=== PATIENT | female | born 1950 | race Caucasian/White ===

== ENCOUNTER 2025-01-20 20:56 | Emergency (ER) | payer MEDICARE, SELFPAY ==
--- OUTSIDE RECORDS SUMMARY | 2020-12-14 09:01 | XMS_ITS | Continuity of Care Document ---
Author Organization [facility] Address [address] [address] [place] [address] Phone Care Team Providers Care Lace And Textiles Restorer Name Role Phone Franchesca Schaffer CRNA Unavailable Unavailable Allergies, Adverse Reactions, Alerts Substance Reaction Status Criticality Sulfa (Sulfonamide Antibiotics) rash Active No Information Medications Medication Instructions Dosage Effective Dates (start - stop) Status Comments Pepcid AC 10 mg tablet take 1 tablet by oral route every day as needed 10 MG - Active metoprolol succinate ER 50 mg tablet,extended release 24 hr take 1 tablet by oral route every day 50 MG - Active bupropion HCl 75 mg tablet take 1 tablet by oral route every day 75 MG - Active Fish Oil 1,200 mg-144 mg-216 mg Cap Take one tablet by mouth daily - Active Maxzide-25mg 37.5 mg-25 mg tablet take 1 tablet by oral route every day - No Longer Active Procedures Procedure Date Colonoscopy Flex; W/remov Les- Colonoscopy Flex; W/bx 1/mx Level Iv-surg Path Gross/micro 21 Colonoscopy Flex; W/bx 1/mx Level Iv-surg Path Gross/micro 16 Colonoscopy Flex; Dx (sep Pro) 10 Advance Directives Directive Yes / No Effective Date File Name No Information Encounters Encounter Description Practice Location Reason(s) For Visit Diagnoses Date Provider Providers Copied on Encounter [facility], [address] [address], [facility] [place], [id number], [place] tel:[phone] [facility] No Information 1 Sarbjit Sorensen. [address] [facility], [address] [address], [place], [place], [id number], [place]. tel:[phone] Referring Provider: Rishi Arnold, [address] [facility] [address], [place], [address] . tel:[phone] [facility], [address] [address], [facility] [place], [id number], [place] tel:[phone] [facility] Colorectal polypsEncount er for screening for malignant neoplasm of colonPersonal history of colonic polypsBenign neoplasm of descending colonBenign neoplasm of descending colon 1 Michele Blackwell. [address] [facility], [address], [id number], [place]. tel:[phone] Referring Provider: Referral Self, USE FOR SELF REFERRALS. [facility], [address] [address], [facility] [place], [address], [place] tel:[phone] [facility] No Information 1 Cristina Bustos. [address] [facility], [address], [id number], [place]. tel:[phone] [facility], [address] [address], [place], [address], [place] tel:[phone] [facility] Colon polypEncounte r for screening for malignant neoplasm of colonBenign neoplasm of descending colon Apr- 6 Michele Blackwell. [address] [facility], [facility] [address], [place], [id number], [place]. tel:[phone] Referring Provider: Kim Sommer, [address], [place], [address]. tel:[phone] [facility], [address] [address], [place], [id number], [place] tel:[phone] Elana [facility] Diverticulosi s Of ColonColon Cancer ScreeningDive rticulosis Of Colon 0 Michele Blackwell. [address] [facility], [address], [place], [place], [address], [place]. tel:[phone] Referring Provider: Kim Sommer, [address], [place], [address]. tel:[phone] [facility], [address] [address], [place], [id number], [place] tel:[phone] [facility] No Information 0 No Information Referring Provider: Kim Sommer, [address], [place], [address]. tel:[phone] Family History Family Member Type Diagnosis Age At Onset Mother Problem (finding) diverticulitis of colon Son Problem (finding) Alive and well Father Problem (finding) Mother Problem (finding) cancer of colon Sister Problem (finding) Thyroid disorder Brother Problem (finding) Alive and well Mother Problem (finding) Immunizations Vaccine Date Status Comments SARS-COV-2 (COVID-19) vaccin e, vector non-replicating, recombinant spike protein-Ad26, preservative free, 0.5 mL administered Note: [facility] bi- directional interface ; Source: Other Registry Pneumovax administered Note: [facility] bi-d irectional interface ; Source: Other Registry Prevnar administered Note: [facility] bi-d irectional interface ; Source: Other Registry influenza, high dose seasona l, preservative-free administered Note: [facility] bi-direct ional interface ; Source: Other Registry influenza, high dose seasona l, preservative-free administered Note: [facility] bi-direct ional interface ; Source: Other Registry influenza, high dose seasona l, preservative-free administered Note: [facility] bi-direct ional interface ; Source: Other Registry Afluria Qd administered Note: [facility] bi-directional interface ; Source: Other Registry Afluria Qd administered Note: [facility] bi-directional interface ; Source: Other Registry Influenza administered Note: [facility] bi-d irectional interface ; Source: Other Registry zoster vaccine, live administered Note: [facility] bi-directional interface ; Source: Other Registry Influenza, seasonal, injectable administe red Note: [facility] bi- directional interface ; Source: Other Registry tetanus toxoid, reduced diphtheria toxoid, and acellular pertussis vaccine, adsorbed administered Note: [facility] b i-directional interface ; Source: Other Registry tetanus and diphtheria toxoi ds, adsorbed, preservative free, for adult use (2 Lf of tetanus toxoid and 2 Lf of diphtheria toxoid) administered Note: [facility] bi-direct ional interface ; Source: Other Registry tetanus and diphtheria toxoi ds, adsorbed, preservative free, for adult use (2 Lf of tetanus toxoid and 2 Lf of diphtheria toxoid) administered Note: [facility] bi-direct ional interface ; Source: Other Registry Payers Payer name Insurance type Covered alliance party ID Authoriza tiwilver(s) [employer] [id number] Social History Type Description Quantity Date Captured Comments Sex Female Smoking Status No Information Chief Complaint And Reason For Visit No Information Reason For Referral Reason For Referral No Information History Of Present Illness Encounter Date Complaint History Of Prese nt Illness No Information Functional Status Date Functional Assessmen t No Information Instructions Date Instruction Additional Infor leeion Colon Cancer Prevention Related to Colon polyp Colon Polyps Related to Colon polyp Assessments Type Assessment Date No Information Patient Care Teams Name Effective Dates (start - stop) Status Members No Information
--- OUTSIDE RECORDS SUMMARY | 2020-12-14 09:01 | XMS_ITS | Continuity of Care Document ---
Author Organization [facility] Address [address] [address] [place] [address] Phone Care Team Providers Care Sewage Plant Supervisor Name Role Phone Franchesca Schaffer CRNA Unavailable [...] Diagnoses Date Provider Providers Copied on Encounter [facility], [address] [address], [facility] [place], [id number], [place] tel:[phone] [facility] No Information 1 Sarbjit Sorensen. [address] [facility], [address] [address], [place], [place], [id number], [place]. tel:[phone] Referring Provider: Rishi Arnold, [address] [facility] [address], [place], [address] . tel:[phone] [facility], [address] [address], [facility] [place], [address], [place] tel:[phone] [facility] Colorectal polypsEncount er for screening for malignant neoplasm of colonPersonal history of colonic polypsBenign neoplasm of descending colonBenign neoplasm of descending colon 1 Michele Blackwell. [address] [facility], [address], [id number], [place]. tel:[phone] Referring Provider: Referral Self, USE FOR SELF REFERRALS. [facility], [address] [address], [facility] [place], [address], [place] tel:[phone] [facility] No Information 1 Cristina Bustos. [address] [facility], [address], [id number], [place]. tel:[phone] [facility], [address] [address], [place], [id number], [place] tel:[phone] [facility] Colon polypEncounte r for screening for malignant neoplasm of colonBenign neoplasm of descending colon Apr- 6 Michele Blackwell. [address] [facility], [facility] [address], [place], [id number], [place]. tel:[phone] Referring Provider: Kim Sommer, [address], [place], [address]. tel:[phone] [facility], [address] [address], [place], [id number], [place] tel:[phone] Elana [facility] Diverticulosi s Of ColonColon Cancer ScreeningDive rticulosis Of Colon 0 Michele Blackwell. [address] [facility], [address], [place], [place], [id number], [place]. tel:[phone] Referring Provider: Kim Sommer, [address], [place], [address]. tel:[phone] [facility], [address] [address], [place], [id number], [place] tel:[phone] [facility] No Information 0 No Information Referring Provider: Kim Sommer, [address], [place], [address]. tel:[phone] Family History Family Member Type Diagnosis Age [...] type Covered alliance party ID Authoriza tiwilver(s) [employer] [id number] Social History Type Description Quantity Date Captured [...]
--- OUTSIDE RECORDS SUMMARY | 2024-12-06 11:30 | XMS_ITS | Encounter Summary ---
[facility] Address [address], [place] [address] Care Team Providers Care Agricultural Equipment Design Engineer Name Role Phone Jane Monahan MD Primary Care Provider [phone] Reason for Visit * Reason Comments ITCHING, VULVA Encounter Details Date Type Department Care Team (Late st Contact Info) Description 12/06/2024 11:30 AM CDT Office Visit [facility] [address] [place] [address] [place] [address] [place] [address] Vulvar irritation (Primary Dx); Dysuria; Elevated blood pressure reading Social History Tobacco Use Types Packs/Day Years Used Date Smoking Tobacco: Former Cigarettes 0.5 5 0 12/06/1974 - 1979 Passive Smoke Exposure: Never Smokeless Tobacco: Never Comments:quit 1979 Alcohol Use Standard Drinks/Week Comments Not Currently 0 (1 standard drink = 0.6 oz pur e alcohol) PHQ-2 Answer Date Recorded PHQ-2 Score 1 09/30/2024 Comments No Sex and Gender Information Value Date Recorded Sex Assigned at Not on file Legal Sex Female 4:39 AM CDT Gender Identity Not on file Sexual Orientation Not on file documented as of this encounter Last Filed Vital Signs Vital Sign Reading Time Taken Comments Blood Pressure 158/78 12/06/2024 11:23 AM CDT Pulse 61 12/06/2024 11:23 AM CDT Temperature - - Respiratory Rate - - Oxygen Saturation - - Inhaled Oxygen Concentration - - Weight - - Height - - Body Mass Index - - documented in this encounter Progress Notes * Jane Monahan MD - 12/06/2024 11:30 AM CDT Chief Complaint Patient presents with ITCHING, VULVA 74 yo F here for: How long have you had these symptoms? 1 month(s) What symptoms are you experiencing? Itching Are you experiencing any fevers? No Are you experiencing any abdominal pain/bloating? No Are you experiencing any painful/frequent urination? No Are you using any over the counter products to treat your symptoms? YES What products have you tried? Vagasil Did the treatment help your symptoms? Helped - but it comes back after about 2-3 days Have you had similar symptoms? No Are you currently using contraception? YES None Any use of antibiotics in the last month? No Uses a carmen butter topical cleanser at times-rarely,about once a week. . Uses vagisil topically for symptoms of itching-helps for a short time. No vaginal discharge, States that her pelvic pressure/pain resolved since her visit last month. No changes in liners, underwear. Will ventilate overnight without improvement. Denies fevers, chills, tactile fevers, SOB, chest pain/pressure/tightness, wheezing, nausea, vomiting, abdominal pain, lightheadedness/dizziness/passing out. She has R hip pain, unchanged from baseline. No other new sx's. She is scheduled to have hip surgery in about 3 weeks-suspect that hip joint may be infected per patient. Doesn't check her BP's at home-due to upcoming surgeries patient does feel some stress overall. Prior recent BP's elevated at OV's. I have personally reviewed the patient's allergies, medications, and past medical history in detailand updated the patient record as necessary. May have some burning with urination at times. Denies SOB, chest pain/tightness/pressure, lightheadedness, PND, LE edema b/l, fevers, chills, tactile fevers, nausea, vomiting, abdominal/flank pain, hematuria, increased urinary urgency/frequency. Observed: BP (!) 158/78 (BP Location: Left Arm, BP Cuff Size: Large) Pulse 61 LMP 09/11/2004 Physical Exam: General Appearance: alert, well appearing, and in no apparent distress Pelvic: EGBUS showing atrophic changes, + erythema, with scattered excoritations along labia majora, L>R side, no drainage/discharge/skin breakdown/TTP/warmth/edema/fluctuance/induration. Assessment/Plan: 1. Vulvar irritation 2. Dysuria 3. Elevated blood pressure reading Could be irritant component, advised d/c vagisil, can try clobetasol ointment per Epic, SERD. F/u vaginitis panel. F/u UA/UCx. RTC PRN sx's persist/worsen/new sx's develop. Check home BP's 2-3 times a week for 2-3 weeks and send BP's to us. Please see orders and patient instructions Jane Monahan MD documented in this encounter Plan of Treatment Not on file documented as of this encounter Procedures Procedure Name Priority Date/Time Associated Diagnosis Comments VAGINITIS PANEL Routine 12/06/2024 1:21 PM CDT Vulvar irritation documented in this encounter Results * Vaginitis Panel (12/06/2024 1:21 PM CDT) Bacterial Vaginosis Negative Negative 12/07/2024 12:55 AM CDT [facility] Purnima species Negative Negative 12:55 AM CDT [facility] Purnima glabrata Negative Negative 12/07/2024 12:55 AM CDT [facility] Trichomonas vaginalis Negative Negative 12/07/2024 12:55 AM CDT [facility] Swab STD SPECIMEN FROM VAGINA / Unknown Non-blood Collection / Unknown 12/06/2024 1:21 PM CDT 12/06/2024 1:35 PM CDT [facility] - 12/07/2024 12:55 AM CDT Test performed by Building Engineer Mediated Amplification (TMA). us Jane Monahan MD LAB_1 Final Result [facility] CLIA: [id number] [address] [place] [address] * (ABNORMAL) Urine Culture (12/06/2024 12:10 PM CDT) Pathologist [facility] Urine Culture Growth(A) 12/07/2024 1:15 PM CDT [facility] Urine Culture 10,000 - 50,000 CFU/mL Mixed Bacterial Growth 12/07/2024 1:15 PM CDT [facility] Comment:Mixed Bacterial Grow th indicates the specimen is likely contaminated at collection with urogenital and/or fecal stacia. Urine URINE SPECIMEN COLLECTION, CLEAN CATCH / Unknown Non-blood Collection / Unknown 12/06/2024 12:10 PM CDT 12/06/2024 12:10 PM CDT Jane Monahan MD LAB_1 Final Result Performing Organization Address City/[facility] Co de Phone Number [facility] CLIA: [id number] [address] [place] [address] * (ABNORMAL) Urinalysis Routine, Micro/Culture if Pos: Clean Catch (12/06/2024 12:09 PM CDT) [facility] Urine Microscopic Evaluation Reflex Order Comment Urinalysis results meet criteria for reflex, urine microscopic evaluation performed. 12/06/2024 12:21 PM CDT [facility] Color Yellow 12/06/2024 12:21 PM CDT [facility] Clarity Clear Clear 12/06/2024 12:21 PM CDT [facility] Specific Maud 1.025 1.005 - 1.030 12/06/2024 12:21 PM CDT [facility] pH 6.0 5.0 - 8.0 12/06/2024 12:21 PM CDT [facility] Protein Negative Neg/Trace mg/dL 12/06/2024 12:21 PM CDT [facility] Glucose Negative Negative mg/dL 12/06/2024 12:21 PM CDT [facility] Ketones Negative Negative mg/dL 12/06/2024 12:21 PM CDT [facility] Urobilinogen 0.2 <2.0 EU/dL 12/06/2024 12:21 PM CDT [facility] Bilirubin Negative Negative 12/06/2024 12:21 PM CDT [facility] Blood Negative Neg/Trace 12/06/2024 12:21 PM CDT [facility] Nitrite Negative Negative 12/06/2024 12:21 PM CDT [facility] Leukocyte Esterase Small(A) Negative 12/06/2024 12:21 PM CDT [facility] Source Clean Catch 12/06/2024 12:21 PM CDT [facility] Urine URINE SPECIMEN COLLECTION, CLEAN CATCH / Unknown Non-blood Collection / Unknown 12/06/2024 12:09 PM CDT 12/06/2024 12:09 PM CDT us Jane Monahan MD LAB_1 Final Result [facility] CLIA: [id number] [address] [place] [address] documented in this encounter Visit Diagnoses Diagnosis Vulvar irritation- Primary Other specified noninflammatory disorder of vulva and perineum Dysuria Elevated blood pressure reading Elevated blood pressure reading without diagnosis of hypertension documented in this encounter Care Teams Agricultural Equipment Design Engineer Relationship Specialty [place] [address] [place] [address] PCP - General Family Practice 08/19/20 documented as of this encounter
--- OUTSIDE RECORDS SUMMARY | 2024-12-06 12:00 | XMS_ITS | Encounter Summary ---
Author Organization [facility] Address [address] [place] [address] Care Team Providers Care Railway Signal Electrician Name Role Phone Jane Monahan MD Primary Care Provider [phone] Encounter Details Date Type Department Care Team (Late st Contact Info) Description 12/06/2024 12:00 PM CDT Lab Visit Laboratory at [address] [address] Other iron deficiency anemia; Vulvar irritation; Dysuria Social History Tobacco Use Types Packs/Day Years [...] on file documented as of this encounter Plan of Treatment Not on file documented as of this encounter Procedures Procedure Name Priority Date/Time Associated Diagnosis Comments URINE CULTURE Routine 12/06/2024 12:10 PM CDT Vulvar irritation Dysuria URINALYSIS ROUTINE, MICRO/CULTURE IF POS Routine 12/06/2024 12:09 PM CDT Vulvar irritation Dysuria UA MICRO Routine 12/06/2024 12:09 PM CDT Vulvar irritation Dysuria COMPLETE BLOOD COUNT-NO DIFF Routine 12/06/2024 12:03 PM CDT Other iron deficiency anemia FERRITIN Routine 12/06/2024 12:03 PM CDT Other iron deficiency anemia IRON PROFILE (IRON,TIBC,%SAT.(WILLA C)) Routine 12/06/2024 12:03 PM CDT Other iron deficiency anemia documented in this encounter Results * (ABNORMAL) Urine Culture (12/06/2024 12:10 PM CDT) Urine Culture Growth(A) 12/07/2024 1:15 PM CDT [facility] Urine Culture 10,000 - 50,000 CFU/mL Mixed Bacterial Growth 12/07/2024 1:15 PM T [facility] Comment:Mixed Bacterial Grow th indicates the specimen is likely contaminated at collection with urogenital and/or fecal stacia. Urine URINE SPECIMEN COLLECTION, CLEAN CATCH / Unknown Non-blood Collection / Unknown 12/06/2024 12:10 PM CDT 12/06/2024 12:10 PM CDT us Jane Monahan MD LAB_1 Final Result [facility] CLIA: [id number] [address] [place] [address] * (ABNORMAL) Urine Microscopic Evaluation: Clean Catch (12/06/2024 12:09 PM CDT) Urine Culture Comment Urinalysis results do not meet criteria for urine culture reflex. 12/06/2024 12:21 PM CDT [facility] Red Blood Cells 0-3 0 - 3 /HPF 12/06/2024 12:21 PM CDT [facility] White Blood Cells 6-9(A) 0 - 5 /HPF 12/06/2024 12:21 PM CDT [facility] Bacteria Moderate(A) None Seen /HPF 12/06/2024 12:21 PM [facility] Squamous Epithelial Cells Moderate(A) None Seen, Occasion al, Few /HPF 12/06/2024 12:21 PM [facility] Transitional Epithelial Cells Occasional(A) None Seen /HPF 12/06/2024 12:21 PM [facility] Urine URINE SPECIMEN COLLECTION, CLEAN CATCH / Unknown Non-blood Collection / Unknown 12/06/2024 12:09 PM CDT 12/06/2024 12:09 PM CDT us Jane Monahan MD LAB_1 Final Result [facility] CLIA: [id number] [place] [address] * (ABNORMAL) Urinalysis Routine, Micro/Culture if Pos: Clean Catch (12/06/2024 12:09 PM CDT) Urine Microscopic Evaluation Reflex Order Comment Urinalysis results meet criteria for reflex, urine microscopic evaluation performed. 12/06/2024 12:21 PM [facility] Color Yellow 12/06/2024 12:21 PM [facility] Clarity Clear Clear 12/06/2024 12:21 PM [facility] Specific [place] 1.025 1.005 - 1.030 12/06/2024 12:21 PM [facility] pH 6.0 5.0 - 8.0 12/06/2024 12:21 PM [facility] Protein Negative Neg/Trace mg/dL 12/06/2024 12:21 PM [facility] Glucose Negative Negative mg/dL 12/06/2024 12:21 PM [facility] Ketones Negative Negative mg/dL 12/06/2024 12:21 PM [facility] Urobilinogen 0.2 <2.0 EU/dL 12/06/2024 12:21 PM [facility] Bilirubin Negative Negative 12/06/2024 12:21 PM [facility] Blood Negative Neg/Trace 12/06/2024 12:21 PM [facility] Nitrite Negative Negative 12/06/2024 12:21 PM [facility] Leukocyte Esterase Small(A) Negative 12/06/2024 12:21 PM CDT [facility] Source Clean Catch 12/06/2024 12:21 PM CDT [facility] Urine URINE SPECIMEN COLLECTION, CLEAN CATCH / Unknown Non-blood Collection / Unknown 12/06/2024 12:09 PM CDT 12/06/2024 12:09 PM CDT Jane Monahan MD LAB_1 Final Result [facility] CLIA: [id number] [address] [place] [phone] * Ferritin (12/06/2024 12:03 PM CDT) Ferritin 155 9 - 204 ng/mL 12/06/2024 4:42 PM T [facility] Blood Venipuncture / Unknown 12/06/2024 12:03 PM CDT 12/06/2024 12:03 PM CDT Jane Monahan MD LAB_1 Final Result Performing Organization Address City/[facility]/ZIP Co de Phone Number [facility] CLIA: [id number] [address] [place] [address] * (ABNORMAL) Iron Profile (Iron,TIBC,%Sat.(Calc)) (12/06/2024 12:03 PM CDT) Iron 46(L) 50 - 170 mcg/dL 12/06/2024 4:42 PM CDT [facility] Transferrin 243 180 - 382 mg/dL 12/06/2024 4:42 PM CDT [facility] TIBC, Calculated 304 240 - 450 mcg/dL 12/06/2024 4:42 PM T [facility] % Saturation, Calculated 15 10 - 50 % 12/06/2024 4:42 PM T [facility] TIBC Interpretation Low iron, normal TIBC, possible iron deficiency. 12/06/2024 4:42 PM CDT [facility] Blood Venipuncture / Unknown 12/06/2024 12:03 PM CDT 12/06/2024 12:03 PM CDT Jane Monahan MD LAB_1 Final Result Performing Organization Address City/[facility]/ZIP Co de Phone Number [facility] CLIA: [id number] [address] * Complete Blood Count-No Diff (12/06/2024 12:03 PM CDT) Pathologist [facility] WBC 7.8 3.5 - 10.5 x10(9)/L 12/06/2024 12:58 PM CDT [facility] RBC 4.54 3.90 - 5.03 x10(12)/L 12/06/2024 12:58 PM T [facility] Hemoglobin 13.3 12.0 - 15.5 g/dL 12/06/2024 12:58 PM CDT [facility] HCT 42.0 34.9 - 44.5 % 12/06/2024 12:58 PM T [facility] MCV 92.5 80.0 - 100.0 fL 12/06/2024 12:58 PM T [facility] MCH 29.3 27.6 - 33.3 pg 12/06/2024 12:58 PM [facility] MCHC 31.7 31.5 - 35.2 g/dL 12/06/2024 12:58 PM T [facility] RDW 13.7 11.9 - 15.5 % 12/06/2024 12:58 PM T [facility] Platelets 310 150 - 450 x10(9)/L 12/06/2024 12:58 PM T [facility] Blood Venipuncture / Unknown 12/06/2024 12:03 PM CDT 12/06/2024 12:03 PM CDT us Jane Monahan MD LAB_1 Final Result [facility] CLIA: [id number] [id number] documented in this encounter Visit Diagnoses Diagnosis Other iron deficiency anemia Vulvar irritation Other specified noninflammatory disorder of vulva and perineum Dysuria documented in this encounter Care Teams Railway Signal Electrician Relationship Specialty [place] [address] [place], [place] [phone] PCP - General Family Practice 08/19/20 documented as of this encounter
--- OUTSIDE RECORDS SUMMARY | 2024-12-26 09:05 | XMS_ITS | Encounter Summary ---
Author Organization [facility] Address [address] [place] [address] Care Team Providers Care Family Living Educator Name Role Phone Elsewhere, Pcp Primary Care Provider Unavailabl e Reason for Referral * Outpatient (Routine) - Closed Specialty Diagnoses / Procedures Referred By Contac t Referred To Contact Diagnoses Preoperative Exam Procedures DX Hip And Pelvis Right 2-3 Views Kesha Todd APRN, C.N.P. [address] [place] [phone] Phone: tel: fax: [facility] Referral ID Status Reason Start Date Expiration Date Visits Re quested Visits Authorized [id number] Closed 11/25/2024 02/25/2026 1 1 Reason for Visit * Outpatient (Routine) - Closed Specialty Diagnoses / Procedures Referred By Contac t Referred To Contact Diagnoses Preoperative Exam Procedures DX Hip And Pelvis Right 2-3 Views Kesha Todd APRN, C.N.P. [address] [place] [address] Phone: tel: fax: [facility] Referral ID Status Reason Start Date Expiration Date Visits Re quested Visits Authorized [id number] Closed 11/25/2024 02/25/2026 1 1 Encounter Details Date Type Department Care Team (Latest Contact Info) Description 12/26/2024 9:05 AM CDT - 12/26/2024 11:59 PM CDT Hospital Encounter Department of Radiology, [facility], in [place], [place] [address] [place] [address] Kesha Todd, THERAPIST, C.N.P. [address] [place] [address] Preoperative Exam Discharge Disposition: Home or Self Care Social History Tobacco Use Types Packs/Day Years Used Date Smoking Tobacco: Former Cigarettes 0 12/31/1974 - 1979 Passive Smoke Exposure: Past Smokeless Tobacco: Never Alcohol Use Standard Drinks/Week Comments Not Currently 0 (1 standard drink = 0.6 oz pur e alcohol) Occasionally a glass of wine [employer] Answer Date Recorded In the past 12 months has [employer], gas, oil, or water [employer] threatened to shut off services in your home? No 11/02/2024 Hunger Vital Sign Answer Date Recorded Within the past 12 months, y ou worried that your food would run out before you got the money to buy more. Never true 11/03/19 25 Within the past 12 months, t he food you bought just didn't last and you didn't have money to get more. Never true 11/02/2024 PRAPARE - Transportation Answer Date Re corded In the past 12 months, has l ack of transportation kept you from medical appointments or from getting medications? No 10/22 In the past 12 months, has l ack of transportation kept you from meetings, work, or from getting things needed for daily living? No 11/02/2024 Housing Stability Answer Date Recorded What is your living situation today? I have a [facility] place to live 11/02/2024 Comments Unknown Sex and Gender Information Value Date Recorded Sex Assigned at Female 11/02/2024 11:29 AM CDT Legal Sex Female 2:53 PM CDT Gender Identity Female 11/02/2024 11:29 AM CDT Sexual Orientation Straight 11/02/2024 11 :29 AM CDT documented as of this encounter Medications at Time of Discharge acetaminophen (TylenoL) 500 mg tablet Take 500-1,000 mg by mouth 3 (three) times a day. Takes no more than 3000 mg apap/day [address] tablet Take 1 tablet (81 mg total) by mouth 2 (two) times a day for 42 days. 120 tablet 5 02/18/20 25 buPROPion (Wellbutrin) 75 mg tablet Take 75 mg by mouth daily. 4 cefepime in dextrose, iso osm, (Maxipime) 2 gram/100 mL IVBPIndications:Bon e and/or joint infection Infuse 100 mL (2 g total) into a venous catheter every 12 (twelve) hours for 41 days Indications: Bone and/or joint infection. 5 02/17/20 25 celecoxib (CeleBREX) 200 mg capsule Take 1 capsule (200 mg total) by mouth daily for 14 days. 14 capsule 01/06/2025 3:17 PM CDT 5 cholecalciferol (Vitamin D3) 50 mcg (2,000 Unit) tablet Take 50 mcg by mouth daily. cranberry fruit (cranberry) 450 mg tablet Take 1 tablet by mouth at bedtime. famotidine (Pepcid) 20 mg tablet Take 20 mg by mouth every evening. fexofenadine ([place]) 60 mg tablet Take 30 mg by mouth daily. iron,carbonyl-vitam in C (Vitron-C) 65 mg iron- [address] tablet Take 1 tablet by mouth daily with morning meal. 4 melatonin 3 mg tablet Take 3 mg by mouth at bedtime. metoprolol tartrate (Lopressor) 25 mg tablet Take 25 mg by mouth 2 (two) times a day. 5 MULTIVITAMIN ORAL Take 1 tablet by mouth daily. omega 4-azl-fwn-fish oil (fish oil) 1,200 (144-216) mg capsule Take 1 capsule by mouth daily. rosuvastatin (Crestor) 5 mg tablet Take 5 mg by mouth at bedtime. 5 sodium chloride 0.9 % injection Infuse 10 mL into a venous catheter as needed for line care (Flush 10ml before and after each infusion and as needed for line care) for up to 41 days. 5 02/17/20 25 turmeric root extract 500 mg tablet Take 1 tablet by mouth daily. ibuprofen 200 mg tablet Take 200 mg by mouth daily. 01/03/20 25 ibuprofen-acetamino phen 125-250 mg tablet Take 1 tablet by mouth daily. 01/07/20 Lactobacillus rhamnosus GG (Culturelle) 10 billion cell capsule Take 1 capsule by mouth daily. 01/17/20 25 ondansetron ODT (Zofran-ODT) 4 mg disintegrating tablet Dissolve 1 tablet (4 mg total) in the mouth every 6 (six) hours as needed for nausea or vomiting. 12 tablet 01/06/2025 3:17 PM CDT 5 01/17/20 25 oxyCODONE (Roxicodone) 5 mg immediate release tabletIndications:A cute Pain Exception Take 1 tablet (5 mg total) by mouth every 4 (four) hours as needed for pain or severe pain or score 7-10 of 10 Indication: Acute Pain Exception. For pain after surgery 15 tablet 01/06/2025 3:17 PM CDT 5 01/17/20 25 pantoprazole (Protonix) 40 mg EC tablet Take 1 tablet (40 mg total) by mouth daily before morning meal for 42 days. 42 tablet 01/06/2025 3:17 PM CDT 5 01/17/20 25 sennosides-docusate sodium (Senokot-S) 8.6-50 mg per tablet Take 1 tablet by mouth 2 (two) times a day. To prevent constipation in the postoperative timeframe and/or while using opioid pain medications. Decrease or discontinue using if you develop loose stools. 30 tablet 5 01/17/20 25 documented as of this encounter Plan of Treatment Upcoming Encounters Date Type Department Care Team (Latest Contact Info) Description 01/21/2025 9:00 AM CDT Ancillary Procedure Department of Cardiovascular Medicine in [place], [place] [address] [place] [address] Sonu Levy Jr., M.D. [address] [place] [phone] 01/21/2025 11:40 AM CDT Lab Department of Infusion Therapy in [place], [place] [address] [place] [phone] Sonu Levy Jr., M.D. [address] [place] [phone] 01/21/2025 1:15 PM CDT Office Visit Department of Orthopedic Surgery in [place], [place] [address] [place] [phone] Aidan Self M.D. [address] [place] [phone] 01/21/2025 2:00 PM CDT Infusion Department of Infusion Therapy in [place], [place] [address] [place] [phone] Sonu Levy Jr., M.D. [address] [place] [phone] 02/11/2025 11:00 AM CDT Clinical Communication Virtual Review in [place], [place] 200 [place] [address] 02/14/2025 12:00 PM CDT Appointment Department of Laboratory Medicine and Pathology, [facility] in [place], [place] [address] [place] [phone] Kesha Todd APRN, C.N.P. [address] [place] [phone] 02/14/2025 12:30 PM CDT Office Visit Department of Orthopedic Surgery in [place], [place] [address] [place] [phone] Kesha Todd APRN, C.N.P. [address] [place] [phone] 02/14/2025 1:30 PM CDT Comprehensive Visit Section of Infectious Diseases in [place], [place] [address] [place] [phone] Kesha Todd APRN, C.N.P. [address] [place] [phone] 03/11/2025 3:00 PM STACKER Clinical Communication Virtual Review in [place], [place] [address] [place] [address] 03/18/2025 11:30 AM STACKER Appointment Department of Laboratory Medicine and Pathology, [facility] in [place], [place] [address] [place] [phone] Kesha Todd APRN, C.N.P. [address] [place] [phone] 03/18/2025 12:30 PM STACKER Office Visit Department of Orthopedic Surgery in [place], [place] [address] [place] [phone] Aidan Self M.D. [address] [place] [phone] 03/24/2025 Hospital Encounter [facility] 01 4 AM ADMIT [address] [place] [phone] Aidan Self M.D. [address] [place] [phone] Pending Results Name Type Priority Associated Diagnoses Date /Time Prepare Red Blood Cells Blood Bank Routine 12/26/2024 8:56 AM CDT Scheduled Procedures Name Priority Associated Diagnoses Date/Ti me ARTHROPLASTY REIMPLANTATION HIP Pain Hip Left documented as of this encounter Procedures Procedure Name Priority Date/Time Associated Diagnosis Comments DX HIP AND PELVIS RIGHT 2-3 VIEWS RAD - Routine (most inpatients and all outpatients) 12/26/2024 10:04 AM CDT Preoperative Exam PREPARE RED BLOOD CELLS Routine 12/26/2024 8:56 AM CDT documented in this encounter Results * DX Hip And Pelvis Right 2-3 Views (12/26/2024 10:04 AM CDT) Anatomical Region Laterality Modality Lower Extremity, Pelvis, Hip , Musculoskeletal RST LOS, Musculoskeletal ARZ LOS, Muskuloskeletal FLA LOS Right Digit al Radiography Impressions 12/26/2024 11:01 AM CDT Right KALEE with proximal femoral cerclage band fixation. Lucency about both the femoral and acetabular components concerning for loosening. Cortical thinning and bone loss along the proximal subtrochanteric femur. Mild periarticular heterotopic ossification. Lumbar degenerative disc disease and facet arthritis. 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 Demineralization. Narrative 12/26/2024 11:01 AM CDT EXAM: DX HIP AND PELVIS RIGHT 2-3 VIEWS Procedure Note Noel Lehman M.D. - 12/26/2024 EXAM: DX HIP AND PELVIS RIGHT 2-3 VIEWS IMPRESSION: Right KALEE with proximal femoral cerclage band fixation. Lucency about boththe femoral and acetabular components concerning for loosening. Corticalthinning and bone loss along the proximal subtrochanteric femur. Mildperiarticular heterotopic ossification. Lumbar degenerative disc disease and facetarthritis. 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 Kesha Todd APRN, C.N.P. IMG DIAGNOSTIC IMAGI NG PROCEDURES Final Result documented in this encounter Visit Diagnoses Diagnosis Preoperative Exam documented in this encounter Care Teams Family Living Educator Relationship Specialty Start Date End Date Elsewhere, Pcp PCP - General Internal Medicine 11/05/24 documented as of this encounter
--- OUTSIDE RECORDS SUMMARY | 2024-12-26 10:30 | XMS_ITS | Encounter Summary ---
Author Organization [facility] Address [address] [place] [phone] Care Team Providers Care Barge Worker Name Role Phone Elsewhere, Pcp Primary Care Provider Unavailabl e Reason for Visit * Outpatient (Routine) - Closed Specialty Diagnoses / Procedures Referred By Fartun love Referred To Contact Infectious Diseases Diagnoses Preoperative Exam Kesha Todd APRN, C.N.P. [address] [place] [phone] Phone: tel: fax: [facility] Referral ID Status Reason Start Date Expiration Date Visits Re quested Visits Authorized [id number] Closed 11/25/2024 05/27/2026 1 1 Encounter Details Date Type Department Care Team (Latest Contact Info) Description 12/26/2024 10:30 AM CDT Comprehensive Visit Section of Infectious Diseases in [place], [place] [address] [place] [phone] Kesha Todd APRN, C.N.P. [address] [place] [phone] Matthew Galvez M.D. [address] [place] [phone] Infection Total Hip Arthroplasty Initial Right (Primary Dx) Social History Tobacco Use Types Packs/Day Years Used Date Smoking Tobacco: Former Cigarettes 0 12/31/1974 - 1979 Passive Smoke Exposure: Past Smokeless Tobacco: Never Alcohol Use Standard Drinks/Week Comments Not Currently 0 (1 standard drink = 0.6 oz pur e alcohol) Occasionally a glass of wine [facility] Utilities Answer Date Recorded In the past 12 months has e [employer], gas, oil, or water [employer] threatened to shut off services in your [...] your living situation today? I have a [facility] place to live 11/02/2024 Comments Unknown Sex and Gender Information Value Date Recorded Sex Assigned at Female 11/02/2024 11:29 AM CDT Legal Sex Female 2:53 PM CDT Gender Identity Female 11/02/2024 11:29 AM CDT Sexual Orientation Straight 11/02/2024 11 :29 AM CDT documented as of this encounter Consult Notes * Matthew Galvez M.D. - 12/26/2024 10:30 AM CDT Images from the original note were not included. DEMOGRAPHIC INFORMATION Clinic Number:[id number] Patient Name: Khadijah Abdul Age: 74 y.o. Birthdate: 1950 Sex: female Address: [address] [place] [phone] Service: Orthopedic Infectious Diseases Consultation Service Note Type: Consult Note Date: 12/26/24 REFERRING PROVIDER Kesha Todd, Nahid BOCANEGRA* REASON FOR CONSULT We are asked to see the patient to give further recommendations for evaluation and management of #1Infection Total Hip Arthroplasty Initial Right evaluate for hip infection. Patient seen and examined. Patient's primary [facility] Orthopedic surgeon: Dr. Aidan Self Red, Blue, Green SUBJECTIVE HISTORY OF PRESENT ILLNESS Ms. Abdul is a 74 y.o. female with past medical history significant for hyperlipidemia, depression, DJD for which she is status post right total hip arthroplasty and multiple hip surgeries who presents with persistent right hip pain and decreased mobility and elevated biomarkers. . Right primary hip replacement on August 23, 2023, followed by a revision on August 24, 2023, due to dislocation. Did not have wound healing problems at this time She developed a periprosthetic femoral fracture that required femoral stem exchange and cerclage wires on September 27, 2023. Synovial aerobic and anaerobic on 09/27/2023 were negative. She was dismissed on antibiotics orally. However subsequently developed wound drainage and wound dehiscence for which on October 09, 2023 underwent superficial irrigation debridement was supra fascial, respectively. Unclear if she had any cultures done. She received 2 weeks of antibiotics. All surgeries were at [facility]. She then developed wound drainage that persisted from September through December 2024. This ultimately healed however she has continued having right hip pain and inability to ambulate well. She has not had any systemic symptoms. She was referred to [facility] for second opinion. Seen by Dr. Self on 11/07/2024. That time she was noted to have some lucency around the prosthesis. Sed rate was 39 and C-reactive protein was 20.5. She had right hip aspiration which had 104 total nucleated cell count, 100% neutrophils however not enough fluid was collected for cultures. She is now here for follow-up. History of Present Illness Khadijah Abdul is a 74 year old female who presents with persistent hip pain and wound healing issues. She presents for evaluation of her hip condition and potential infection. She underwent right hip surgery on August 23, 2023, which was complicated by a dislocation in the recovery room, necessitating a revision surgery on August 24, 2023. Subsequently, she experienced a femur fracture, leading to another surgery on September 27, 2023, where the stem was replaced and the femur was banded with circlage wires. Following the September 26 surgery, she experienced significant wound healing issues, particularly withthe posterior incision, which was draining fluid. She was on antibiotics post-surgery due to the drainage. On October 09, 2023, she underwent a superficial surgery to clean the wound, which continued todrain until December 2023. During this period, she was on antibiotics intermittently for a couple of weeks at a time. Since May 2024, she has experienced worsening hip pain, particularly in the buttock, groin, and back areas, and is unable to bear weight on her leg. She attempted physical therapy, which did notimprove her condition. No fevers, chills, sweats, weight loss, redness, or swelling in the hip area. Her current medications include cholesterol pills and Wellbutrin. She has no other significant medical history such as diabetes or immune suppression. She reports being otherwise healthy except for the hip issues. No respiratory issues, sinus infections, dental infections, or other joint problems. She had a colda week ago but no ongoing respiratory symptoms. She has no bowel or urinary tract issues. REVIEW OF SYSTEMS Pertinent items are noted in HPI; all other review of systems was negative. ALLERGIES/CONTRAINDICATIONS Allergies[1] CURRENT MEDICATIONS I have reviewed current medications and include those ordered today (if any). OBJECTIVE VITAL SIGNS Current PHYSICAL EXAMINATION General: Alert, oriented X3. Patient is comfortable. No acute distress. HEENT: No peripheral emboli. Anicteric. Lungs: Clear Heart: S1 & S2 are within normal limits. No murmurs. Skin: no rash Lines, Drains, and Airways None DIAGNOSTICS I have reviewed diagnostics. Studies of note include: Results from last 7 days Lab Units 12/26/24 0856 SED RATE mm/h 42* CRP mg/L 27.0* Results from last 7 days Lab Units 12/26/24 0856 SODIUM mmol/L 140 CREATININE mg/dL 0.78 ESTIMATED GFR EGFR mL/min/BSA 80 ALT U/L 17 CrCl cannot be calculated (Patient weight not recorded). No results found for: QTCINT, CODEDDIAG MICROBIOLOGY as per HPI. No results found for the last 90 days. RADIOLOGY No results found. 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 Discussed with the patient and her that given her multiple prior surgeries and prolonged history of drainage from September through December 2023, the elevated inflammatory markers, persistent pain, and prosthesis loosening on imaging suggest a prosthetic joint infection, despite previous negative cultures. Also discussed that she was noted to have 100% neutrophils on the recent hip aspirate although the total nucleated cell count was only 104 also lens little bit more towards the possibility of infection. The clinical presentation and laboratory findings indicate a possible low-grade infection with a biofilm-forming organism. A two-stage exchange arthroplasty is recommended, with a 90% success rate for eradicating infection. We discussed the possibility of 1 stage exchange and the potential outcomes of that. At this time we would not recommend 1 stage exchange given that wedo not have a microbiologic diagnosis which could negatively impact the outcome of a 1 stage exchange. Discussed with the patient that they really does not seem to be any other source for elevated biomarkers. Clinically she does not have symptoms related to other organ systems. Her recent CBC is have been normal. She has had regular mammograms and those have been negative and has followed up with the primary care provider and has not had any other active infections elsewhere or other inflammatory processes to explain elevated biomarkers. Chronic Pain She reports chronic pain in the hip, groin, and buttock, worsening since May 2024. The pain islikely multifactorial, related to the prosthetic joint issues and previous surgeries. Goals of Care She and her caregiver are concerned about ongoing pain and functional limitations. The goal is to alleviate pain and improve mobility through appropriate surgical and medical interventions. The proposed two-stage exchange arthroplasty aims to eradicate the infection and restore function, with a succ ess rate of approximately 90%. - Discuss the treatment plan and expected outcomes with her and her caregiver to align on goals of care. - Ensure she understands the potential need for multiple surgeries and the rationale for the proposed treatment plan. Follow-up She is scheduled for surgery on January 02, 2025, with plans for postoperative follow-up to assess the outcome of the intervention and adjust treatment as necessary. - Schedule follow-up appointments with the orthopedic and infectious disease teams post-surgery. - Monitor inflammatory markers and clinical symptoms to assess response to treatment. RECOMMENDATIONS: Recommend 2-stage exchange with initial stage to remove all prosthetic components and place a cement spacer with vancomycin and gentamicin. Send one TISSUE specimen to pathology for histopathology with special stains including Gram stain, GMS and AFB. Send 3-5 TISSUE samples to microbiology for bacteria (aerobic, anaerobic), fungal and mycobacterial stains, cultures and susceptibilities. Obtain a separate TISSUE sample for broad range PCR. Administer cefazolin 2 g q.8 hours after surgery Consult inpatient Orthopedic Infectious diseases after surgery completed Discussed with the patient that she will need antibiotic therapy for 6 weeks after surgery depending on intraoperative findings and cultures. We could potentially consider oral antibiotic therapy based on oral antimicrobial therapy based on the OVIVA clinical trial (NEJ 2019) however the final decision will depend on the culture data. Discussed potential need for a PICC line for IV antibiotics if oral options are not viable. Case Management/social service technician to see for dismissal planning to arrange outpatient parenteral antimicrobial therapy Treatment plan reviewed with Ms. Abdul and her family. They expressed understanding. All questions answered to their satisfaction. Please page [phone] for questions. Discussed with Dr Self's team. DIAGNOSES #1 Infection Total Hip Arthroplasty Initial Right Matthew Galvez M.D. [address] ORDERS No orders of the defined types were placed in this encounter. [1] Allergies Allergen Reactions Blood-Group Specific Substance Other (see comments) Patient has a history of a clinically significant antibody against RBC antigens. A delay in compatible RBCs may occur. Anti-K identified at [facility] on 08/24/23. documented in this encounter Plan of Treatment Upcoming Encounters Date Type Department Care Team (Latest Contact Info) Description 01/21/2025 9:00 AM CDT Ancillary Procedure Department of Cardiovascular Medicine in [place], [place] [address] [place] [phone] Sonu Levy Jr., M.D. [address] [place] [phone] 01/21/2025 11:40 AM CDT Lab Department of Infusion Therapy in [place], [place] [address] [place] [phone] Sonu Levy Jr., M.D. [address] [place] [phone] 01/21/2025 1:15 PM CDT Office Visit Department of Orthopedic Surgery in [place], [place] [address] [place] [phone] Aidan Self M.D. [address] [place] [phone] 01/21/2025 2:00 PM CDT Infusion Department of Infusion Therapy in [place], [place] [address] [place] [phone] Sonu Levy Jr., M.D. [address] [place] [phone] 02/11/2025 11:00 AM CDT Clinical Communication Virtual Review in [place], [place] 200 [place] [phone] 02/14/2025 12:00 PM CDT Appointment Department of Laboratory Medicine and Pathology, [facility], in [place], [place] [address] [place] [phone] Kesha Todd APRN, C.N.P. [address] [place] [phone] 02/14/2025 12:30 PM CDT Office Visit Department of Orthopedic Surgery in [place], [place] [address] [place] [phone] Kesha Todd APRN, C.N.P. [address] [place] [phone] 02/14/2025 1:30 PM CDT Comprehensive Visit Section of Infectious Diseases in [place], [place] [address] [place] [phone] Kesha Todd APRN, C.N.P. [address] [place] [phone] 03/11/2025 3:00 PM CHEESE WEIGHER Clinical Communication Virtual Review in [place], [place] 200 [place] [phone] 03/18/2025 11:30 AM CHEESE WEIGHER Appointment Department of Laboratory Medicine and Pathology, [facility], in [place], [place] [address] [place] [phone] Kesha Todd APRN, C.N.P. [address] [place] [phone] 03/18/2025 12:30 PM CHEESE WEIGHER Office Visit Department of Orthopedic Surgery in [place], [place] [address] [place] [phone] Aidan Self M.D. [address] [place] [phone] 03/24/2025 Hospital Encounter [facility] 01 4 AM ADMIT [address] [place] [phone] Aidan Self M.D. [address] [place] [phone] Scheduled Procedures Name Priority Associated Diagnoses Date/Ti me ARTHROPLASTY REIMPLANTATION HIP Pain Hip Left documented as of this encounter Visit Diagnoses Diagnosis Infection Total Hip Arthroplasty Initial Right- Primary documented in this encounter Care Teams Barge Worker Relationship Specialty Start Date End Date Elsewhere, Pcp PCP - General Internal Medicine 11/05/24 documented as of this encounter
--- OUTSIDE RECORDS SUMMARY | 2024-12-26 10:30 | XMS_ITS | Encounter Summary ---
Author Organization [facility] Address [address] [place] [phone] Care Team Providers Care Tower Foreman Name Role Phone Elsewhere, Pcp Primary Care Provider Unavailabl e Reason for Visit * Outpatient (Routine) - Closed Specialty Diagnoses / Procedures Referred By Fartun love Referred To Contact Orthopedic Surgery Kesha Todd APRN, C.N.P. [address] [place] [phone] Phone: tel: fax: Aidan Self M.D. [address] [place] [phone] Phone: tel: fax: Referral ID Status Reason Start Date Expiration Date Visits Re quested Visits Authorized [id number] Closed 11/25/2024 05/27/2026 1 1 Encounter Details Date Type Department Care Team (Late st Contact Info) Description 12/26/2024 10:30 AM CDT Office Visit Department of Orthopedic Surgery in [place], [place] [address] [place] [phone] Kesha Todd APRN, C.N.P. [address] [place] [phone] Pain Hip Right (Primary Dx) Social History Tobacco Use Types Packs/Day Years Used Date Smoking Tobacco: Former Cigarettes 0 12/31/1974 - 1979 Passive Smoke Exposure: Past Smokeless Tobacco: Never Alcohol Use Standard Drinks/Week Comments Not Currently 0 (1 standard drink = 0.6 oz pur e alcohol) Occasionally a glass of wine [facility] Utilities Answer Date Recorded In the past 12 months has e [employer], gas, oil, or water [email or web address] threatened to shut off services in your [...] your living situation today? I have a [facility] place to live 11/02/2024 Comments Unknown Sex and Gender Information Value Date Recorded Sex Assigned at Female 11/02/2024 11:29 AM CDT Legal Sex Female 2:53 PM CDT Gender Identity Female 11/02/2024 11:29 AM CDT Sexual Orientation Straight 11/02/2024 11 :29 AM CDT documented as of this encounter Progress Notes * Kesha Todd, SAHRA, C.N.P. - 12/26/2024 10:30 AM CDT SUBJECTIVE REASON FOR VISIT Khadijah Abdul is a 74 y.o. female who presents to the office today for a preoperative consultation in anticipation of Right hip revision vs resection. Continues to have the buttock pain. Doing limitedwalks with the cane but mainly in the home. Pain reported: Site 1 Pain Score: 3, Pain Location: Hip, Pain Orientation: Right, (12/26/24 0946 : Radha Castellano.) HISTORY OF PRESENT ILLNESS Khadijah Abdul is a 74 y.o. female who presents to the office today for a preoperative consultation in anticipation of Right hip revision vs resection. she has failed a comprehensive non operative treatment program, including, but not limited to NSAIDS, activity modification, Tylenol, Ice and Heat,. REVIEW OF SYSTEMS Prior DVT / PE: no Diabetes mellitus: type II Active tobacco use: no Known bleeding disorder: no Chronic anticoagulation: no Immunosuppression: no PERTINENT PAST MEDICAL HISTORY #1 Anxiety #2 Gastroesophageal Reflux Disease Without Esophagitis #3 Hypercholesterolemia #4 Hypertension Essential Primary #5 Morbid Obesity (HCC) #6 PreDiabetes CURRENT MEDICATIONS Khadijah Abdul @[facility]@ OBJECTIVE Vital Signs vitals were not taken for this visit. PHYSICAL EXAMINATION General: Awake and alert. No acute distress. Skin: intact Neurologic: intact . Vascular: intact Extremities: intact Orthopedic Physical Examination General Appearance She appears to be their stated age and healthy. Body habitus: normal. The patient is alert and oriented to person, place, and time. The patient's mood appears good. She seems reliable as a historian. The patient's affect is appropriate for situation. DIAGNOSTICS Labs: Recent Results (from the past 72 hours) ALT (Alanine Aminotransferase) Collection Time: 12/26/24 8:56 AM Result Value Alanine Aminotransferase (ALT), S 17 CRP (C-Reactive Protein) Collection Time: 12/26/24 8:56 AM Result Value C-Reactive Protein (CRP), S 27.0 (H) Sedimentation Rate Collection Time: 12/26/24 8:56 AM Result Value Sedimentation Rate, B 42 (H) Basic Metabolic Panel Collection Time: 12/26/24 8:56 AM Result Value Potassium, S 4.2 Sodium, S 140 Chloride, S 102 Bicarbonate, S 25 Anion Gap 13 BUN (Blood Urea Nitrogen), S 18 Creatinine 0.78 Estimated GFR (eGFR) 80 Calcium, Total, S 9.6 Glucose, S 115 No results found for this visit on 12/26/24 (from the past 2 weeks). Imaging: No images are attached to the encounter or orders placed in the encounter. ASSESSMENT / PLAN #1 right hip pain I discussed the clinical and radiographic findings with Khadijah Abdul. she has failed a comprehensive non-operative treatment program as outlined in the history of present illness and discussion of myprevious consult note. Ms. Abdul and I feel that the pain and limitations on activities of daily living are bad enough to warrant surgical intervention. We discussed Right hip revision vs resection. Ms. Abdul would like to proceed. All questions answered. Informed Consent: The patient understands that the risks include but are not limited to , medical problems, infection, bleeding, blood clot problems, nerve damage, dislocation problems, leg length discrepancy, prosthetic loosening, wear or failure, or ongoing pain. Discussed the potential for overlapping surgery and how we manage that effectively. Discussed some of the potential risks of opioid medications and strategies used to reduce those risks. documented in this encounter Plan of Treatment Upcoming Encounters Date Type Department Care Team (Latest Contact Info) Description 01/21/2025 9:00 AM CDT Ancillary Procedure Department of Cardiovascular Medicine in [address] [phone] Sonu Levy Jr., M.D. [address] [place] [phone] 01/21/2025 11:40 AM CDT Lab Department of Infusion Therapy in [address] [phone] Sonu Levy Jr., M.D. [address] [place] [phone] 01/21/2025 1:15 PM CDT Office Visit Department of Orthopedic Surgery in [address] [phone] Aidan Self M.D. [address] [place] [phone] 01/21/2025 2:00 PM CDT Infusion Department of Infusion Therapy in [address] [phone] Sonu Levy Jr., M.D. [address] [place] [phone] 02/11/2025 11:00 AM CDT Clinical Communication Virtual Review in [place], [place] 200 [place] [phone] 02/14/2025 12:00 PM CDT Appointment Department of Laboratory Medicine and Pathology, [facility] in [place], [place] [address] [place] [phone] Kesha Todd APRN, C.N.P. [address] [place] [phone] 02/14/2025 12:30 PM CDT Office Visit Department of Orthopedic Surgery in [place], [place] [address] [place] [phone] Kesha Todd APRN, C.N.P. [address] [place] [phone] 02/14/2025 1:30 PM CDT Comprehensive Visit Section of Infectious Diseases in [place], [place] [address] [place] [phone] Kesha Todd APRN, C.N.P. [address] [place] [phone] 03/11/2025 3:00 PM CARPENTRY FOREMAN Clinical Communication Virtual Review in [place], [place] 200 [place] [phone] 03/18/2025 11:30 AM CARPENTRY FOREMAN Appointment Department of Laboratory Medicine and Pathology, [facility], in [place], [place] [address] [place] [phone] Kesha Todd APRN, C.N.P. [address] [place] [phone] 03/18/2025 12:30 PM CARPENTRY FOREMAN Office Visit Department of Orthopedic Surgery in [place], [place] [address] [place] [phone] Aidan Self M.D. [address] [place] [phone] 03/24/2025 Hospital Encounter [facility] 01 4 AM ADMIT [address] [place] [phone] Aidan Self M.D. [address] [place] [phone] Scheduled Procedures Name Priority Associated Diagnoses Date/Ti me ARTHROPLASTY REIMPLANTATION HIP Pain Hip Left documented as of this encounter Visit Diagnoses Diagnosis Pain Hip Right- Primary documented in this encounter Care Teams Tower Foreman Relationship Specialty Start Date End Date Elsewhere, Pcp PCP - General Internal Medicine 11/05/24 documented as of this encounter
--- OUTSIDE RECORDS SUMMARY | 2025-01-02 11:03 | XMS_ITS | Encounter Summary ---
Author Organization [facility] Address [address] [place] [address] Care Team Providers Care [place] Planning Manager Name Role Phone Elsewhere, Pcp Primary Care Provider Unavailabl e Reason for Referral * Outpatient (Routine) - Authorized Specialty Diagnoses / Procedures Referred By Contac t Referred To Contact Diagnoses Pain Hip Right Procedures Remove PICC (non-tunneled) or Midline Catheter Sonu Levy Jr., M.D. [address] [place] [address] Phone: tel: fax: [facility] Referral ID Status Reason Start Date Expiration Date V isits Requested Visits Authorized [id number] Authorized 01/06/2025 04/08/2026 1 1 * Outpatient (Routine) - Authorized Specialty Diagnoses / Procedures Referred By Contac t Referred To Contact Diagnoses Pain Hip Right Procedures ECG 12 Lead UT EKG 12 LEAD W I&R Sonu Levy Jr., M.D. [address] [place] [address] Phone: tel: fax: [facility] Referral ID Status Reason Start Date Expiration Date V isits Requested Visits Authorized [id number] Authorized 01/06/2025 04/08/2026 1 1 * Outpatient (Routine) - Authorized Specialty Diagnoses / Procedures Referred By Contac t Referred To Contact Infectious Diseases Diagnoses Pain Hip Right Sonu Levy Jr., M.D. [address] [place] [address] Phone: tel: fax: [facility] Referral ID Status Reason Start Date Expiration Date V isits Requested Visits Authorized [id number] Authorized 01/06/2025 07/08/2026 1 1 * Outpatient (Routine) - Authorized Specialty Diagnoses / Procedures Referred By Contac t Referred To Contact Diagnoses Pain Hip Right Karen Nix APRN C.N.P., M.S.N. [address] [place] [address] Phone: tel: fax: Referral ID Status Reason Start Date Expiration Date V isits Requested Visits Authorized [id number] Authorized 01/06/2025 07/08/2026 1 1 Reason for Visit * Auth/Cert (Routine) Specialty Diagnoses / Procedures Referred By Contac t Referred To Contact Diagnoses Pain Hip Right Pain Hip Right [M25.551]. Procedures ARTHROPLASTY RESECTION HIP. Referral ID Status Reason Start Date Expiration Date Visits Re quested Visits Authorized [id number] 1 1 Encounter Details Date Type Department Care Team (Latest Contact Info) Description 01/02/2025 11:03 AM CDT - 01/06/2025 3:21 PM CDT Hospital Encounter [facility], [facility], [facility], Ninth [place] [address] [place] [address] Aidan Self M.D. [address] [place] [address] Pain Hip Right Discharge Disposition: [place]-Health Care [facility] [place] Social History Tobacco Use Types Packs/Day Years Used Date Smoking Tobacco: Former Cigarettes 0 12/31/1974 - 1979 Passive Smoke Exposure: Past Smokeless Tobacco: Never Alcohol Use Standard Drinks/Week Comments Not Currently 0 (1 standard drink = 0.6 oz pur e alcohol) Occasionally a glass of wine Humiliation, Afraid, Rape, and Kick questionnair e Answer Date Recorded Within the last year, have y ou been afraid of your partner or ex-partner? No 01/03/2025 Within the last year, have y ou been humiliated or emotionally abused in other ways by your partner or ex-partner? No Within the last year, have y ou been kicked, hit, slapped, or otherwise physically hurt by your partner or ex-partner? No 01/03/2025 Within the last year, have y ou been raped or forced to have any kind of sexual activity by your partner or ex-partner? No 01/03/2025 Hunger Vital Sign Answer Date Recorded Within the past 12 months, y ou worried that your food would run out before you got the money to buy more. Never true 01/04/20 25 Within the past 12 months, t he food you bought just didn't last and you didn't have money to get more. Never true 01/03/2025 PRAPARE - Transportation Answer Date Re corded In the past 12 months, has l ack of transportation kept you from medical appointments or from getting medications? No 12/23 In the past 12 months, has l ack of transportation kept you from meetings, work, or from getting things needed for daily living? No 01/03/2025 [facility] Utilities Answer Date Recorded In the past 12 months has e electric, gas, oil, or water company threatened to shut off services in your home? No 01/03/2025 Housing Stability Answer Date Recorded What is your living situation today? I have a [facility] place to live 01/03/2025 Comments No Sex and Gender Information Value Date Recorded Sex Assigned at Female 11/02/2024 11:29 AM CDT Legal Sex Female 2:53 PM CDT Gender Identity Female 11/02/2024 11:29 AM CDT Sexual Orientation Straight 11/02/2024 11 :29 AM CDT documented as of this encounter Last Filed Vital Signs Vital Sign Reading Time Taken Comments Blood Pressure 130/52 01/06/2025 1:44 PM CDT Pulse 69 01/06/2025 1:44 PM CDT Temperature 36.7 C (98.1 F) 01/06/2025 1:44 PM CDT Respiratory Rate 16 01/06/2025 1:44 PM CDT Oxygen Saturation 97% 01/06/2025 1:44 PM CDT Inhaled Oxygen Concentration - - Weight 89.7 kg (197 lb 12 oz) 01/02/2025 11:59 A M CDT Height 164 cm (5' 4.57) 01/02/2025 11:59 AM CDT Body Mass Index 33.35 01/02/2025 11:59 AM CDT documented in this encounter Discharge Summaries * Karen Nix APRN, C.N.P., M.S.N. - 01/06/2025 11:50 AM CDT DISCHARGE SUMMARY BRIEF OVERVIEW Hospital: [facility] Discharge Provider: Aidan Self M.D. Primary Team: [facility] Orthopedic Surgery - Sh[place] Primary Care Providers: Elsewhere, Pcp (General) No address on file Primary Care Provider Phone Number: None Primary Care Provider Fax Number: None Admission Date: 01/02/2025 Discharge Date: 01/06/2025 PRINCIPAL DIAGNOSIS Pain Hip Right SECONDARY DIAGNOSES Principal Problem: Pain Hip Right Resolved Problems: * No resolved hospital problems. * Surgery Information This Encounter Past Procedures (01/07/2024 to Today) Date Procedures Providers Loc / Dept 01/02/2025 ARTHROPLASTY RESECTION HIP. Aidan Self M.D.Meeker, Daniel G, M.D., Ph.D. [facility] ROEI OR DISCHARGE DISPOSITION Home[place]Health Care [facility] [place] [6] ACTIVE ISSUES REQUIRING FOLLOW UP INFECTIOUS DISEASES THERAPY RECOMMENDATIONS Antimicrobial plan: Patient will stay on the following antimicrobials: Cefepime 2 g IV q.12 hours. Proposed end date of treatment would be on February 16. Patient however should have follow-up on January 17 to review tolerability to cefepime, and discuss the feasibility of switching to an oral fluoroquinolone if the patient was open to the ID, withthe goal of using oral therapy if deemed acceptable by the patient. Lab monitoring while on antimicrobial therapy: Yes, weekly on antibiotics Complete blood count withdifferential, Alanine aminotransferase (ALT), and Creatinine. Please fax to division of Infectious Diseases OPAT monitoring program at [phone]. Should patient be enrolled in OPAT/COPAT program: Yes- Adult OPAT Infectious Diseases follow-up: Follow-up: Please arrange for a follow-up on January 17, to be coordinated between ortho and ortho ID. Prescheduled EKG, ESR and CRP. The goal is to review response to therapy, and discuss the feasibility of switching to an oral fluoroquinolone to finish a 6 week course. Central catheter management at end of treatment: Central catheter removal decision will be made at follow-up appointment but an appointment for PICC removal should be made for AFTER ID clinical appointment. PICC LINE CARE: You are being discharged with a PICC (Percutaneously Inserted Central Catheter) line for long-term administration of IV (intravenous) antibiotics. Outpatient antibiotic therapy has been arranged. ThePICC must be maintained with heparin and saline flushes and site care per agency protocol. The PICCmay be removed after all IV antibiotics have been discontinued by your provider or agency. While taking IV antibiotics, it is important for you to have several blood parameters monitored weekly by a physician. These include CBC, creatinine, and ALT. Your designated primary care physician has been contacted and agrees to monitor these levels. This information is intended to help you learn how to care for your open-ended peripherally inserted central catheter (PICC) after leaving [facility]. Caring for your PICC includes: 1) Understanding sterile and clean techniques 2) Flushing the PICC 3) Performing site care 4) Changing the PICC injection cap If you have questions about PICC care, please contact your health care provider. An open-ended catheter requires heparin flushes to keep it open (clear) and has a clamp to maintain pressure on the catheter. Heparin is a medication that thins the blood and prevents blood clots from forming. Important points to remember: 1) Daily you should look for possible complications (i.e., leaking cap, dressing non-adherence, dislodgement, signs and symptoms of infection). 2) Twice a day or after each use you should flush the catheter (all ports if more than one). 3) Every 3 days, you should change the injection caps. 4) Once a week you should do site care and a dressing change. If you are using a gauze dressing it needs to be changed in 48 hours. 5) Make sure the catheter clamp is always closed when the catheter is not in use. 6) Keep the site dressing intact with edges secured. If you see moisture under the dressing, do site care. 7) Home health care personnel may follow the guidelines in your [facility] PICC care booklet or they may follow their organization's guidelines for PICC care. 8) Place used injection tips and syringes in puncture-resistant, covered containers such as a plastic detergent bottle, tin coffee can, or plastic milk jug. Check with your local garbage collection agency for container disposal. How to check for infection: 1) Increased pain, or pain no longer relieved by pain medications. 2) Increased tenderness, redness, or swelling at the insertion site. 3) Oral temperature of 101.5 degrees F or higher, chills. 4) Purulent (Cloudy yellow, davalos) drainage, bleeding or a foul-smelling odor coming from the insertion site. 5) Any other change that concerns you. If you have any of these symptoms of infection, please report these to your provider. OUTPATIENT FOLLOW UP Scheduled Appointments 02/11/2025 11:00 AM RST ORS SPM INTAKE VISIT Admitting/Central Scheduling 02/14/2025 12:00 PM LAB BLOOD DIRK [facility] 02/14/2025 12:30 PM Kesha Todd, SAHRA, C.N.P. Orthopedic Surgery 02/14/2025 1:30 PM IFD ORS OFF FLOOR 03 [facility] Infectious Diseases For appointment details refer to your Patient Appointment Guide. TEST RESULTS PENDING AT DISCHARGE Pending Labs Order Current Status Bacterial Culture, Aerobic + Susceptibility Collected (01/02/25 1610) Bacterial Culture, Anaerobic + Susceptibility Collected (01/02/25 1610) Pathology Exempt Research Only Collected (01/02/25 7943) Fungal Culture, Routine In process Fungal Culture, Routine In process Fungal Culture, Routine In process Fungal Culture, Routine In process Mycobacterial Culture In process Mycobacterial Culture In process Mycobacterial Culture In process Mycobacterial Culture In process Bacteria Culture, Aerobe / Anaerobe + Susc Preliminary result Bacteria Culture, Aerobe / Anaerobe + Susc Preliminary result DETAILS OF HOSPITAL STAY REASON FOR ADMISSION Pain Hip Right HOSPITAL COURSE Surgery Information This Encounter Past Procedures (01/07/2024 to Today) Date Procedures Providers Loc / Dept 01/02/2025 ARTHROPLASTY RESECTION HIP. Aidan Self M.D.Isac Montez M.D., Ph.D. [facility] OR Khadijah Abdul was taken to the operative room by Aidan Self, * for the procedure listed above. The intraoperative as well as the immediate postoperative course were uncomplicated. For further details of the surgery please see the operative note. The patient was transferred from the PACU to the general care floor for continued observation and monitoring. She progressed in the usual post-operative fashion without complications. The patient was treated with perioperative IV antibiotics. She was given liquids by mouth and eventually advanced as tolerated towards a more general diet. Her pain was well controlled with oral pain medications. Physical therapy / Occupational therapy was consulted for assistance with mobilization and gait training. She was mobilizing without difficulty and was compliant with any activity restrictions. Her incision remained intact with no concerns. Her bowel and bladder function were acceptable. She then met criteria for discharge and was later dismissed from the hospital. For any further details please see the [facility] orthopedic surgery progress note and any other co-managing teams dated 01/06/2025. CONSULTS ORDERED DURING THIS ADMISSION IP CONSULT TO INFECTIOUS DISEASES IP CONSULT TO CARE MANAGEMENT IP CONSULT TO INFECTIOUS DISEASES IP CONSULT TO CARE MANAGEMENT CONDITION AT DISCHARGE stable Discharge instructions were provided to the patient and caregiver(s). Total time spent in discharge services today: 40 minutes. documented in this encounter Discharge Instructions * Attachments The following attachments cannot be sent through Care Everywhere. * Celecoxib (By mouth) (Moldovan) * Sodium Chloride (By injection) (Moldovan) * Ondansetron (By mouth, Into the mouth) (Moldovan) * Pantoprazole (By mouth) (Moldovan) * Senna (By mouth) (Moldovan) * Oxycodone, Rapid Release (By mouth) (Moldovan) * Cefepime (By injection) (Moldovan) documented in this encounter Medications at Time of Discharge [...] Take 1 tablet by mouth daily. omega 8-ucd-apz-fish oil (fish oil) 1,200 (144-216) mg capsule [...] tablet Take 1 tablet by mouth daily. Lactobacillus rhamnosus GG (Culturelle) 10 billion cell [...] 01/17/20 25 documented as of this encounter Progress Notes * Heaven Reyna, L.G.SMelvinW. - 01/06/2025 10:26 AM CDT SUBJECTIVE Patient has selected [facility] to provide her home IV antibiotics. [facility] will provideweekly PICC site care and labs & weekly wound care. Patient anticipates to discharge Monday, if deemed medically stable. [facility] will come to patients room today, 01/06, to perform teach. OBJECTIVE Anticipated Needs Anticipated Needs Functional Status: Housekeeping, Transportation use (drive car, use taxi/bus), Mobility Assistive Devices: Specialized stroller Anticipated Modifications to the Patient's Home: None Transportation Needs: Support from family Does the patient need discharge transport arranged?: No Ride and Caregiver Arranged: Yes Ride Caregiver Provider: yaniv montilla Phone Number for Ride/Caregiver: [phone] Anticipated Discharge Destination: Home-Health Care [facility] [place] Patient/family are understanding and accepting of the discharge plan as described below. ASSESSMENT / PLAN Assessment Those noted above appear to have insight into the patient's needs at this time and are planning appropriately for discharge needs. They report agreement with the below plan with no further questions at this time. No barriers identified at this time. Plan Patient will discharge home with home infusions. Individuals have been identified who are willing and able to learn the infusion technique. Dialysis/Infusion - Admitted Since 01/02/2025 Service Provider Services Address Phone Fax Patient Preferred [facility] [address] [place] [phone] -- Contact: NURSING: - Adjust the dosing schedule to accommodate home infusion. - Fax any prescriptions 24 hours prior to discharge. - Complete documentation in the Discharge Navigator including Nursing Report Info and Facility/NextLevel of Care Info - Call report and arrange for patient???s first visit. - Be sure the patient receives a dose prior to dismissal on the day of discharge. - Send After Visit Summary, include IV access information and current labs and required packet of dismissal information with patient, including advance directive. PRIMARY SERVICE: - Prescription needs to be completed and faxed to the infusion provider at least 24 hours prior to dismissal. - Prescription needs to include: - Orders for IV meds with a stop date - Normal Saline/Heparin flushes and site care for IV access The following information will need to be included in the After Visit Summary: - Orders for IV meds with a stop date - Normal Saline/Heparin flushes and site care for IV access - Recommendations for any lab work while on IV therapy - Discontinue IV access at completion of therapy - Contact patient's primary care provider for writing IV orders, monitoring of labs/levels and any other continuing care needs. A copy of the After Visit Summary needs to be sent there as well. Site care and blood draws will be managed by Home Care: Home Medical Care - Admitted Since 01/02/2025 Service Provider Services Address Phone Fax Patient Preferred [facility] [address] [place] [address] [address] ARAIZA, [facility] [phone] -- Contact: They will provide the nursing, patient family teaching, and IV access care for this patient. NURSING: - Complete documentation in the Discharge Navigator including Nursing Report Info and Facility/NextLevel of Care Info - Call report and arrange for the patient's first visit - Send After Visit Summary and required packet of dismissal information with patient, including advance directive. PRIMARY SERVICE: - Please provide a non-[facility] home health order for: fpc care, wound check, PICC site care, and lab draws in the After Visit Summary. - Communicate with the patient's local primary care provider by telephone for writing of home care orders. This needs to be done to help prevent discharge delays. A copy of the After Visit Summary needs to be sent there as well. Social Work : -Will continue to follow for ongoing discharge planning needs. * Lyssa Byrd M.D. - 01/06/2025 6:44 AM CDT [facility] SERVICE PROGRESS NOTE SUBJECTIVE This patient was seen in the acute postoperative setting 4 Days Post-Op s/p Right - ARTHROPLASTY RESECTION HIP. Pain well-controlled on current multimodal regimen. Cultures growing gram positive bacillus and pseudomonas. Currently on vancomycin per ID recommendations. Will work with PT today. Awaiting final antibiotic plan from ID and arrangement of home antibiotics. OBJECTIVE VITAL SIGNS Temperature: [36.5 ??C-36.7 ??C] 36.6 ??C Resp Rate: [16] 16 Blood Pressure: (115-127)/(50-65) 127/55 SpO2: [94 %-100 %] 94 % Pulse Rate: [61-77] 61 PHYSICAL EXAM General: NAD. Neuro: Alert and engaged, answers questions appropriately. Cardiovascular: Regular rate. Respiratory: Regular respiratory rate. Normal work of breathing. Musculoskeletal: On examination of the operative lower extremity, surgical dressing is clean, dry, and intact. Fires tibialis anterior, EHL, gastrocsoleus complex, and peroneals. Sensation intact to gross light touch. Toes warm and well-perfused with capillary refill less than 2 sec. Palpable dorsalis pedis pulse. I/O last 3 completed shifts: In: 2240 [P.O.:1730] Out: 675 [Urine:675] DIAGNOSTICS Recent Labs 01/05/25 0218 WBC 9.6 HGB 9.2 L HCT 28.1 L MCV 91.8 PLT 250 Recent Labs 01/05/25 0218 NA 140 CL 105 BICARB 25 CREATININE 0.71 BUN 16 GLUCOSE 129 No results for input(s): INR, PT in the last 48 hours. No results for input(s): SEDRATE, CRP in the last 48 hours. ASSESSMENT / PLAN IMPRESSION/REPORT/PLAN #1 Pain Hip Right Surgical Diagnosis/Procedure(s) Status post right hip resection arthroplasty Comorbidities Present on Admission Medical History[1] Assessment: 74yo F s/p R hip resection arthroplasty with placement of articulating antibiotic spacer on 01/02. Patient will remain on cefepime 2 g IV q. 12 hours with a proposed end date of treatment on 02/16/25 per IFD. Activity NWB operative lower extremity DVT Ppx: SCDs; ASA 81mg PO BID x 6 weeks following surgery Antibiotics: Cefepime per ID Drains: None Dressing: Managed by service; incisional wound vac in place Imaging: Completed POD #0 Labs: Will monitor. Cultures/Path: OR cultures with pseudomonas Pain: Multimodal regimen per service protocol Diet: Adult Diet Regular GI Prophylaxis: Home famotidine Bowel Regimen: Dulcolax, Miralax, and Senokot-S Catheter: None PT/OT: Consulted for gait training and mobilization Consults: IFVAM[facility] [place] Anticipated Disposition: Discharge home today after PICC placement. Patient will receive home health from [facility] [employer] who will provide weekly PICC site care and labs, and [facility] to provideher home IV antibiotics. Follow-up: Patient will follow-up with in the clinic in 6 weeks; visit to be coordinated with IFD. JR Carson M.D. Please contact [facility] service during business hours with any questions or concerns regarding this patient. After hours, 6pm - 6am and on weekends contact [facility] at [phone]. [1] Past Medical History: Diagnosis Date Anemia Personal History - Blood Transfusion No Diagnosis 09-14 Dyslipidemia NOS 2019? Hypertension NOS 1999? Polyp Colon 2022 * Bibiana Fuller M.D. - 01/05/2025 4:41 PM CDT Post Anesthesia Assessment Note Patient: Khadijah Abdul General Info Post-procedure day: 3 Follow-up type: inpatient regional Regional Block Information Description/location: posterior lumbar plexus (PSOAS) Laterality: right Local anesthetic: bupivacaine 0.1% Rate (mL/hour): 10 Multi-modal Analgesics: Acetaminophen: yes Assessment: General assessment: uncomplicated postoperative course Side effects and complications: no complications Anticoagulation Therapy aspirin Patient Care Plan: tip intact and plan to discontinue catheter * Contreras Read M.B.B.SMelvin - 01/05/2025 1:22 PM CDT Orthopedic Infectious Diseases Consultation Service-Progress Note DEMOGRAPHIC INFORMATION Clinic Number:[id number] Patient Name: Khadijah Abdul Age: 74 y.o. Birthdate: 1950 Sex: female Service Date/Time: 01/05/25 1:23 PM CDT Provider: Otoniel Menon SUBJECTIVE Over the last 24 hours patient remained afebrile. Susceptibilities on the Pseudomonas came back. OBJECTIVE VITAL SIGNS Temperature: [36.6 ??C-36.8 ??C] 36.6 ??C Resp Rate: [14-16] 16 Blood Pressure: (116-152)/(56-80) 120/65 SpO2: [91 %-97 %] 95 % Pulse Rate: [60-77] 77 PHYSICAL EXAMINATION HENT Head: Atraumatic. Cardiovascular Rate and Rhythm: Normal rate. Skin General: Skin is warm. Neurological General: No focal deficit present. Mental Status: She is alert. LABS Lab Results Component Value Date WBC 9.6 01/05/2025 HGB 9.2 (L) 01/05/2025 PLT 250 01/05/2025 Lab Results Component Value Date CREATININE 0.71 01/05/2025 No results found for: ALT Estimated Creatinine Clearance: 77.4 mL/min (by C-G formula based on SCr of 0.71 mg/dL). Microbiology Micro Results Last 72 Hours Acid Fast Smear for Mycobacterium Specimen: Hip, Right Specimen Source Site: Tissue, RIGHT HIP #1 Result Value Acid Fast Smear For Mycobacterium Negative. Acid Fast Smear for Mycobacterium Specimen: Hip, Right Specimen Source Site: Tissue, RIGHT HIP #2 MS79 Result Value Acid Fast Smear For Mycobacterium Negative. Acid Fast Smear for Mycobacterium Specimen: Hip, Right Specimen Source Site: Tissue, RIGHT HIP #3 Result Value Acid Fast Smear For Mycobacterium Negative. Acid Fast Smear for Mycobacterium Specimen: Hip, Right Specimen Source Site: Tissue, RIGHT HIP #4 Result Value Acid Fast Smear For Mycobacterium Negative. 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 Abdul is a 74 y.o. female with past medical history significant for hyperlipidemia, depression, DJD for which she is status post right total hip arthroplasty and multiple hip surgeries. She presented with persistent right hip pain and decreased mobility and elevated biomarkers. She is status post resection arthroplasty to her right hip with Dr. Self on 01/02. Intraoperatively Dr. Sanchezcribed extensive signs of infection. Multiple specimens were obtained for culture and explanted components sent for sonication. Patient was started on cefazolin postoperatively but broadened to v ancomycin and cefepime on 01/03 with cultures now growing Pseudomonas aeruginosa. Patient has remained afebrile with stable vital signs overnight. I discussed multiple options with the patient, includinst, discharging on oral fluoroquinolone, perihilar prior history of bilateral Achilles tendon rupture attributed to bone spur, she was very reluctant to proceed with the fluoroquinolones of in the light of her prior tendon related issues. We also discussed the toxicities commonly attributed to fluo roquinolones, the prevalence of these side effects etc. 2nd option, would be committing her to 6 weeks of IV cefepime, we discussed the pros and cons of PICC line, IV therapy for the full duration of treatment. Third option, pursuing a hybrid approach with the initial 2 weeks of IV therapy then potentially transitioning to oral fluoroquinolones based on progress if she feel comfortable fluoroquinolones of the time. Patient was in favor of the 3rd option, which I think is reasonable. RECOMMENDATIONS: 1. Please continue with cefepime 2. Please obtain EKG Primary service: ID Primary Service Options: Please consult Care Management for dismissal planning INFECTIOUS DISEASES THERAPY RECOMMENDATIONS Antimicrobial plan: Patient will stay on the following antimicrobials: Cefepime 2 g IV q.12 hours. Proposed end date of treatment would be on February 16. Patient however should have follow-up on January 17 to review tolerability to cefepime, and discuss the feasibility of switching to an oral fluoroquinolone if the patient was open to the ID, withthe goal of using oral therapy if deemed acceptable by the patient. Lab monitoring while on antimicrobial therapy: Yes, weekly on antibiotics Complete blood count withdifferential, Alanine aminotransferase (ALT), and Creatinine. Please fax to division of Infectious Diseases OPAT monitoring program at [phone]. Should patient be enrolled in OPAT/COPAT program: Yes- Adult OPAT Infectious Diseases follow-up: Follow-up: Please arrange for a follow-up on January 17, to be coordinated between ortho and ortho ID. Prescheduled EKG, ESR and CRP. The goal is to review response to therapy, and discuss the feasibility of switching to an oral fluoroquinolone to finish a 6 week course. Central catheter management at end of treatment: Central catheter removal decision will be made at follow-up appointment but an appointment for PICC removal should be made for AFTER ID clinical appointment. DIAGNOSES #1 Pain Hip Right * Bibiana Fuller M.D. - 01/05/2025 11:30 AM CDT Post Anesthesia Assessment Note Patient: Khadijah Abdul General Info Post-procedure day: 3 Follow-up type: inpatient regional Regional Block Information Description/location: posterior lumbar plexus (PSOAS) Laterality: right Local anesthetic: bupivacaine 0.1% Rate (mL/hour): 10 Multi-modal Analgesics: Acetaminophen: yes Assessment: General assessment: uncomplicated postoperative course Side effects and complications: no complications Catheter assessment: clean, intact, non tender Signs/symptoms of local anesthetic toxicity: none Site Assessment: Sensory: normal-preoperative baseline Motor: normal-preoperative baseline Pain Assessment: Current static pain scale: 0/10 Current dynamic pain scale: 1/10 Highest pain score last 24 hours: 0/10 Anticoagulation Therapy aspirin Patient Care Plan: continue current management per plan/IPS protocol Overall Comments Revaluate with patient in afternoon after several hours of pain infusion off to determine if pt comfortable with catheter removal today Cosigned by Rosana Navarro M.D. at 01/05/2025 12:29 PM CDT * Tom Foley PMelvinT., D.P.T., [facility] - 01/05/2025 10:50 AM CDT Physical Therapy Inpatient Treatment SUBJECTIVE Patient's Name: Khadijah Abdul Referring/Attending Provider: Aidan Self M.D. Reason for Referral: Physical Therapy Evaluate and Treat Onset Date: 01/02/2025 History of Present Illness: Khadijah Abdul is a 74 y.o. female who was admitted to [facility] in [place] on 01/02/2025 for Pain Hip Right [M25.551] Precautions Weight Bearing Status: Toe-touch weight-bearing Other Precautions: Hip precautions Pain Assessment: Pain not rated, but present Patient/Caregiver Goals: Return to home Subjective Comments: Agreeable to therapy session. OBJECTIVE Vital Signs Vitals monitored throughout session; within normal ranges. Outcome Measures: AM-PAC Inpatient Short Form: AM-PAC Basic Mobility (V.2) How much help from another person do you currently need???If the patient hasn't done an activity recently, how much help from another person do you think he/she would needif he/she tried? 1. Turning from your back to your side while in a flat bed without using bedrails?: A Little 2. Moving from lying on your back to sitting on the side of a flat bed without using bedrails?: A Little 3. Moving to and from a bed to a chair (including a wheelchair)?: A Little 4. Standing up from a chair using your arms (e.g., wheelchair, or bedside chair)?: A Little 5. To walk in hospital room?: Total 6. Climbing 3-5 steps with a railing?: Total AM-PAC Basic Mobility (V.2) Raw Score: 14 AM-PAC Basic Mobility (V.2) Standardized Score: 35.55 Interpretation: Based on scoring guidelines using the raw score value: Those going to home had an average score at or above 18 Those going to facility had an average score at or below 17 Clinicians answer the AM-PAC Inpatient Short Form based on observed patient activity and/or clinical judgement (patient can be scored without physically performing each activity). The AM-PAC is one of many factors to consider when discharge planning. Therapeutic Interventions: SIT TO STAND: - Assist Level: contact guard assist of 1 - Device: gait belt and front wheeled walker - Surface: bed and chair - Therapist Delivery: assessed, facilitated, and instructed - Assist/Cues Provided: verbal and visual for adherence to weight bearing restrictions, device placement, lower extremity placement, upper extremity placement, and upright posture STAND TO SIT: - Assist Level: contact guard assist of 1 - Device: gait belt and front wheeled walker - Surface: bed and chair - Therapist Delivery: assessed and facilitated - Assist/Cues Provided: verbal and tactile for adherence to weight bearing restrictions, alignment with seated surface, device placement, and lower extremity placement TRANSFER: - Surface:bed to chair and reverse - Assist Level: contact guard assist of 1 - Device: gait belt and front wheeled walker - Approach: stand pivot, to the left, to the right - Therapist Delivery: assessed, facilitated, and instructed - Assist/Cues Provided: verbal and tactile for adherence to weight precautions, placement of gait aid, placement within the walker, and upright posture - Comments: Patient had slow movement, she was able to maintain her toe touch weight bearing throughout both transfers. Used shoe on nonoperative foot to decrease bobbin handler when compared to grippy sock THERAPEUTIC EXERCISE: Total Joints Exercise: - Hip Revision , Per MD protocol/guideline EDUCATION: -Role of PT in acute setting and collaborated with patient and/or family on goals and plan of care. -Activity precautions -Home exercise program -Safe transfer techniques -Weight bearing precautions The patient's status was discussed and the following coordination of care occurred with the RN Patient was left in bedside chair at end of session with call light in reach, all needs met and questions answered. Assessment Discharge Therapy Needs - PT: Ongoing skilled physical therapy If skilled therapy is recommended, skilled therapy can include physical therapy provided by home health, outpatient clinic, or a post-acute facility. The location of these services is determined by the patient's care team in partnership with patient/family. Equipment Recommended - PT: Front-wheeled walker owns From a physical therapy perspective, the level of care above has been recommended for Ms. Abdul after hospital discharge. This level of care is based on her functional abilities during today's session. This may change throughout the hospital course and will be updated as appropriate. Clinical Impression: Patient has good motivation to complete therapy. She moves slowly in transfers, but is safe and able to maintain her weight bearing status. She will continue to benefit from use of her home exercise program per protocol to maintain movement in knee and ankle. She will improve with time. She has hadmultiple surgeries in the past and knows her mobility with toe touch weight bearing in her home envi ronment. Rehab potential: Ms. Abdul has Good potential to achieve established physical therapy goals within the time frame outlined below. Progress: Progressing toward goals Plan PT Plan Comments: Continue to work on bed mobility, sit to and from stand transfers, and stand pivot transfers. Home exercise program has been reviewed, but may review again if needed. Functional Goals: PT Inpatient Goals PT Goal #1: Patient will demonstrate the ability to perform bed mobility per home setup with supervision to improve functional independence. PT Goal #1 Status: Progressing PT Goal #2: Patient will demonstrate the ability to verbalize safe set-up and perform sit<>stand with supervision for improved functional mobility and safety PT Goal #2 Status: Progressing PT Goal #3: Patient will demonstrate the ability to complete stand pivot transfer between sitting surfaces with least restrictive gait aid with supervision assist for improved independence with mobility and to return to prior level of function. PT Goal #3 Status: Progressing Treatment Plan: Plan: Continue with current plan PT Amount: 1 visit per day PT Frequency: 6 times per week PT Inpatient Duration : Until goals are met or hospital discharge Requires Inpatient Follow-Up: Yes PT - Next Inpatient Appointment: 01/06/25 Patient agrees with the plan of care and goals. Treatment interventions may include: Treatment/Interventions: Therapeutic exercise, Therapeutic functional activity, Gait training Billing: Time Spent with Patient Therapeutic Interventions Therapeutic Activity (min): 27 min Time Tracking Total Timed Units (min): 27 min Total Treatment Time (min): 27 min Tom Foley P.T., Navid.P.TMelvin, G[facility] * Antonio Calvo M.D. - 01/05/2025 6:19 AM CDT [facility] SERVICE PROGRESS NOTE SUBJECTIVE This patient was seen in the acute postoperative setting 3 Days Post-Op s/p Right - ARTHROPLASTY RESECTION HIP. Pain well-controlled on current multimodal regimen. Cultures growing gram positive bacillus and pseudomonas. Currently on vancomycin per ID recommendations. Will work with PT today. Awaiting final antibiotic plan from ID and arrangement of home antibiotics. OBJECTIVE VITAL SIGNS Temperature: [36.6 ??C-36.8 ??C] 36.6 ??C Resp Rate: [14-16] 16 Blood Pressure: (116-152)/(56-80) 117/62 SpO2: [91 %-97 %] 96 % Pulse Rate: [60-76] 60 PHYSICAL EXAM General: NAD. Neuro: Alert and engaged, answers questions appropriately. Cardiovascular: Regular rate. Respiratory: Regular respiratory rate. Normal work of breathing. Musculoskeletal: On examination of the operative lower extremity, surgical dressing is clean, dry, and intact. Fires tibialis anterior, EHL, gastrocsoleus complex, and peroneals. Sensation intact to gross light touch. Toes warm and well-perfused with capillary refill less than 2 sec. Palpable dorsalis pedis pulse. I/O last 3 completed shifts: In: 740 [P.O.:720] Out: 2425 [Urine:2425] DIAGNOSTICS Recent Labs 01/05/25 0218 WBC 9.6 HGB 9.2 L HCT 28.1 L MCV 91.8 PLT 250 Recent Labs 01/05/25 0218 NA 140 CL 105 BICARB 25 CREATININE 0.71 BUN 16 GLUCOSE 129 No results for input(s): INR, PT in the last 48 hours. No results for input(s): SEDRATE, CRP in the last 48 hours. ASSESSMENT / PLAN IMPRESSION/REPORT/PLAN #1 Pain Hip Right Surgical Diagnosis/Procedure(s) Status post right hip resection arthroplasty Comorbidities Present on Admission Medical History[1] Assessment: 74yo F s/p R hip resection arthroplasty with placement of articulating antibiotic spacer on 01/02. Activity NWB operative lower extremity DVT Ppx: SCDs; ASA 81mg PO BID x 6 weeks following surgery Antibiotics: Cefepime per ID, awaiting susceptibilities Drains: None Dressing: Managed by service; incisional wound vac in place Imaging: Completed POD #0 Labs: Will monitor. Cultures/Path: OR cultures with pseudomonas Pain: Multimodal regimen per service protocol Diet: Adult Diet Regular GI Prophylaxis: Home famotidine Bowel Regimen: Dulcolax, Miralax, and Senokot-S Catheter: None PT/OT: Consulted for gait training and mobilization Consults: IFD Anticipated Disposition: Pending final antibiotic plan Follow-up: Patient will follow-up with in the clinic in 6 weeks; visit to be coordinated with IFD. Antonio Calvo M.D. Please contact [employer] during business hours with any questions or concerns regarding this patient. After hours, 6pm - 6am and on weekends contact [facility] at [phone]. [1] Past Medical History: Diagnosis Date Anemia Personal History 5-24 Blood Transfusion No Diagnosis 5- Dyslipidemia NOS 2019? Hypertension NOS 1999? Polyp Colon 2022 * August South M.S., P.T., D.P.T. - 01/04/2025 2:47 PM CDT Physical Therapy Inpatient Treatment SUBJECTIVE Patient's Name: Khadijah Abdul Referring/Attending Provider: Aidan Self M.D. Reason for Referral: Physical Therapy Evaluate and Treat Onset Date: 01/02/2025 History of Present Illness: Khadijah Abdul is a 74 y.o. female who was admitted to [facility] in [place] on 01/02/2025 for Pain Hip Right [M25.551] Precautions Weight Bearing Status: Toe-touch weight-bearing Other Precautions: Hip precautions Pain Assessment: Pain not rated, but present Patient/Caregiver Goals: Return to home Subjective Comments: Agreeable to therapy session. OBJECTIVE Vital Signs Vitals stable per chart review. Outcome Measures: AM-PAC Inpatient Short Form: AM-PAC Basic Mobility (V.2) How much help from another person do you currently need???If the patient hasn't done an activity recently, how much help from another person do you think he/she would needif he/she tried? 1. Turning from your back to your side while in a flat bed without using bedrails?: A Little 2. Moving from lying on your back to sitting on the side of a flat bed without using bedrails?: A Little 3. Moving to and from a bed to a chair (including a wheelchair)?: A Little 4. Standing up from a chair using your arms (e.g., wheelchair, or bedside chair)?: A Little 5. To walk in hospital room?: Total 6. Climbing 3-5 steps with a railing?: Total AM-PAC Basic Mobility (V.2) Raw Score: 14 AM-PAC Basic Mobility (V.2) Standardized Score: 35.55 Interpretation: Based on scoring guidelines using the raw score value: Those going to home had an average score at or above 18 Those going to facility had an average score at or below 17 Clinicians answer the AM-PAC Inpatient Short Form based on observed patient activity and/or clinical judgement (patient can be scored without physically performing each activity). The AM-PAC is one of many factors to consider when discharge planning. Therapeutic Interventions: SUPINE TO SIT: - Assist Level: minimal assist of 1 - Device: head of bed elevated - Therapist Delivery: assessed, assisted, educated, and facilitated - Assist/Cues Provided: verbal and manual - Comments: Minimal assist for maneuvering surgical leg to the edge of bed SIT TO SUPINE: - Assist Level: minimal assist of 1 - Device: head of bed elevated, bedrail, and leg locomotive switch operator - Therapist Delivery: assessed, assisted, educated, and facilitated - Assist/Cues Provided: verbal and manual for lower extremity movement/management SIT TO STAND: - Assist Level: contact guard assist of 1 - Device: gait belt and front wheeled walker - Surface: bed - Therapist Delivery: assessed, educated, and instructed - Assist/Cues Provided: verbal for adherence to weight bearing restrictions, technique, upper extremity placement, and upright posture STAND TO SIT: - Assist Level: contact guard assist of 1 - Device: gait belt and front wheeled walker - Surface: chair - Therapist Delivery: assessed, educated, and instructed - Assist/Cues Provided: verbal for adherence to weight bearing restrictions, alignment with seated surface, and upper extremity placement. Patient was able to maintain TTWB restrictions during stand and able to complete pivot transfer to chair from the bedside while maintaining TTWB, using shuffling, heel to toe motions while turning. Patient was left in bedside chair at end of session with call light in reach, all needs met and questions answered. Assessment Discharge Therapy Needs - PT: Ongoing skilled physical therapy If skilled therapy is recommended, skilled therapy can include physical therapy provided by home health, outpatient clinic, or a post-acute facility. The location of these services is determined by the patient's care team in partnership with patient/family. Equipment Recommended - PT: Front-wheeled walker owns From a physical therapy perspective, the level of care above has been recommended for Ms. Abdul after hospital discharge. This level of care is based on her functional abilities during today's session. This may change throughout the hospital course and will be updated as appropriate. Clinical Impression: The patient is currently limited in hip strength and range of motion compared to their presurgical status which is functionally limiting their ability to perform bed mobility, sit to and from stand transfers, and ambulation. Patient did well during today's therapy treatment and demonstrated the ability to safely complete stand pivot transfer from the bed to and from a wheelchair with use of a front wheeled walker while maintaining toe-touch weight-bearing restrictions. Education points described above. Therapy will follow up tomorrow in order to progress independence with mobility and continue practicing transfers asappropriate. Physical therapy treatment is medically necessary to restore and optimize function, maximize safety, facilitate discharge to home, and to teach and educate the patient and/or caregivers. Rehab potential: Ms. Abdul has Good potential to achieve established physical therapy goals within the time frame outlined below. Progress: Progressing toward goals Plan PT Plan Comments: Continue to work on bed mobility, sit to and from stand transfers, and stand pivot transfers. Home exercise program has been reviewed, but may review again if needed. Functional Goals: PT Inpatient Goals PT Goal #1: Patient will demonstrate the ability to perform bed mobility per home setup with supervision to improve functional independence. PT Goal #1 Status: Progressing PT Goal #2: Patient will demonstrate the ability to verbalize safe set-up and perform sit<>stand with supervision for improved functional mobility and safety PT Goal #2 Status: Progressing PT Goal #3: Patient will demonstrate the ability to complete stand pivot transfer between sitting surfaces with least restrictive gait aid with supervision assist for improved independence with mobility and to return to prior level of function. PT Goal #3 Status: Progressing Treatment Plan: Plan: Continue with current plan PT Amount: 1 visit per day PT Frequency: 6 times per week PT Inpatient Duration : Until goals are met or hospital discharge Requires Inpatient Follow-Up: Yes PT - Next Inpatient Appointment: 01/05/25 Patient agrees with the plan of care and goals. Treatment interventions may include: Treatment/Interventions: Therapeutic exercise, Therapeutic functional activity, Gait training Billing: Time Spent with Patient Therapeutic Interventions Therapeutic Activity (min): 26 min Time Tracking Total Timed Units (min): 26 min Total Treatment Time (min): 26 min August South M.S., P.T., D.P.T. * Hiren Harrington R.N. - 01/04/2025 11:52 AM CDT Post Anesthesia Assessment Note Patient: Khadijah Adbul General Info Post-procedure day: 2 Follow-up type: inpatient regional Regional Block Information Description/location: posterior lumbar plexus (PSOAS) Laterality: right Local anesthetic: bupivacaine 0.1% Rate (mL/hour): 10 Multi-modal Analgesics: Acetaminophen: yes Opioids: yes (Oxycodone and Tramadol) Assessment: General assessment: uncomplicated postoperative course Side effects and complications: no complications Catheter assessment: clean, intact, non tender Signs/symptoms of local anesthetic toxicity: none Site Assessment: Sensory: decreased sensation to light touch Motor: decreased motor strength Dermatome level: Laterality: right Pain Assessment: Current static pain scale: 1/10 Highest pain score last 24 hours: 6/10 (pain increases to 6/10 with movement in and out of bed) Anticoagulation Therapy aspirin Patient Care Plan: continue current management per plan/IPS protocol Overall Comments Will plan on removing the PNC or Monday[place] [phone] with questions or concerns. Cosigned by August King M.D., Ph.D. at 01/05/2025 1:25 AM CDT * Sonu Levy Jr., M.D. - 01/04/2025 8:26 AM CDT Infectious Diseases Orthopedic Surgery [facility] [place]ing Service Progress Note SUBJECTIVE REASON FOR CONSULT Ortho [facility] [place] service pager at [phone] is following Khadijah Abdul for evaluation and management of antibiotics recommendation for PJI of the right hip. EVENTS OVER THE PAST 24 HOURS: Patient is doing well after surgery. She endorses some pain at the right hip. Denies fevers, chills, night sweats, headache, diarrhea, abdominal pain, nausea or vomiting. Able to sit at the edge of the bed with no issues. No additional concerns at this time. OBJECTIVE Vitals: 01/04/25 0824 BP: 119/57 Pulse: 76 Resp: 16 Temp: 36.6 ??C SpO2: 95% PHYSICAL EXAMINATION I have reviewed the current vital sign data as applicable. HEENT: Normocephalic, atraumatic. No scleral icterus. Moist oral mucosa. CV: Regular rate and rhythm. No lower extremity edema. Resp: Clear to auscultation bilaterally. Normal work of breathing on room air. GI: Soft, nondistended. Normoactive bowel sounds. Nontender to palpation. Extremities: Well perfused. No deformities appreciated. Right hip dressing is intact. Skin: Warm, dry. No visibile rashes. Mental: Alert, oriented. Appropriate with conversation. Neuro: No focal deficits appreciated. DIAGNOSTICS I have reviewed diagnostics. Studies of note include: Susceptibility data from last 90 days. Collected Specimen Info Organism 01/02/25 Hip, Right Pseudomonas aeruginosa 01/02/25 Hip, Right Pseudomonas aeruginosa 01/02/25 Hip, Right Pseudomonas aeruginosa 01/02/25 Hip, Right Pseudomonas aeruginosa RADIOLOGY DX Hip Right 2-3 Views Result Date: 01/02/2025 Impression: Postoperative changes of right hip arthroplasty resection. Negative for postoperative purposes. 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 Abdul is a 74 y.o. female with past medical history significant for hyperlipidemia, depression, DJD for which she is status post right total hip arthroplasty and multiple hip surgeries. She presented with persistent right hip pain and decreased mobility and elevated biomarkers. She is status post resection arthroplasty to her right hip with Dr. Self on 01/02. Intraoperatively Dr. Sanchezcribed extensive signs of infection. Multiple specimens were obtained for culture and explanted components sent for sonication. Patient was started on cefazolin postoperatively but broadened to v ancomycin and cefepime on 01/03 with cultures now growing Pseudomonas aeruginosa. Patient has remained afebrile with stable vital signs overnight. RECOMMENDATIONS: Continue cefepime 2g IV q 12 hrs Discontinue Vancomycin We will continue to monitor cultures Treatment plan reviewed with Ms. Abdul, who expressed understanding. All questions answered to patient's satisfaction. We will follow along closely. Please page [facility] service pager at [phone] with any questions. Patient's care discussed with managed security sales consultant, Dr. Contreras Read. Patrick Levy Jr., MD Infectious Diseases Fellow [phone] * Contreras Read M.B.BMelvinS. - 01/04/2025 8:01 AM CDT This is a supervisory progress note. Please refer to the associated progress note for full details and recommendations, I interviewed the patient myself, repeated the chen component of the history andphysical examination, reviewed the relevant clinical, radiological, microbiological data. Patient is a 74-year-old female, with complex history related to her right total hip arthroplasty, as noted previously she underwent a primarily right hip on August 22, 2024, this was complicated by instability prompting revision, periprosthetic femoral fracture status post stem exchange on cerclage onSeptember 26, 2024, subsequent wound dehiscence prompting I&D on October 08. Who is now being evaluated following resection arthroplasty for presumed culture negative infection. Multiple operative cultures came back positive for Pseudomonas aeruginosa, prompting addition of cefepime. We recommended discontinuation of IV vancomycin. Continuation of IV cefepime. Anticipate 6 weeks oftherapy pending susceptibility data. Patient had prior concerns with regard to be utilization fluoroquinolones. * Antonio Calvo M.D. - 01/04/2025 7:46 AM CDT AMBER SERVICE PROGRESS NOTE SUBJECTIVE This patient was seen in the acute postoperative setting 2 Days Post-Op s/p Right - ARTHROPLASTY RESECTION HIP. Pain well-controlled on current multimodal regimen. Cultures growing gram positive bacillus and pseudomonas. Currently on vancomycin per ID recommendations. Will work with PT today. Awaiting final antibiotic plan from ID and arrangement of home antibiotics. OBJECTIVE VITAL SIGNS Temperature: [36.6 ??C-36.9 ??C] 36.6 ??C Resp Rate: [15-16] 16 Blood Pressure: (119-132)/(52-65) 127/52 SpO2: [94 %-97 %] 94 % Pulse Rate: [62-68] 64 PHYSICAL EXAM General: NAD. Neuro: Alert and engaged, answers questions appropriately. Cardiovascular: Regular rate. Respiratory: Regular respiratory rate. Normal work of breathing. Musculoskeletal: On examination of the operative lower extremity, surgical dressing is clean, dry, and intact. Fires tibialis anterior, EHL, gastrocsoleus complex, and peroneals. Sensation intact to gross light touch. Toes warm and well-perfused with capillary refill less than 2 sec. Palpable dorsalis pedis pulse. I/O last 3 completed shifts: In: 890.8 [P.O.:400] Out: 1725 [Urine:1725] DIAGNOSTICS Recent Labs 01/03/25 0258 WBC 12.4 H HGB 11.7 HCT 35.4 L MCV 89.4 PLT 407 H Recent Labs 01/03/25 0258 01/02/25 2159 NA -- 138 CL -- 102 BICARB -- 23 CREATININE 0.61 0.62 BUN -- 15 GLUCOSE -- 225 H No results for input(s): INR, PT in the last 48 hours. No results for input(s): SEDRATE, CRP in the last 48 hours. ASSESSMENT / PLAN IMPRESSION/REPORT/PLAN #1 Pain Hip Right Surgical Diagnosis/Procedure(s) Status post right hip resection arthroplasty Comorbidities Present on Admission Medical History[1] Assessment: 74yo F s/p R hip resection arthroplasty with placement of articulating antibiotic spacer on 01/02. Activity NWB operative lower extremity DVT Ppx: SCDs; ASA 81mg PO BID x 6 weeks following surgery Antibiotics: Vancomycin per ID; appreciate recs Drains: None Dressing: Managed by service; incisional wound vac in place Imaging: Completed POD #0 Labs: Will monitor. Cultures/Path: OR cultures with pseudomonas Pain: Multimodal regimen per service protocol Diet: Adult Diet Regular GI Prophylaxis: Home famotidine Bowel Regimen: Dulcolax, Miralax, and Senokot-S Catheter: None PT/OT: Consulted for gait training and mobilization Consults: IFD Anticipated Disposition: Pending final antibiotic plan Follow-up: Patient will follow-up with in the clinic in 6 weeks; visit to be coordinated with IFD. Antonio Calvo M.D. Please contact [employer] during business hours with any questions or concerns regarding this patient. After hours, 6pm - 6am and on weekends contact [facility] at [phone]. [1] Past Medical History: Diagnosis Date Anemia Personal History 5- Blood Transfusion No Diagnosis -24 Dyslipidemia NOS 2019? Hypertension NOS 1999? Polyp Colon 2022 * Heaven Reyna L.GMelvinSMadeleine. - 01/03/2025 1:32 PM CDT SUBJECTIVE Patient has selected [facility] to provide her home IV antibiotics. [facility] will provideweekly PICC site care and labs & weekly wound care. Patient anticipates to discharge Monday, if deemed medically stable. Social work will arrange teach with home infusion company, once Infectious diease has provided their final recommendations. OBJECTIVE Anticipated Needs Anticipated Needs Functional Status: Housekeeping, Transportation use (drive car, use taxi/bus), Mobility Assistive Devices: Specialized stroller Anticipated Modifications to the Patient's Home: None Transportation Needs: Support from family Does the patient need discharge transport arranged?: No Ride and Caregiver Arranged: Yes Ride Caregiver Provider: yaniv montilla Phone Number for Ride/Caregiver: [phone] Anticipated Discharge Destination: [place] [facility] [place] Patient/family are understanding and accepting of the discharge plan as described below. ASSESSMENT / PLAN Assessment Those noted above appear to have insight into the patient's needs at this time and are planning appropriately for discharge needs. They report agreement with the below plan with no further questions at this time. No barriers identified at this time. Plan Patient will discharge home with home infusions. Individuals have been identified who are willing and able to learn the infusion technique. Dialysis/Infusion - Admitted Since 01/02/2025 Service Provider Services Address Phone Fax Patient Preferred [facility] [address] [place] [phone] -- Contact: NURSING: - Adjust the dosing schedule to accommodate home infusion. - Fax any prescriptions 24 hours prior to discharge. - Complete documentation in the Discharge Navigator including Nursing Report Info and Facility/NextLevel of Care Info - Call report and arrange for patient???s first visit. - Be sure the patient receives a dose prior to dismissal on the day of discharge. - Send After Visit Summary, include IV access information and current labs and required packet of dismissal information with patient, including advance directive. PRIMARY SERVICE: - Prescription needs to be completed and faxed to the infusion provider at least 24 hours prior to dismissal. - Prescription needs to include: - Orders for IV meds with a stop date - Normal Saline/Heparin flushes and site care for IV access The following information will need to be included in the After Visit Summary: - Orders for IV meds with a stop date - Normal Saline/Heparin flushes and site care for IV access - Recommendations for any lab work while on IV therapy - Discontinue IV access at completion of therapy - Contact patient's primary care provider for writing IV orders, monitoring of labs/levels and any other continuing care needs. A copy of the After Visit Summary needs to be sent there as well. Site care and blood draws will be managed by Home Care: Home Medical Care - Admitted Since 01/02/2025 Service Provider Services Address Phone Fax Patient Preferred [facility] [address] [place] [address] [address], [facility] [phone] -- Contact: They will provide the nursing, patient family teaching, and IV access care for this patient. NURSING: - Complete documentation in the Discharge Navigator including Nursing Report Info and Facility/NextLevel of Care Info - Call report and arrange for the patient's first visit - Send After Visit Summary and required packet of dismissal information with patient, including advance directive. PRIMARY SERVICE: - Please provide a non-[facility] health order for: fpc care, wound check, PICC site care, and lab draws in the After Visit Summary. - Communicate with the patient's local primary care provider by telephone for writing of home care orders. This needs to be done to help prevent discharge delays. A copy of the After Visit Summary needs to be sent there as well. Social Work : -Will continue to follow for ongoing discharge planning needs. Alesha Packer 01/03/2025 * Isac Montez M.D., Ph.D. - 01/03/2025 9:07 AM CDT SHAYY SERVICE PROGRESS NOTE SUBJECTIVE This patient was seen in the acute postoperative setting 1 Day Post-Op s/p Right - ARTHROPLASTY RESECTION HIP. Pain well-controlled on current multimodal regimen. Cultures remain NGTD. Currently on vancomycin per ID recommendations. Will work with PT today. Awaiting final antibiotic plan from ID and arrangement of home antibiotics. OBJECTIVE VITAL SIGNS Temperature: [36.4 ??C-36.9 ??C] 36.6 ??C Heart Rate: [63-86] 73 Resp Rate: [11-25] 15 Blood Pressure: (102-168)/(57-131) 119/57 SpO2: [94 %-100 %] 97 % Flow Rate (L/min): [0 L/min-2 L/min] 0 L/min Pulse Rate: [62-84] 62 PHYSICAL EXAM General: NAD. Neuro: Alert and engaged, answers questions appropriately. Cardiovascular: Regular rate. Respiratory: Regular respiratory rate. Normal work of breathing. Musculoskeletal: On examination of the operative lower extremity, surgical dressing is clean, dry, and intact. Fires tibialis anterior, EHL, gastrocsoleus complex, and peroneals. Sensation intact to gross light touch. Toes warm and well-perfused with capillary refill less than 2 sec. Palpable dorsalis pedis pulse. I/O last 3 completed shifts: In: 2970 [P.O.:540] Out: 1400 [Urine:1000; Blood:400] DIAGNOSTICS Recent Labs 01/03/25 0258 WBC 12.4 H HGB 11.7 HCT 35.4 L MCV 89.4 PLT 407 H Recent Labs 01/03/25 0258 01/02/25 2159 NA -- 138 CL -- 102 BICARB -- 23 CREATININE 0.61 0.62 BUN -- 15 GLUCOSE -- 225 H No results for input(s): INR, PT in the last 48 hours. No results for input(s): SEDRATE, CRP in the last 48 hours. ASSESSMENT / PLAN IMPRESSION/REPORT/PLAN #1 Pain Hip Right Surgical Diagnosis/Procedure(s) Status post right hip resection arthroplasty Comorbidities Present on Admission Medical History[1] Assessment: 74yo F s/p R hip resection arthroplasty with placement of articulating antibiotic spacer on 01/02. Activity NWB operative lower extremity DVT Ppx: SCDs; ASA 81mg PO BID x 6 weeks following surgery Antibiotics: Vancomycin per ID; appreciate recs Drains: None Dressing: Managed by service; incisional wound vac in place Imaging: Completed POD #0 Labs: Will monitor. Cultures/Path: OR cultures NGTD Pain: Multimodal regimen per service protocol Diet: Adult Diet Regular GI Prophylaxis: Home famotidine Bowel Regimen: Dulcolax, Miralax, and Senokot-S Catheter: None PT/OT: Consulted for gait training and mobilization Consults: IFD Anticipated Disposition: Pending final antibiotic plan Follow-up: Patient will follow-up with in the clinic in 6 weeks; visit to be coordinated with IFD. Isac Montez M.D., Ph.D. Please contact [employer] [facility] during business hours with any questions or concerns regarding this patient. After hours, 6pm - 6am and on weekends contact [facility] at [phone]. [1] Past Medical History: Diagnosis Date Anemia Personal History - Blood Transfusion No Diagnosis 09-14 Dyslipidemia NOS 2019? Hypertension NOS 1999? Polyp Colon 2022 * Mary Owens R.N. - 01/03/2025 8:58 AM CDT Post Anesthesia Assessment Note Patient: Khadijah Abdul General Info Post-procedure day: 1 Follow-up type: inpatient regional Regional Block Information Description/location: posterior lumbar plexus (PSOAS) Laterality: right Local anesthetic: bupivacaine 0.1% Rate (mL/hour): 10 Multi-modal Analgesics: Acetaminophen: yes Opioids: yes (Oxycodone and Tramadol) Assessment: General assessment: uncomplicated postoperative course Side effects and complications: no complications Catheter assessment: clean, intact, non tender Signs/symptoms of local anesthetic toxicity: none Site Assessment: Sensory: decreased sensation to light touch Motor: decreased motor strength Dermatome level: Laterality: right Pain Assessment: Current static pain scale: 1/10 Current dynamic pain scale: 3/10 Anticoagulation Therapy aspirin Patient Care Plan: continue current management per plan/IPS protocol Overall Comments Patient is happy with the use of the nerve catheter as part of his pain management. [place] [phone] with questions or concerns. Cosigned by Elena Armstrong M.D. at 01/03/2025 12:06 PM CDT * Analisa Hou Pharm.D., R.Ph., BCPS - 01/03/2025 8:46 AM CDT Pharmacist Progress Note Reason for admission: 74 y.o. female with hip pain s/p right hip arthroplasty resection on 01/02/2025. PMH: HLD, HTN, GERD, anxiety OBJECTIVE Home medications: Held: supplements Changed: none Patient own medications: none Review of Systems Neuro: pain 0 - 4, APAP scheduled, tramadol prn (50 mg since MN), oxy prn (none yet) CV: VSS/WNL GI: ARoBF, senna-s BID Renal: UOP adequate, Scr: 0.61 (at baseline) Endo: blood glucose: 225 on BMP - got dexamethasone in OR yesterday (4 mg) ID: Vanco starting; 01/02 cultures pending - NGTD; WBC: 12.4 Prophylaxis: ASA 81mg BID ASSESSMENT / PLAN ID IFD consulted - appreciate their recommendations Vancomycin Stable renal function Current level is unknown Dose: Initiate at 1250 mg every 12 hours Level planned: prior to dose 4 01/04 @ 2100 (ordered) Stopped cefazolin per discussion with IFD Pain Continue acetaminophen, celecoxib Continue oxycodone prn Monitor use/efficacy Discontinued tramadol Patient currently on bupropion - this is a CYP2D6 inhibitor. This decreases the metabolism of tramadol to it's active form and decreases efficacy as well as increases the risk of serotonin syndrome. GI Awaiting return of bowel function - continues senna-s per ERP Changes to medications anticipated at discharge: pain regimen, bowel regimen, antibiotics per IFD [place] 9-[place] [phone] with questions. Analisa Hou Pharm.D., R.Ph., BCPS * Adarsh Barrera M.D. - 01/02/2025 8:15 PM CDT Post Anesthesia Assessment Note Patient: Khadijah Abdul General Info Post-procedure day: 0 (day of procedure) Follow-up type: inpatient regional Regional Block Information Description/location: posterior lumbar plexus (PSOAS) Laterality: right Local anesthetic: bupivacaine 0.1% Rate (mL/hour): 10 Multi-modal Analgesics: Acetaminophen: no Gabapentinoids: no NSAIDs: no Opioids: no Other: no Assessment: General assessment: uncomplicated postoperative course Side effects and complications: no complications Catheter assessment: clean, intact, non tender Site Assessment: Sensory: decreased sensation to light touch Motor: decreased motor strength Dermatome level: Laterality: right Pain Assessment: Current static pain scale: 0/10 Current dynamic pain scale: 0/10 Highest pain score last 24 hours: 0/10 Anticoagulation Therapy none Patient Care Plan: continue current management per plan/IPS protocol Overall Comments Continues to have bilateral lower extremity weakness from spinal. Sensation intact but diminished. Pain currently 0. Catheter site clean, dry and intact. * Magali Colbert Pharm.DMelvin, R.Ph. - 01/02/2025 12:08 PM CDT Images from the original note were not included. Admission Medication History Note Adherence issues: No concerns Medication list source: Patient, Care Everywhere or chart review, and Pharmacy or dispense records Medication related information: Patient uses ibuprofen/apap combination tab daily. But she will adjust how much regular acetaminophen she takes to makes sure she stays under 3000 mg/day. She has not taken the combination the week prior to surgery. Added daily cranberry supplement. Prior to Admission Medications Med List Status: Pharmacy Complete Set By: Magali Colbert PharmMelvinDMelvin, R.Ph. at 01/02/2025 12:05 PM Taking? Last Dose Informant Start Date End Date LT acetaminophen (TylenoL) 500 mg tablet 01/01/2025 at Evening -- 09/28/23 -- Take 500-1,000 mg by mouth 3 (three) times a day. Takes no more than 3000 mg apap/day buPROPion (Wellbutrin) 75 mg tablet 01/02/2025 at Morning -- 04/11/24 -- Take 75 mg by mouth daily. cholecalciferol (Vitamin D3) 50 mcg (2,000 Unit) tablet 01/01/2025 at Morning -- -- -- Take 50 mcg by mouth daily. cranberry fruit (cranberry) 450 mg tablet 01/01/2025 at Bedtime -- -- -- Take 1 tablet by mouth at bedtime. famotidine (Pepcid) 20 mg tablet 01/01/2025 at Evening -- -- -- Take 20 mg by mouth every evening. fexofenadine ([place]aine) 60 mg tablet Past Week -- -- -- Take 30 mg by mouth daily. Patient taking differently: Take 30 mg by mouth daily as needed for allergies. ibuprofen-acetaminophen 125-250 mg tablet 12/26/2024 -- -- -- Take 1 tablet by mouth daily. iron,carbonyl-vitamin C (Vitron-C) 65 mg iron- [address] tablet 01/01/2025 at Morning -- 08/28/23 -- Take 1 tablet by mouth daily with morning meal. Lactobacillus rhamnosus GG (Culturelle) 10 billion cell capsule 01/01/2025 at Morning -- -- -- Take 1 capsule by mouth daily. melatonin 3 mg tablet 01/01/2025 at Bedtime -- -- -- Take 3 mg by mouth at bedtime. metoprolol tartrate (Lopressor) 25 mg tablet 01/02/2025 -- 07/12/24 -- Take 25 mg by mouth 2 (two) times a day. MULTIVITAMIN ORAL 12/26/2024 -- -- -- Take 1 tablet by mouth daily. omega 6-dci-ymv-fish oil (fish oil) 1,200 (144-216) mg capsule 12/26/2024 -- -- -- Take 1 capsule by mouth daily. rosuvastatin (Crestor) 5 mg tablet 01/01/2025 at Bedtime -- 09/30/24 -- Take 5 mg by mouth at bedtime. turmeric root extract 500 mg tablet 12/26/2024 -- -- -- Take 1 tablet by mouth daily. documented in this encounter Procedure Notes * Aidan Cespedes R.N. - 01/06/2025 9:29 AM CDTAssociated Order(s): Place peripherally inserted central catheter (PICC) Place peripherally inserted central catheter (PICC) Performed by: Aidan Cespedes R.N. Authorized by: Charanjit Benjamin APRN, C.N.P., D.N.P. Care team members present 1. Aidan Cespedes R.N. 2. Evelia Lawrence R.N. PROCEDURE DETAILS Select line: PICC Line type: temporary (non-tunneled, non-implanted) Line size: 3.0 FR Catheter to vein ratio less than 45%: yes Adult or Michele/Peds: adult # of lumens: single lumen Type of catheter: power injectable and valved Laterality: left IV location: basilic Optimal site selected: yes Number of insertion attempts: 1 Blood return: yes Placement assistance: ECG guidance Tip verification: ECG Catheter length (cm): 41 Initial exposed catheter (cm): 0 Mid upper arm circumference (cm): 29 All lumens flushed (Document volume in I/O): yes CONSENT Consent obtained: written (Risks, benefits and alternatives were discussed and a written Informed Consent was obtained. Please see Informed Consent form for further details.) UNIVERSAL PROTOCOL All relevant documentation and testing were reviewed and available. All required blood products, implants, devices and or special equipment were made available as applicable. Pre-procedure verification was conducted and the correct site was marked if required. A fire risk and smoke assessment were done as applicable. The procedural time-out to verify correct patient, correct side/site, and procedure was conducted prior to performing the procedure and confirmed in a procedural pause. PRE-PROCEDURE DETAILS Indications: Medication/nutrition requiring central access Appropriate hand hygiene, gown, cap, mask, protective eyewear, sterile gloves, skin preparation, sterile drape, and strict aseptic technique were utilized as applicable for the procedure.: yes Site preparation: Chlorhexidine SEDATION / ANESTHESIA Anesthesia method: local infiltration Local infiltrate type: lidocaine POST-PROCEDURE DETAILS Procedure completed successfully: yes Complications: no apparent complications 0.40 vein diameter. Veins right arm not measured however thought too small. Tissue adhesive has been applied to your catheter insertion site for securement, stabilization, andsealant. The purpose of the tissue adhesive is to reduce bleeding, reduce catheter movement/dislodgement, and protect the site from contamination. The tissue adhesive takes the place of a chlorhexidine gluconate (CHG) disk or dressing and also any other devices used for securement. Tissue adhesive will remain attached to the skin surface until natural cellular regeneration occurs(approx. 5-7 days). It is intended to be used with a transparent film dressing. Site care is recommended every 7 days. If tissue adhesive is not reapplied at the time of site care, please assess, clean, and dress the site per institutional guidelines. Residual tissue adhesive on the catheter tubing or skin during the dressing change does NOT need alphonse removed. If needed, any medical adhesive remover product may be used to release the adhesive from the skin. [email or web address]/[email or web address] documented in this encounter Consult Notes * Kathi Garcia M.S., O.T. - 01/03/2025 4:00 PM CDT Occupational Therapy [facility] Inpatient Evaluation/Treatment SUBJECTIVE Patient's Name: Khadijah Abdul Referring/Attending Provider: Aidan Self M.D. Reason for Referral: Occupational Therapy Evaluation and Treatment Onset Date: 01/02/2025 PERTINENT MEDICAL / SURGICAL HISTORY: Medical History[1] Surgical History[2] History of Present Illness: Khadijah Abdul is a 74 y.o. female who was admitted to [facility] in [place] on 01/02/2025 for Pain Hip Right [M25.551]. Relevant Medical History: Patient is a pleasant 74 year old female who is s/p a right hip arthroplasty resection on 01/02/25. Past medical history includes: hypertension; gastroesophageal reflux disease and anxiety. Precautions Weight Bearing Status: Toe-touch weight-bearing Other Precautions: Hip precautions Pain Assessment: Pain not rated, but present Patient/Caregiver Goals: Return to prior level of function Subjective Comments: Agreeable to therapy session. Home Living and Equipment: Lives with: Spouse/Significant other Receives help from: Family and Spouse/Significant other Type of Home: House Home Layout: One Level Home Access: Level entry Bathroom Accessibility: Shower: Walk-in Shower Level: Main Floor Bathroom Equipment: Shower chair with back, suction grab bars Toilet: Comfort Toilet Level: Main Floor Assistive Device Owned: Front wheeled walker, Single point cane, has transport wheelchair, plans toobtain power wheelchair Adaptive Equipment Owned: Gmat Tutor, femal urinal Other DME Owned: Lift chair, Adjustable bed Prior Level of Function and Mobility: Basic Activities of Daily Living: Modified Independent Instrumental Activities of Daily Living: Modified Independent Functional Mobility: Independent OBJECTIVE Vital Signs: Vitals not formally assessed during session. No concerns during chart review and the patient had nosigns or symptoms consistent with vital changes during therapy session. Evaluation Assessment: STRENGTH: Not formally assessed but appears within functional limits based on observation RANGE OF MOTION: Not formally assessed but appears within functional limits based on observation Outcome Measures: AM-PAC Inpatient Short Form: Putting on and taking off regular lower body clothing?: A lot Putting on and taking off regular upper body clothing?: None Taking care of personal grooming such as brushing teeth?: None Bathing (including washing, rinsing, drying)?: A lot Toileting, which includes using toilet, bedpan, or urinal?: A lot Eating meals?: None Daily Activities Raw Score (max 24): 18 Daily Activities Standardized Score: 38.66 Interpretation: Based on scoring guidelines using the raw score value: Those going to home had an average score at or above 18 Those going to facility had an average score at or below 17 Clinicians answer the AM-PAC Inpatient Short Form based on observed patient activity and/or clinical judgment (patient can be scored without physically performing each activity). The AM-PAC is one ofmany factors to consider when discharge planning. Cognition: No observable concerns with cognition at this time Therapeutic Interventions: Evaluation only performed today, treatment to be addressed next session Education/Training Provided: Provided education on role of occupational therapy in the acute setting. Collaborated with patient and/or family on goals and plan of care. Team Communication: The patient's status was discussed and coordination of care occurred with RN Patient was left in bed at end of session with call light in reach, all needs met and questions answered. Assessment Discharge Therapy Needs - OT: No further skilled therapy If skilled therapy is recommended, skilled therapy can include occupational therapy provided in home health, outpatient or post-acute facility. The location of these services is determined by patient's care team in partnership with patient/family. Level of Care Needed - OT: Assistance with toileting, Assistance with dressing, Physical assistanceneeded, Assistance with meal preparation, Assistance with toilet/shower transfers, Assistance with transportation, Assistance with housekeeping, Assistance with shopping, Assistance with showering/bathing Barriers to Discharge Home: Current functional status Clinical Impression: Currently, patient presents with impairments including decreased strength and balance resulting in the following functional deficits: impaired ADL independence and safety. Patient presents with limitations that include: debility; post surgical pain; generalized weakness and decreased activity tolera nce. These limitations interfere with patient's abilities to independently and safely complete all ADL's and functional transfers. Patient will benefit from continued Occupational Therapy services throughout hospitalization to maximize functional independence, decrease dependence on others and provide patient with safe and appropriate discharge recommendations. In-Hospital Activity and Mobility Recommendations: - Active engagement in daily self-care routine (oral cares, face washing, combing hair) - Maintain typical day/night routine and incorporate sleep hygiene strategies Plan OT Plan Comments: Next OT session: ensure safe/ appropriate home discharge recommendations, toilet transfer; lower body dressing; caregiver education? Functional Goals: OT Goal #1: Patient will complete all aspects of toileting (transfer, mack care/ hygiene, lower body clothing management) with supervision to improve functional independence for safe discharge. OT Goal #2: Patient and/ or caregiver will verbalize understanding of durable medical equipment andadaptive equipment recommendations needed for optimal functional transfers / ADL completion for safe discharge. OT Goal #3: Patient will complete all aspects of lower body dressing with minimal assistance to improve functional independence for safe discharge. Rehab potential: Ms. Abdul has good potential to achieve established occupational therapy goals within the time frame outlined below. OT Frequency: OT Amount: 1 visit per day OT Frequency: 3 times per week OT Inpatient Duration : Until goals are met or hospital discharge Requires Inpatient OT Follow-Up: Yes OT - Next Inpatient Appointment: 01/06/25 Plan: Plan of care initiated Treatment interventions may include: Treatment Interventions: Self-care/home management Occupational Therapy Attestation Statement: Patient agrees with the plan of care and goals. Billing: Tiered OT Evaluation Codes: Comorbid Conditions: Other (Comment) Personal Factors: Needs assistive device Occupational Profile and History review: Brief Performance Deficits: 1 - 3 performance deficits Evaluation Complexity: Low Time Spent with Patient Evaluations OT Eval - Low Complexity : 20 min Time Tracking Total Treatment Time (min): 20 min Kathi Garcia M.S., O.T. [1] Past Medical History: Diagnosis Date Anemia Personal History - Blood Transfusion No Diagnosis 09-14 Dyslipidemia NOS 2019? Hypertension NOS 1999? Polyp Colon 2022 [2] Past Surgical History: Procedure Laterality Date ARTHROPLASTY - RESECTION HIP Right 01/02/2025 Procedure: ARTHROPLASTY RESECTION HIP.; Surgeon: Aidan Self M.D.; Location: [facility] OR HIP SURGERY Right * Ron Villanueva PKarena, D.P.T. - 01/03/2025 11:17 AM CDT Physical Therapy Acute Hospital Inpatient Evaluation/Treatment SUBJECTIVE Patient's Name: Khadijah Abdul Referring/Attending Provider: Aidan Self M.D. Medical Diagnosis: Pain Hip Right [M25.551] Reason for Referral: PT Evaluate and Treat Payor: MEDICARE / Plan: MEDICARE A AND B / Product Type: Medicare / PERTINENT MEDICAL / SURGICAL HISTORY: Problem List[1] Surgical History[2] Patient is a 74 y.o. year old female that was evaluated following right total hip arthroplasty procedure performed by Aidan Self M.D. of [facility]. Patient consents to evaluation and treatment today. Family/Caregivers Present: no Pain: Patient reports pain as 4/10. Pain score was communicated with nursing./10. Pain score was communicated with nursing. Precautions: Weight Bearing Status: Toe-touch weight-bearing Other Precautions: Hip precautions Home Setup/Layout: Type of Home: House Stairs to enter: Level Entry, One Level Home Bathroom setup: Walk-In shower on main floor, with: seat available in tub/shower, suction cup grab bars that she does not trust. Patient states the power wheelchair fits in the bathroom, and she is able to roll right up to her shower Comfort height toilet on main floor, with: plans to install a grab bar. Prior Level of Function: Patient lives with: spouse Patient has support available from: spouse/significant other For ADL's, the patient does not require assistance For IADL's, the patient does not require assistance For functional transfers, the patient does not require assistance At baseline the patient uses No assistive devices before initial surgery on the joint, this is her goal to get back to. Patient recently has been pivoting to and from transport wheel chair for mobility Mobility Equipment Owned: Front Wheeled Walker, Cane, Wheelchair, and acquiring power wheelchair Patient Goals: Improve tolerance to mobility, functional transfers, and bed mobility to return to optimal level offunction. Fall Risk Status: Patient is currently a fall risk due to the recent surgical procedure performed. OBJECTIVE Cognition Screen: Patient was able to identify self through stating name and date of . No observable concerns regarding patient cognition at the time of evaluation. Sensation Screen: Minor paraesthesias noted during sensation screen likely due to the anesthetic used during surgery Strength/ROM Screen: Involved/Surgical LE: Patient experiencing hip strength and AROM deficits secondary to the surgical procedure performed Vitals: Vitals monitored throughout session; within normal ranges. Patient denies dizziness, lightheadedness, shortness of breath, chest pain, and diaphoresis with mobility this session. Bed Mobility: Supine to sit: # of Assistants: 1 Level of Assistance: Minimal assistance Device: Head of bed elevated, Bed rail Comments: Min assist for maneuvering surgical leg to the edge of the bed Sit to supine: # of Assistants: 1 Level of Assistance: Minimal assistance Device: Head of bed elevated, Leg locomotive switch operator, Bed rail Comments: Min assist to return the surgical lower extremity into the bed Functional Transfers: Sit to stand: # of Assistants: 1 Level of Assistance: Contact guard assistance Transfer Surface: Bed, Wheelchair Transfer Equipment: Gait belt, Front wheeled walker Assessment/Delivery: Assessed, Instructed, Educated Comments: Verbal cues and education given to not place both hands on walker when standing and to have at least one hand on stable surface. contact guard assist for safety. patient was able to maintain ttwb restrictions during stand. patient able to complete pivot transfer to and from wheelchair from the bedside while maintaining ttwb, using shuffling, heel to toe motions while turning. patient has difficulty offloading with her arms on the walker due to baseline shoulder weakness bilaterally, but she is able to push enough to pivot quite well, as she required contact guard assist throuhgout the pivots Stand to sit: # of Assistants: 1 Level of Assistance: Contact guard assistance Transfer Surface: Bed, Wheelchair Transfer Equipment: Gait belt, Front wheeled walker Assessment/Delivery: Assessed, Instructed, Educated Comments: Verbal cues and education given to reach back for target sitting surface and control the descent. contact guard assist for safety Education: Patient was educated on the importance of adhering to the discussed weight bearing precautions. Patient and caregivers educated on hip precautions (when bending forward, knees should be spread at least shoulder-width apart when in doubt, knees out; movement based on pain/discomfort; no hip internal rotation or adduction motions/positions; and avoid extremes of motion in all planes). Educated the importance of generalized mobility and performance of exercises to help prevent DVTs. Exercises Performed/Discussed: Patient was educated on and performed: Ankle pumps, quadriceps set to be performed 10x every waking, sedentary hour for deep venous thrombosis prevention. Patient Response to Treatment/Coordination of Care: Patient was left in bed at end of session with call light in reach, all needs met and questions answered. Communication with nursing staff pre and post evaluation and treatment. Outcome Measures: -[facility] Inpatient Short Form: -[facility] Basic Mobility (V.2) How much help from another person do you currently need???If the patient hasn't done an activity recently, how much help from another person do you think he/she would needif he/she tried? 1. Turning from your back to your side while in a flat bed without using bedrails?: A Little 2. Moving from lying on your back to sitting on the side of a flat bed without using bedrails?: A Little 3. Moving to and from a bed to a chair (including a wheelchair)?: A Little 4. Standing up from a chair using your arms (e.g., wheelchair, or bedside chair)?: A Little 5. To walk in hospital room?: Total 6. Climbing 3-5 steps with a railing?: Total AM-PAC Basic Mobility (V.2) Raw Score: 14 AM-PAC Basic Mobility (V.2) Standardized Score: 35.55 Interpretation: Clinicians answer the -PAC Inpatient Short Form based on observed patient activity and/or clinical judgement (ie. patient can be scored without physically performing each activity) Based on scoring guidelines using the raw score value: Those going to home had an average score of 20.1 Those going home with home care had an average score of 17.9 Those going to SNF had an average score of 14 Those going to IRF had an average score of 13.6 Those going to a LTAC had an average score of 11.5 Assessment Patient is a 74 y.o. year old female that was evaluated following KALEE procedure performed by Aidan Self M.D. of [facility]. Objectively, the patient is currently limited in hip strength and range of motion compared to their presurgical status which is functionally limiting their abilityto perform bed mobility, sit to and from stand transfers, ambulation, stair navigation. Patient did well during today's therapy evaluation and demonstrated the ability to safely complete stand pivot transfer from the bed to and from a wheelchair with use of a front wheeled walker while maintaining toe-touch weight-bearing restrictions. Education points described above. Therapy will follow up tomorrow in order to progress independence with mobility and continue practicing transfers as appropriate. Physical therapy treatment is medically necessary to restore and optimize function, maximize safety, facilitate discharge to home, and to teach and educate the patient and/or caregivers. Patient modesty and integrity were maintained throughout session and consent was given throughout. Rehabilitation Potential & Recommendations: Ms. Abdul has Good potential to achieve established physical therapy goals within the time frame outlined below. Current Progress: Progressing toward goals Discharge Therapy Needs - PT: Ongoing skilled physical therapy Barriers to Discharge Home: None Recommended Discharge Equipment: Equipment Recommended - PT: Front-wheeled walker ; owns Tiered PT Evaluation Codes: Comorbid Conditions: Osteoarthritis Personal Factors: Needs assistive device, recent orthopedic surgical procedure, current weight bearing status Examination Elements: 4+ Clinical Presentation: Stable Clinical Decision Making: Low complexity Functional Goals: PT Inpatient Goals PT Goal #1: Patient will demonstrate the ability to perform bed mobility per home setup with supervision to improve functional independence. PT Goal #1 Status: Progressing PT Goal #2: Patient will demonstrate the ability to verbalize safe set-up and perform sit<>stand with supervision for improved functional mobility and safety PT Goal #2 Status: Progressing PT Goal #3: Patient will demonstrate the ability to complete stand pivot transfer between sitting surfaces with least restrictive gait aid with supervision assist for improved independence with mobility and to return to prior level of function. PT Goal #3 Status: Progressing Plan Treatment Plan: Plan: Plan of care initiated PT Amount: 1 visit per day PT Frequency: 6 times per week PT Inpatient Duration : Until goals are met or hospital discharge Requires Inpatient Follow-Up: Yes PT - Next Inpatient Appointment: 01/04/25 (/REGGIE) PT Plan Comments: Bed mobility, sit to and from stand transfers, ambulation, and stair navigation if stated in goals section. Home exercise program has been reviewed, but may review again if needed. Treatment interventions may include: therapeutic exercise, therapeutic activities, and gait training Billing: Time Spent with Patient Evaluations PT Eval - Low Complexity: 8 min Therapeutic Interventions Therapeutic Activity (min): 33 min Time Tracking Total Timed Units (min): 33 min Total Treatment Time (min): 41 min Ron Villanueva P.T., D.P.T. Physical Therapist Department of Physical Medicine & Rehabilitation [facility] 2 Pager: [phone] E-mail: [email or web address] [1] Patient Active Problem List Diagnosis Anxiety Gastroesophageal Reflux Disease Without Esophagitis Hypercholesterolemia Hypertension Essential Primary Morbid Obesity (HCC) PreDiabetes Pain Hip Right [2] Past Surgical History: Procedure Laterality Date ARTHROPLASTY - RESECTION HIP Right 01/02/2025 Procedure: ARTHROPLASTY RESECTION HIP.; Surgeon: Aidan Self M.D.; Location: [facility] OR HIP SURGERY Right * Heaven Reyna L.G.S.W. - 01/03/2025 11:17 AM CDTAssociated Order(s): IP CONSULT TO CARE MANAGEMENT; IP CONSULT TO CARE MANAGEMENT Psychosocial Assessment SUBJECTIVE ASSESSMENT INFORMATION Referral Data Referral Source: Early Screen for Discharge Planning Referral Reason: Psychosocial assessment, Discharge Planning Discharge Planning: IV antibiotics Previous Assessment: No Senior Pharmacy Technician Services Used: No Primary Language: Moldovan Senior Pharmacy Technician Services Used: No Sexuality/Pronoun: Straight / Person(s) present during interview: patient Disclaimer: They were advised of the various topics that will be assessed during this evaluation. They consented to proceed. The information provided in the assessment is based on review of the medical record as well as the face to face interview. They were advised that the content of this interview will be shared with the health care team and documented in the medical record. They were advised that anyone with access to their patient portal will have access to this information. It was discussed that staff are mandated reporters and they reported understanding. HISTORY OF PRESENT ILLNESS Medical History[1] SOCIAL HISTORY Citizenship: [place] Citizen Resident Status: [place] Res[place] Marital Status: Family / Household: patient lives in a one level home with her Support System: spouse Primary Caregiver: self Employment: retired Psychosocial Risk Factors Impacting the Patient: none Maltreatment: none reported Trauma: none reported Social Drivers of Health with Concerns No concerns present Current Stressors Currently hospitalization, IV infusion plan, and lack of mobility. OBJECTIVE FINANCES/INSURANCE Primary insurance: MEDICARE A AND B Secondary insurance: FOR LIFE Financial concerns: No ADVANCE DIRECTIVES Advance Directives: Advanced Care Plan BASELINE FUNCTIONAL STATUS Baseline Activities of Daily Living Mobility: Modified independent Dressing: Independent Feeding: Independent Bathing: Independent Grooming: Independent Toileting: Independent Behavior: Appropriate, Pleasant, Cooperative, Oriented, Calm Communication: Talks, Understands speaking, Understands Moldovan Shopping: Independent Medication Management: Independent Housekeeping: Needs assistance Meal Prep: Independent Assistive Devices: Walker - front wheeled, Cane BASELINE SERVICES/RESOURCES Primary care clinic and provider: [facility], PCP/ Services/Resources: ANTICIPATED NEEDS Anticipated Needs Functional Status: Housekeeping, Transportation use (drive car, use taxi/bus), Mobility Assistive Devices: Specialized stroller Anticipated Modifications to the Patient's Home: None Transportation Needs: Support from family Does the patient need discharge transport arranged?: No Ride and Caregiver Arranged: Yes Ride Caregiver Provider: yaniv montilla Phone Number for Ride/Caregiver: [phone] Anticipated Discharge Destination: Home-Health Care [facility] [place] [facility] Mental Health History: Patient reports she takes Wellbutrin for situational depression. Suicide Risk and Safety Risk Assessment: Suicidal: No Homicidal: No Mental Status: Orientation: Oriented to person, place and time Level of consciousness: Awake and alert Appearance: Relaxed Behavior observed: Calm and Interactive Memory: Excellent based on social work assessment Cooperation: Cooperative Concentration: Excellent based on social work assessment Mood: , Calm, and Happy Affect: Within a normal range Speech: Within normal limits for volume, rate and tone. Thought content: No abnormality noted Thought process: Logical, linear, and goal-directed Judgement: Fair based on social work assessment Insight: Fair based on social work assessment SUBSTANCE USE denies ASSESSMENT / PLAN DISCUSSION Social work met with this patient for an early screen for an IV antibiotics consult and to completea full psychosocial assessment. Social work introduced self, explained their role, and what can be expected during this encounter. Patient is a 74 year old, female, from [place], [place]. She was admitted on 01/02 for pain hip right.Patient is unaccompanied during this encounter. Social work inquired about present hospitalization and if anything is needed at this time; patient declines. Patient reports she lives in a one level home with her , Vipin. Patient reports she is comfortable discharging home with support from her once she is deemed medically stable. Patient anticipates to discharge with IV antibiotics. Her preference at this time is home infusionswith home health c are assisting with weekly PICC site care and labs. Social work provided education on alternative options to home infusions; patient expresses understanding. The only barrier identified at this time is finances. Patient inquires how much home infusions willcost and appears slightly concerned with statement. Social work provides validation to this remark and will provide a reyes estimate for home infusions, once received from infusion companies. IMPRESSION Patient is lying in hospital bed during this encounter, she is alert and orientated x3 and appears to be a reliable historian. Patient is very pleasant and forthcoming and is eager for discharge, once deemed medically stable. INTERVENTIONS -Provided education regarding role of social work and set expectations surrounding discharge planning. -Provided supportive, strengths-based counseling related to hospitalization -Provided counseling utilizing empathic and reflective listening, normalization, problem solving and motivational interviewing techniques -Assessed needs, identified risk and protective factors -Provided supportive counseling and psychoeducation around: Community Resources, Problem Solving Skills, and Resilience Promotion. -Coordinated care with nurse and service to ensure continuity of care PLAN Dialysis/Infusion - Admitted Since 01/02/2025 Service Provider Request Status Services Address Phone Fax Patient Preferred [facility] [place] Accepted -- [address], [facility] [phone] -- [facility] Pending - Request Sent -- [address] [facility] [phone] -- Home Medical Care - Admitted Since 01/02/2025 Service Provider Request Status Services Address Phone Fax Patient Preferred [facility] Pending - Request Sent -- [address] [place] [phone] -- [facility] Pending - Request Sent -- [address] [address] [phone] -- [facility] Pending - Request Sent -- [address], [facility] [phone] -- [facility] Pending - Request Sent -- [address] [facility] [address] -- Current Capacity last updated by Santiago Reis, M.S.W., L.G.S.W. on 01/01/2025 1505 [facility] known [facility] Pending - Request Sent -- [address] [facility] [phone] -- [facility] Pending - Request Sent -- [address] [facility] [address] [facility] [address] [phone] -- [employer] [facility] [facility] Pending - Request Sent -- [address] [facility] [address] -- [facility] Pending - No Request Sent -- [address] [facility] [phone] -- -- [facility] Pending - No Request Sent -- [address] [facility] [phone] -- -- Social Work will continue to follow. Anticipated barriers to the transition of care/plan: home infusion plan Alesha Packer 01/03/2025 [1] Past Medical History: Diagnosis Date Anemia Personal History 09-14 Blood Transfusion No Diagnosis 09-14 Dyslipidemia NOS 2019? Hypertension NOS 1999? Polyp Colon 2022 * Rusty Henson P.A.-C. - 01/03/2025 7:30 AM CDTAssociated Order(s): IP CONSULT TO INFECTIOUS DISEASES; IP CONSULT TO INFECTIOUS DISEASES DEMOGRAPHIC INFORMATION Clinic Number:[id number] Patient Name: Khadijah Abdul Age: 74 y.o. Birthdate: 1950 Sex: female Address: [address] [place] [id number] Service: Orthopedic Infectious Diseases Consultation Service Note Type: Consult Note Service Date/Time: 01/03/25 7:30 AM CDT REFERRING PROVIDER Aidan Self M.D. REASON FOR CONSULT We are asked to see the patient to give further recommendations for evaluation and management of please assist with antibiotic recommendations. Patient seen and examined. HISTORY OF PRESENT ILLNESS Ms. Abdul is a 74 y.o. female with past medical history significant for hyperlipidemia, depression, DJD for which she is status post right total hip arthroplasty and multiple hip surgeries who presents with persistent right hip pain and decreased mobility and elevated biomarkers. . She underwent RT primary KALEE 08/23/2023 which was followed by a revision 08/23/2024 for dislocation.Didnot have wound healing problems at that time. Unfortunately, she developed a periprosthetic femoral fracture that required femoral stem exchange in ORIF with cerclage 09/27/2023. Synovial aerobic and anaerobic on 09/27/2023 were negative. She was dismissed on antibiotics orally. However, she subsequently developed wound drainage and wound dehiscence. She was returned to the operative suite for superficial irrigation and debridement 10/09/2023.Unclear if she had any cultures done. She received 2 weeks of antibiotics. All surgeries were at [place] and elsewhere. She then developed wound drainage that persisted from September through December 2023. This ultimately healed however she has continued having right hip pain and inability to ambulate well. She has not had any systemic symptoms. She was referred to [facility] for second opinion. Evaluated by Dr. Self on 11/07/2024. At thattime she was noted to have some lucency around the prosthesis. Sed rate was 39 and C-reactive protein was 20.5. She underwent a right hip aspiration which had 104 TNCs, 100% neutrophils. Not enough fluid was obtained to send for cultures. She returned for reevaluation 12/26/2024. Since May 2024, she endorses worsening hip pain, particularly in the buttock, groin, and back areas, and is unable to bear weight on her leg. She attempted physical therapy, which did not improve her condition. No fevers, chills, sweats, weight loss, redness, or swelling in the hip area. CRP 27, ESR 42. Discussed with the patient and her that given her multiple prior surgeries and prolonged history of drainage from September through December 2023, the elevated inflammatory markers, persistent pain, and prosthesis loosening on imaging suggest a prosthetic joint infection. A two-stage exchange was recommended. 01/02/2025 patient was returned to the operative suite with Dr. Self. Intraoperatively Dr. Self noted extensive signs of infection. Multiple specimens were obtained for culture and implants weresent for sonication.. A nonunion of the prior femoral fracture was noted and the prior osteotomy unf ortunately fractured into multiple pieces. Antibiotic spacer impregnated with vancomycin, gentamicin was implanted. Patient was maintained on cefazolin 2 g q 8 hours postoperatively 01/03/2025 overnight patient has remained afebrile with stable vital signs. Cultures remain no growth thus far. She denies fever, chills, night sweats, nausea, vomiting, diarrhea. She endorses feeling gassy. REVIEW OF SYSTEMS Pertinent items are noted in HPI; all other review of systems was negative. ALLERGIES Allergies Allergen Reactions Blood-Group Specific Substance Other (see comments) Patient has a history of a clinically significant antibody against RBC antigens. A delay in compatible RBCs may occur. 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 MEDICATIONS I have reviewed current medications. Current anti-infective medications: ceFAZolin, 2 g, Q8H Current immunosuppressant medications: VITAL SIGNS Admission Weight: 89.7 kg Current Weight: 89.7 kg Temperature: [36.4 ??C-36.9 ??C] 36.5 ??C Heart Rate: [63-86] 73 Resp Rate: [11-25] 16 Blood Pressure: (102-168)/(57-131) 123/68 SpO2: [94 %-100 %] 94 % Flow Rate (L/min): [0 L/min-2 L/min] 0 L/min Pulse Rate: [63-84] 64 PHYSICAL EXAM General: Alert, oriented X3. Patient is comfortable. No acute distress. HEENT: No peripheral emboli. Anicteric. Lungs: unlabored respirations Extremities: dressing intact to right hip Skin: no rash Lines, Drains, and Airways Line Duration Peripheral Nerve Catheter 01/02/25 Right Posterior lumbar plexus (PSOAS) 18h Drain Duration External Urinary Catheter Female 8h Peripheral IV Duration Peripheral IV 01/02/25 18 G Anterior;Lower;Right Forearm 19h Wound Duration Wound 01/02/25 Thigh Right;Anterior 14h DIAGNOSTICS I have reviewed diagnostics. Studies of note include: Results from last 7 days Lab Units 01/03/25 0258 WBC x10(9)/L 12.4* HEMOGLOBIN g/dL 11.7 PLATELETS AUTO x10(9)/L 407* Results from last 7 days Lab Units 01/03/25 0258 01/02/25 2159 SODIUM mmol/L -- 138 CREATININE mg/dL 0.61 0.62 ESTIMATED GFR EGFR mL/min/BSA >90 >90 Estimated Creatinine Clearance: 90.1 mL/min (by C-G formula based on SCr of 0.61 mg/dL). No results found for: QTCINT, CODEDDIAG MICROBIOLOGY Microbiology as outlined in the associated note. Microbiology Results (last 72 hours) Procedure Component Value - Date/Time Fungal Culture, Routine [[id number]] Collected: 01/02/251628 Lab Status: In process Specimen: Tissue from Hip, Right Updated: 01/02/251711 Narrative: Bacterial Culture: Placed in Bactec aerobic and Bactec anaerobic bottles Mycobacterial Culture [[id number]] Collected: 01/02/251628 Lab Status: In process Specimen: Tissue from Hip, Right Updated: 01/02/251711 Narrative: Bacterial Culture: Placed in Bactec aerobic and Bactec anaerobic bottles Acid Fast Smear for Mycobacterium [[id number]] Collected: 01/02/25 162 Lab Status: In process Specimen: Hip, Right Updated: 01/02/25 171 Narrative: Bacterial Culture: Placed in Bactec aerobic and Bactec anaerobic bottles Bacteria Culture, Aerobe / Anaerobe + Susc [[id number]] Collected: 01/02/25 162 Lab Status: In process Specimen: Hip, Right Updated: 01/02/25 171 Narrative: Bacterial Culture: Placed in Bactec aerobic and Bactec anaerobic bottles Fungal Culture, Routine [[id number]] Collected: 01/02/25 162 Lab Status: In process Specimen: Tissue from Hip, Right Updated: 01/02/25 171 Narrative: Bacterial Culture: Placed in Bactec aerobic and Bactec anaerobic bottles Mycobacterial Culture [[id number]] Collected: 01/02/25 162 Lab Status: In process Specimen: Tissue from Hip, Right Updated: 01/02/25 171 Narrative: Bacterial Culture: Placed in Bactec aerobic and Bactec anaerobic bottles Acid Fast Smear for Mycobacterium [[id number]] Collected: 01/02/25 162 Lab Status: In process Specimen: Hip, Right Updated: 01/02/25 171 Narrative: Bacterial Culture: Placed in Bactec aerobic and Bactec anaerobic bottles Bacteria Culture, Aerobe / Anaerobe + Susc [[id number]] Collected: 01/02/25 162 Lab Status: In process Specimen: Hip, Right Updated: 01/02/25 171 Narrative: Bacterial Culture: Placed in Bactec aerobic and Bactec anaerobic bottles Fungal Culture, Routine [[id number]] Collected: 01/02/25 161 Lab Status: In process Specimen: Tissue from Hip, Right Updated: 01/02/25 171 Narrative: Bacterial Culture: Placed in Bactec aerobic and Bactec anaerobic bottles Mycobacterial Culture [[id number]] Collected: 01/02/25 161 Lab Status: In process Specimen: Tissue from Hip, Right Updated: 01/02/25 171 Narrative: Bacterial Culture: Placed in Bactec aerobic and Bactec anaerobic bottles Acid Fast Smear for Mycobacterium [[id number]] Collected: 01/02/25 161 Lab Status: In process Specimen: Hip, Right Updated: 01/02/251713 Narrative: Bacterial Culture: Placed in Bactec aerobic and Bactec anaerobic bottles Bacteria Culture, Aerobe / Anaerobe + Susc [[id number]] Collected: 01/02/251618 Lab Status: In process Specimen: Hip, Right Updated: 01/02/251713 Narrative: Bacterial Culture: Placed in Bactec aerobic and Bactec anaerobic bottles Fungal Culture, Routine [[id number]] Collected: 01/02/251616 Lab Status: In process Specimen: Tissue from Hip, Right Updated: 01/02/251708 Narrative: Bacterial Culture: Placed in Bactec aerobic and Bactec anaerobic bottles Mycobacterial Culture [[id number]] Collected: 01/02/251616 Lab Status: In process Specimen: Tissue from Hip, Right Updated: 01/02/251708 Narrative: Bacterial Culture: Placed in Bactec aerobic and Bactec anaerobic bottles Acid Fast Smear for Mycobacterium [[id number]] Collected: 01/02/251616 Lab Status: In process Specimen: Hip, Right Updated: 01/02/251708 Narrative: Bacterial Culture: Placed in Bactec aerobic and Bactec anaerobic bottles Bacteria Culture, Aerobe / Anaerobe + Susc [[id number]] Collected: 01/02/251616 Lab Status: In process Specimen: Hip, Right Updated: 01/02/251708 Narrative: Bacterial Culture: Placed in Bactec aerobic and Bactec anaerobic bottles RADIOLOGY DX Hip Right 2-3 Views Result Date: 01/02/2025 Impression: Postoperative changes of right hip arthroplasty resection. Negative for postoperative purposes. 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 Abdul is a 74 y.o. female with past medical history significant for hyperlipidemia, depression, DJD for which she is status post right total hip arthroplasty and multiple hip surgeries who presents with persistent right hip pain and decreased mobility and elevated biomarkers. . She has now been returned to the operative suite with Dr. Self for resection arthroplasty to [facility]. Intraoperatively Dr. Self described extensive signs of infection. Multiple specimens were obtained for culture and explanted components sent for sonication. Patient was started on cefazolin postoperatively. All intraoperative cultures remain no growth thus far. Patient has remained afebrile with stable vital signs overnight. We will plan to expand antibiotic coverage with vancomycin as we await additional culture information RECOMMENDATIONS: Continue cefazolin 2g IV q 8 hrs Start Vancomycin 15mg/kg IV q 12 hrs Monitor cultures Treatment plan reviewed with Franko, who expressed understanding. All questions answered to patient's satisfaction. Thank you for the consultation. Infectious diseases will follow. Please page Ortho ID service for questions ([facility] ID:[id number] or [facility] Ortho ID: [id number]). Supervising physician is Emi Israel MD. DIAGNOSES #1 Pain Hip Right Rusty Henson P.A.-C. [phone] Cosigned by Emi Israel M.D. at 01/03/2025 7:49 PM CDT Associated attestation - Emi Israel M.D. - 01/03/2025 7:49 PM CDT I saw and evaluated the patient, participating in the chen portions of the service. I reviewed Rusty Henson's note. I agree with her findings and plan. Pt is known to [facility] and admitted for planned resection arthroplasty for chronic infection suspected. (Had primary kalee 08/23/23, revised for dislocation. This then followed by w periprosthetic fracture,femorals stem exchange in ORIF, cerclage 09/27/23 and wound healing problems, superficial i/d eventually headed but pain and abnl esr/crp persisted, lucensy on xray. Cultures are now noted with GNB in multiple samples. We have asked to stop cefazolin, and start IV vancomycin and Cefepime. Pt denies prior UTI or pneumonia. Discussed that the abx recommendations depend on the ID and susc of the GNB. Patient shared she hassome reservations with fluoroquinolones because of tendinopathy concerns. documented in this encounter Nursing Notes * Laron Fitzpatrick R.N. - 01/06/2025 2:57 PM CDT Patient discharged from [facility] at 2:58 PM CDT to Home Health Care. Transportation provided by family. Patient's dismissal medications were filled at [facility] pharmacy. Patient education provided by [employer]. All questions remaining addressed and acknowledged with patient. Patient has been attached to portable Prevena wound vac and has been educated on it. VSS BP (!) 130/52 (BP Location: Right arm;Upper, Patient Position: Sitting) Pulse 69 Temp 36.7 ??C (Oral) Resp 16 Ht 164 cm Wt 89.7 kg SpO2 97% BMI 33.35 kg/m?? * Srinivas Garcia R.N. - 01/06/2025 3:50 AM CDT Shift Goals: Patient safety, pain control, and sleep Identify possible barriers to meeting goals/advancing plan of care: None End of Shift Summary: Patient remained VSS and free from falls throughout shift with assist of 1, gait belt, walker, and bed/chair alarms. Patient's pain was managed with scheduled acetaminophen. Patient slept for very little of the night. No present acute concerns. Problem: PAIN - ADULT Goal: PT VERBALIZES/DEMONSTRATES ADEQUATE COMFORT LEVEL OR BASELINE Outcome: Progressing Problem: SKIN/TISSUE INTEGRITY Goal: Skin/Tissue integrity maintained or improved Outcome: Progressing Goal: Oral and Nasal mucous membranes remain intact Outcome: Progressing Problem: SAFETY ADULT Goal: Maintain a safe environment Outcome: Progressing Problem: SAFETY ADULT - RISK FOR FALL AND OR FALL INJURY Goal: Patient remains free from fall/fall injury Outcome: Progressing Problem: Risk for Compromised Skin Integrity-Wes Activity Score 1 or 2 Goal: Achieve optimal activity to maintain or improve skin integrity. Outcome: Completed * Gricel Jamison - 01/04/2025 5:25 PM CDT Shift Goals: Clinical Goals for the Shift: Ambulate with the patient. VSS Identify possible barriers to meeting goals/advancing plan of care: Pain End of Shift Summary: Patient ambulated to the chair once, and commode twice today with 1 assist. Nerve catheter in place. Patient received 5 mg of oxycodone for pain as needed throughout this shift.Patient remained safe and vitally stable. documented in this encounter OR Notes * Op Note - Aidan Self M.D. - 01/02/2025 3:35 PM CDT Pre-op Diagnosis Pain Hip Right Post-op Diagnosis Pain Hip Right Surgery Nurse A first coat sander actively participated and was necessary for one or more of the following: opening, exposure and visualization, maintaining hemostasis, wound closure resulting in its safe and expeditious completion. Findings PJI: 3,1,1 Bone Loss Acetabulum 2a, femur 2a During the procedure, the following was observed: - Altered surgical field secondary to distorted anatomy, inflammation, infection and tissue friability These findings added significant complexity to the procedure because extensive scar tissue from theprior fracture and revision surgery required extended dissection. Infection throughout the femur and acetabulum required extensive debridement. The prior fracture in the femur had not healed and we did need to osteotomize the femur to get the stem removed.. Complications None Operative Note Narrative Patient was brought to the operating room at [facility]. The patient was placed under spinal anesthesia by the anesthesia personnel. The patient was then placed in the [id number] decubitus position. All bony problems well padded. The right hip was sterilely prepped and draped in usual orthopedic fashion. Surgical pause was conducted to reconfirm the correct patient, side, site, procedure be performed. After appropriate surgical pause we outlined a lateral incision over the right hip. Sharp dissection was carried out through skin subcutaneous tissues. The fascia was divided in line with its fibers. Charnley retractor was placed. Standard posterior approach was placed. Hip was dislocated posteriorly. There were extensive signs of infection. We did send tissue for culture as well as the implants. The femoral head was disimpacted from the femoral stem. We used apencil tip bur around the proximal aspect of the femoral stem. We used flexible osteotomes around the stem. We are unable to remove the stem through the top therefore we did perform a posterior basedosteotomy. Unfortunately the fracture in the femur had not healed so this lateral portion of the osteotomy fractured into 2 pieces and then the medial aspect where the fracture had not healed was also independent piece. I we are able to remove the proximal body off of the stem. We are then able to disimpact the stem without difficulty. We reamed the femoral canal to 15.5 mm. We used a backbiting curette to remove any infected material from inside the femur. Then turned our attention to the acetabulum. Acetabulum was exposed with anterior posterior retractors. The metal liner was removed from the acetabulum. The screws removed from the cup. I was able toremove the cup then with a rongeur without difficulty. It was completely loose. We then reamed the acetabulum to 56 mm. We then thoroughly irrigated the joint with dilute Betadine, hydrogen peroxide,and normal saline solution. We then cemented into place the Prostalac cup with high-dose antibioticcement 3 g of vancomycin 3 g of gentamicin per batch. The cement was allowed to set up. We then didmake the size 3 x 200 mm Prostalac hip stem. We then cemented that into place with the same mixtureof cement. The cement was allowed to set up. We trialed with a 0, 32 mm trial head. We felt like the hip was stable. We then placed the real femoral head + 0, 32 mm onto the stem. The hip was relocated the locking mechanism was engaged. We closed the osteotomy around the stem with 3 double Kendra wires. The wound was irrigated with dilute Betadine and normal saline solution. Was closed a running #2 Quill sutures. Subcutaneous tissues were closed with 2-0 Monocryl sutures. The skin was closed with 2-0 nylon vertical mattress sutures. A Prevena wound VAC was placed. Sterile dressing as well as ahip wrap was placed. The patient was wakened from anesthesia and taken PACU in stable condition. Aidan Self M.D. documented in this encounter Miscellaneous Notes * Documentation Clarification - Karen Nix APRN, C.NHieu, M.S.N. - 01/06/2025 3:21 PM CDT PROVIDER RESPONSE TEXT: To clarify, the appropriate diagnosis supported by the clinical indicators: Acute blood loss anemia QUERY TEXT: Clarification DOCUMENTATION CLARIFICATION REQUEST Please clarify/specify the appropriate diagnosis supported in the clinical indicators below. Clinical Indicators/Risk Factors/Treatment: - Risk Factors: Pt underwent right arthroplasty resection hip on 01/02 (Dr. Montez 01/03). - Labs: Hemoglobin= 01/03: 11.7; 01/05: 9.2 - I&O Flowsheet: 01/02 Blood Output= 400 ml - Notes: 01/05 Dr. Calvo ?Recent Labs: 01/05/25 HGB 9.2 L?Labs: Will monitor.? 01/06 Dr. Byrd ??Recent Labs: 01/05/25 HGB 9.2 L?Labs: Will monitor.? Options provided: -- Acute blood loss anemia -- Other - I will add my own diagnosis -- Disagree - Clinically unable to determine / Unknown -- Refer to Clinical Documentation Reviewer Query created by: Rebel Byrd on 01/07/2025 8:20 AM Electronically signed by: Karen Nix APRN 01/07/2025 12:44 PM * Hospital Course - Karen Nix APRN, C.N.Gina, M.S.N. - 01/06/2025 11:34 AM CDT Surgery Information This Encounter Past Procedures (01/07/2024 to Today) Date Procedures Providers Loc / Dept 01/02/2025 ARTHROPLASTY RESECTION HIP. Aidan Self M.D.Meeker, Daniel G, M.D., Ph.D. [facility] Khadijah Abdul was taken to the operative room by Aidan Self, * for the procedure listed above. The intraoperative as well as the immediate postoperative course were uncomplicated. For further details of the surgery please see the operative note. The patient was transferred from the PACU to the general care floor for continued observation and monitoring. She progressed in the usual post-operative fashion without complications. The patient was treated with perioperative IV antibiotics. She was given liquids by mouth and eventually advanced as tolerated towards a more general diet. Her pain was well controlled with oral pain medications. Physical therapy / Occupational therapy was consulted for assistance with mobilization and gait training. She was mobilizing without difficulty and was compliant with any activity restrictions. Her incision remained intact with no concerns. Her bowel and bladder function were acceptable. She then met criteria for discharge and was later dismissed from the hospital. For any further details please see the [facility] orthopedic surgery progress note and any other co-managing teams dated 01/06/2025. documented in this encounter Plan of Treatment Upcoming Encounters Date Type Department Care Team (Latest Contact Info) Description 01/21/2025 9:00 AM CDT Ancillary Procedure Department of Cardiovascular Medicine in [address] [phone] Sonu Levy Jr., M.D. [address] [place] [phone] 01/21/2025 11:40 AM CDT Lab Department of Infusion Therapy in [address] [phone] Sonu Levy Jr., M.D. [address] [place] [phone] 01/21/2025 1:15 PM CDT Office Visit Department of Orthopedic Surgery in [address] [phone] Aidan Self M.D. [address] [place] [phone] 01/21/2025 2:00 PM CDT Infusion Department of Infusion Therapy in [place], [place] [address] [place] [phone] Sonu Levy Jr., M.D. [address] [place] [phone] 02/11/2025 11:00 AM CDT Clinical Communication Virtual Review in [place], [place] 200 [place] [phone] 02/14/2025 12:00 PM CDT Appointment Department of Laboratory Medicine and Pathology, [place], [place] [address] [place] [phone] Kesha Todd APRN, C.N.P. [address] [place] [phone] 02/14/2025 12:30 PM CDT Office Visit Department of Orthopedic Surgery in [place], [place] [address] [place] [phone] Kesha Todd APRN, C.N.P. [address] [place] [phone] 02/14/2025 1:30 PM CDT Comprehensive Visit Section of Infectious Diseases in [place], [place] [address] [place] [phone] Kesha Todd APRN, C.N.P. [address] [place] [phone] 03/11/2025 3:00 PM SPA ASSOCIATE Clinical Communication Virtual Review in [place], [place] 200 [place] [phone] 03/18/2025 11:30 AM SPA ASSOCIATE Appointment Department of Laboratory Medicine and Pathology, [facility] in [place], [place] [address] [place] [phone] Kesha Todd, SAHRA, C.N.P. [address] [place] [phone] 03/18/2025 12:30 PM SPA ASSOCIATE Office Visit Department of Orthopedic Surgery in [place], [place] [address] [place] [phone] Aidan Self M.D. [address] [place] [phone] 03/24/2025 Hospital Encounter RST ROEI 01 4 AM ADMIT [address] [place] [phone] Aidan Self M.D. [address] [place] [phone] Pending Results Name Type Priority Associated Diagnoses Date /Time Fungal Culture, Routine Microbiology Routine Pain Hip Right 01/02/2025 4:17 PM CDT Mycobacterial Culture Microbiology Routine Pain Hip Right 01/02/2025 4:17 PM CDT Fungal Culture, Routine Microbiology Routine Pain Hip Right 01/02/2025 4:19 PM CDT Mycobacterial Culture Microbiology Routine Pain Hip Right 01/02/2025 4:19 PM CDT Fungal Culture, Routine Microbiology Routine Pain Hip Right 01/02/2025 4:24 PM CDT Mycobacterial Culture Microbiology Routine Pain Hip Right 01/02/2025 4:24 PM CDT Fungal Culture, Routine Microbiology Routine Pain Hip Right 01/02/2025 4:29 PM CDT Mycobacterial Culture Microbiology Routine Pain Hip Right 01/02/2025 4:29 PM CDT Prepare Red Blood Cells Blood Bank Routine 0 12/26/2024 8:56 AM CDT Scheduled Orders Name Type Priority Associated Diagnoses Order Schedule Bacterial Culture, Anaerobic + Susceptibility Microbiology Routine Pain Hip Right Release Upon Ordering for 1 Occurrences starting 01/02/2025 until 01/11/2025 Bacterial Culture, Aerobic + Susceptibility Microbiology Routine Pain Hip Right Release Upon Ordering for 1 Occurrences starting 01/02/2025 until 01/11/2025 ECG 12 Lead ECG Routine Pain Hip Right Expected: 01/21/2025, Expires: 04/07/2026 Sedimentation Rate Lab Routine Pain Hip Right Expected: 01/21/2025 (Approximate), Expires: 04/07/2026 CRP (C-Reactive Protein) Lab Routine Pain Hip Right Expected: 01/21/2025 (Approximate), Expires: 04/07/2026 Remove PICC (non-tunneled) or Midline Catheter Procedures Routine Pain Hip Right Expected: 01/21/2025 (Approximate), Expires: 04/07/2026 Scheduled Procedures Name Priority Associated Diagnoses Date/Ti me ARTHROPLASTY REIMPLANTATION HIP Pain Hip Left Scheduled Referrals Name Type Priority Associated Diagnoses Order Schedule [facility] Referral Outpatient Referral Routine Pain Hip Right Ordered: 01/06/2025 Infectious Disease - Ortho consult (clinic) Outpatient Referral Routine Pain Hip Right Expected: 01/21/2025, Expires: 04/07/2026 documented as of this encounter Procedures Procedure Name Priority Date/Time Associated Diagnosis Comments PLACE PERIPHERALLY INSERTED CENTRAL CATHETER (PICC) Routine 01/06/2025 9:29 AM CDT ECG Routine 01/05/2025 1:51 PM CDT PULSE OXIMETRY WITH REMOTE OVERVIEW Routine 01/05/2025 8:00 AM CDT CBC WITH DIFFERENTIAL, B Routine 01/05/2025 2:18 AM CDT BASIC METABOLIC PANEL, S/P Routine 01/05/2025 2:18 AM CDT PULSE OXIMETRY WITH REMOTE OVERVIEW Routine 01/04/2025 8:01 PM CDT PULSE OXIMETRY WITH REMOTE OVERVIEW Routine 01/04/2025 8:01 AM CDT PULSE OXIMETRY WITH REMOTE OVERVIEW Routine 01/03/2025 8:01 PM CDT PULSE OXIMETRY WITH REMOTE OVERVIEW Routine 01/03/2025 8:01 AM CDT CBC WITHOUT DIFFERENTIAL, B Routine 01/03/2025 2:58 AM CDT CREATININE WITH EGFR, S/P Routine 01/03/2025 2:58 AM CDT PULSE OXIMETRY WITH REMOTE OVERVIEW Routine 01/03/2025 2:08 AM CDT PULSE OXIMETRY WITH REMOTE OVERVIEW Routine 01/03/2025 2:08 AM CDT PULSE OXIMETRY WITH REMOTE OVERVIEW Routine 01/03/2025 2:08 AM CDT BASIC METABOLIC PANEL, S/P Routine 01/02/2025 9:59 PM CDT ADULT OXYGEN THERAPY Routine 01/02/2025 7:07 PM CDT DX HIP RIGHT 2-3 VIEWS RAD - Routine (most inpatients and all outpatients) 01/02/2025 6:49 PM CDT BACTERIA CULT, AEROBE/ANAEROBE+SUSC Routine 01/02/2025 4:29 PM CDT MYCOBACTERIAL CULTURE, V Routine 01/02/2025 4:29 PM CDT Pain Hip Right ACID FAST SMEAR FOR MYCOBACTERIUM Routine 01/02/2025 4:29 PM CDT FUNGAL CULTURE, ROUTINE Routine 01/02/2025 4:29 PM CDT Pain Hip Right BACTERIA CULT, AEROBE/ANAEROBE+SUSC Routine 01/02/2025 4:24 PM CDT MYCOBACTERIAL CULTURE, V Routine 01/02/2025 4:24 PM CDT Pain Hip Right ACID FAST SMEAR FOR MYCOBACTERIUM Routine 01/02/2025 4:24 PM CDT FUNGAL CULTURE, ROUTINE Routine 01/02/2025 4:24 PM CDT Pain Hip Right BACTERIA CULT, AEROBE/ANAEROBE+SUSC Routine 01/02/2025 4:19 PM CDT MYCOBACTERIAL CULTURE, V Routine 01/02/2025 4:19 PM CDT Pain Hip Right ACID FAST SMEAR FOR MYCOBACTERIUM Routine 01/02/2025 4:19 PM CDT FUNGAL CULTURE, ROUTINE Routine 01/02/2025 4:19 PM CDT Pain Hip Right BACTERIA CULT, AEROBE/ANAEROBE+SUSC Routine 01/02/2025 4:17 PM CDT MYCOBACTERIAL CULTURE, V Routine 01/02/2025 4:17 PM CDT Pain Hip Right ACID FAST SMEAR FOR MYCOBACTERIUM Routine 01/02/2025 4:17 PM CDT FUNGAL CULTURE, ROUTINE Routine 01/02/2025 4:17 PM CDT Pain Hip Right ARTHROPLASTY RESECTION HIP 01/02/2025 2:21 PM CDT Pain Hip Right ADULT OXYGEN THERAPY Routine 01/02/2025 11:38 AM CDT ADULT OXYGEN THERAPY Routine 01/02/2025 11:38 AM CDT PREPARE RED BLOOD CELLS Routine 12/26/2024 8:56 AM CDT documented in this encounter Results * Place peripherally inserted central catheter (PICC) (01/06/2025 9:29 AM CDT) Narrative [facility] - 01/06/2025 9:29 AM CDT Aidan Cespedes RMelvinN. 01/06/2025 9:[address] peripherally inserted central catheter (PICC) Performed by: Aidan Cespedes R.N. Authorized by: Charanjit Benjamin APRN, C.N.P., D.N.P. Care team members present 1. Aidan Cespedes R.N. 2. Evelia Lawrence R.N. PROCEDURE DETAILS Select line: PICC Line type: temporary (non-tunneled, non-implanted) Line size: 3.0 FR Catheter to vein ratio less than 45%: yes Adult or Michele/Peds: adult # of lumens: single lumen Type of catheter: power injectable and valved Laterality: left IV location: basilic Optimal site selected: yes Number of insertion attempts: 1 Blood return: yes Placement assistance: ECG guidance Tip verification: ECG Catheter length (cm): 41 Initial exposed catheter (cm): 0 Mid upper arm circumference (cm): 29 All lumens flushed (Document volume in I/O): yes CONSENT Consent obtained: written (Risks, benefits and alternatives were discussed and a written Informed Consent was obtained. Please see Informed Consent form for further details.) UNIVERSAL PROTOCOL All relevant documentation and testing were reviewed and available. All required blood products, implants, devices and or special equipment were made available as applicable. Pre-procedure verification was conducted and the correct site was marked if required. A fire risk and smoke assessment were done as applicable. The procedural time-out to verify correct patient, correct side/site, and procedure was conducted prior to performing the procedure and confirmed in a procedural pause. PRE-PROCEDURE DETAILS Indications: Medication/nutrition requiring central access Appropriate hand hygiene, gown, cap, mask, protective eyewear, sterile gloves, skin preparation, sterile drape, and strict aseptic technique were utilized as applicable for the procedure.: yes Site preparation: Chlorhexidine SEDATION / ANESTHESIA Anesthesia method: local infiltration Local infiltrate type: lidocaine POST-PROCEDURE DETAILS Procedure completed successfully: yes Complications: no apparent complications 0.40 vein diameter. Veins right arm not measured however thought too small. Tissue adhesive has been applied to your catheter insertion site for securement, stabilization, and sealant. The purpose of the tissue adhesive is to reduce bleeding, reduce catheter movement/dislodgement, and protect the site from contamination. The tissue adhesive takes the place of a chlorhexidine gluconate (CHG) disk or dressing and also any other devices used for securement. Tissue adhesive will remain attached to the skin surface until natural cellular regeneration occurs (approx. 5-7 days). It is intended to be used with a transparent film dressing. Site care is recommended every 7 days. If tissue adhesive is not reapplied at the time of site care, please assess, clean, and dress the site per institutional guidelines. Residual tissue adhesive on the catheter tubing or skin during the dressing change does NOT need to be removed. If needed, any medical adhesive remover product may be used to release the adhesive from the skin. [email or web address]/[email or web address] Charanjit Benjamin APRN, C.N.P., D.N.P. PROCEDURE/[place] NOR SURGICAL ORDERABLES Final Result [facility]AL NA * ECG 12 Lead (01/05/2025 1:51 PM CDT) Ventricular Rate ECG/Min 64 BPM MUSE UT Interval 202 ms MUSE QRSD Interval 88 ms MUSE QT Interval 430 ms MUSE QTC Interval 443 ms MUSE P [place] 52 degrees MUSE R [place] -4 degrees MUSE T Wave [place] 30 degrees MUSE 01/05/2025 1:51 PM CDT 01/05/2025 1:56 PM CDT Impressions MUSE - 01/05/2025 1:56 PM CDT Sinus rhythm with 1st degree A-V block Premature atrial complexes Otherwise normal ECG No previous ECGs available Reviewed by WILL Damon Narrative Procedure Note Alex South M.D. - 01/05/2025 IMPRESSION: Sinus rhythm with 1st degree A-V block Premature atrial complexes Otherwise normal ECG No previous ECGs available Reviewed by WILL Damon Contreras Garcia ECG ORDERABLES Final Result MUSE NA * (ABNORMAL) Basic Metabolic Panel (01/05/2025 2:18 AM CDT) Potassium, S 3.8 3.6 - 5.2 mmol/L 01/05/2025 2:58 AM CDT DTL Sodium, S 140 135 - 145 mmol/L 01/05/2025 2:58 AM CDT DTL Chloride, S 105 98 - 107 mmol/L 01/05/2025 2:58 AM CDT DTL Bicarbonate, S 25 22 - 29 mmol/L 01/05/2025 2:58 AM CDT DTL Anion Gap 10 7 - 15 01/05/2025 2:58 AM CDT DTL BUN (Blood Urea Nitrogen), S 16 6 - 21 mg/dL 01/05/2025 2:58 AM CDT DTL Creatinine 0.71 0.59 - 1.04 mg/dL 01/05/2025 2:58 AM CDT DTL Estimated GFR (eGFR) 90 >=60 mL/min/BSA 01/05/2025 2:58 AM CDT DTL Comment: Estimated GFR calculated using the 2020 CKD_EPI creatinine equation. Calcium, Total, S 8.4(L) 8.8 - 10.2 mg/dL 01/05/2025 2:58 AM CDT DTL Glucose, S 129 70 - 140 mg/dL 01/05/2025 2:58 AM CDT DTL Blood (Blood, Venous) 01/05/2025 2:18 AM CDT 01/05/2025 2:25 AM CDT us Antonio Calvo M.D. LAB BLOOD ADD-ON Final Resu lt [facility] [address] [place] [address], [facility] DTL [facility] [address] [place] [address] * (ABNORMAL) CBC with Differential, Blood (01/05/2025 2:18 AM CDT) Hemoglobin 9.2(L) 11.6 - 15.0 g/dL 01/05/2025 3:23 AM CDT DTL Hematocrit 28.1(L) 35.5 - 44.9 % 01/05/2025 3:23 AM CDT DTL Erythrocytes 3.06(L) 3.92 - 5.13 x10(12)/L 01/05/2025 3:23 AM CDT DTL MCV 91.8 78.2 - 97.9 fL 01/05/2025 3:23 AM CDT DTL RBC Distrib Width 13.9 12.2 - 16.1 % 01/05/2025 3:23 AM CDT DTL Platelet Count 250 157 - 371 x10(9)/L 01/05/2025 3:23 AM CDT DTL Leukocytes 9.6 3.4 - 9.6 x10(9)/L 01/05/2025 3:23 AM CDT DTL Neutrophils 6.52(H) 1.56 - 6.45 x10(9)/L 01/05/2025 3:23 AM CDT DHPM Lymphocytes 1.88 0.95 - 3.07 x10(9)/L 01/05/2025 3:23 AM CDT DTL Monocytes 0.94(H) 0.26 - 0.81 x10(9)/L 01/05/2025 3:23 AM CDT DTL Eosinophils 0.27 0.03 - 0.48 x10(9)/L 01/05/2025 3:23 AM CDT DTL Basophils <0.03 0.01 - 0.08 x10(9)/L 01/05/2025 3:23 AM CDT DTL Blood (Blood, Venous) 01/05/2025 2:18 AM CDT 01/05/2025 2:25 AM CDT us Antonio Calvo M.D. LAB BLOOD ADD-ON Final Resu lt [facility] [address] [place] [address], [facility] DTL [facility] [address] [place] [address] [facility] [address] [id number] * (ABNORMAL) CBC without Differential (01/03/2025 2:58 AM CDT) [facility] Hemoglobin 11.7 11.6 - 15.0 g/dL 01/03/2025 3:28 AM CDT DTL Hematocrit 35.4(L) 35.5 - 44.9 % 01/03/2025 3:28 AM CDT DTL Erythrocytes 3.96 3.92 - 5.13 x10(12)/L 01/03/2025 3:28 AM CDT DTL MCV 89.4 78.2 - 97.9 fL 01/03/2025 3:28 AM CDT DTL RBC Distrib Width 13.6 12.2 - 16.1 % 01/03/2025 3:28 AM CDT DTL Platelet Count 407(H) 157 - 371 x10(9)/L 01/03/2025 3:28 AM CDT DTL Leukocytes 12.4(H) 3.4 - 9.6 x10(9)/L 01/03/2025 3:28 AM CDT DTL Blood (Blood, Venous) 01/03/2025 2:58 AM CDT 01/03/2025 3:18 AM CDT us Kesha Todd APRN, C.N.P. LAB BLOOD ADD-ON Fin al Result [facility] [id number] [place] [address] [address] * Creatinine with Estimated GFR (01/03/2025 2:58 AM CDT) Pathologist [facility] Creatinine 0.61 0.59 - 1.04 mg/dL 01/03/2025 3:59 AM CDT DTL Estimated GFR (eGFR) >90 >=60 mL/min/BSA 01/03/2025 3:59 AM CDT DTL Comment: Estimated GFR calculated using the 2020 CKD_EPI creatinine equation. Blood (Blood, Venous) 01/03/2025 2:58 AM CDT 01/03/2025 3:18 AM CDT Kesha Todd APRN, C.N.P. LAB BLOOD ADD-ON Fin al Result [address] [address] * (ABNORMAL) Basic Metabolic Panel (01/02/2025 9:59 PM CDT) Pathologist [facility] Potassium, S 4.4 3.6 - 5.2 mmol/L 01/02/2025 10:38 PM CDT DTL Sodium, S 138 135 - 145 mmol/L 01/02/2025 10:38 PM CDT DTL Chloride, S 102 98 - 107 mmol/L 01/02/2025 10:38 PM CDT DTL Bicarbonate, S 23 22 - 29 mmol/L 01/02/2025 10:38 PM CDT DTL Anion Gap 13 7 - 15 01/02/2025 10:38 PM CDT DTL BUN (Blood Urea Nitrogen), S 15 6 - 21 mg/dL 01/02/2025 10:38 PM CDT DTL Creatinine 0.62 0.59 - 1.04 mg/dL 01/02/2025 10:38 PM CDT DTL Estimated GFR (eGFR) >90 >=60 mL/min/BSA 01/02/2025 10:38 PM CDT DTL Comment: Estimated GFR calculated using the 2020 CKD_EPI creatinine equation. Calcium, Total, S 8.8 8.8 - 10.2 mg/dL 01/02/2025 10:38 PM CDT DTL Glucose, S 225(H) 70 - 140 mg/dL 01/02/2025 10:38 PM CDT DTL Blood (Blood, Venous) 01/02/2025 9:59 PM CDT 01/02/2025 10:09 PM CDT Kesha Todd APRN, C.N.P. LAB BLOOD ADD-ON Fin al Result [facility] [address] [place] [address], [facility] [address] [place] [address] * DX Hip Right 2-3 Views (01/02/2025 6:49 PM CDT) Anatomical Region Laterality Modality Lower Extremity, Hip, Muscul oskeletal RST LOS, Musculoskeletal ARZ LOS, Muskuloskeletal FLA LOS Right Digit al Radiography Impressions 01/02/2025 8:06 PM CDT Postoperative changes of right hip arthroplasty resection. Negative for postoperative purposes. Narrative 01/02/2025 8:06 PM CDT EXAM: DX HIP RIGHT 2-3 VIEWS Procedure Note David River M.D. - 01/02/2025 EXAM: DX HIP RIGHT 2-3 VIEWS IMPRESSION: Postoperative changes of right hip arthroplasty resection. Negative forpostoperative purposes. us Kesha Todd APRN, C.N.P. IMG DIAGNOSTIC IMAGI NG PROCEDURES Final Result * (ABNORMAL) Bacteria Culture, Aerobe / Anaerobe + Susc (01/02/2025 4:29 PM CDT) Bacteria Cult, Aerobe/Anaero be+Susc PSEUDOMONAS AERUGINOSA Growth after 1 day (A) 01/07/2025 8:30 AM CDT DTL Comment:Susceptibilities per formed on another specimen [id number] Hip, Right 01/02/2025 4:29 PM CDT 01/02/2025 5:12 PM CDT Comment:Specimen Source Site : Tissue, RIGHT HIP #4 Narrative [facility] - 01/07/2025 8:30 AM CDT Bacterial Culture: Placed in Bactec aerobic and Bactec anaerobic bottles Aidan Self M.D. LAB MICROBIOLOGY - GENERA L ORDERABLES Final Result Performing Organization Address City/[facility] Co de Phone Number [facility] [address] [place], [place] [id number] [place] [address] [facility] [address] [place] [address] * Acid Fast Smear for Mycobacterium (01/02/2025 4:29 PM CDT) Acid Fast Smear For Mycobacterium Negative. 01/03/2025 7:37 AM CDT DTL Hip, Right 01/02/2025 4:29 PM CDT 01/02/2025 5:12 PM CDT Comment:Specimen Source Site : Tissue, RIGHT HIP #4 Narrative [facility] - 01/03/2025 7:37 AM CDT Bacterial Culture: Placed in Bactec aerobic and Bactec anaerobic bottles Aidan Self M.D. LAB MICROBIOLOGY - GENERA L ORDERABLES Final Result Performing Organization Address City/[facility]/ZIP Co de Phone Number [facility] [address] [place] [address], [facility] [address] [place] [address] * (ABNORMAL) Bacteria Culture, Aerobe / Anaerobe + Susc (01/02/2025 4:24 PM CDT) Bacteria Cult, Aerobe/Anaero be+Susc PSEUDOMONAS AERUGINOSA Growth after 1 day (A) 01/06/2025 11:07 AM CDT DTL Comment:Susceptibilities per formed on another specimen [id number] Hip, Right 01/02/2025 4:24 PM CDT 01/02/2025 5:10 PM CDT Comment:Specimen Source Site : Tissue, RIGHT HIP #3 Narrative [facility] - 01/06/2025 11:07 AM CDT Bacterial Culture: Placed in Bactec aerobic and Bactec anaerobic bottles Aidan Self M.D. LAB MICROBIOLOGY - GENERA L ORDERABLES Final Result Performing Organization Address [facility] Co de Phone Number [facility] [address] [place], [place] [id number] [place] [address] [facility] [address] [place] [address] * Acid Fast Smear for Mycobacterium (01/02/2025 4:24 PM CDT) Acid Fast Smear For Mycobacterium Negative. 01/03/2025 7:37 AM CDT DTL Hip, Right 01/02/2025 4:24 PM CDT 01/02/2025 5:10 PM CDT Comment:Specimen Source Site : Tissue, RIGHT HIP #3 Narrative [facility] - 01/03/2025 7:37 AM CDT Bacterial Culture: Placed in Bactec aerobic and Bactec anaerobic bottles Aidan Self M.D. LAB MICROBIOLOGY - GENERA L ORDERABLES Final Result Performing Organization Address [facility]/[place] de Phone Number [facility] [address] [place] [address], [facility] [address] [place] [address] * (ABNORMAL) Bacteria Culture, Aerobe / Anaerobe + Susc (01/02/2025 4:19 PM CDT) Bacteria Cult, Aerobe/Anaerob e+Susc PSEUDOMONAS AERUGINOSA Growth after 1 day (A) 01/06/2025 11:06 AM CDT DTL Comment: Semi-Urgent Result. Gentamicin should not be used for P. aeruginosa. There are no gentamicin breakpoints for P. aeruginosa. Semi-Urgent This is a semi-urgent result([id number]) [facility] Hip, Right 01/02/2025 4:19 PM CDT 01/02/2025 5:13 PM CDT Comment:Specimen Source Site : Tissue, RIGHT HIP #2 [id number] Narrative [facility] - 01/06/2025 11:06 AM CDT Bacterial Culture: Placed in Bactec aerobic and Bactec anaerobic bottles Organism Antibiotic Method Susceptibility Pseudomonas aeruginosa Meropenem SUSCEPTIB ILITY, STEVIE (MCG/ML) 1 mcg/mL: Susceptible Pseudomonas aeruginosa Piperacillin + Tazobactam SUSCEPTIBILITY, STEVIE (MCG/ML) <=8/4 mcg/mL: Susceptible Pseudomonas aeruginosa Ciprofloxacin SUSCEPTIB ILITY, STEVIE (MCG/ML) <=0.25 mcg/mL: Susceptible Pseudomonas aeruginosa Levofloxacin SUSCEPTIB ILITY, STEVIE (MCG/ML) <=0.5 mcg/mL: Susceptible Pseudomonas aeruginosa Ceftazidime SUSCEPTIB ILITY, STEVIE (MCG/ML) <=4 mcg/mL: Susceptible Pseudomonas aeruginosa Cefepime SUSCEPTIB ILITY, STEVIE (MCG/ML) <=2 mcg/mL: Susceptible Pseudomonas aeruginosa Tobramycin SUSCEPTIB ILITY, STEVIE (MCG/ML) <=1 mcg/mL: Susceptible Pseudomonas aeruginosa Aztreonam SUSCEPTIB ILITY, STEVIE (MCG/ML) <=4 mcg/mL: Susceptible Aidan Self M.D. LAB MICROBIOLOGY - GENERA L ORDERABLES Final Result [facility] [address] [place] [address], [facility] [address] [place] [address] * Acid Fast Smear for Mycobacterium (01/02/2025 4:19 PM CDT) Acid Fast Smear For Mycobacterium Negative. 01/03/2025 7:37 AM CDT DTL Hip, Right 01/02/2025 4:19 PM CDT 01/02/2025 5:13 PM CDT Comment:Specimen Source Site : Tissue, RIGHT HIP #2 [id number] Narrative [facility] - 01/03/2025 7:37 AM CDT Bacterial Culture: Placed in Bactec aerobic and Bactec anaerobic bottles Aidan Self M.D. LAB MICROBIOLOGY - GENERA L ORDERABLES Final Result Performing Organization Address [facility] Co de Phone Number [facility] [address] [place] [address], [facility] [address] [place] [address] * (ABNORMAL) Bacteria Culture, Aerobe / Anaerobe + Susc (01/02/2025 4:17 PM CDT) Bacteria Cult, Aerobe/Anaero be+Susc PSEUDOMONAS AERUGINOSA Growth after 1 day (A) 01/07/2025 8:31 AM CDT DTL Comment:Susceptibilities per formed on another specimen [id number] Hip, Right 01/02/2025 4:17 PM CDT 01/02/2025 5:08 PM CDT Comment:Specimen Source Site : Tissue, RIGHT HIP #1 Narrative [facility] - 01/07/2025 8:31 AM CDT Bacterial Culture: Placed in Bactec aerobic and Bactec anaerobic bottles Aidan Self M.D. LAB MICROBIOLOGY - GENERA L ORDERABLES Final Result Performing Organization Address [facility]/[place] de Phone Number [facility] [address] [place] [address], [facility] [address] [place] [address] * Acid Fast Smear for Mycobacterium (01/02/2025 4:17 PM CDT) Acid Fast Smear For Mycobacterium Negative. 01/03/2025 7:37 AM CDT DTL Hip, Right 01/02/2025 4:17 PM CDT 01/02/2025 5:08 PM CDT Comment:Specimen Source Site : Tissue, RIGHT HIP #1 Narrative [facility] - 01/03/2025 7:37 AM CDT Bacterial Culture: Placed in Bactec aerobic and Bactec anaerobic bottles Aidan Self M.D. LAB MICROBIOLOGY - GENERA L ORDERABLES Final Result [facility] [address] [place] [address], [place] DTL [facility] [address] [place] [address] documented in this encounter Visit Diagnoses Diagnosis Pain Hip Right- Primary documented in this encounter Admitting Diagnoses Diagnosis Pain Hip Right documented in this encounter Administered Medications Inactive Administered Medications - up to 3 most recent administrations Medication Order MAR Action Action Date Dose Rate Site acetaminophen tablet 1,000 mg (TylenoL) 1,000 mg, oral, Once, On Annabelle 01/02/25 at 1200, For 1 dose, Pre-Op Given 01/02/2025 12:15 PM CDT 1,000 mg acetaminophen tablet 1,000 mg (TylenoL) 1,000 mg, oral, Every 6 hours, First dose on Annabelle 01/02/25 at 2100 Given 01/06/2025 9:09 AM CDT 1,000 mg Given 01/06/2025 2:00 AM CDT 1,000 mg Given 01/05/2025 8:39 PM CDT 1,000 mg aspirin chewable tablet 81 mg 81 mg, oral, 2 times daily, First dose on Annabelle 01/02/25 at 2100 Given 01/06/2025 9:09 AM CDT 81 mg Given 01/05/2025 8:39 PM CDT 81 mg Given 01/05/2025 8:49 AM CDT 81 mg bisacodyL suppository 10 mg (Dulcolax) 10 mg, rectal, Daily PRN, constipation, Starting on [place] 01/05/25 at 0858 BUPivacaine PF 0.1 % in NaCl 0.9% 289 mL PNC infusion (Marcaine) 10 mL/hr, nerve catheter, Continuous, Starting on Annabelle 01/02/25 at 1930, PACU & Post-Op, Nerve Catheter Location: Psoas Compartment, Device: Hospital Infusion Pump New Bag 01/05/2025 8:57 AM CDT 10 mL/hr 10 mL/hr New Bag 01/04/2025 3:52 AM CDT 10 mL/hr 10 mL/hr New Bag 01/02/2025 7:16 PM CDT 10 mL/hr 10 mL/hr buPROPion tablet 75 mg (Wellbutrin) 75 mg, oral, Daily, First dose on Mon01/03/25 at 0900 Given 01/06/2025 9:08 AM CDT 75 mg Given 01/05/2025 8:49 AM CDT 75 mg Given 01/04/2025 8:53 AM CDT 75 mg calcium carbonate chewable tablet 400 mg of calcium (Tums) 400 mg of calcium, oral, Every 2 hour PRN, indigestion, Starting on Mon01/02/25 at 2030, Doses listed are in mg of elemental calcium. Take with food. 500 mg calcium carbonate contains 200 mg of elemental calcium. Given 01/05/2025 8:57 PM CDT 400 mg of calcium Given 01/05/2025 5:57 PM CDT 400 mg of calcium Given 01/04/2025 5:21 PM CDT 400 mg of calcium ceFAZolin injection 2 g (Ancef) 2 g, intravenous, Every 8 hours, First dose on Mon01/02/25 at 2100, Start within 8 hours of last IV dose. For immediate IV push administration, reconstitute vial per IVAG or package insert instructions. See IVAG for administration guidelines., Drug Monitoring Program: Pharmacist to adjust medication dosing based on indication and drug clearance factors., Indications: Bone and/or joint infectionIndications:Bone and/or joint infection Given 01/03/2025 5:05 AM CDT 2 g Given 01/02/2025 9:14 PM CDT 2 g ceFAZolin injection 2 g (Ancef) 2 g, intravenous, Every 8 hours, First dose (after last reorder) on Mon01/03/25 at 1300, Start within 8 hours of last IV dose. For immediate IV push administration, reconstitute vial per IVAG or package insert instructions. See IVAG for administration guidelines., Drug Monitoring Program: Pharmacist to adjust medication dosing based on indication and drug clearance factors., Indications: Bone and/or joint infectionIndications:Bone and/or joint infection Given 01/03/2025 12:47 PM CDT 2 g cefepime in dextrose (iso osm) IVPB 2 g (Maxipime) 2 g, intravenous, at 200 mL/hr, Administer over 30 Minutes, Every 12 hours, First dose on Mon01/03/25 at 1500, Drug Monitoring Program: Pharmacist to adjust medication dosing based on indication and drug clearance factors., Indications: Bone and/or joint infectionIndications:Bone and/or joint infection New Bag 01/06/2025 12:42 PM CDT 2 g 200 mL/hr New Bag 01/06/2025 2:04 AM CDT 2 g 200 mL/hr New Bag 01/05/2025 2:00 PM CDT 2 g 200 mL/hr D5W infusion 1-999 mL/hr, intravenous, As needed, Medications Incompatible with 0.9% NaCL, Starting on Mon01/06/25 at 0434, Infuse at the same rate as the piggyback until tubing clears or up to a volume of 20 mL pre and post infusion for medications incompatible with 0.9% NaCL. Use 50 mL bag then discard. D5W infusion 1-999 mL/hr, intravenous, As needed, Medications Incompatible with 0.9% NaCL, Starting on Mon01/06/25 at 0812, Infuse at the same rate as the piggyback until tubing clears or up to a volume of 20 mL pre and post infusion for medications incompatible with 0.9% NaCL. Use 50 mL bag then discard. docusate sodium 283 mg/5 mL enema 1 enema (Enemeez) 1 enema, rectal, Once, On Mon01/06/25 at 0830, For 1 dose Given 01/06/2025 9:07 AM CDT 1 enema famotidine tablet 20 mg (Pepcid) 20 mg, oral, Every evening, First dose on Mon01/03/25 at 1800, Drug Monitoring Program: Pharmacist to adjust medication dosing based on indication and drug clearance factors. Given 01/05/2025 5:53 PM CDT 20 mg Given 01/04/2025 5:11 PM CDT 20 mg Given 01/03/2025 6:59 PM CDT 20 mg fentaNYL injection 50 mcg (Sublimaze) 50 mcg, intravenous, Once as needed, sedation, Starting on Annabelle 01/02/25 at 1138, For 1 dose, Pre-Op, IV Push, Initial dose Given 01/02/2025 12:44 PM CDT 50 mcg heparin PF flush syringe 50-150 Units 50-150 Units, intravenous, Once as needed, line care, 50 units (5 mL) to each lumen of non-valved catheters only, Starting on Mon01/06/25 at 0701, For 1 dose Lactated Ringer's 20 mL/hr, intravenous, Once as needed, to keep vein open, Starting on [place]abel[place] 01/02/25 at 1138, For 1 dose, Pre-Op New Bag 01/02/2025 12:25 PM CDT 20 mL/hr 20 mL/hr Lactated Ringer's 75 mL/hr, intravenous, Continuous, Starting on [place] 01/02/25 at 2100, Until able to tolerate oral fluids New Bag 01/02/2025 9:13 PM CDT 75 mL/hr 75 mL/hr Lactated Ringer's 20 mL/hr, intravenous, Continuous, Starting on Annabelle 01/02/25 at 1730, PACU & Post-Op Continued from OR 01/02/2025 7:23 PM CDT 20 mL/hr 20 mL/hr melatonin tablet 3 mg 3 mg, oral, Daily at bedtime, First dose (after last modification) on Mon01/03/25 at 0000 Given 01/05/2025 8:39 PM CDT 3 mg Given 01/04/2025 9:27 PM CDT 3 mg Given 01/03/2025 8:46 PM CDT 3 mg metoprolol tartrate tablet 25 mg (Lopressor) 25 mg, oral, 2 times daily, First dose on Mon01/02/25 at 2100 Given 01/06/2025 9:09 AM CDT 25 mg Given 01/05/2025 8:39 PM CDT 25 mg Given 01/05/2025 8:49 AM CDT 25 mg midazolam (PF) injection 1 mg (Versed) 1 mg, intravenous, Every 2 min PRN, sedation, RASS 0, Starting on Annabelle 01/02/25 at 1138, For 3 hours, Pre-Op, May repeat every 2 minutes for a maximum of 5 mg. Do not give if respiratory rate is less than 8 breaths/minute. Given 01/02/2025 12:44 PM CDT 1 mg NaCl 0.9% infusion 1-999 mL/hr, intravenous, As needed, Between Consecutive Piggyback Medications, Starting on Mon01/06/25 at 0434, For 7 days, Infuse at the same rate as the piggyback until tubing clears or up to a volume of 20 mL. Select for IV medication administration when no maintenance IV available or when IV medications are not compatible with maintenance fluid. NaCl 0.9% infusion 1-999 mL/hr, intravenous, As needed, Post Medications (Hazardous/Low Fluid Volume), Starting on Mon01/06/25 at 0434, For 7 days, Infuse at the same rate as the medication until tubing cleared of medication, then discard. NaCl 0.9% infusion 1-999 mL/hr, intravenous, As needed, Between Consecutive Piggyback Medications, Starting on Mon01/06/25 at 0812, For 7 days, Infuse at the same rate as the piggyback until tubing clears or up to a volume of 20 mL. Select for IV medication administration when no maintenance IV available or when IV medications are not compatible with maintenance fluid. NaCl 0.9% infusion 1-999 mL/hr, intravenous, As needed, Post Medications (Hazardous/Low Fluid Volume), Starting on Mon01/06/25 at 0812, For 7 days, Infuse at the same rate as the medication until tubing cleared of medication, then discard. oxyCODONE IR tablet 10 mg (Roxicodone) 10 mg, oral, Every 4 hours PRN, severe pain or score 7-10 of 10, Starting on Mon01/02/25 at 2030, Second line therapy. If patient is greater than 7 after 2 hours, call service for new order. May administer lower pain scale value dose of prescribed medication based on patient request oxyCODONE IR tablet 5 mg (Roxicodone) 5 mg, oral, Every 4 hours PRN, moderate pain or score 4-6 of 10, Starting on Mon01/02/25 at 2030, Second line therapy Given 01/04/2025 10:09 PM CDT 5 mg Given 01/04/2025 5:22 PM CDT 5 mg Given 01/04/2025 10:23 AM CDT 5 mg polyethylene glycol powder packet 17 g (Miralax) 17 g, oral, Daily, First dose (after last modification) on Mon01/06/25 at 0900, Dissolve in 240 mLs (8 ounces) of water prior to giving. Avoid mixing with starch-based thickened liquids. rosuvastatin tablet 5 mg (Crestor) 5 mg, oral, Daily at bedtime, First dose on Mon01/02/25 at 2100 Given 01/05/2025 8:39 PM CDT 5 mg Given 01/04/2025 9:27 PM CDT 5 mg Given 01/03/2025 8:46 PM CDT 5 mg sennosides-docusate sodium 8.6-50 mg per tablet 1 tablet (Senokot-S) 1 tablet, oral, 2 times daily, First dose on Mon01/02/25 at 2100, Do not give if patient has diarrhea. Given 01/05/2025 8:39 PM CDT 1 tablet Given 01/05/2025 8:31 AM CDT 1 tablet sennosides-docusate sodium 8.6-50 mg per tablet 2 tablet (Senokot-S) 2 tablet, oral, 2 times daily, First dose (after last modification) on Mon01/06/25 at 0900, Do not give if patient has diarrhea. sodium chloride 0.9 % injection 10 mL 10 mL, intravenous, As needed, line care, Peripheral Intravenous Catheter and Rapid Infusion Catheter, Starting on Mon01/06/25 at 0434, Prior to blood sampling, post blood transfusion or post blood sampling. sodium chloride 0.9 % injection 3 mL 3 mL, intravenous, Every 12 hours scheduled, First dose on Annabelle 01/02/25 at 2100, PACU & Post-Op, Peripheral Intravenous Catheter and Rapid Infusion Catheter, when no infusion to maintain patency Given 01/05/2025 8:43 PM CDT 3 mL Given 01/05/2025 8:50 AM CDT 3 mL Given 01/04/2025 9:27 PM CDT 3 mL sodium chloride 0.9 % injection 3 mL 3 mL, intravenous, As needed, line care, Peripheral Intravenous Catheter and Rapid Infusion Catheter, Starting on Mon01/06/25 at 0434, Prior to and following infusion and between multiple consecutive infusions. sodium chloride 0.9 % injection 3 mL 3 mL, intravenous, Every 24 hours scheduled, First dose on Mon01/06/25 at 0900, Peripheral Intravenous Catheter and Rapid Infusion Catheter: When no infusion to maintain patency. Given 01/06/2025 10:27 AM CDT 3 mL traMADoL tablet 50 mg (Ultram) 50 mg, oral, Every 6 hours PRN, moderate pain or score 4-6 of 10, Starting on Mon01/02/25 at 2030, First line therapy, Restriction Criteria (Pharmacy will review and approve if criteria met): Use in adults 18 years and older Given 01/03/2025 1:32 AM CDT 50 mg vancomycin in dextrose 5 % IVPB 1,250 mg 1,250 mg (rounded from 1,345.5 mg = 15 mg/kg 89.7 kg), intravenous, at 167 mL/hr, Administer over 90 Minutes, Every 12 hours, First dose on Mon01/03/25 at 0930, Drug Monitoring Program: Pharmacist to adjust medication dosing based on indication and drug clearance factors., Indications: Bone and/or joint infectionIndications:Bone and/or joint infection New Bag 01/04/2025 8:59 AM CDT 1,250 mg 167 mL/hr New Bag 01/03/2025 9:01 PM CDT 1,250 mg 167 mL/hr New Bag 01/03/2025 10:52 AM CDT 1,250 mg 167 mL/hr documented in this encounter Active and Recently Administered Medications Times are shown in CDT. Scheduled Medication Order 01/04/2025 01/05/2025 01/06/2025 acetaminophen tablet 1,000 mg (TylenoL) 1,000 mg, oral, Every 6 hours, First dose on Annabelle 01/02/25 at 2100 0211 (Given - Provider: Kassy Castro R.N.)0853 (Given - Provider: Gricel Jamison)1438 (Given - Provider: Gricel Jamison)7 (Given - Provider: Jailyn Byrd RCampos) 0225 (Given - Provider: Jailyn Byrd R.N.)0849 (Given - Provider: Boyd Power RMelvinN.)1400 (Given - Provider: Gricel Jamison)203 (Given - Provider: Srinivas Garcia RBradley.) 0200 (Given - Provider: Srinivas Garcia R.N.)0909 (Given - Provider: Laron Fitzpatrick RCampos)1500 (Due) aspirin chewable tablet 81 mg 81 mg, oral, 2 times daily, First dose on Annabelle 01/02/25 at 2100 0853 (Given - Provider: Gricel Jamison)2127 (Given - Provider: Jailyn Byrd R.N.) 0849 (Given - Provider: Boyd Power R.N.)203 (Given - Provider: Srinivas Garcia R.N.) 0909 (Given - Provider: Laron Fitzpatrick R.N.) buPROPion tablet 75 mg (Wellbutrin) 75 mg, oral, Daily, First dose on Mon01/03/25 at 0900 0853 (Given - Provider: Gricel Jamison) 0849 (Given - Provider: Boyd Power R.N.) 0908 (Given - Provider: Laron Fitzpatrick R.N.) cefepime in dextrose (iso osm) IVPB 2 g (Maxipime) 2 g, intravenous, at 200 mL/hr, Administer over 30 Minutes, Every 12 hours, First dose on Mon01/03/25 at 1500, Drug Monitoring Program: Pharmacist to adjust medication dosing based on indication and drug clearance factors., Indications: Bone and/or joint infection 0210 (New Bag - Provider: Kassy Castro R.N.)1437 (New Bag - Provider: Gricel Jamison) 0226 (New Bag - Provider: Jailyn Byrd R.N.)1400 (New Bag - Provider: Gricel Jamison) 0204 (New Bag - Provider: Srinivas Garcia R.N.)1242 (New Bag - Provider: Laron Fitzpatrick R.N.) celecoxib capsule 200 mg (CeleBREX) 200 mg, oral, Daily, First dose on Mon01/03/25 at 0900, Hold for GFR <50ml/min/BSA, renal transplant, solitary kidney etc 0854 (Not Given - Provider: Gricel Jamison - Reason: Patient/family refused) 0831 (Not Given - Provider: Boyd Power R.N. - Reason: Patient/family refused) 0908 (Not Given - Provider: Laron Fitzpatrick R.N. - Reason: Patient/family refused) docusate sodium 283 mg/5 mL enema 1 enema (Enemeez) (COMPLETED) 1 enema, rectal, Once, On Mon01/06/25 at 0830, For 1 dose 0907 (Given - Provider: Lraon Fitzpatrick R.N.) famotidine tablet 20 mg (Pepcid) 20 mg, oral, Every evening, First dose on Mon01/03/25 at 1800, Drug Monitoring Program: Pharmacist to adjust medication dosing based on indication and drug clearance factors. 1711 (Given - Provider: Gricel Jamison) 1753 (Given - Provider: Gricel Jamison) lidocaine 10 mg/mL (1 %) injection 0-10 mL (Xylocaine) 0-10 mL, intradermal, Once, On Mon01/06/25 at 0730, For 1 dose, Administer intradermally prior to PICC placement. Patient 18 years and older - 1 mL (may repeat twice up to 1 mL each PICC insertion attempt if patient complains or pain or discomfort at injection site. 0730 (Due) melatonin tablet 3 mg 3 mg, oral, Daily at bedtime, First dose (after last modification) on Mon01/03/25 at 0000 7 (Given - Provider: Jailyn Byrd R.N.) 2038 (Given - Provider: Srinivas Garcia R.N.) metoprolol tartrate tablet 25 mg (Lopressor) 25 mg, oral, 2 times daily, First dose on Mon01/02/25 at 2100 0853 (Given - Provider: Gricel Jamison)2126 (Given - Provider: Jailyn Byrd R.N.) 0849 (Given - Provider: Boyd Power R.N.)2038 (Given - Provider: Srinivas Garcia R.N.) 0909 (Given - Provider: Laron Fitzpatrick R.N.) polyethylene glycol powder packet 17 g (Miralax) 17 g, oral, Daily, First dose (after last modification) on Mon01/06/25 at 0900, Dissolve in 240 mLs (8 ounces) of water prior to giving. Avoid mixing with starch-based thickened liquids. 1026 (Not Given - Provider: Laron Fitzpatrick R.N. - Reason: Patient/family refused) rosuvastatin tablet 5 mg (Crestor) 5 mg, oral, Daily at bedtime, First dose on Mon01/02/25 at 2100 2127 (Given - Provider: Jailyn Byrd R.N.) 2038 (Given - Provider: Srinivas Garcia R.N.) sennosides-docusate sodium 8.6-50 mg per tablet 1 tablet (Senokot-S) (CANCELED) 1 tablet, oral, 2 times daily, First dose on Annabelle 01/02/25 at 2100, Do not give if patient has diarrhea. 0853 (Not Given - Provider: Gricel Jamison - Reason: Patient/family refused)2126 (Not Given - Provider: Jailyn Byrd R.N. - Reason: Patient/family refused) 0831 (Given - Provider: Boyd Power R.N.)2038 (Given - Provider: Srinivas Garcia R.N.) sennosides-docusate sodium 8.6-50 mg per tablet 2 tablet (Senokot-S) 2 tablet, oral, 2 times daily, First dose (after last modification) on Mon01/06/25 at 0900, Do not give if patient has diarrhea. 0908 (Not Given - Provider: Laron Fitzpatrick R.N. - Reason: Patient/family refused) sodium chloride 0.9 % injection 10-30 mL 10-30 mL, intravenous, Once, On Mon01/06/25 at 0730, For 1 dose, 10 mL flush to each lumen 0730 (Due) sodium chloride 0.9 % injection 3 mL 3 mL, intravenous, Every 12 hours scheduled, First dose on Annabelle 01/02/25 at 2100, PACU & Post-Op, Peripheral Intravenous Catheter and Rapid Infusion Catheter, when no infusion to maintain patency 0956 (Given - Provider: Boyd Power R.N.)2126 (Given - Provider: Jailyn Byrd R.N.) 0850 (Given - Provider: Boyd Power R.N.)2042 (Given - Provider: Srinivas Garcia R.N.) 1027 (Not Given - Provider: Laron Fitzpatrick R.N. - Reason: Patient/family refused) sodium chloride 0.9 % injection 3 mL 3 mL, intravenous, Every 24 hours scheduled, First dose on Mon01/06/25 at 0900, Peripheral Intravenous Catheter and Rapid Infusion Catheter: When no infusion to maintain patency. 1027 (Given - Provider: Laron Fitzpatrick R.N.) vancomycin in dextrose 5 % IVPB 1,250 mg (CANCELED) 1,250 mg (rounded from 1,345.5 mg = 15 mg/kg 89.7 kg), intravenous, at 167 mL/hr, Administer over 90 Minutes, Every 12 hours, First dose on Mon01/03/25 at 0930, Drug Monitoring Program: Pharmacist to adjust medication dosing based on indication and drug clearance factors., Indications: Bone and/or joint infection 0859 (New Bag - Provider: Gricel Jamison) Continuous Medication Order 01/04/2025 01/05/2025 01/06/2025 BUPivacaine PF 0.1 % in NaCl 0.9% 289 mL PNC infusion (Marcaine) 10 mL/hr, nerve catheter, Continuous, Starting on Annabelle 01/02/25 at 1930, PACU & Post-Op, Nerve Catheter Location: Psoas Compartment, Device: Hospital Infusion Pump 0352 (New Bag - Provider: Kassy Castro RMelvinNMelvin)1914 (Handoff - Provider: Jailyn Byrd R.N. - Comment: checked off with Gricel RN) 0857 (New Bag - Provider: Boyd Power RMelvinNMelvin)1733 (Stopped - Provider: Gricel Jamison) Lactated Ringer's 75 mL/hr, intravenous, Continuous, Starting on Annabelle 01/02/25 at 2100, Until able to tolerate oral fluids PRN Medication Order 01/04/2025 01/05/2025 01/06/2025 bisacodyL suppository 10 mg (Dulcolax) 10 mg, rectal, Daily PRN, constipation, Starting on Mon01/05/25 at 0858 calcium carbonate chewable tablet 400 mg of calcium (Tums) 400 mg of calcium, oral, Every 2 hour PRN, indigestion, Starting on Annabelle 01/02/25 at 2030, Doses listed are in mg of elemental calcium. Take with food. 500 mg calcium carbonate contains 200 mg of elemental calcium. 172 (Given - Provider: Gricel Jamison) 175 (Given - Provider: Gricel Jamison)2056 (Given - Provider: Srinivas Garcia R.NMelvin) D5W infusion 1-999 mL/hr, intravenous, As needed, Medications Incompatible with 0.9% NaCL, Starting on 01/06/25 at 0434, Infuse at the same rate as the piggyback until tubing clears or up to a volume of 20 mL pre and post infusion for medications incompatible with 0.9% NaCL. Use 50 mL bag then discard. D5W infusion 1-999 mL/hr, intravenous, As needed, Medications Incompatible with 0.9% NaCL, Starting on Mon01/06/25 at 0812, Infuse at the same rate as the piggyback until tubing clears or up to a volume of 20 mL pre and post infusion for medications incompatible with 0.9% NaCL. Use 50 mL bag then discard. fentaNYL injection 25 mcg (Sublimaze) 25 mcg, intravenous, Every 2 min PRN, moderate pain or score 4-6 of 10, severe pain or score 7-10 of 10, Starting on Annabelle 01/02/25 at 2030, PACU & Post-Op, Up to maximum total dose of 200 mcg heparin PF flush syringe 50-150 Units 50-150 Units, intravenous, Once as needed, line care, 50 units (5 mL) to each lumen of non-valved catheters only, Starting on Mon01/06/25 at 0701, For 1 dose loratadine tablet 10 mg (Claritin) 10 mg, oral, Daily PRN, allergies, for opioid induced pruritus, Starting on Annabelle 01/02/25 at 2030, Drug Monitoring Program: Pharmacist to adjust medication dosing based on indication and drug clearance factors. NaCl 0.9% infusion 1-999 mL/hr, intravenous, As needed, Between Consecutive Piggyback Medications, Starting on Mon01/06/25 at 0434, For 7 days, Infuse at the same rate as the piggyback until tubing clears or up to a volume of 20 mL. Select for IV medication administration when no maintenance IV available or when IV medications are not compatible with maintenance fluid. NaCl 0.9% infusion 1-999 mL/hr, intravenous, As needed, Post Medications (Hazardous/Low Fluid Volume), Starting on Mon01/06/25 at 0434, For 7 days, Infuse at the same rate as the medication until tubing cleared of medication, then discard. NaCl 0.9% infusion 1-999 mL/hr, intravenous, As needed, Between Consecutive Piggyback Medications, Starting on Mon01/06/25 at 0812, For 7 days, Infuse at the same rate as the piggyback until tubing clears or up to a volume of 20 mL. Select for IV medication administration when no maintenance IV available or when IV medications are not compatible with maintenance fluid. NaCl 0.9% infusion 1-999 mL/hr, intravenous, As needed, Post Medications (Hazardous/Low Fluid Volume), Starting on Mon01/06/25 at 0812, For 7 days, Infuse at the same rate as the medication until tubing cleared of medication, then discard. naloxone injection 0.2 mg (Narcan) 0.2 mg, intravenous, As needed, respiratory depression, Starting on Annabelle 01/02/25 at 2030, For RASS Score -4 or less, respiratory rate of less than 8 breaths/min. Notify provider/service and rapid response team (if available at institution). oxyCODONE IR tablet 10 mg (Roxicodone)(Linked Group 1) 10 mg, oral, Every 4 hours PRN, severe pain or score 7-10 of 10, Starting on Annabelle 01/02/25 at 2030, Second line therapy. If patient is greater than 7 after 2 hours, call service for new order. May administer lower pain scale value dose of prescribed medication based on patient request 0211 (See Alternative - Provider: Kassy Castro R.N.)1023 (See Alternative - Provider: Boyd Power R.N.)172 (See Alternative - Provider: Gricel Jamison)2208 (See Alternative - Provider: Jailyn Byrd R.N.) oxyCODONE IR tablet 5 mg (Roxicodone)(Linked Group 1) 5 mg, oral, Every 4 hours PRN, moderate pain or score 4-6 of 10, Starting on Annabelle 01/02/25 at 2030, Second line therapy 0211 (Given - Provider: Kassy Castro R.N.)1023 (Given - Provider: Boyd Power R.N.)1722 (Given - Provider: Gricel Jamison)2208 (Given - Provider: Jailyn Byrd R.N.) sodium chloride 0.9 % injection 10 mL 10 mL, intravenous, As needed, line care, Starting on Annabelle 01/02/25 at 2030, PACU & Post-Op, Peripheral Intravenous Catheter and Rapid Infusion Catheter, prior to blood sampling, post blood transfusion or post blood sampling sodium chloride 0.9 % injection 10 mL 10 mL, intravenous, As needed, line care, Peripheral Intravenous Catheter and Rapid Infusion Catheter, Starting on 01/06/25 at 0434, Prior to blood sampling, post blood transfusion or post blood sampling. sodium chloride 0.9 % injection 3 mL 3 mL, intravenous, As needed, line care, Starting on Annabelle 01/02/25 at 2030, PACU & Post-Op, Prior to and following infusion and between multiple consecutive infusions: sodium chloride 0.9 % injection sodium chloride 0.9 % injection 3 mL 3 mL, intravenous, As needed, line care, Peripheral Intravenous Catheter and Rapid Infusion Catheter, Starting on 01/06/25 at 0434, Prior to and following infusion and between multiple consecutive infusions. Linked Groups Order Group 1: oxyCODONE IR tablet 5 mg (Roxicodone)Jump to med 5 mg, oral, Every 4 hours PRN, moderate pain or score 4-6 of 10, Starting on Annabelle 01/02/25 at 2030, Second line therapy Or oxyCODONE IR tablet 10 mg (Roxicodone)Jump to med 10 mg, oral, Every 4 hours PRN, severe pain or score 7-10 of 10, Starting on Annabelle 01/02/25 at 2030, Second line therapy. If patient is greater than 7 after 2 hours, call service for new order. May administer lower pain scale value dose of prescribed medication based on patient request documented in this encounter Care Teams [employer] Planning Manager Relationship Specialty Start Date End Date Elsewhere, Pcp PCP - General Internal Medicine 11/05/24 documented as of this encounter
--- OUTSIDE RECORDS SUMMARY | 2025-01-02 13:11 | XMS_ITS | Encounter Summary ---
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 Procedures ARTHROPLASTY RESECTION HIP. Referral ID Status Reason Start Date Expiration Date Visits Re quested Visits Authorized [id number] 1 1 Encounter Details Date Type Department Care Team (Late st Contact Info) Description 01/02/2025 1:11 PM CDT - 01/02/2025 4:56 PM CDT Surgery [facility] MAIN OR [address] [place] [address] Aidan Self M.D. [address] [place] [address] ARTHROPLASTY RESECTION HIP. Social History Tobacco Use Types Packs/Day Years [...] things needed for daily living? No 01/03/2025 [facility] Utilities Answer Date Recorded In the past 12 months has [facility] electric, gas, oil, or water company threatened to shut off services in your home? No 01/03/2025 Housing Stability Answer Date Recorded What is your living situation today? I have a [facility] place to live 01/03/2025 Comments No Sex and Gender Information Value Date Recorded Sex Assigned at Female 11/02/2024 11:29 AM CDT Legal Sex Female 2:53 PM CDT Gender Identity Female 11/02/2024 11:29 AM CDT Sexual Orientation Straight 11/02/2024 11 :29 AM CDT documented as of this encounter Last Filed Vital Signs Vital Sign Reading Time Taken Comments Blood Pressure 116/100 01/02/2025 2:30 PM CDT Pulse 84 01/02/2025 2:30 PM CDT Temperature 36.9 C (98.4 F) 01/02/2025 11:59 AM CDT Respiratory Rate 21 01/02/2025 2:30 PM CDT Oxygen Saturation 94% 01/02/2025 2:30 PM CDT Inhaled Oxygen Concentration - - Weight 89.7 kg (197 lb 12 oz) 01/02/2025 11:59 A M CDT Height 164 cm (5' 4.57) 01/02/2025 11:59 AM CDT Body Mass Index 33.35 01/02/2025 11:59 AM CDT documented in this encounter Discharge Summaries * Karen Nix APRN, C.N.P., M.S.N. - 01/06/2025 11:50 AM CDT DISCHARGE SUMMARY BRIEF OVERVIEW Hospital: [facility] Discharge Provider: Aidan Self M.D. Primary Team: [facility] Orthopedic Surgery - Shayy Primary Care Providers: [...] Aidan Self M.D.Meeker, Daniel G, M.D., Ph.D. [facility] OR DISCHARGE DISPOSITION [place]Health Care [place] [...] of Infectious Diseases OPAT monitoring program at [phone]. Should patient be enrolled in OPAT/COPAT program: [...] peripherally inserted central catheter (PICC) after leaving [facility]. Caring for your PICC includes: 1) [...] personnel may follow the guidelines in your [place] PICC care booklet or they may follow [...] 1:30 PM IFD ORS OFF FLOOR 03 [facility] Infectious Diseases For appointment details refer to your Patient Appointment Guide. TEST RESULTS PENDING AT DISCHARGE Pending Labs Order Current Status Bacterial Culture, Aerobic + Susceptibility Collected (01/02/25 1610) Bacterial Culture, Anaerobic + Susceptibility Collected (01/02/25 1610) Pathology Exempt Research Only Collected (01/02/25 9181) Fungal Culture, Routine In process Fungal Culture, [...] Dept 01/02/2025 ARTHROPLASTY RESECTION HIP. Aidan Self M.D.Isca Montez M.D., Ph.D. [facility] OR Khadijah Nash was taken to the operative room by [...] For any further details please see the [facility] orthopedic surgery progress note and any [...] through Care Everywhere. * Celecoxib (By mouth) (Dutch) * Sodium Chloride (By injection) (Dutch) * Ondansetron (By mouth, Into the mouth) (Dutch) * Pantoprazole (By mouth) (Dutch) * Senna (By mouth) (Dutch) * Oxycodone, Rapid Release (By mouth) (Dutch) * Cefepime (By injection) (Dutch) documented in this encounter Medications at Time [...] Take 1 tablet by mouth daily. omega 4-eqr-dzd-fish oil (fish oil) 1,200 (144-216) mg capsule [...] this encounter Progress Notes * Heaven Reyna, SylwiaGMelvinSMadeleine. - 01/06/2025 10:26 AM CDT SUBJECTIVE Patient has selected [facility] to provide her home IV antibiotics. [facility] will provideweekly PICC site care and labs [...] Provider: yaniv montilla Phone Number for Ride/Caregiver: [phone] Anticipated Discharge Destination: [facility] [place] [facility] [...] Provider Services Address Phone Fax Patient Preferred [facility] Therapy [address] [facility] [address] -- Contact: NURSING: - Adjust the [...] Provider Services Address Phone Fax Patient Preferred [facility] Services [address] [place] [address] DR ARAIZA, [facility] [address] -- Contact: They will provide the nursing, [...] directive. PRIMARY SERVICE: - Please provide a non-[place] home health order for: nursing home care, wound check, PICC site care, and [...] Consulted for gait training and mobilization Consults: VAMSI MILLER Anticipated Disposition: Discharge home today after PICC placement. Patient will receive home health from [facility] who will provide weekly PICC site care and labs, and [facility] to provideher home IV antibiotics. Follow-up: Patient will follow-up with in the clinic in 6 weeks; visit to be coordinated with IFD. JR Carson M.D. Please contact [employer] during business hours with any questions or concerns regarding this patient. After hours, 6pm - 6am and on weekends contact [facility] at [phone]. [1] Past Medical History: Diagnosis Date Anemia [...] plan to discontinue catheter * Contreras Read M.B.B.S. - 01/05/2025 1:22 PM CDT Orthopedic Infectious [...] of Infectious Diseases OPAT monitoring program at [phone]. Should patient be enrolled in OPAT/COPAT program: [...] 01/05/2025 12:29 PM CDT * Tom Foley P.T., D.P.T., [facility] - 01/05/2025 10:50 AM CDT Physical Therapy Inpatient Treatment SUBJECTIVE Patient's Name: Khadijah Abdul Referring/Attending Provider: Aidan Self M.D. Reason for Referral: Physical Therapy Evaluate and Treat Onset Date: 01/02/2025 History of Present Illness: Khadijah Abdul is a 74 y.o. female who was admitted to [facility] in [place] on 01/02/2025 for Pain Hip Right [M25.551] [...] Climbing 3-5 steps with a railing?: Total -[facility] Basic Mobility (V.2) Raw Score: 14 -[facility] Basic Mobility (V.2) Standardized Score: 35.55 Interpretation: [...] Used shoe on nonoperative foot to decrease engineering mechanic when compared to grippy sock THERAPEUTIC EXERCISE: [...] Out: 2425 [Urine:2425] DIAGNOSTICS Recent Labs 01/05/25 021 WBC 9.6 HGB 9.2 L HCT 28.1 [...] with IFD. Antonio Calvo M.D. Please contact [employer] service during business hours with any questions or concerns regarding this patient. After hours, 6pm - 6am and on weekends contact [facility] at [phone]. [1] Past Medical History: Diagnosis Date Anemia [...] 74 y.o. female who was admitted to [facility] in [place] on 01/02/2025 for Pain Hip Right [M25.551] [...] head of bed elevated, bedrail, and leg bunghole borer - Therapist Delivery: assessed, assisted, educated, and [...] Time (min): 26 min August South M.S., P.TMelvin, D.P.T. * Hiren Harrington R.N. - 01/04/2025 11:52 AM CDT Post Anesthesia Assessment Note Patient: Khadijah Abdul General Info Post-procedure day: 2 Follow-up type: [...] [place] [phone] with questions or concerns. Cosigned by August King M.D., Ph.D. at 01/05/2025 1:25 AM CDT * Sonu Levy Jr., M.D. - 01/04/2025 8:26 AM CDT Infectious Diseases Orthopedic Surgery [facility] Consulting Service Progress Note SUBJECTIVE REASON FOR CONSULT Ortho [facility] service pager at [phone] is following Khadijah Abdul for evaluation and [...] will follow along closely. Please page Ortho [facility] service pager at [phone] with any questions. Patient's care discussed with sales and service consultant, Dr. Contreras Read. Patrick Levy Jr., MD Infectious Diseases Fellow [phone] * Contreras Read M.B.B.S. - 01/04/2025 8:01 AM CDT This is [...] Calvo M.D. - 01/04/2025 7:46 AM CDT [facility] SERVICE PROGRESS NOTE SUBJECTIVE [...] with IFD. Antonio Calvo M.D. Please contact [employer] during business hours with any questions or concerns regarding this patient. After hours, 6pm - 6am and on weekends contact [facility] at [phone]. [1] Past Medical History: Diagnosis Date Anemia Personal History - Blood Transfusion No Diagnosis - Dyslipidemia NOS 2019? Hypertension NOS 1999? Polyp Colon 2022 * Heaven Reyna, L.G.S.W. - 01/03/2025 1:32 PM CDT SUBJECTIVE Patient has selected [facility] to provide her home IV antibiotics. [facility] will provideweekly PICC site care and labs & weekly wound care. Patient anticipates to discharge Monday, if deemed medically stable. Social work will arrange teach with home infusion company, once Figueroa guzman has provided their final recommendations. OBJECTIVE Anticipated Needs Anticipated Needs Functional Status: Housekeeping, Transportation use (drive car, use taxi/bus), Mobility Assistive Devices: Specialized stroller Anticipated Modifications to the Patient's Home: None Transportation Needs: Support from family Does the patient need discharge transport arranged?: No Ride and Caregiver Arranged: Yes Ride Caregiver Provider: yaniv montilla Phone Number for Ride/Caregiver: [phone] Anticipated Discharge Destination: [facility] [place] [facility] [...] Provider Services Address Phone Fax Patient Preferred [facility] Infusion and IV Therapy [address] [place] [address] -- Contact: NURSING: - Adjust the [...] Fax Patient Preferred [facility] [address] [place] [address] [address] MUN[address] Megan, [facility] [address] -- Contact: They will provide the nursing, [...] directive. PRIMARY SERVICE: - Please provide a non-[facility] health order for: nursing home care, wound check, PICC site care, and [...] IFD. Isac Montez M.D., Ph.D. Please contact [employer] during business hours with any questions or concerns regarding this patient. After hours, 6pm - 6am and on weekends contact [facility] at [phone]. [1] Past Medical History: Diagnosis Date Anemia Personal History 5-24 Blood Transfusion No Diagnosis - Dyslipidemia NOS 2019? Hypertension NOS 1999? Polyp [...] part of his pain management. [place] [place] [phone] with questions or concerns. Cosigned by Elena Armstrong M.D. at 01/03/2025 12:06 PM CDT * Analisa Hou Pharm.D., R.Ph., [facility] - 01/03/2025 8:46 AM CDT Pharmacist Progress [...] IFD [place] 9-[place] [phone] with questions. Analisa Hou Pharm.D., R.Ph., BCPS [...] site clean, dry and intact. * Magali Colbert, Pharm.D., R.Ph. - 01/02/2025 12:08 PM CDT Images [...] List Status: Pharmacy Complete Set By: Magali Colbert, Pharm.D., R.Ph. at 01/02/2025 12:05 PM Taking? Last [...] Take 1 tablet by mouth daily. omega 2-hfr-otb-fish oil (fish oil) 1,200 (144-216) mg capsule 12/26/2024 -- -- -- Take 1 capsule by mouth daily. rosuvastatin (Crestor) 5 mg tablet 01/01/2025 at Bedtime -- 09/30/24 -- Take 5 mg by mouth at bedtime. turmeric root extract 500 mg tablet 12/26/2024 -- -- -- Take 1 tablet by mouth daily. documented in this encounter Procedure Notes * Aidan Cespedes, R.N. - 01/06/2025 9:29 AM CDTAssociated Order(s): Place peripherally inserted central catheter (PICC) Place peripherally inserted central catheter (PICC) Performed by: [place], Aidan B, R.N. Authorized by: Charanjit Benjamin APRN, C.N.P., [...] to release the adhesive from the skin. [email or web address] documented in this encounter Consult Notes * Kathi Garcia M.S., O.T. - 01/03/2025 4:00 PM CDT Occupational Therapy [facility] Inpatient Evaluation/Treatment SUBJECTIVE Patient's Name: Khadijah Abdul Referring/Attending Provider: Aidan Self M.D. Reason for Referral: Occupational Therapy Evaluation and Treatment Onset Date: 01/02/2025 PERTINENT MEDICAL / SURGICAL HISTORY: Medical History[1] Surgical History[2] History of Present Illness: Khadijah Abdul is a 74 y.o. female who was admitted to [facility] in [place] on 01/02/2025 for Pain Hip Right [M25.551]. [...] plans toobtain power wheelchair Adaptive Equipment Owned: Career Center Director, femal urinal Other DME Owned: Lift chair, [...] Personal History - Blood Transfusion No Diagnosis 5-24 Dyslipidemia NOS 2019? Hypertension NOS 1999? Polyp Colon 2022 [2] Past Surgical History: Procedure Laterality Date ARTHROPLASTY - RESECTION HIP Right 01/02/2025 Procedure: ARTHROPLASTY RESECTION HIP.; Surgeon: Aidan Self M.D.; Location: [facility] OR HIP SURGERY Right * Ron Villanueva P.T., D.P.T. - 01/03/2025 11:17 AM CDT Physical [...] procedure performed by Aidan Self M.D. of [facility]. Patient consents to evaluation and treatment [...] assistance Device: Head of bed elevated, Leg bunghole borer, Bed rail Comments: Min assist to return [...] and post evaluation and treatment. Outcome Measures: -[facility] Inpatient Short Form: -[facility] Basic Mobility (V.2) How much help from [...] Climbing 3-5 steps with a railing?: Total -P[facility] Basic Mobility (V.2) Raw Score: 14 AM-P[facility] Basic Mobility (V.2) Standardized Score: 35.55 Interpretation: Clinicians answer the -[facility] Inpatient Short Form based on observed patient [...] procedure performed by Aidan Self M.D. of [facility]. Objectively, the patient is currently limited [...] Therapist Department of Physical Medicine & Rehabilitation [place] [address] Pager: [phone] E-mail: [email or web address] [1] Patient Active Problem List Diagnosis Anxiety Gastroesophageal Reflux Disease Without Esophagitis Hypercholesterolemia Hypertension Essential Primary Morbid Obesity (HCC) PreDiabetes Pain Hip Right [2] Past Surgical History: Procedure Laterality Date ARTHROPLASTY - RESECTION HIP Right 01/02/2025 Procedure: ARTHROPLASTY RESECTION HIP.; Surgeon: Aidan Self M.D.; Location: [facility] RO OR HIP SURGERY Right * Heaven Reyna L.G.S.W. - 01/03/2025 11:17 AM CDTAssociated Order(s): IP CONSULT TO CARE MANAGEMENT; IP CONSULT TO CARE MANAGEMENT Psychosocial Assessment SUBJECTIVE ASSESSMENT INFORMATION Referral Data Referral Source: Early Screen for Discharge Planning Referral Reason: Psychosocial assessment, Discharge Planning Discharge Planning: IV antibiotics Previous Assessment: No Admissions Clerk Services Used: No Primary Language: Dutch Admissions Clerk Services Used: No Sexuality/Pronoun: Straight / Person(s) [...] Oriented, Calm Communication: Talks, Understands speaking, Understands Dutch Shopping: Independent Medication Management: Independent Housekeeping: Needs assistance Meal Prep: Independent Assistive Devices: Walker - front wheeled, Cane BASELINE SERVICES/RESOURCES Primary care clinic and provider: ELSEWHERE, PCP/ Services/Resources: ANTICIPATED NEEDS Anticipated Needs Functional Status: Housekeeping, Transportation use (drive car, use taxi/bus), Mobility Assistive Devices: Specialized stroller Anticipated Modifications to the Patient's Home: None Transportation Needs: Support from family Does the patient need discharge transport arranged?: No Ride and Caregiver Arranged: Yes Ride Caregiver Provider: yaniv montilla Phone Number for Ride/Caregiver: [phone] Anticipated Discharge Destination: [facility] [place] [facility] [...] is a 74 year old, female, from [place], [place]. She was admitted on 01/02 for [...] Address Phone Fax Patient Preferred [facility] Accepted -- [address] [facility] [phone] -- [facility] Pending - Request Sent -- [address] [facility] [phone] -- Home Medical Care - Admitted Since 01/02/2025 Service Provider Request Status Services Address Phone Fax Patient Preferred [facility] Pending - Request Sent -- [address] [place] [phone] -- [facility] Pending - Request Sent -- [address] [address] [phone] -- [facility] Pending - Request Sent -- [address] [facility] [phone] -- [facility] Pending - Request Sent -- [address] [facility] [phone] -- Current Capacity last updated by Santiago Reis M.S.WMelvin, ClarkeSSanto on 01/01/2025 1505 Also known as [facility] Pending - Request Sent -- [address] [phone] -- [facility] Pending - Request Sent -- [address] [facility] [address] [phone] -- [facility] Pending - Request Sent -- [address] [facility] [phone] -- [facility] Pending - No Request Sent -- [address] [facility] [phone] -- -- [facility] Pending - No Request Sent -- [address] [facility] [phone] -- -- Social Work will continue to follow. Anticipated barriers to the transition of care/plan: home infusion plan Alesha Packer 01/03/2025 [1] Past Medical History: Diagnosis Date Anemia Personal History 5- Blood Transfusion No Diagnosis - Dyslipidemia NOS 2019? Hypertension NOS 1999? Polyp Colon 2022 * Rusty Henson P.A.-C. - 01/03/2025 7:30 AM CDTAssociated Order(s): IP CONSULT TO INFECTIOUS DISEASES; IP CONSULT TO INFECTIOUS DISEASES DEMOGRAPHIC INFORMATION Clinic Number:[id number] Patient Name: Khadijah Abdul Age: 74 y.o. Birthdate: 1950 Sex: female Address: [address] [place] [phone] Service: Orthopedic Infectious Diseases Consultation Service Note [...] weeks of antibiotics. All surgeries were at [facility] and elsewhere. She then developed wound drainage that persisted from September through December 2023. This ultimately healed however she has continued having right hip pain and inability to ambulate well. She has not had any systemic symptoms. She was referred to [facility] for second opinion. Evaluated by Dr. [...] compatible RBCs may occur. Anti-K identified at [facility] on 08/24/23. MEDICATIONS I have reviewed [...] Component Value - Date/Time Fungal Culture, Routine [[id number]] Collected: 01/02/251628 Lab Status: In process Specimen: Tissue from Hip, Right Updated: 01/02/251711 Narrative: Bacterial Culture: Placed in Bactec aerobic and Bactec anaerobic bottles Mycobacterial Culture [[id number]] Collected: 01/02/251628 Lab Status: In process Specimen: Tissue from Hip, Right Updated: 01/02/251711 Narrative: Bacterial Culture: Placed in Bactec aerobic and Bactec anaerobic bottles Acid Fast Smear for Mycobacterium [[id number]] Collected: 01/02/251628 Lab Status: In process Specimen: Hip, Right Updated: 01/02/251711 Narrative: Bacterial Culture: Placed in Bactec aerobic and Bactec anaerobic bottles Bacteria Culture, Aerobe / Anaerobe + Susc [[id number]] Collected: 01/02/251628 Lab Status: In process Specimen: Hip, Right Updated: 01/02/251711 Narrative: Bacterial Culture: Placed in Bactec aerobic and Bactec anaerobic bottles Fungal Culture, Routine [[id number]] Collected: 01/02/25 162 Lab Status: In process Specimen: Tissue from Hip, Right Updated: 01/02/25 171 Narrative: Bacterial Culture: Placed in Bactec aerobic and Bactec anaerobic bottles Mycobacterial Culture [[id number]] Collected: 01/02/25 162 Lab Status: In process Specimen: Tissue from Hip, Right Updated: 01/02/25 171 Narrative: Bacterial Culture: Placed in Bactec aerobic and Bactec anaerobic bottles Acid Fast Smear for Mycobacterium [[id number]] Collected: 01/02/25 162 Lab Status: In process Specimen: Hip, Right Updated: 01/02/25 171 Narrative: Bacterial Culture: Placed in Bactec aerobic and Bactec anaerobic bottles Bacteria Culture, Aerobe / Anaerobe + Susc [[id number]] Collected: 01/02/25 162 Lab Status: In process Specimen: Hip, Right Updated: 01/02/25 171 Narrative: Bacterial Culture: Placed in Bactec aerobic and Bactec anaerobic bottles Fungal Culture, Routine [[id number]] Collected: 01/02/25 161 Lab Status: In process Specimen: Tissue from Hip, Right Updated: 01/02/251713 Narrative: Bacterial Culture: Placed in Bactec aerobic and Bactec anaerobic bottles Mycobacterial Culture [[id number]] Collected: 01/02/25 161 Lab Status: In process Specimen: Tissue from Hip, Right Updated: 01/02/25 171 Narrative: Bacterial Culture: Placed in Bactec aerobic and Bactec anaerobic bottles Acid Fast Smear for Mycobacterium [[id number]] Collected: 01/02/25 161 Lab Status: In process Specimen: Hip, Right Updated: 01/02/25 171 Narrative: Bacterial Culture: Placed in Bactec aerobic and Bactec anaerobic bottles Bacteria Culture, Aerobe / Anaerobe + Susc [[id number]] Collected: 01/02/25 161 Lab Status: In process Specimen: Hip, Right Updated: 01/02/25 171 Narrative: Bacterial Culture: Placed in Bactec aerobic and Bactec anaerobic bottles Fungal Culture, Routine [[id number]] Collected: 01/02/25 161 Lab Status: In process Specimen: Tissue from Hip, Right Updated: 091708 Narrative: Bacterial Culture: Placed in Bactec aerobic and Bactec anaerobic bottles Mycobacterial Culture [[id number]] Collected: 01/02/251616 Lab Status: In process Specimen: Tissue from Hip, Right Updated: 01/02/251708 Narrative: Bacterial Culture: Placed in Bactec aerobic and Bactec anaerobic bottles Acid Fast Smear for Mycobacterium [[id number]] Collected: 01/02/251616 Lab Status: In process Specimen: Hip, Right Updated: 01/02/251708 Narrative: Bacterial Culture: Placed in Bactec aerobic and Bactec anaerobic bottles Bacteria Culture, Aerobe / Anaerobe + Susc [[id number]] Collected: 01/02/251616 Lab Status: In process Specimen: [...] with Dr. Self for resection arthroplasty to [facility]. Intraoperatively Dr. Self described extensive signs [...] hrs Monitor cultures Treatment plan reviewed with Ms. Abdul, who expressed understanding. All questions answered to patient's satisfaction. Thank you for the consultation. Infectious diseases will follow. Please page Ortho ID service for questions ([facility] ID:[id number] or [facility] ID: [id number]). Supervising physician is Emi Israel MD. DIAGNOSES #1 Pain Hip Right Rusty Henson P.A.-C. [phone] Cosigned by Emi Israel M.D. at 01/03/2025 [...] family. Patient's dismissal medications were filled at [facility] pharmacy. Patient education provided by [place]. 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 The patient was placed under spinal anesthesia by the anesthesia personnel. The patient was then placed in the hfzwf-ypfd-npjykqrnw decubitus position. All bony problems well padded. [...] * Documentation Clarification - Karen Nix APRN, C.N.P., M.S.N. - 01/06/2025 3:21 PM CDT PROVIDER [...] PM * Hospital Course - Karen Nix APRN C.N.P., M.S.N. - 01/06/2025 11:34 AM CDT Surgery [...] For any further details please see the [facility] orthopedic surgery progress note and any other co-managing teams dated 01/06/2025. documented in this encounter Plan of Treatment Upcoming Encounters Date Type Department Care Team (Latest Contact Info) Description 01/21/2025 9:00 AM CDT Ancillary Procedure Department of Cardiovascular Medicine in [address] [phone] Sonu Levy Jr., M.D. [address] [place] [phone] 01/21/2025 11:40 AM CDT Lab Department of Infusion Therapy in [address] [phone] Sonu Levy Jr., M.D. [address] [place] [phone] 01/21/2025 1:15 PM CDT Office Visit Department of Orthopedic Surgery in [address] [phone] Aidan Self M.D. [address] [place] [phone] 01/21/2025 2:00 PM CDT Infusion Department of Infusion Therapy in [address] [phone] Sonu Levy Jr., M.D. [address] [place] [phone] 02/11/2025 11:00 AM CDT Clinical Communication Virtual Review in [place], [place] 200 [place] [phone] 02/14/2025 12:00 PM CDT Appointment Department of Laboratory Medicine and Pathology, [facility] in [place], [place] [address] [place] [phone] Kesha Todd APRN, C.N.P. [address] [place] [phone] 02/14/2025 12:30 PM CDT Office Visit Department of Orthopedic Surgery in [place], [place] [address] [place] [phone] Kesha Todd APRN, C.N.P. [address] [place] [phone] 02/14/2025 1:30 PM CDT Comprehensive Visit Section of Infectious Diseases in [place], [place] [address] [place] [phone] Kesha Todd APRN, C.N.P. 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 [address] [place] [phone] 03/18/2025 12:30 PM TRUCK DRIVING INSTRUCTOR Office Visit Department of Orthopedic Surgery in [place], [place] [address] [place] [phone] Aidan Self M.D. [address] [place] [phone] 03/24/2025 Hospital Encounter [facility]ST ROEI 01 4 AM ADMIT [address] [place] [address] Aidan Self M.D. [address] [place] [phone] Pending Results Name Type Priority Associated Diagnoses [...] Name Type Priority Associated Diagnoses Order Schedule [facility] Referral Outpatient Referral Routine Pain [...] - 01/06/2025 9:29 AM CDT Aidan Cespedes R.N. 01/06/2025 9:[address] peripherally inserted central [...] to release the adhesive from the skin. [email or web address] Charanjit Benjamin APRN, C.N.P., D.N.P. PROCEDURE/PA NOR SURGICAL ORDERABLES Final Result MMODAL NA * ECG 12 Lead (01/05/2025 1:51 PM CDT) Ventricular Rate ECG/Min 64 BPM MUSE CA Interval 202 ms MUSE QRSD Interval 88 ms MUSE QT Interval 430 ms MUSE QTC Interval 443 ms MUSE P [place] 52 degrees MUSE R [place] -4 degrees MUSE T Wave [place] 30 degrees MUSE 01/05/2025 1:51 PM CDT [...] ECG No previous ECGs available Reviewed by Jaine Schrupp, CRAT Contreras Garcia ECG ORDERABLES Final Result Performing Organization Address City/[facility]/ZIP Co de Phone Number MUSE NA * (ABNORMAL) Basic Metabolic Panel (01/05/2025 2:18 AM CDT) Pathologist [facility] Potassium, S 3.8 3.6 - 5.2 mmol/L [...] 2:18 AM CDT 01/05/2025 2:25 AM CDT Antonio Calvo M.D. LAB BLOOD ADD-ON Final Resu lt [facility] [address] [place] [address], [place] DTL [facility] [address] [place] [address] * (ABNORMAL) CBC with Differential, Blood (01/05/2025 [...] M.D. LAB BLOOD ADD-ON Final Resu lt [facility] [address] [place] [address], [facility] [address] [place] [address] [facility] 200 [place] [address] * (ABNORMAL) CBC without Differential (01/03/2025 2:58 AM CDT) Hemoglobin 11.7 11.6 - 15.0 g/dL 01/03/2025 [...] C.N.P. LAB BLOOD ADD-ON Fin al Result [facility] 200 [place] [address], [facility] DTL [facility] [address] [place] [address] * Creatinine with Estimated GFR (01/03/2025 2:58 AM CDT) Creatinine 0.61 0.59 - 1.04 mg/dL 01/03/2025 3:59 AM CDT DTL Estimated GFR (eGFR) >90 >=60 mL/min/BSA 01/03/2025 3:59 AM CDT DTL Comment: Estimated GFR calculated using the 2020 CKD_EPI creatinine equation. Blood (Blood, Venous) 01/03/2025 2:58 AM CDT 01/03/2025 3:18 AM CDT Kesha Todd APRN C.N.PMelvin LAB BLOOD ADD-ON Fin al Result [facility] [address] [place] [address], [facility] DTL [facility] 200 [place] [address] * (ABNORMAL) Basic Metabolic Panel (01/02/2025 9:59 PM CDT) Potassium, S 4.4 3.6 - 5.2 mmol/L [...] C.N.P. LAB BLOOD ADD-ON Fin al Result [facility] [address] [place] [address], [facility] DTL [facility] [address] [place] [address] * DX Hip Right 2-3 Views (01/02/2025 [...] right hip arthroplasty resection. Negative forpostoperative purposes. Kesha Todd APRN, C.N.P. IMG DIAGNOSTIC IMAGI NG PROCEDURES Final Result * (ABNORMAL) Bacteria Culture, Aerobe / Anaerobe + Susc (01/02/2025 4:29 PM CDT) Bacteria Cult, Aerobe/Anaero be+Susc PSEUDOMONAS AERUGINOSA Growth after 1 day (A) 01/07/2025 8:30 AM CDT DTL Comment:Susceptibilities per formed on another specimen [id number] Hip, Right 01/02/2025 4:29 PM CDT 01/02/2025 5:12 PM CDT Comment:Specimen Source Site : Tissue, RIGHT HIP #4 Narrative [facility] - 01/07/2025 8:30 AM CDT Bacterial Culture: Placed in Bactec aerobic and Bactec anaerobic bottles Aidan Self M.D. LAB MICROBIOLOGY - GENERA L ORDERABLES Final Result Performing Organization Address City/[facility]/ZIP Co de Phone Number [facility] [address] [facility] 200 [place] [address] * Acid Fast Smear for Mycobacterium (01/02/2025 4:29 PM CDT) Acid Fast Smear For Mycobacterium Negative. 01/03/2025 7:37 AM CDT DTL Hip, Right 01/02/2025 4:29 PM CDT 01/02/2025 5:12 PM CDT Comment:Specimen Source Site : Tissue, RIGHT HIP #4 Narrative [facility] - 01/03/2025 7:37 AM CDT Bacterial Culture: Placed in Bactec aerobic and Bactec anaerobic bottles Aidan Self M.D. LAB MICROBIOLOGY - GENERA L ORDERABLES Final Result Performing Organization Address [facility] Co de Phone Number [facility] 200 [place] [address], [facility] 200 [place] [address] * (ABNORMAL) Bacteria Culture, Aerobe / Anaerobe + Susc (01/02/2025 4:24 PM CDT) Bacteria Cult, Aerobe/Anaero be+Susc PSEUDOMONAS AERUGINOSA Growth after 1 day (A) 01/06/2025 11:07 AM CDT DTL Comment:Susceptibilities per formed on another specimen [id number] Hip, Right 01/02/2025 4:24 PM CDT 01/02/2025 5:10 PM CDT Comment:Specimen Source Site : Tissue, RIGHT HIP #3 Narrative [facility] - 01/06/2025 11:07 AM CDT Bacterial Culture: Placed in Bactec aerobic and Bactec anaerobic bottles Aidan Self M.D. LAB MICROBIOLOGY - GENERA L ORDERABLES Final Result Performing Organization Address City/[facility]/ZIP Co de Phone Number [facility] 200 [place] [address], [facility] 200 [place] [address] * Acid Fast Smear for Mycobacterium (01/02/2025 4:24 PM CDT) Acid Fast Smear For Mycobacterium Negative. 01/03/2025 7:37 AM CDT DTL Hip, Right 01/02/2025 4:24 PM CDT 01/02/2025 5:10 PM CDT Comment:Specimen Source Site : Tissue, RIGHT HIP #3 Narrative [facility] - 01/03/2025 7:37 AM CDT Bacterial Culture: Placed in Bactec aerobic and Bactec anaerobic bottles Aidan Self M.D. LAB MICROBIOLOGY - GENERA L ORDERABLES Final Result [facility] [address] [place] [address], [facility] [address] [place] [address] * (ABNORMAL) Bacteria Culture, Aerobe / Anaerobe + Susc (01/02/2025 4:19 PM CDT) Bacteria Cult, Aerobe/Anaerob e+Susc PSEUDOMONAS AERUGINOSA Growth after 1 day (A) 01/06/2025 11:06 AM CDT DTL Comment: Semi-Urgent Result. Gentamicin should not be used for P. aeruginosa. There are no gentamicin breakpoints for P. aeruginosa. Semi-Urgent This is a semi-urgent result(DHALIWAL) [facility] Hip, Right 01/02/2025 4:19 PM CDT 01/02/2025 5:13 PM CDT Comment:Specimen Source Site : Tissue, RIGHT HIP #2 [id number] Narrative [facility] - 01/06/2025 11:06 AM CDT Bacterial Culture: [...] L ORDERABLES Final Result Performing Organization Address City/[facility]/ZIP Co de Phone Number [facility] [address] [place] [address] * Acid Fast Smear for Mycobacterium (01/02/2025 4:19 PM CDT) Pathologist [facility] Acid Fast Smear For Mycobacterium Negative. 01/03/2025 7:37 AM CDT DTL Hip, Right 01/02/2025 4:19 PM CDT 01/02/2025 5:13 PM CDT Comment:Specimen Source Site : Tissue, RIGHT HIP #2 [id number] Narrative [facility] - 01/03/2025 7:37 AM CDT Bacterial Culture: Placed in Bactec aerobic and Bactec anaerobic bottles Aidan Self M.D. LAB MICROBIOLOGY - GENERA L ORDERABLES Final Result Performing Organization Address City/[facility]/ZIP Co de Phone Number [facility] [address] [place] [address] * (ABNORMAL) Bacteria Culture, Aerobe / Anaerobe + Susc (01/02/2025 4:17 PM CDT) Bacteria Cult, Aerobe/Anaero be+Susc PSEUDOMONAS AERUGINOSA Growth after 1 day (A) 01/07/2025 8:31 AM CDT DTL Comment:Susceptibilities per formed on another specimen [id number] Hip, Right 01/02/2025 4:17 PM CDT 01/02/2025 5:08 PM CDT Comment:Specimen Source Site : Tissue, RIGHT HIP #1 Narrative [facility] - 01/07/2025 8:31 AM CDT Bacterial Culture: Placed in Bactec aerobic and Bactec anaerobic bottles Aidan Self M.D. LAB MICROBIOLOGY - GENERA L ORDERABLES Final Result Performing Organization Address [facility] Co de Phone Number [facility] 200 [place] [address], [address] [address] * Acid Fast Smear for Mycobacterium (01/02/2025 4:17 PM CDT) Acid Fast Smear For Mycobacterium Negative. 01/03/2025 7:37 AM CDT DTL Hip, Right 01/02/2025 4:17 PM CDT 01/02/2025 5:08 PM CDT Comment:Specimen Source Site : Tissue, RIGHT HIP #1 Narrative [facility] - 01/03/2025 7:37 AM CDT Bacterial Culture: Placed in Bactec aerobic and Bactec anaerobic bottles Aidan Self M.D. LAB MICROBIOLOGY - GENERA L ORDERABLES Final Result Performing Organization Address City/[facility]/ZIP Co de Phone Number [facility] [address] [place] [address], [address] [address] documented in this encounter Visit Diagnoses Diagnosis Pain Hip Right- Primary Pain Hip Right documented in this encounter Admitting Diagnoses Diagnosis Pain Hip Right documented in this encounter Administered Medications Inactive Administered Medications - up to 3 most recent administrations Medication Order MAR Action Action Date Dose Rate Site acetaminophen tablet 1,000 mg (TylenoL) 1,000 mg, oral, Every 6 hours, First dose on Mon01/02/25 at 2100 Given [...] mg, rectal, Daily PRN, constipation, Starting on [place] 01/05/25 at 0858 BUPivacaine PF 0.1 % [...] 5:21 PM CDT 400 mg of calcium cefepime in dextrose (iso osm) IVPB 2 [...] NaCL. Use 50 mL bag then discard. famotidine tablet 20 mg (Pepcid) 20 mg, oral, Every evening, First dose on Mon01/03/25 at 1800, Drug Monitoring Program: Pharmacist to adjust medication dosing based on indication and drug clearance factors. Given 01/05/2025 5:53 PM CDT 20 mg Given 01/04/2025 5:11 PM CDT 20 mg Given 01/03/2025 6:59 PM CDT 20 mg gentamicin powder 14.4 g (for bone cement) 14.4 g (12 vial), miscellaneous, Once in surgery, OR use only, Starting on [place] 01/02/25 at 1458, For 1 dose, Intra-Op, For bone cement - do not reconstitute. Given 01/02/2025 5:07 PM CDT 12 vials Right Upper Hip heparin PF flush syringe 50-150 Units 50-150 Units, intravenous, Once as needed, line care, 50 units (5 mL) to each lumen of non-valved catheters only, Starting on Mon01/06/25 at 0701, For 1 dose Lactated Ringer's 75 mL/hr, intravenous, Continuous, Starting on Mon01/02/25 at 2100, Until able to tolerate oral fluids New Bag 01/02/2025 9:13 PM CDT 75 mL/hr 75 mL/hr melatonin tablet 3 mg 3 mg, oral, Daily at bedtime, First dose (after last modification) on Mon01/03/25 at 0000 Given 01/05/2025 8:39 PM CDT 3 mg Given 01/04/2025 9:27 PM CDT 3 mg Given 01/03/2025 8:46 PM CDT 3 mg methylene blue 0.5 % (5 mg/mL) injection As needed, Starting on Mon01/02/25 at 1708, Intra-Op Given 01/02/2025 5:08 PM CDT 4 mL Rig ht Hip metoprolol tartrate tablet 25 mg (Lopressor) 25 mg, oral, 2 times daily, First dose on Mon01/02/25 at 2100 Given 01/06/2025 9:09 AM CDT 25 mg Given 01/05/2025 8:39 PM CDT 25 mg Given 01/05/2025 8:49 AM CDT 25 mg NaCl 0.9% infusion 1-999 mL/hr, intravenous, [...] mg sennosides-docusate sodium 8.6-50 mg per tablet 2 [...] Every 24 hours scheduled, First dose on 01/06/25 at 0900, Peripheral Intravenous Catheter and Rapid Infusion Catheter: When no infusion to maintain patency. Given 01/06/2025 10:27 AM CDT 3 mL vancomycin powder 12 g 12 g (12 vial), miscellaneous, Once in surgery, OR use only, Starting on [place] 01/02/25 at 1458, For 1 dose, Intra-Op, Do not reconstitute Given 01/02/2025 5:07 PM CDT 12 vials Right Hip documented in this encounter Active and Recently Administered Medications Times are shown in CDT. Scheduled Medication Order 01/04/2025 01/05/2025 01/06/2025 acetaminophen tablet 1,000 mg (TylenoL) 1,000 mg, oral, Every 6 hours, First dose on [place] 01/02/25 at 2100 0211 (Given - Provider: Kassy Castro R.N.)0853 (Given - Provider: Gricel Jamison)1438 (Given - Provider: Gricel Jamison)2127 (Given - Provider: Jailyn Byrd R.N.) 0225 (Given - Provider: Jailyn Byrd R.N.)0849 (Given - Provider: Boyd Power RMelvinN.)1400 (Given - Provider: Gricel Jamison)203 (Given - Provider: Srinivas Garcia R.N.) 0200 (Given - Provider: Srinivas Garcia R.N.)0909 (Given - Provider: Laron Fitzpatrick R.N.)1500 (Due) aspirin chewable tablet 81 mg 81 mg, oral, 2 times daily, First dose on Mon01/02/25 at 2100 0853 (Given - Provider: Gricel Jamison)2127 (Given - Provider: Jailyn Byrd R.N.) 0849 (Given - Provider: Boyd Power R.N.)2039 (Given - Provider: Srinivas Garcia R.N.) 0909 [...] For 1 dose 0907 (Given - Provider: Laron Fitzpatrick R.N.) famotidine tablet 20 mg (Pepcid) [...] Jailyn Byrd R.N.) 0849 (Given - Provider: Surekha AlejoNMelvin)2038 (Given - Provider: Srinivas Garcia R.N.) 0909 [...] bedtime, First dose on Mon01/02/25 at 2100 2126 (Given - Provider: Jailyn Byrd R.N.) 2038 [...] Every 12 hours scheduled, First dose on Mon01/02/25 at 2100, PACU & Post-Op, Peripheral Intravenous [...] 0352 (New Bag - Provider: Kassy Castro R.N.)1914 (Handoff - Provider: Jailyn Byrd R.N. - Comment: checked off with Gricel RN) 0857 (New Bag - Provider: Boyd Power RCampos)1733 (Stopped - Provider: Gricel Jamison) Lactated Ringer's 75 mL/hr, intravenous, Continuous, Starting on [place] 01/02/25 at 2100, Until able to tolerate oral fluids PRN Medication Order 01/04/2025 01/05/2025 01/06/2025 bisacodyL suppository 10 mg (Dulcolax) 10 mg, rectal, Daily PRN, constipation, Starting on [place] 01/05/25 at 0858 calcium carbonate chewable tablet 400 mg of calcium (Tums) 400 mg of calcium, oral, Every 2 hour PRN, indigestion, Starting on [place] 01/02/25 at 2030, Doses listed are in mg of elemental calcium. Take with food. 500 mg calcium carbonate contains 200 mg of elemental calcium. 1721 (Given - Provider: Gricel Jamison) 1757 (Given - Provider: Gricel Jamison)2056 (Given - Provider: Srinivas Garcia R.N.) D5W infusion 1-999 mL/hr, intravenous, As needed, [...] R.N.)1023 (See Alternative - Provider: Boyd Power RMelvinN.)1722 (See Alternative - Provider: Gricel Jamison)2209 (See Alternative - Provider: Jailyn Byrd R.N.) oxyCODONE IR tablet 5 mg (Roxicodone)(Linked Group 1) 5 mg, oral, Every 4 hours PRN, moderate pain or score 4-6 of 10, Starting on [place] 01/02/25 at 2030, Second line therapy 0211 (Given - Provider: Kassy Castro R.N.)1023 (Given - Provider: Boyd Power RMelvinNMelvin)1598 (Given - Provider: Gricel Jamison)5624 (Given - Provider: Jailyn Byrd R.N.) sodium [...] request documented in this encounter Care Teams Tinsel Machine Operator Relationship Specialty Start Date End Date Elsewhere, Pcp PCP - General Internal Medicine 11/05/24 documented as of this encounter
--- OUTSIDE RECORDS SUMMARY | 2025-01-02 14:41 | XMS_ITS | Encounter Summary ---
Author Organization [facility] Address [address] [place] [id number] Care Team Providers Care Instrument Mechanic Weapons System Name Role Phone Elsewhere, Pcp Primary Care Provider Unavailabl e Reason for Visit * Auth/Cert (Routine) Specialty Diagnoses / Procedures Referred By Contac t Referred To Contact Diagnoses Pain Hip Right Pain Hip Right [M25.551]. Procedures ARTHROPLASTY RESECTION HIP. Referral ID Status Reason Start Date Expiration Date Visits Re quested Visits Authorized [id number] 1 1 Encounter Details Date Type Department Care Team (Late st Contact Info) Description 01/02/2025 2:41 PM CDT Anesthesia Event [facility] MA[facility] OR [address] [place] [phone] Monroe Israel M.D. [address] [place] [phone] Eddi Plasencia M.D. [address] [place] [phone] Anesthesia Record Procedure Summary Procedure Name Responsible Anesthesiologist Anesthesia Start Time Anesthesia Stop Time ARTHROPLASTY RESECTION HIP. (Right: Hip) Monroe Israel M.D. 01/02/25 1441 01/02/25 1846 Events Date Time Event Comment 01/02/2025 1141 1245 Block Start Documented by n ursing staff 1303 Block End Documented by n ursing staff 1441 An Start Machine/Equipme nt Checked Infection Precautions Followed Procedure/Site Verified NPO Status Verified Supine Standard ASA Monitors Applied 1445 Anesthesia Time Out 1452 Block Start 1454 Block End 1456 Turnover to Proceduralist 1512 Anes CS Handoff I, Delmy loera, RMelvinN., attest that I have reconciled the controlled substances and that I have reviewed all the significant information with the next anesthesia provider assuming care of this patient. 1535 Proc Start 1720 Anes CS Handoff I, Sai And aashish, SEWAGE RETICULATION DRAFTING OFFICER, PNEUMATIC DEICER INSPECTOR, DNAP, attest that I have reconciled the controlled substances and that I have reviewed all the significant information with the next anesthesia provider assuming care of this patient. 1744 Anes CS Handoff I, Leonidas simpson, SEWAGE RETICULATION DRAFTING OFFICER, PNEUMATIC DEICER INSPECTOR, DNAP, attest that I have reconciled the controlled substances and that I have reviewed all the significant information with the next anesthesia provider assuming care of this patient. 181 Proc Fin 1827 Turnover to ANE Staff 1828 an stop data 1846 An End I completed my handoff to the receiving staff during which we 1. Identified the patient 2. Identified the responsible provider 3. Reviewed the pertinent medical history 4. Discussed the surgical course 5. Reviewed intra-op anesthesia management and issues during anesthesia 6. Set expectations for post-procedure period 7. Allowed opportunity for questions and acknowledgement of understanding. Meds Name Total BUPivacaine-EPINEPHrine (Marcaine w/Epi) PF injection 0.5%-1:200,000 30 mL midazolam 1 mg/mL injection 1 mg fentaNYL PF injection 50 mcg/mL 25 mcg propofol 10 mg/mL infusion 1,093.44 mg BUPivacaine (Marcaine) PF injection 0.75 % 2 mL tranexamic acid in NaCl IVPB 1,000 mg (C yklokapron) 1 g tranexamic acid in NaCl IVPB 1,000 mg (C yklokapron) 0 g lidocaine (Xylocaine) PF injection 2% 40 mg ceFAZolin injection 2,000 mg (Ancef) 2 g dexAMETHasone (Decadron) injection 4 mg/ mL 4 mg ondansetron (Zofran) PF injection 4 mg/2 mL 4 mg Lactated Ringers Free Drip 1,700 mL * Agents No agents on file. * Blood No blood administrations on file. Lines, Drains, and Airways Type Details Placement Removal Wound 01/02/25; 1709; Thig h; Right, Anterior 01/02/25 170 by Riley Byrd RBradley. Peripheral IV Placement Date: 01/02/25; Placement Time: 115; Catheter Size: 18 G; Orientation: Anterior, Lower, Right; Location: Forearm; Site Prep: Chlorhexidine (Preferred); Technique: Anatomical landmarks; Inserted by: JONATHAN; Insertion Attempts: 1; Removal Date: 01/03/25; Removal Time: 2103; Removal Reason: Other (Comment) (redness/tenderness) 01/02/25 1158 by Mariah Walls 01/03/252103 by Mamie Reyes M.S.N. R.N. Peripheral Nerve Catheter 01/02/25; 1311 (created via procedure documentation); Right; Posterior lumbar plexus (PSOAS); 01/05/25; 1643 01/02/25 1311 by Rodri Munoz D.O. 01/05/25 1643 by Bibiana Fuller M.D. documented in this encounter Social History Tobacco Use Types Packs/Day Years [...] things needed for daily living? No 01/03/[address] [facility] Utilities Answer Date Recorded In the past 12 months has [employer] electric, gas, oil, or water company threatened to shut off services in your home? No 01/03/2025 Housing Stability Answer Date Recorded What is your living situation today? I have a [facility] place to live 01/03/2025 Comments No Sex and Gender Information Value Date Recorded Sex Assigned at Female 11/02/2024 11:29 AM CDT Legal Sex Female 2:53 PM CDT Gender Identity Female 11/02/2024 11:29 AM CDT Sexual Orientation Straight 11/02/2024 11 :29 AM CDT documented as of this encounter OR Notes * Anesthesia Postprocedure Evaluation - Dionte Santos M.D. - 01/02/2025 7:44 PM CDT Patient: Khadijah Abdul Procedure Summary Date: 01/02/25 Room / Location: [address] / [facility] in [place], [place] Anesthesia Start: 1441 Anesthesia Stop: 1845 Procedure: ARTHROPLASTY RESECTION HIP. (Right: Hip) Diagnosis: Pain Hip Right (Pain Hip Right [M25.551].) Providers: Aidan Self M.D. Responsible Provider: Monroe Israel M.D. Anesthesia Type: regional ASA Status: 2 Anesthesia Type: regional Last vitals Vitals Value Taken Time BP 133/99 01/02/25 19:30 Temp 36.5 ??C 01/02/25 18:47 Pulse 71 01/02/25 19:44 Resp 17 01/02/25 19:44 SpO2 98 % 01/02/25 19:44 Vitals shown include unfiled device data. Please reference Vitals flowsheet for most recent vital signs. Anesthesia Post Evaluation Patient Disposition: general care unit Cardiovascular status: hemodynamics (HR & BP) acceptable Respiratory status: patent airway with spontaneous effort Temperature: normothermic Oxygen requirements: room air Level of consciousness: awake Pain score: pain adequately controlled and/or at baseline Post Op nausea/vomiting: none Notable Events No notable events documented. Dionte Santos MD. [facility]. Anesthesiology CA-1. Pager: [phone]. 01/02/25 * Anesthesia Procedure Notes - Rebel العراقي M.D., Ph.D. - 01/02/2025 3:00 PM CDTAssociated Order(s): Regional Block Regional Block Date/Time: 01/02/2025 2:52 PM Performed by: Rebel العراقي M.D., Ph.D. Authorized by: Rebel العراقي M.D., Ph.D. Location: OR PROCEDURE DETAILS: Block Indication: primary anesthetic Block Type - Neuraxial: spinal Positioning: lateral (left) Approach: paramedian Level inserted: L3-4 Block technique: landmark technique Injection technique: single injection Needle type: hyacinth Gauge: 22G Length: 10 CSF: yes Pain with needle advancement or injection of local anesthetic: no Injected Medications: Injection(s), anesthetic agent(s) and/or steroid; See MAR UNIVERSAL PROTOCOL All relevant documentation and testing [...] and confirmed in a procedural pause. PRE-PROCEDURE DETAILS: Appropriate hand hygiene, gown, cap, mask, protective eyewear, sterile gloves, skin preparation, sterile drape, and strict aseptic technique were utilized as applicable for the procedure.: yes Skin prep: chlorhexidine / alcohol SEDATION / ANESTHESIA Anesthesia method: local infiltration Local infiltrate type: lidocaine POST-PROCEDURE DETAILS: Procedure completed successfully: successful procedure Notable Events: none * Anesthesia Procedure Notes - Rodri Munoz D.O. - 01/02/2025 1:11 PM CDT Associated Order(s): Regional Block Regional Block Date/Time: 01/02/2025 1:11 PM Performed by: Rodri Munoz D.O. Authorized by: Rodri Munoz D.O. Location: Pre Op / PACU PROCEDURE DETAILS: Block Indication: post-op pain block Block indication comment: Post-Op pain block at request of surgeon Block Type - Lower extremity: posterior lumbar plexus (PSOAS) Positioning: lateral (left) Laterality: right Block technique: nerve stimulator Minimum stimulating threshold (mA): 0.6 Injection technique: catheter Needle type: insulated Gauge: 18G Length: 10 Catheter taped (cm at skin): 15 Test dose: yes- negative test dose Incremental injection of local anesthetic with aspiration every:5cc Pain with needle advancement or injection of local anesthetic: no Injected Medications: Injection(s), anesthetic agent(s) and/or steroid; See MAR Comments: Comments: Quad twitch at 0.6 UNIVERSAL PROTOCOL All relevant documentation and testing [...] and confirmed in a procedural pause. PRE-PROCEDURE DETAILS: Appropriate hand hygiene, gown, cap, mask, protective eyewear, sterile gloves, skin preparation, sterile drape, and strict aseptic technique were utilized as applicable for the procedure.: yes Skin prep: chlorhexidine / alcohol and alcohol SEDATION / ANESTHESIA Anesthesia method: local infiltration Local infiltrate type: see MAR for dose POST-PROCEDURE DETAILS: Procedure completed successfully: successful procedure Notable Events: none * Anesthesia Preprocedure Evaluation - Keven Quevedo M.D. - 01/02/2025 11:41 AM CDT Preprocedure Anesthesia & H&P Assessment Procedure Summary Date/Time: 01/02/25 1311 Procedure: ARTHROPLASTY RESECTION HIP. (Right) Diagnosis: Pain Hip Right [M25.551] Pre-op diagnosis: Pain Hip Right [M25.551]. Location: [address] / [facility] in [place], [place] Providers: Aidan Self M.D. Pertinent components of the patient's history including current problem list, medical history, surgical history, family history, social history, medications and allergies were reviewed. Present illness and pre-op diagnosis were confirmed. The planned surgery / procedure was verified with the patient / legal guardian. The patient's general health condition remains unchanged RELEVANT COMORBID CONDITIONS CV (+) Hypertension Essential Primary GI (+) Gastroesophageal Reflux Disease Without Esophagitis Other (+) Morbid Obesity (HCC) OBJECTIVE PHYSICAL EXAMINATION Airway (HEENT) Mallampati: III TM Distance: >3 FB Neck ROM: Limited Mouth Opening: >3 cm Upper Lip Bite Test Class: I Cardiovascular Rhythm: Regular Rate: Normal Cardiovascular Assessment: cardiovascular normal Functional Capacity: >4 METS Pulmonary Pulmonary Assessment: Clear General / Constitutional Constitutional Assessment: Overweight General State of Health:: healthy appearing and calm ASSESSMENT / PLAN ANESTHESIA PLAN ASA: 2 Anesthesia Plan: regional Patient seen and allergies reviewed, anesthesia plan and risks discussed directly with patient /legal guardian or through an healthcare interpreter. Risks/Benefits/Alternatives of Blood transfusion discussed with patient / legal guardian, includingan opportunity to ask questions and/or decline some or all transfusion therapies. The patient / legal guardian consented to the use of all blood products, as deemed medically necessary Approval to Proceed: approved for anesthesia documented in this encounter Plan of Treatment Upcoming Encounters Date Type Department Care Team (Latest Contact Info) Description 01/21/2025 9:00 AM CDT Ancillary Procedure Department of Cardiovascular Medicine in [address] [phone] Sonu Levy Jr., M.D. [address] [place] [phone] 01/21/2025 11:40 AM CDT Lab Department of Infusion Therapy in [address] [phone] Sonu Levy Jr., M.D. [address] [place] [phone] 01/21/2025 1:15 PM CDT Office Visit Department of Orthopedic Surgery in [address] [phone] Aidan Self M.D. [address] [place] [phone] 01/21/2025 2:00 PM CDT Infusion Department of Infusion Therapy in [address] [phone] Sonu Levy Jr., M.D. [address] [place] [phone] 02/11/2025 11:00 AM CDT Clinical Communication Virtual Review in [place], [place] 200 [place] [phone] 02/14/2025 12:00 PM CDT Appointment Department of Laboratory Medicine and Pathology, [facility], in [address] [phone] Kesha Todd APRN, C.N.P. [address] [place] [phone] 02/14/2025 12:30 PM CDT Office Visit Department of Orthopedic Surgery in [place], [place] [address] [place] [phone] Kesha Todd APRN, C.N.P. [address] [place] [phone] 02/14/2025 1:30 PM CDT Comprehensive Visit Section of Infectious Diseases in [place], [place] [address] [place] [phone] Kesha Todd APRN, C.N.P. [address] [place] [phone] 03/11/2025 3:00 PM PLANT CUSTODIAN Clinical Communication Virtual Review in [place], [place] 200 [place] [phone] 03/18/2025 11:30 AM PLANT CUSTODIAN Appointment Department of Laboratory Medicine and Pathology, [facility] in [place], [place] [address] [place] [phone] Kesha Todd APRN, C.N.P. [address] [place] [phone] 03/18/2025 12:30 PM PLANT CUSTODIAN Office Visit Department of Orthopedic Surgery in [place], [place] [address] [place] [phone] Aidan Self M.D. [address] [place] [phone] 03/24/2025 Hospital Encounter [facility] 01 4 AM ADMIT [address] [place] [phone] Aidan Self M.D. [address] [place] [phone] Scheduled Procedures Name Priority Associated Diagnoses Date/Ti me ARTHROPLASTY REIMPLANTATION HIP Pain Hip Left documented as of this encounter Procedures Procedure Name Priority Date/Time Associated Diagnosis Comments ANESTHESIA REGIONAL BLOCK Routine 01/02/2025 2:52 PM CDT CO LWR XTR FSCL PLN BLK UNI NFS Routine 01/02/2025 1:11 PM CDT LDA ANE LOWER EXTREMITY PNC Routine 01/02/2025 1:11 PM CDT documented in this encounter Results * Regional Block (01/02/2025 2:52 PM CDT) Narrative Rebel العراقي M.D., Ph.D. - 01/02/2025 2:52 PM CDT Rebel العراقي M.D., Ph.D. 01/02/2025 3:01 PM Regional Block Date/Time: 01/02/2025 2:52 PM Performed by: Rebel العراقي M.D., Ph.D. Authorized by: Rebel العراقي M.D., Ph.D. Location: OR PROCEDURE DETAILS: Block Indication: primary anesthetic Block Type - Neuraxial: spinal Positioning: lateral (left) Approach: paramedian Level inserted: L3-4 Block technique: landmark technique Injection technique: single injection Needle type: hyacinth Gauge: 22G Length: 10 CSF: yes Pain with needle advancement or injection of local anesthetic: no Injected Medications: Injection(s), anesthetic agent(s) and/or steroid; See MAR UNIVERSAL PROTOCOL All relevant documentation and testing [...] and confirmed in a procedural pause. PRE-PROCEDURE DETAILS: Appropriate hand hygiene, gown, cap, mask, protective eyewear, sterile gloves, skin preparation, sterile drape, and strict aseptic technique were utilized as applicable for the procedure.: yes Skin prep: chlorhexidine / alcohol SEDATION / ANESTHESIA Anesthesia method: local infiltration Local infiltrate type: lidocaine POST-PROCEDURE DETAILS: Procedure completed successfully: successful procedure Notable Events: none us Rebel العراقي M.D., Ph.D. PROCEDURE/MINOR SURGI WILLA ORDERABLES Final Result * LDA ANE LOWER EXTREMITY PNC, CO LWR XTR FSCL PLN BLK UNI NFS (01/02/2025 1:11 PM CDT) Narrative Rodri Munoz D.O. - 01/02/2025 1:11 PM CDT Rodri Munoz D.O. 01/02/2025 1:12 PM Regional Block Date/Time: 01/02/2025 1:11 PM Performed by: Rodri Munoz D.O. Authorized by: Rodri Munoz D.O. Location: Pre Op / PACU PROCEDURE DETAILS: Block Indication: post-op pain block Block indication comment: Post-Op pain block at request of surgeon Block Type - Lower extremity: posterior lumbar plexus (PSOAS) Positioning: lateral (left) Laterality: right Block technique: nerve stimulator Minimum stimulating threshold (mA): 0.6 Injection technique: catheter Needle type: insulated Gauge: 18G Length: 10 Catheter taped (cm at skin): 15 Test dose: yes- negative test dose Incremental injection of local anesthetic with aspiration every:5cc Pain with needle advancement or injection of local anesthetic: no Injected Medications: Injection(s), anesthetic agent(s) and/or steroid; See MAR Comments: Comments: Quad twitch at 0.6 UNIVERSAL PROTOCOL All relevant documentation and testing [...] and confirmed in a procedural pause. PRE-PROCEDURE DETAILS: Appropriate hand hygiene, gown, cap, mask, protective eyewear, sterile gloves, skin preparation, sterile drape, and strict aseptic technique were utilized as applicable for the procedure.: yes Skin prep: chlorhexidine / alcohol and alcohol SEDATION / ANESTHESIA Anesthesia method: local infiltration Local infiltrate type: see MAR for dose POST-PROCEDURE DETAILS: Procedure completed successfully: successful procedure Notable Events: none Rodri Munoz D.O. PROCEDURE/MINOR SURGICAL ORDERABLES Final Result documented in this encounter Visit Diagnoses Not on filedocumented in this encounter Administered Medications Inactive Administered Medications - up to 3 most recent administrations Medication Order MAR Action Action Date Dose Rate Site BUPivacaine PF 0.75 % (7.5 mg/mL) injection (Marcaine) intrathecal, As needed, Starting on Annabelle 01/02/25 at 1454, Anesthesia Intra-op Given 01/02/2025 2:54 PM CDT 2 mL BUPivacaine-EPINEPHrine (PF) 0.5 %-1:200,000 injection (Marcaine w/Epi) peripheral nerve block, As needed, Starting on Annabelle 01/02/25 at 1301, Anesthesia Intra-op Given 01/02/2025 1:26 PM CDT 5 mL Given 01/02/2025 1:20 PM CDT 10 mL Given 01/02/2025 1:10 PM CDT 10 mL ceFAZolin injection 2,000 mg (Ancef) 2,000 mg (rounded from 2,242.5 mg = 25 mg/kg 89.7 kg Dosing weight), intravenous, Once, On Annabelle 01/02/25 at 1515, For 1 dose, Intra-Op, Administer within 1 hour prior to surgical incision For immediate IV push administration, reconstitute vial per IVAG or package insert instructions. See IVAG for administration guidelines., Drug Monitoring Program: Pharmacist to adjust medication dosing based on indication and drug clearance factors., Indications: Prophylaxis, surgicalIndications:Prophylaxis, surgical Given 01/02/2025 3:33 PM CDT 2 g dexAMETHasone injection (Decadron) intravenous, As needed, Starting on Annabelle 01/02/25 at 1501, Anesthesia Intra-op Given 01/02/2025 3:01 PM CDT 4 mg fentaNYL injection (Sublimaze) intravenous, As needed, Starting on Annabelle 01/02/25 at 1447, Anesthesia Intra-op Given 01/02/2025 2:47 PM CDT 25 mcg Lactated Ringer's intravenous, Continuous Infusion: Per Instructions PRN, Starting on Annabelle 01/02/25 at 1439, Anesthesia Intra-op New Bag 01/02/2025 3:51 PM CDT New Bag 01/02/2025 2:39 PM CDT lidocaine (PF) 20 mg/mL (2 %) injection (Xylocaine) intravenous, As needed, Starting on Annabelle 01/02/25 at 1458, Anesthesia Intra-op Given 01/02/2025 2:58 PM CDT 40 mg midazolam (PF) injection (Versed) intravenous, As needed, Starting on Annabelle 01/02/25 at 1447, Anesthesia Intra-op Given 01/02/2025 2:47 PM CDT 1 mg ondansetron (PF) injection (Zofran) intravenous, As needed, Starting on Annabelle 01/02/25 at 1501, Anesthesia Intra-op Given 01/02/2025 3:01 PM CDT 4 mg propofol 10 mg/mL infusion (Diprivan) intravenous, Continuous Infusion: Per Instructions PRN, Starting on Annabelle 01/02/25 at 1458, Anesthesia Intra-op Rate/Dose Change 01/02/2025 6:17 PM CDT 25 mcg/kg/min 13.455 mL/hr Rate/Dose Change 01/02/2025 6:05 PM CDT 50 mcg/kg/min 26.9 1 mL/hr Rate/Dose Change 01/02/2025 4:44 PM CDT 65 mcg/kg/min 34.9 83 mL/hr tranexamic acid in NaCl IVPB 1,000 mg (Cyklokapron) 1,000 mg (1 g), intravenous, at 300 mL/hr, Administer over 20 Minutes, Once, On Annabelle 01/02/25 at 1515, For 1 dose, Intra-Op, Administer in OR upon induction Given 01/02/2025 3:07 PM CDT 1 g documented in this encounter Care Teams Instrument Mechanic Weapons System Relationship Specialty Start Date End Date Elsewhere, Pcp PCP - General Internal Medicine 11/05/24 documented as of this encounter
--- OUTSIDE RECORDS SUMMARY | 2025-01-13 15:30 | XMS_ITS | Encounter Summary ---
Author Organization Formerly [facility], [facility] Address [address] [place] [address] Care Team Providers Care Hyperion Essbase Developer Name Role Phone Jane Monahan MD Primary Care Provider Encounter Details Date Type Department Care Team (Late st Contact Info) Description 01/13/2025 3:30 PM CDT Lab Visit Laboratory at [address] [phone] Right hip pain Social History Tobacco Use Types Packs/Day Years [...] Procedure Name Priority Date/Time Associated Diagnosis Comments CBC AND DIFFERENTIAL PANEL Routine 01/13/2025 2:30 PM CDT Right hip pain CREATININE / GFR Routine 01/13/2025 2:30 PM CDT Right hip pain C-REATIVE PROTEIN (CARDIAC) Routine 01/13/2025 2:30 PM CDT Right hip pain COMPLETE BLOOD COUNT-W/DIFF Routine 01/13/2025 2:30 PM CDT Right hip pain ESTRADIOL Routine 01/13/2025 2:30 PM CDT Right hip pain ALT (SGPT) Routine 01/13/2025 2:30 PM CDT Right hip pain documented in this encounter Results * (ABNORMAL) Complete Blood Count-W/Diff (01/13/2025 2:30 PM CDT) WBC 8.4 3.5 - 10.5 x10(9)/L 01/13/2025 4:34 PM CDT [facility] RBC 3.28(L) 3.90 - 5.03 x10(12)/L 01/13/2025 4:34 PM CDT [facility] Hemoglobin 9.7(L) 12.0 - 15.5 g/dL 01/13/2025 4:34 PM CDT [facility] HCT 30.6(L) 34.9 - 44.5 % 01/13/2025 4:34 PM CDT [facility] MCV 93.3 80.0 - 100.0 fL 01/13/2025 4:34 PM CDT [facility] MCH 29.6 27.6 - 33.3 pg 01/13/2025 4:34 PM CDT [facility] MCHC 31.7 31.5 - 35.2 g/dL 01/13/2025 4:34 PM CDT [facility] RDW 14.3 11.9 - 15.5 % 01/13/2025 4:34 PM CDT [facility] Platelets 312 150 - 450 x10(9)/L 01/13/2025 4:34 PM CDT [facility] Neutrophil Absolute 5.7 1.7 - 7.0 10(9)/L 01/13/2025 4:34 PM CDT [facility] Lymphocyte Absolute 1.5 1.0 - 4.8 10(9)/L 01/13/2025 4:34 PM CDT [facility] Monocyte Absolute 0.6 0.2 - 0.9 10(9)/L 01/13/2025 4:34 PM CDT [facility] Eosinophil Absolute 0.5 0.0 - 0.5 10(9)/L 01/13/2025 4:34 PM CDT [facility] Basophil Absolute 0.0 0.0 - 0.3 10(9)/L 01/13/2025 4:34 PM CDT [facility] Immature Granulocyte % 0.7(H) 0.0 - 0.5 % 01/13/2025 4:34 PM CDT [facility] Blood Venipuncture / Unknown 01/13/2025 2:30 PM CDT 01/13/2025 4:20 PM CDT us Not On File Provider LAB_1 Final Resul t Performing Organization Address City/[facility]/ZIP Co de Phone Number [facility] CLIA: [id number] [address] [place] [phone] * ALT (SGPT) (01/13/2025 2:30 PM CDT) ALT (SGPT) 17 0 - 55 U/L 01/13/2025 9:58 PM CDT [facility] Blood Venipuncture / Unknown 01/13/2025 2:30 PM CDT 01/13/2025 4:20 PM CDT us Not On File Provider LAB_1 Final Resul t [facility] CLIA: [id number] [address] [place] [id number] * Estradiol (01/13/2025 2:30 PM CDT) Estradiol 10 pg/mL 01/13/2025 10:16 PM CDT [facility] Blood Venipuncture / Unknown 01/13/2025 2:30 PM CDT 01/13/2025 4:20 PM CDT [facility] - 01/13/2025 10:16 PM CDT The drug mifepristone may cause interference with the estradiol assay leading to significant falsely elevated estradiol results for up to two weeks following last dose. Expected values for menstruating females Follicular phase: 21-251 pg/mL Mid cycle phase: 38-649 pg/mL Luteal phase: 21-312 pg/mL Expected values for post menopausal females On HRT: <10-144 pg/mL Not on HRT: <10-28 pg/mL us Not On File Provider LAB_1 Final Resul t Performing Organization Address [facility] Co de Phone Number [facility] CLIA: [id number] [address] [place] [address] * (ABNORMAL) CRP, Sensitive (01/13/2025 2:30 PM CDT) CRP, Sensitive 16.1(H) 0.0 - 3.0 mg/L 01/13/2025 10:12 PM CDT [facility] Blood Venipuncture / Unknown 01/13/2025 2:30 PM CDT 01/13/2025 4:20 PM CDT [facility] - 01/13/2025 10:12 PM CDT Low cardiovascular risk: <1.0 mg/L Average cardiovascular risk: 1.0-3.0 mg/L High cardiovascular risk: 3.1-10.0 mg/L Results >10.0 mg/L may indicate non-cardiac inflammation us Not On File Provider LAB_1 Final Resul t Performing Organization Address [facility] Co de Phone Number [facility] CLIA: [id number] [address] [place] [address] * Creatinine / GFR (01/13/2025 2:30 PM CDT) Creatinine 0.69 0.55 - 1.02 mg/dL 01/13/2025 9:58 PM CDT [facility] GFR, Estimated >60 >60 mL/min/1. 73m2 01/13/2025 9:58 PM CDT [facility] Blood Venipuncture / Unknown 01/13/2025 2:30 PM CDT 01/13/2025 4:20 PM CDT us Not On File Provider LAB_1 Final Resul t [facility] CLIA: [id number] [address] [place] [address] documented in this encounter Visit Diagnoses Diagnosis Right hip pain Pain in joint, pelvic region and thigh documented in this encounter Care Teams Hyperion Essbase Developer Relationship Specialty [place] [address] [place] [address] PCP - General Family Practice 08/19/20 documented as of this encounter
--- OUTSIDE RECORDS SUMMARY | 2025-01-16 08:30 | XMS_ITS | Encounter Summary ---
Author Organization [facility] Address [address] [place] [address] Care Team Providers Care Customer Energy Specialist Name Role Phone Elsewhere, Pcp Primary Care Provider Unavailabl e Reason for Visit * Reason Onset Date Comments Pre-visit Intake 01/16/2025 * Appointment Request (Routine) - Authorized Specialty Diagnoses / Procedures Referred By Fartun love Referred To Contact Orthopedic Surgery Referral ID Status Reason Start Date Expiration Date V isits Requested Visits Authorized [id number] Authorized 01/06/2025 04/08/2026 1 1 Encounter Details Date Type Department Care Team (Latest Contact Info) Description 01/16/2025 8:30 AM CDT Clinical Communication Virtual Review in [place], [place] 200 [place] [address] Pre-visit Intake Social History Tobacco Use Types Packs/Day Years [...] things needed for daily living? No 01/03/2025 [facility] Utilities Answer Date Recorded In the past 12 months has [employer] electric, gas, oil, or water company threatened to shut off services in your home? No 01/03/2025 Housing Stability Answer Date Recorded What is your living situation today? I have a [facility] place to live 01/03/2025 Comments No Sex and Gender Information Value Date Recorded Sex Assigned at Female 11/02/2024 11:29 AM CDT Legal Sex Female 2:53 PM CDT Gender Identity Female 11/02/2024 11:29 AM CDT Sexual Orientation Straight 11/02/2024 11 :29 AM CDT documented as of this encounter Plan of Treatment Upcoming Encounters Date Type Department Care Team (Latest Contact Info) Description 01/21/2025 9:00 AM CDT Ancillary Procedure Department of Cardiovascular Medicine in [place], [place] 200 [place] [address] Sonu Levy Jr., M.D. 200 [place] [phone] 01/21/2025 11:40 AM CDT Lab Department of Infusion Therapy in [place], [place] [address] [place] [phone] Sonu Levy Jr., M.D. [address] [place] [phone] 01/21/2025 1:15 PM CDT Office Visit Department of Orthopedic Surgery in [place], [place] [address] [place] [phone] Aidan Self M.D. [address] [place] [phone] 01/21/2025 2:00 PM CDT Infusion Department of Infusion Therapy in [place], [place] [address] [place] [phone] Sonu Levy Jr., M.D. [address] [place] [phone] 02/11/2025 11:00 AM CDT Clinical Communication Virtual Review in [place], [place] 200 [place] [address] 02/14/2025 12:00 PM CDT Appointment Department of Laboratory Medicine and Pathology, [facility] in [place], [place] [address] [place] [phone] Kesha Todd APRN, C.N.P. [address] [place] [phone] 02/14/2025 12:30 PM CDT Office Visit Department of Orthopedic Surgery in [place], [place] [address] [place] [phone] Kesha Todd APRN, C.N.P. [address] [place] [phone] 02/14/2025 1:30 PM CDT Comprehensive Visit Section of Infectious Diseases in [place], [place] [address] [place] [phone] Kesha Todd APRN, C.N.P. [address] [place] [phone] 03/11/2025 3:00 PM WOUND/OSTOMY NURSE Clinical Communication Virtual Review in [place], [place] [address] [place] [address] 03/18/2025 11:30 AM WOUND/OSTOMY NURSE Appointment Department of Laboratory Medicine and Pathology, [facility] in [place], [place] [address] [place] [phone] Kesha Todd APRN, C.N.P. [address] [place] [phone] 03/18/2025 12:30 PM WOUND/OSTOMY NURSE Office Visit Department of Orthopedic Surgery in [place], [place] [address] [place] [phone] Aidan Self M.D. [address] [place] [phone] 03/24/2025 Hospital Encounter RST ROEI 01 4 AM ADMIT [address] [place] [phone] Aidan Self M.D. [address] [place] [phone] Scheduled Procedures Name Priority Associated Diagnoses Date/Ti me ARTHROPLASTY REIMPLANTATION HIP Pain Hip Left documented as of this encounter Visit Diagnoses Not on filedocumented in this encounter Care Teams Customer Energy Specialist Relationship Specialty Start Date End Date Elsewhere, Pcp PCP - General Internal Medicine 11/05/24 documented as of this encounter
--- OUTSIDE RECORDS SUMMARY | 2025-01-20 11:50 | XMS_ITS | Encounter Summary ---
Author Organization [facility] Address [address] [place] [address] Care Team Providers Care Inbound Call Center Representative Name Role Phone Elsewhere, Pcp Primary Care Provider Unavailabl e Encounter Details Date Type Department Care Team (Latest Contact Info) Description 01/20/2025 11:50 AM CDT Hospital Encounter Department of Laboratory Medicine in [address] [phone] Jane Monahan M.D. 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 No 01/03/2025 [facility] Utilities Answer Date Recorded In the past 12 months has [employer] electric, gas, oil, or water company threatened to shut off services in your home? No 01/03/2025 Housing Stability Answer Date Recorded What is your living situation today? I have a [facility] place to live 01/03/2025 Comments No [...] Ancillary Procedure Department of Cardiovascular Medicine in [place], [place] 200 [place] [address] Sonu Levy Jr., M.D. 200 [place] [phone] 01/21/2025 11:40 AM CDT Lab Department of Infusion Therapy in [place], [place] [address] [place] [phone] Sonu Levy Jr., M.D. [address] [place] [phone] 01/21/2025 1:15 PM CDT Office Visit Department of Orthopedic Surgery in [place], [place] [address] [place] [phone] Aidan Self M.D. [address] [place] [phone] 01/21/2025 2:00 PM CDT Infusion Department of Infusion Therapy in [place], [place] [address] [place] [phone] Sonu Levy Jr., M.D. [address] [place] [phone] 02/11/2025 11:00 AM CDT Clinical Communication Virtual Review in [place], [place] 200 [place] [phone] 02/14/2025 12:00 PM CDT Appointment Department of Laboratory Medicine and Pathology, [facility] in [place], [place] [address] [place] [phone] Kesha Todd APRN, C.N.P. [address] [place] [phone] 02/14/2025 12:30 PM CDT Office Visit Department of Orthopedic Surgery in [place], [place] [address] [place] [phone] Kesha Todd APRN, C.N.P. [address] [place] [phone] 02/14/2025 1:30 PM CDT Comprehensive Visit Section of Infectious Diseases in [place], [place] [address] [place] [phone] Kesha Todd APRN, C.N.P. [address] [place] [phone] 03/11/2025 3:00 PM SNOW TECHNICIAN Clinical Communication Virtual Review in [place], [place] 200 [place] [phone] 03/18/2025 11:30 AM SNOW TECHNICIAN Appointment Department of Laboratory Medicine and Pathology, [facility] in [place], [place] [address] [place] [phone] Kesha Todd APRN, C.N.P. [address] [place] [phone] 03/18/2025 12:30 PM SNOW TECHNICIAN Office Visit Department of Orthopedic Surgery in [place], [place] [address] [place] [phone] Aidan Self M.D. [address] [place] [phone] 03/24/2025 Hospital Encounter RST ROEI 01 4 AM ADMIT [address] [place] [phone] Aidan Self M.D. 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 Once for 1 Occurrences starting 01/20/2025 until 01/20/2025 Scheduled Procedures Name Priority Associated Diagnoses Date/Ti me ARTHROPLASTY REIMPLANTATION HIP Pain Hip Left documented as of this encounter Procedures Procedure Name Priority Date/Time Associated Diagnosis Comments CBC WITH DIFFERENTIAL, B Routine 025 10:55 AM CDT 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 ALANINE AMINOTRANSFERASE (ALT), S/P Routine 01/20/2025 10:55 AM CDT 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 CREATININE WITH EGFR, S/P Routine 01/20/2025 10:55 AM CDT 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 documented in this encounter Results * (ABNORMAL) CBC with Differential, Blood (01/20/2025 10:55 AM CDT) Pathologist [facility] Hemoglobin 11.5(L) 11.6 - 15.0 g/dL 01/20/2025 12:19 PM CDT [facility] Hematocrit 37.0 35.5 - 44.9 % 01/20/2025 12:19 PM CDT [facility] Erythrocytes 3.86(L) 3.92 - 5.13 x10(12)/L 01/20/2025 12:19 PM CDT [facility] MCV 95.9 78.2 - 97.9 fL 01/20/2025 12:19 PM CDT [facility] RBC Distrib Width 14.5 12.2 - 16.1 % 01/20/2025 12:19 PM CDT [facility] Platelet Count 288 157 - 371 x10(9)/L 01/20/2025 12:19 PM CDT [facility] Leukocytes 6.9 3.4 - 9.6 x10(9)/L 01/20/2025 12:19 PM CDT [facility] Neutrophils 4.45 1.56 - 6.45 x10(9)/L 01/20/2025 12:19 PM CDT [facility] Lymphocytes 1.34 0.95 - 3.07 x10(9)/L 01/20/2025 12:19 PM CDT [facility] Monocytes 0.61 0.26 - 0.81 x10(9)/L 01/20/2025 12:19 PM CDT [facility] Eosinophils 0.49(H) 0.03 - 0.48 x10(9)/L 01/20/2025 12:19 PM CDT [facility] Basophils 0.05 0.01 - 0.08 x10(9)/L 01/20/2025 12:19 PM CDT [facility] Blood (Blood, Venous) 01/20/2025 10:55 AM CDT 01/20/2025 12:08 PM CDT Nahid Ballard APRN.N.Radha., M.S.N. LAB BLOOD A DD-ON Final Result Performing Organization Address [facility] Co de Phone Number [facility] [address] [place] [phone], [facility] [place] [address] * Creatinine with Estimated GFR (01/20/2025 10:55 AM CDT) Creatinine 0.71 0.59 - 1.04 mg/dL 01/20/2025 12:36 PM CDT [facility] Estimated GFR (eGFR) 90 >=60 mL/min/BSA 01/20/2025 12:36 PM CDT [facility] Comment: Estimated GFR calculated using the 2020 CKD_EPI creatinine equation. Blood (Blood, Venous) 01/20/2025 10:55 AM CDT 01/20/2025 12:08 PM CDT Result [facility] Nahid Ballard APRN.N.Radha., M.S.N. LAB BLOOD A DD-ON Final Result Performing Organization Address City/[facility] Co de Phone Number [facility] [address] [place] [address], [facility] in [address] [address] * ALT (Alanine Aminotransferase) (01/20/2025 10:55 AM CDT) Alanine Aminotransferase (ALT), P 19 7 - 45 U/L 01/20/2025 12:36 PM CDT [facility] Blood (Blood, Venous) 01/20/2025 10:55 AM CDT 01/20/2025 12:08 PM CDT Nahid Ballard APRN.N.P., M.S.N. 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
--- OUTSIDE RECORDS SUMMARY | 2025-01-20 20:59 | XMS_ITS | Encounter Summary ---
Author Organization [facility] Address [address], [place] [address] Care Team Providers Care Offset Proof Press Operator Name Role Phone Jane Monahan MD Primary Care Provider [phone] Encounter Details Date Type Department Care Team (Latest Contact Info) Description 10/03/1994 Orders Only Mariela Shi Social History Tobacco Use Types Packs/Day Years Used Date Smoking Tobacco: Never Assessed Comments Unknown Sex and Gender Information Value Date Recorded Sex Assigned at Not on file Legal Sex Female 4:39 AM CDT Gender Identity Not on file Sexual Orientation Not on file documented as of this encounter Plan of Treatment Not on file documented as of this encounter Visit Diagnoses Not on filedocumented in this encounter Care Teams Offset Proof Press Operator Relationship Specialty [place] [address] [place] [address] PCP - General Family Practice 08/19/20 documented as of this encounter
--- OUTSIDE RECORDS SUMMARY | 2025-01-20 20:59 | XMS_ITS | Encounter Summary ---
Author Organization [facility] Address [address] [place] [address] Care Team Providers Care Horse Identifier Name Role Phone Jane Monahan MD Primary Care Provider [phone] Encounter Details Date Type Department Care Team (Latest Contact Info) Description 07/18/1995 Orders Only Courtney Willett, BUS [employer]AX[employer] INSTRUCTOR, ADMITTING INTERVIEWER [address] [place] [address] Social History Tobacco Use Types Packs/Day Years [...] on filedocumented in this encounter Care Teams Horse Identifier Relationship Specialty [place] [address] [place] [address] PCP - General Family Practice 08/19/20 documented as of this encounter
--- OUTSIDE RECORDS SUMMARY | 2025-01-20 20:59 | XMS_ITS | Encounter Summary ---
Author Organization [facility] Address [address], [place] [address] Care Team Providers Care Service Observer Name Role Phone Jane Monahan MD Primary Care Provider [phone] Encounter Details Date Type Department Care Team (Latest Contact Info) Description 05/05/1994 Orders Only Mariela Shi Social History Tobacco [...] on filedocumented in this encounter Care Teams Service Observer Relationship Specialty [place] [address] [place] [address] PCP - General Family Practice 08/19/20 documented as of this encounter
--- OUTSIDE RECORDS SUMMARY | 2025-01-20 20:59 | XMS_ITS | Clinical Summary ---
Author Organization [facility] Address [address] [place] [address] Care Team Providers Care Concrete Engineer Name Role Phone Jane Monahan MD Primary Care Provider [phone] Source Comments You are receiving this document as you are listed as the primary care provider,follow-up provider, or the patient has been referred to you for consultation.This is in compliance with the Medicare and[facility] EHR Incentive Program,which states Providers who transition their patient to another setting of careor provider of care or refers their patient to another provider of care shouldprovide summary care record for each transition of care or referral. [facility] [employer] Allergies Active Allergy Reactions Criticality Noted Date Comments Celecoxib Nausea Low 10/10/2023 Stomach pain Medications FISH OIL 1200 MG OR CAPS Take by mouth. Active cholecalciferol (VITAMIN D3) 25 MCG (1000 UT) tablet Take 3 Tablets (3,000 Units) by mouth daily. Active Iron-Vitamin C (VITRON-C OR) Active acetaminophen 500 MG tablet Take 1-2 Tablets (500-1,000 mg) by mouth. 09/28/19 24 Active Lactobacillus Rhamnosus, GG, (CULTURELLE) CAPS Take 1 Capsule by mouth daily. Active melatonin 3 MG tablet Take 1 Tablet (3 mg) by mouth. Active metoprolol tartrate (LOPRESSOR) 25 MG tabletIndications: Essential hypertension (HRC) TAKE 1 TABLET TWICE A DAY 180 Tablet 3 07/13/19 25 Active rosuvastatin (CRESTOR) 5 MG tabletIndications: Other hyperlipidemia Take 1 Tablet (5 mg) by mouth daily. 90 Tablet 3 10/01/19 25 Active clobetasol (TEMOVATE) 0.05 % ointment Apply topically two times a day. For 1-2 weeks 30 g 12/07/19 25 Active buPROPion (WELLBUTRIN) 75 MG tabletIndications: Anxiety (HRC) Take 1 Tablet (75 mg) by mouth daily. 90 Tablet 3 01/02/20 25 Active buPROPion (WELLBUTRIN) 75 MG tabletIndications: Anxiety (HRC) TAKE 1 TABLET DAILY 90 Tablet 2 04/11/20 24 025 Discontin ued(*Med change OR same med OR reorder, new dose/dire ctions) Active Problems Problem Noted Date Diagnosed Date Dysplastic nevus 09/26/2023 Hip dislocation, right, sequela 08/24/2023 Hypercholesterolemia 06/17/2021 Prediabetes 06/17/2021 Bilateral shoulder region arthritis 08/22/2017 Screening for malignant neoplasm of cervix 01/17 Overview (12/14/2016): 0094-3001 NILM 2016 NILM, hpv negative 65 y.o. PLAN: 12/2016 ; Pap test history Sensorineural hearing loss, bilateral 08/10/2015 Blepharitis 08/11/2014 Overview (01/22/2015): Epic Hyperopia 08/11/2014 Presbyopia 08/11/2014 Amblyopia 08/11/2014 Anxiety 01/22/2013 Benign essential hypertension 04/01/2004 Overview (01/05/2022): [facility] Resolved Problems Problem Noted Date Diagnosed Date Resolved Date Achilles bursitis 05/10/2007 01/05/2022 Overview (12/14/2016): Achilles Bursitis or Tendinitis Ingrowing nail 05/27/2005 01/05/2022 Encounters Date Type Department Care Team Description 01/13/2025 3:30 PM CDT Lab Visit Laboratory at [address] [phone] Right hip pain 01/13/2025 Notes/Orders Laboratory at [address] [phone] Provider, Not On File Right hip pain (Primary Dx) 01/10/[address] [phone] Jane Monahan MD Verbal Orders 01/08/[address] [phone] Jane Monahan MD Verbal Orders 01/08/[address] [phone] Jane Monahan MD FYI 12/30/[address] [phone] Jane Monahan MD Refill (buPROPion (WELLBUTRIN) 75 MG tablet) 12/06/2024 12:00 PM CDT Lab Visit Laboratory at [address] [phone] Other iron deficiency anemia; Vulvar irritation; Dysuria 12/06/2024 11:30 AM CDT Office Visit [address] [phone] Jaen Monahan MD Vulvar irritation (Primary Dx); Dysuria; Elevated blood pressure reading 11/15/2024 1:00 PM CDT Office Visit [address] [phone] Roseann Minor MD Pelvic pressure in female 11/15/2024 Results Follow-Up [address] [phone] Roseann Minor MD from Last 3 Months Immunizations Immunization Administration Dates Next Due Fluzone Qiv Multidose Vial 0 .25 (6-35 Mos) 01/10/2014 Influenza IIV3 (Trivalent) F luzone Highdose, 65+ Yrs (02856) 01/27/2020,02/16/2019,02/05/2018,2016 Influenza IIV4 (Quadrivalent ) 0.5mL (47047) 01/12/2016,01/30/2015 Influenza IIV4 (Quadrivalent ) Fluad, 65+ Yrs 01/26/2023,02/02/2021 Influenza IIV4 (Quadrivalent ) Fluzone, 65+ Yrs 01/26/2022 Influenza Vaccine (3+years) ([facility]) 01/24/2012 Influenza Vaccine QIV 3+ yrs 100% Pres Free ([facility]) 01/10/2014 Influenza aIIV3 65+ Years (Fluad) 01/29/2024 [facility] COVID-19 Vaccine 02/23/2021,06/29/2020 PCV13 (Prevnar) 02/18/2019 PPSV23 (Pneumovax) 02/20/2020 Pfizer COVID-19 12+ 02/08/2023 Td 01/22/2003,11/23/1992 Td (7+ yrs) 01/22/2003,11/23/1992 Tdap 09/05/2011 Varicella 05/19/1998(Deferred: Immune by Navid bragg) Zoster (Zostavax) 02/15/2012 Family History Medical History Relation Name Comments Diabetes Father Father Diabetes, Type II Father Father Heart Disease Father Father Hypertension Father Father Cataract Mother Mother Glaucoma Mother Mother Heart Disease Mother Mother Hypertension Mother Mother Glaucoma Sister Marsha Poss sister - g laucoma suspect Heart Disease Sister Marsha Hypertension Sister Marsha Cancer, Breast Negative Family History Cancer, Ovary Negative Family History Macular Degeneration Negative Family History Thyroid Disorder Negative Family History Relation Name Status Comments Father Father Mother Mother Brother Alive Sister Marsha Alive Social History Tobacco Use Types Packs/Day Years Used Date Smoking Tobacco: Former Cigarettes 0.5 5 0 12/06/1974 - 1979 Passive Smoke Exposure: Never Smokeless Tobacco: Never Tobacco Cessation:Counseling Given: Not Answered Comments:quit 1979 Alcohol Use Standard Drinks/Week Comments Not Currently 0 (1 standard drink = 0.6 oz pur e alcohol) PHQ-2 Answer Date Recorded PHQ-2 Score 1 09/30/2024 Comments No Sex and Gender Information Value Date Recorded Sex Assigned at Not on file Legal Sex Female 4:39 AM CDT Gender Identity Not on file Sexual Orientation Not on file Last Filed Vital Signs Vital Sign Reading Time Taken Comments Blood Pressure 158/78 12/06/2024 11:23 AM CDT Pulse 61 12/06/2024 11:23 AM CDT Temperature 36.4 C (97.5 F) 11/15/2024 12:52 PM CDT Respiratory Rate 18 09/26/2023 10:2 9 AM CDT Oxygen Saturation 98% 09/26/2023 10: 29 AM CDT Inhaled Oxygen Concentration - - Weight 89.8 kg (198 lb) 11/15/2024 12:5 2 PM CDT patient reported Height 161.3 cm (5' 3.5) 11/15/2024 12 :52 PM CDT Body Mass Index 34.52 11/15/2024 12:52 PM CDT Plan of Treatment Health Maintenance Due Date Last Done Comments Zoster/Shingles Vaccine (2 of 3) 04/11/2012 02/15/2012 DTaP/Tdap/Td Vaccine (2 - Tdap) 09/04/2021 09/05/2011, 01/22/2003, 01/22/2003, Additional history exists COVID-19 Vaccine ( season) 2024 02/08/2023, 02/23/2021, 06/29/2020 Influenza Vaccine (#1) 2024 , 01/26/2023, 01/26/2022, Additional history exists Mammogram 01/03/2025 01/04/2024, 06/0 10/2022, 09/27/2021, Additional history exists Medicare Annual Wellness Visit 09/30/2025 09/30/2024, 02/06/2023, 01/04/2022, Additional history exists Prediabetes: HGBA1C 09/30/2025 09/30/2024, 11/15/2023, 06/28/2023, Additional history exists RSV Vaccine (1 - 1-dose 75+ series) 09/09/2026 Colonoscopy 12/15/2027 12/14/2020, 04/2 12/2015, 09/15/2009, Additional history exists Cholesterol 06/27/2028 06/28/2023, 03/0 09/2022, 09/14/2021, Additional history exists Hep C Screening (Preventive Services) Completed 09/08/2011 Pneumococcal Vaccine 50+ Yrs Completed 02/20/2020, 02/18/2019 Dexa Completed 06/30/2022, 12/2022, 11/06/2009 HepA Vaccine Aged Out No longer eligi ble based on patient's age to complete this topic HepB Vaccine Aged Out No longer eligi ble based on patient's age to complete this topic Hib Vaccine Aged Out No longer eligi ble based on patient's age to complete this topic MCV4 Vaccine Aged Out No longer eligi ble based on patient's age to complete this topic Meningococcal B Vaccine Aged Out No l onger eligible based on patient's age to complete this topic Procedures Procedure Name Priority Date/Time Associated Diagnosis Comments COMPLETE BLOOD COUNT-W/DIFF Routine 01/13/2025 2:30 PM CDT Right hip pain ALT (SGPT) Routine 01/13/2025 2:30 PM CDT Right hip pain ESTRADIOL Routine 01/13/2025 2:30 PM CDT Right hip pain C-REATIVE PROTEIN (CARDIAC) Routine 01/13/2025 2:30 PM CDT Right hip pain CREATININE / GFR Routine 01/13/2025 2:30 PM CDT Right hip pain CBC AND DIFFERENTIAL PANEL Routine 01/13/2025 2:30 PM CDT Right hip pain VAGINITIS PANEL Routine 12/06/2024 1:21 PM CDT Vulvar irritation URINE CULTURE Routine 12/06/2024 12:10 PM CDT Vulvar irritation Dysuria UA MICRO Routine 12/06/2024 12:09 PM CDT Vulvar irritation Dysuria URINALYSIS ROUTINE, MICRO/CULTURE IF POS Routine 12/06/2024 12:09 PM CDT Vulvar irritation Dysuria FERRITIN Routine 12/06/2024 12:03 PM CDT Other iron deficiency anemia IRON PROFILE (IRON,TIBC,%SAT.(CALC )) Routine 12/06/2024 12:03 PM CDT Other iron deficiency anemia COMPLETE BLOOD COUNT-NO DIFF Routine 12/06/2024 12:03 PM CDT Other iron deficiency anemia UA MICRO Routine 11/15/2024 1:54 PM CDT Pelvic pressure in female UA MICRO IF Routine 11/15/2024 1:54 PM CDT Pelvic pressure in female BASIC METABOLIC PANEL Routine 11/15/2024 1:44 PM CDT Pelvic pressure in female C-REACTIVE PROTEIN Routine 11/15/2024 1: 44 PM CDT Pelvic pressure in female COMPLETE BLOOD COUNT-NO DIFF Routine 11/15/2024 1:44 PM CDT Pelvic pressure in female HGB A1C Routine 09/30/2024 12:49 PM CDT Screening for diabetes mellitus MM MAMMOGRAM SCREENING BILAT W 3D STEVE W CAD Routine 01/04/2024 12:56 PM CDT LIPID PANEL & DIRECT LDL (IF NEEDED) Routine 06/28/2023 9:20 AM CLAIMS COORDINATOR Screening for diabetes mellitus DXA BONE DENSITY SPINE/HIP Routine 06/30/2022 11:34 AM CLAIMS COORDINATOR Screening for osteoporosis COLONOSCOPY S 12/14/2020 HEPATITIS C ANTIBODY, WITH REFLEX (ANTI-HCV) Routine 09/08/2011 8:02 AM CDT Routine general medical examination at a health care facility from Last 3 Months or Most Recently Relevant to Health Maintenance Results * Creatinine / GFR (01/13/2025 2:30 PM CDT) Creatinine 0.69 0.55 - 1.02 mg/dL 01/13/2025 9:58 PM CDT [facility] GFR, Estimated >60 >60 mL/min/1. 73m2 01/13/2025 9:58 PM CDT [facility] Blood Venipuncture / Unknown 01/13/2025 2:30 PM CDT 01/13/2025 4:20 PM CDT us Not On File Provider LAB_1 Final Resul t [facility] CLIA: [id number] [address] [place] [address] * (ABNORMAL) CRP, Sensitive (01/13/2025 2:30 PM CDT) CRP, Sensitive 16.1(H) 0.0 - 3.0 mg/L 01/13/2025 10:12 PM CDT [facility] Blood Venipuncture / Unknown 01/13/2025 2:30 PM CDT 01/13/2025 4:20 PM CDT Narrative [facility] - 01/13/2025 10:12 PM CDT Low cardiovascular risk: <1.0 mg/L Average cardiovascular risk: 1.0-3.0 mg/L High cardiovascular risk: 3.1-10.0 mg/L Results >10.0 mg/L may indicate non-cardiac inflammation us Not On File Provider LAB_1 Final Resul t [facility] CLIA: [id number] [address] [place] [address] * (ABNORMAL) Complete Blood Count-W/Diff (01/13/2025 2:30 PM CDT) WBC 8.4 3.5 - 10.5 x10(9)/L 01/13/2025 4:34 PM [facility] RBC 3.28(L) 3.90 - 5.03 x10(12)/L 01/13/2025 4:34 PM [facility] Hemoglobin 9.7(L) 12.0 - 15.5 g/dL 01/13/2025 4:34 PM [facility] HCT 30.6(L) 34.9 - 44.5 % 01/13/2025 4:34 PM [facility] MCV 93.3 80.0 - 100.0 fL 01/13/2025 4:34 PM [facility] MCH 29.6 27.6 - 33.3 pg 01/13/2025 4:34 PM [facility] MCHC 31.7 31.5 - 35.2 g/dL 01/13/2025 4:34 PM [facility] RDW 14.3 11.9 - 15.5 % 01/13/2025 4:34 PM [facility] Platelets 312 150 - 450 x10(9)/L 01/13/2025 4:34 PM [facility] Neutrophil Absolute 5.7 1.7 - 7.0 10(9)/L 01/13/2025 4:34 PM [facility] Lymphocyte Absolute 1.5 1.0 - 4.8 10(9)/L 01/13/2025 4:34 PM [facility] Monocyte Absolute 0.6 0.2 - 0.9 10(9)/L 01/13/2025 4:34 PM [facility] Eosinophil Absolute 0.5 0.0 - 0.5 10(9)/L 01/13/2025 4:34 PM [facility] Basophil Absolute 0.0 0.0 - 0.3 10(9)/L 01/13/2025 4:34 PM [facility] Immature Granulocyte % 0.7(H) 0.0 - 0.5 % 01/13/2025 4:34 PM [facility] Blood Venipuncture / Unknown 01/13/2025 2:30 PM CDT 01/13/2025 4:20 PM CDT us Not On File Provider LAB_1 Final Resul t Performing Organization Address City/[facility]/ZIP Co de Phone Number [facility] CLIA: [id number] [address] [place] [phone] * Estradiol (01/13/2025 2:30 PM CDT) Estradiol 10 pg/mL 01/13/2025 10:16 PM CDT [facility] Blood Venipuncture / Unknown 01/13/2025 2:30 PM CDT 01/13/2025 4:20 PM CDT Narrative [facility] - 01/13/2025 10:16 PM CDT The [...] LAB_1 Final Resul t Performing Organization Address [facility] Co de Phone Number [facility] CLIA: [id number] [address] [place] [address] * ALT (SGPT) (01/13/2025 2:30 PM CDT) ALT (SGPT) 17 0 - 55 U/L 01/13/2025 9:58 PM CDT [facility] Blood Venipuncture / Unknown 01/13/2025 2:30 PM CDT 01/13/2025 4:20 PM CDT us Not On File Provider LAB_1 Final Resul t Performing Organization Address [facility] Co de Phone Number [facility] CLIA: [id number] [address] [place] [address] * Vaginitis Panel (12/06/2024 1:21 PM CDT) Bacterial Vaginosis Negative Negative 12/07/2024 12:55 AM CDT [facility] Purnima species Negative Negative 12:55 AM CDT [facility] Purnima glabrata Negative Negative 12/07/2024 12:55 AM CDT [facility] Trichomonas vaginalis Negative Negative 12/07/2024 12:55 AM CDT [facility] Swab STD SPECIMEN FROM VAGINA / Unknown Non-blood Collection / Unknown 12/06/2024 1:21 PM CDT 12/06/2024 1:35 PM CDT Narrative [facility] - 12/07/2024 12:55 AM CDT Test performed by Roll Reclaimer Mediated Amplification (TMA). Jane Monahan MD LAB_1 Final Result Performing Organization Address City/[facility]/ZIP Co de Phone Number [facility] CLIA: [id number] [address] [place] [address] * (ABNORMAL) Urine Culture (12/06/2024 12:10 PM CDT) Pathologist [facility] Urine Culture Growth(A) 12/07/2024 1:15 PM CDT [facility] Urine Culture 10,000 - 50,000 CFU/mL Mixed Bacterial Growth 12/07/2024 1:15 PM CDT [facility] Comment:Mixed Bacterial Grow th indicates the specimen is likely contaminated at collection with urogenital and/or fecal stacia. Urine URINE SPECIMEN COLLECTION, CLEAN CATCH / Unknown Non-blood Collection / Unknown 12/06/2024 12:10 PM CDT 12/06/2024 12:10 PM CDT us Jane Monahan MD LAB_1 Final Result [facility] CLIA: [id number] [address] [place] [address], [facility] * (ABNORMAL) Urinalysis Routine, Micro/Culture if Pos: Clean Catch (12/06/2024 12:09 PM CDT) Urine Microscopic Evaluation Reflex Order Comment Urinalysis results meet criteria for reflex, urine microscopic evaluation performed. 12/06/2024 12:21 PM T [facility] Color Yellow 12/06/2024 12:21 PM T [facility] Clarity Clear Clear 12/06/2024 12:21 PM T [facility] Specific Mayer 1.025 1.005 - 1.030 12/06/2024 12:21 PM T [facility] pH 6.0 5.0 - 8.0 12/06/2024 12:21 PM T [facility] Protein Negative Neg/Trace mg/dL 12/06/2024 12:21 PM [facility] Glucose Negative Negative mg/dL 12/06/2024 12:21 PM T [facility] Ketones Negative Negative mg/dL 12/06/2024 12:21 PM T [facility] Urobilinogen 0.2 <2.0 EU/dL 12/06/2024 12:21 PM [facility] Bilirubin Negative Negative 12/06/2024 12:21 PM T [facility] Blood Negative Neg/Trace 12/06/2024 12:21 PM [facility] Nitrite Negative Negative 12/06/2024 12:21 PM [facility] Leukocyte Esterase Small(A) Negative 12/06/2024 12:21 PM [facility] Source Clean Catch 12/06/2024 12:21 PM [facility] Urine URINE SPECIMEN COLLECTION, CLEAN CATCH / Unknown Non-blood Collection / Unknown 12/06/2024 12:09 PM CDT 12/06/2024 12:09 PM CDT us Jane Monahan MD LAB_1 Final Result [facility] CLIA: [id number] [address] [place] [phone] * (ABNORMAL) Urine Microscopic Evaluation: Clean Catch (12/06/2024 12:09 PM CDT) Only the most recent of2 resultswithin the time period is included. Urine Culture Comment Urinalysis results do not meet criteria for urine culture reflex. 12/06/2024 12:21 PM CDT [facility] Red Blood Cells 0-3 0 - 3 /HPF 12/06/2024 12:21 PM CDT [facility] White Blood Cells 6-9(A) 0 - 5 /HPF 12/06/2024 12:21 PM CDT [facility] Bacteria Moderate(A) None Seen /HPF 12/06/2024 12:21 PM CDT [facility] Squamous Epithelial Cells Moderate(A) None Seen, Occasion al, Few /HPF 12/06/2024 12:21 PM CDT [facility] Transitional Epithelial Cells Occasional(A) None Seen /HPF 12/06/2024 12:21 PM [facility] Urine URINE SPECIMEN COLLECTION, CLEAN CATCH / Unknown Non-blood Collection / Unknown 12/06/2024 12:09 PM CDT 12/06/2024 12:09 PM CDT us Jane Monahan MD LAB_1 Final Result [facility] CLIA: [id number] [address] [place] [address] * Complete Blood Count-No Diff (12/06/2024 12:03 PM CDT) Only the most recent of2 resultswithin the time period is included. WBC 7.8 3.5 - 10.5 x10(9)/L 12/06/2024 12:58 PM [facility] RBC 4.54 3.90 - 5.03 x10(12)/L 12/06/2024 12:58 PM T [facility] Hemoglobin 13.3 12.0 - 15.5 g/dL 12/06/2024 12:58 PM [facility] HCT 42.0 34.9 - 44.5 % 12/06/2024 12:58 PM [facility] MCV 92.5 80.0 - 100.0 fL 12/06/2024 12:58 PM T [facility] MCH 29.3 27.6 - 33.3 pg 12/06/2024 12:58 PM [facility] MCHC 31.7 31.5 - 35.2 g/dL 12/06/2024 12:58 PM CDT [facility] RDW 13.7 11.9 - 15.5 % 12/06/2024 12:58 PM CDT [facility] Platelets 310 150 - 450 x10(9)/L 12/06/2024 12:58 PM CDT [facility] Blood Venipuncture / Unknown 12/06/2024 12:03 PM CDT 12/06/2024 12:03 PM CDT us Jane Monahan MD LAB_1 Final Result [facility] CLIA: [id number] [address] [place] [phone] * Ferritin (12/06/2024 12:03 PM CDT) Ferritin 155 9 - 204 ng/mL 12/06/2024 4:42 PM CDT [facility] Blood Venipuncture / Unknown 12/06/2024 12:03 PM CDT 12/06/2024 12:03 PM CDT us Jane Monahan MD LAB_1 Final Result [facility] CLIA: [id number] [address] [place] [address] * (ABNORMAL) Iron Profile (Iron,TIBC,%Sat.(Calc)) (12/06/2024 12:03 PM CDT) Iron 46(L) 50 - 170 mcg/dL 12/06/2024 4:42 PM CDT [facility] Transferrin 243 180 - 382 mg/dL 12/06/2024 4:42 PM CDT [facility] TIBC, Calculated 304 240 - 450 mcg/dL 12/06/2024 4:42 PM CDT [facility] % Saturation, Calculated 15 10 - 50 % 12/06/2024 4:42 PM CDT [facility] TIBC Interpretation Low iron, normal TIBC, possible iron deficiency. 12/06/2024 4:42 PM CDT [facility] Blood Venipuncture / Unknown 12/06/2024 12:03 PM CDT 12/06/2024 12:03 PM CDT us Jane Monahan MD LAB_1 Final Result [facility] CLIA: [id number] [address] [place] [address] * (ABNORMAL) UA Micro If: Clean Catch (11/15/2024 1:54 PM CDT) Urine Microscopic Evaluation Reflex Order Comment Urinalysis results meet criteria for reflex, urine microscopic evaluation performed. 11/15/2024 2:00 PM CDT [facility] (HP) Color Yellow 11/15/2024 2:00 PM CDT [facility] ([facility]) Clarity Clear Clear 11/15/2024 2:00 PM CDT [facility] () Specific Mayer 1.025 1.005 - 1.030 11/15/2024 2:00 PM CDT [facility] ([facility]) pH 5.5 5.0 - 8.0 11/15/2024 2:00 PM CDT [facility] ([facility]) Protein Negative Neg/Trace mg/dL 11/15/2024 2:00 PM CDT [facility] ([facility]) Glucose Negative Negative mg/dL 11/15/2024 2:00 PM CDT [facility] ([facility]) Ketones Negative Negative mg/dL 11/15/2024 2:00 PM CDT [facility] ([facility]) Urobilinogen 0.2 <2.0 EU/dL 11/15/2024 2:00 PM CDT [facility] (HP) Bilirubin Negative Negative 11/15/2024 2:00 PM CDT [facility] ([facility]) Blood Small(A) Neg/Trace 11/15/2024 2:00 PM CDT [facility] ([facility]) Nitrite Negative Negative 11/15/2024 2:00 PM CDT [facility] ([facility]) Leukocyte Esterase Negative Negative 11/15/2024 2:00 PM CDT [facility] ([facility]) Source Clean Catch 11/15/2024 2:00 PM [facility] () Urine URINE SPECIMEN COLLECTION, CLEAN CATCH / Unknown Non-blood Collection / Unknown 11/15/2024 1:54 PM CDT 11/15/2024 1:54 PM CDT us Roseann Minor MD LAB_1 Final Resul t [facility] () [address] [place] [address], [facility] * (ABNORMAL) Basic Metabolic Panel (11/15/2024 1:44 PM CDT) Sodium 138 136 - 145 mmol/L 11/15/2024 7:26 PM [facility] Potassium 4.1 3.5 - 5.1 mmol/L 11/15/2024 7:26 PM [facility] Chloride 105 98 - 109 mmol/L 11/15/2024 7:26 PM [facility] CO2 24 20 - 29 mmol/L 11/15/2024 7:26 PM [facility] Anion Gap 9 6 - 16 mmol/L 11/15/2024 7:26 PM [facility] Calcium 9.4 8.4 - 10.4 mg/dL 11/15/2024 7:26 PM [facility] BUN 23 7 - 26 mg/dL 11/15/2024 7:26 PM [facility] Creatinine 0.61 0.55 - 1.02 mg/dL 11/15/2024 7:26 PM [facility] Glucose 102(H) 70 - 100 mg/dL 11/15/2024 7:26 PM [facility] Comment:The given reference range is for the fasting state. Non-fasting reference range for glucose is 70 - 180 mg/dL. GFR, Estimated >60 >60 mL/min/1. 73m2 11/15/2024 7:26 PM [facility] Hours Fasting 0.1 8 - 12 Hours 11/15/2024 7:26 PM [facility] Blood Venipuncture / Unknown 11/15/2024 1:44 PM CDT 11/15/2024 1:44 PM CDT Roseann Minor MD LAB_1 Final Resul t Performing Organization Address [facility] de Phone Number [facility] [address] * (ABNORMAL) C-Reactive Protein (11/15/2024 1:44 PM CDT) C-Reactive Protein 1.6(H) 0.0 - 0.5 mg/dL 11/15/2024 7:26 PM CDT [facility] Blood Venipuncture / Unknown 11/15/2024 1:44 PM CDT 11/15/2024 1:44 PM CDT Roseann Minor MD LAB_1 Final Resul t Performing Organization Address [facility] de Phone Number [facility] [address] [place] [address] * (ABNORMAL) Hgb A1C (09/30/2024 12:49 PM CDT) Hemoglobin A1C (Rapid) 6.1(H) <=5.6 % 09/30/2024 1:08 PM CDT [facility] [employer] Performing Location [facility] 09/30/2024 1:08 PM CDT [facility] Estimated Average Glucose (Calc) 128 < 117 mg/dL 09/30/2024 1:08 PM CDT [facility] Comment:Estimated average gl ucose (eAG) converts A1c into glucose units (mg/dL) and estimates average glucose over the past approximately 3 months. The eAG reference interval (<117 mg/dL) corresponds to an A1c of <5.7%. Blood Capillary / Unknown 09/30/2024 12:49 PM CDT 09/30/2024 12:51 PM CDT Narrative evolso [facility] - 09/30/2024 1:08 PM CDT For patients not previously diagnosed with diabetes: 5.7-6.4%: Increased risk for diabetes 6.5% and greater: Diagnostic for diabetes For patients diagnosed with diabetes: <8.0%: Goal of therapy for ages 18-75 Clinicians may recommend a higher or lower goal for specific individuals. The test method used for this Hemoglobin A1c result can experience interference from elevated hemoglobin and other hemoglobin variants. In patients with results that do not correlate clinically, contact the lab for further direction. us Jane Monahan MD LAB_1 Final Result [facility] [address] [place] [address], [facility] * MM Mammogram Screening Bilat W 3D Steve W CAD (01/04/2024 12:56 PM CDT) Anatomical Region Laterality Modality Breast Bilateral Mammography Impressions 01/05/2024 9:52 AM CDT : ACR BI-RADS Category 2: Benign RECOMMENDATION: Follow Up Imaging in 12 months - Bilateral The results and recommendations of this examination will be communicated to the patient. Narrative 01/05/2024 9:52 AM CDT MM MAMMOGRAM SCREENING BILAT W 3D STEVE W CAD performed on 01/04/24 FDA Accredited Facility: [place] [address] Compared to: 09/28/2022 MM Mammogram Screening Bilat W 3D Steve W CAD, 09/27/2021 MM Mammogram Screening Bilat W 3D Steve W CAD, and 09/18/2020 MM Mammogram Screening Bilat W 3D Steve W CAD FINDINGS: Bilateral screening mammogram was performed with the assistance of Computer-Aided Detection and breast tomosynthesis. The breasts are heterogeneously dense, which may obscure small masses. There are benign findings, not significantly changed. There is no radiographic evidence of malignancy. us Jane Monahan MD RAD BETINA Final Result * Lipid Panel & Direct LDL (if Needed) (06/28/2023 9:20 AM CLAIMS COORDINATOR) Cholesterol 143 0 - 199 mg/dL 06/28/2023 3:29 PM CLAIMS COORDINATOR [facility] Triglyceride 96 <=149 mg/dL 06/28/2023 3:29 PM CLAIMS COORDINATOR [facility] HDL Cholesterol 65 >=40 mg/dL 06/28/2023 3:29 PM CLAIMS COORDINATOR [facility] LDL, Calculated 59 <130 mg/dL 06/28/2023 3:29 PM CLAIMS COORDINATOR [facility] Non HDL Chol, Calculated 78 <=159 mg/dL 06/28/2023 3:29 PM CLAIMS COORDINATOR [facility] Cholesterol/HDL Ratio 2.2 <=5.0 06/28/2023 3:29 PM CLAIMS COORDINATOR [facility] Hours Fasting 12.0 8 - 12 Hours 06/28/2023 3:29 PM CLAIMS COORDINATOR [facility] Blood Venipuncture / Unknown 06/28/2023 9:20 AM CLAIMS COORDINATOR 06/28/2023 11:25 AM CLAIMS COORDINATOR us Jane Monahan MD LAB_1 Final Result Performing Organization Address City/State/[facility] Co de Phone Number [facility] [address] [address] [address] [place] [address] * DXA Bone Density Spine/Hip (06/30/2022 11:34 AM CLAIMS COORDINATOR) DXA Lumbar Spine Bone Mineral Density 1.249 gm/cm2 EXTERNAL RESULTS DXA Lumbar Spine T-Score 1.8 EXTERNAL RESULTS DXA Lumbar Spine Z-Score 4.0 EXTERNAL RESULTS DXA Hip Left Bone Mineral Density 1.008 gm/cm2 EXTERNAL RESULTS DXA Hip Left T-Score 0.5 EXTERNAL RESULTS DXA Hip Left Z-Score 2.1 EXTERNAL RESULTS DXA Femur Left Bone Mineral Density 0.943 gm/cm2 EXTERNAL RESULTS DXA Femur Left T-Score 0.8 EXTERNAL RESULTS DXA Femur Left Z-Score 2.7 EXTERNAL RESULTS % Change Spine 3.5 % EXTER NAL RESULTS % Change Left Hip (Total) -8.6 % EXTERNAL RESULTS Anatomical Region Laterality Modality Lower Extremity, Spine, Hip, L-Spine Other Narrative 07/02/2022 11:49 AM CLAIMS COORDINATOR Table formatting from the original result was not included. Patient Name: Khadijah Abdul Densitometer: [employer] DISCOVERY W Appt Dept/Resource: Radiology Dxa BL DXA Demographics Age: 71 y.o. Gender: Female Height: 5' 3.7 (1.618 m) Height at age 26: 66 Weight: 222 lb 6.4 oz (100.9 kg) Race: Medical/Surgical History Menstrual periods: None Age of menopause: 52 Able to stand from a chair easily without use of the arms?: Yes, easily How many falls indoors/outdoors within the last 12 months?: 1 History of fractures in parents: No History of previous fractures?: No Hip replacement?: No Oral cortisone or steroid medication for more than 3 months?: No Currently or have taken medications to treat osteoporosis?: No Taking any aromatase inhibitor medication for breast cancer - anti-estrogen excluding tamoxifen?: No Have had the following medical conditions: None Dietary/Habit Alcohol 3 units or more per day on average?: No Currently smoking tobacco? No Daily servings of calcium rich food: 2 Do you take a daily calcium supplement?: No Dual-X-ray Absorptiometry (DXA) Results Skeletal Site BMD (gm/cm2) T-Score Z-Score % Change from Previous Scan dated: 11/06/2009 Spine (L1, L2, L3, L4) 1.249 1.8 4.0 3.5% Left Hip (Total) 1.008 0.5 2.1 -8.6% Left Hip (Femoral neck) 0.943 0.8 2.7 N/A Right Hip (Total) N/A N/A N/A N/A Right Hip (Femoral neck) N/A N/A N/A N/A Forearm (1/3) (Not Scanned) N/A N/A N/A N/A *N/A indicates that measurements were either not needed or not valid Comments: *Increase in bone density of spine is clinically significant. *Decrease in bone density of hip is clinically significant. *Degenerative joint disease, compression fractures, or calcification artifacts may falsely increase bone mineral density. Diagnosis: *No evidence of osteopenia/osteoporosis Recommendations:. *Recommend lifestyle modifications as needed, including proper calcium/vitamin d intake, weight bearing exercises, and fall prevention. *Consider follow up DXA in 10 years, unless clinical circumstances change. FRAX Explanation: The 10 year risks of hip and major osteoporotic fractures (clinical spine, forearm, hip or shoulder fracture) are calculated by the FRAX algorithm based on femoral neck bone density, age, gender, race/ethnicity, weight, height, previous fracture, parental hip fracture, smoking status, glucocorticoid intake, history of RA, secondary osteoporosis, and high alcohol consumption. FRAX fracture risk estimates are adjusted for Trabecular Bone Score (TBS) when available. Trabecular Bone Score (TBS) is a measure of the microarchitectural integrity of trabecular bone, and is derived from the [id number] changes of bone density embedded in the AP spine BMD image. TBS is only modestly correlated with BMD, and is modestly associated with incident major osteoporotic and hip fractures independent of BMD and other risk factors. FRAX Fracture Risk Categories in terms of major osteoporotic fractures: < 10% = low fracture risk ? 10% and <15% = mildly increased fracture risk ? 15% and <20% = moderately increased fracture risk ? 20% and <30% = high fracture risk ? 30% = very high fracture risk National Osteoporosis Foundation Treatment Guideline A clinician may consider FDA-approved medical therapies in postmenopausal women and men aged 50 years and older, if one or more of the following is present (clinical correlation required and therapy may not always be indicated): 1. The patient has a hip or vertebral fracture. 2. T-score ? -2.5 at the femoral neck, hip, or spine after appropriate evaluation to exclude secondary causes. 3. Low bone mass (T-score between -1.0 and -2.5 at the femoral neck, hip or spine) and a 10-year probability of a hip fracture ? 3% or a 10-year probability of a major osteoporosis-related fracture ? 20% based on the FRAX scores. us Jane Monahan MD RAD DEXA Final Result * COLONOSCOPY S (12/14/2020) us Jane Monahan MD DUMMY/OTHER/AR Final Result * HEPATITIS C ANTIBODY, WITH REFLEX (09/08/2011 8:02 AM CDT) Anti-HCV Negative (Non Reactive) [facility] Comment:Does Not Rule Out In fection with HCV 09/08/2011 8:02 AM CDT 09/08/2011 8:10 AM CDT us Kim Ricardo MD LAB_1 Final Resul t [facility] [address] [address] from Last 3 Months or Most Recently Relevant to Health Maintenance Insurance MEDICARE FOR LIFE Care Teams Concrete Engineer Relationship Specialty [place] [address] [place] [address] PCP - General Family Practice 08/19/20
--- OUTSIDE RECORDS SUMMARY | 2025-01-20 20:59 | XMS_ITS | Encounter Summary ---
[facility] Address [address] [address] Care Team Providers Care Special Tester Name Role Phone Jane Monahan MD Primary Care Provider Encounter Details Date Type Department Care Team (Latest Contact Info) Description 11/25/1999 Orders Only Lorenza Mayberry MD [address] [place] [address] Social History Tobacco Use Types Packs/Day Years [...] on filedocumented in this encounter Care Teams Special Tester Relationship Specialty [place] [address] [place], [place] [phone] PCP - General Family Practice 08/19/20 documented as of this encounter
--- OUTSIDE RECORDS SUMMARY | 2025-01-20 20:59 | XMS_ITS | Encounter Summary ---
Author Organization [facility] Address [address], [place] [address] Care Team Providers Care Childcare Attendant Name Role Phone Jane Monahan MD Primary Care Provider [phone] Encounter Details Date Type Department Care Team (Late st Contact Info) Description 04/28/1994 Orders Only [facility] Practice Srinivas Lanier MD [facility] [address] [place], [place] [phone] Social History Tobacco Use Types Packs/Day Years [...] on filedocumented in this encounter Care Teams Childcare Attendant Relationship Specialty [place] [address] [place], [place] [id number] PCP - General Family Practice 08/19/20 documented as of this encounter
--- OUTSIDE RECORDS SUMMARY | 2025-01-20 20:59 | XMS_ITS | Encounter Summary ---
Author Organization [facility] Address [address] [address] Care Team Providers Care Refinery Operator Reforming Unit Name Role Phone Jane Monahan MD Primary Care Provider [phone] Encounter Details Date Type Department Care Team (Late st Contact Info) Description 08/25/2015 Correspondence SECURITY CONTACT [place] Gastroenterology, Provider FOLLOW UP COLONOSCOPY BIOPSIES Social History Tobacco Use Types Packs/Day Years Used Date Smoking Tobacco: Former Cigarettes 0.5 5 Smokeless Tobacco: Never Comments:quit 1979 Alcohol Use Standard Drinks/Week Comments Yes 0 (1 standard drink = 0.6 oz pure alcohol) very occ. 2 glasses wine yearly Comments No Sex and Gender Information Value Date Recorded Sex Assigned at Not on file Legal Sex Female 4:39 AM CDT Gender Identity Not on file Sexual Orientation Not on file documented as of this encounter Plan of Treatment Not on file documented as of this encounter Visit Diagnoses Not on filedocumented in this encounter Care Teams Refinery Operator Reforming Unit Relationship Specialty [place] [address] [place] [address] PCP - General Family Practice 08/19/20 documented as of this encounter
--- OUTSIDE RECORDS SUMMARY | 2025-01-20 20:59 | XMS_ITS | Encounter Summary ---
Author Organization [facility] Address [address], [place] [address] Care Team Providers Care Muck Miner Name Role Phone Jane Monahan MD Primary Care Provider [phone] Encounter Details Date Type Department Care Team (Latest Contact Info) Description 04/08/1996 [place] [address] [place], [place] [phone] Social History Tobacco Use Types Packs/Day Years [...] on filedocumented in this encounter Care Teams Muck Miner Relationship Specialty [place] [address] [address] [place], [place] [phone] PCP - General Family Practice 08/19/20 documented as of this encounter
--- OUTSIDE RECORDS SUMMARY | 2025-01-20 20:59 | XMS_ITS | Encounter Summary ---
Author Organization [facility] Address [address], [place] [address] Care Team Providers Care Exhibition Designer Name Role Phone Jane Monahan MD Primary Care Provider [phone] Encounter Details Date Type Department Care Team (Latest Contact Info) Description 08/21/1995 [place] [address] [place], [place] [phone] Social History Tobacco Use Types Packs/Day Years [...] on filedocumented in this encounter Care Teams Exhibition Designer Relationship Specialty [place] [address] [address] [place], [place] [phone] PCP - General Family Practice 08/19/20 documented as of this encounter
--- OUTSIDE RECORDS SUMMARY | 2025-01-20 20:59 | XMS_ITS | Encounter Summary ---
Author Organization [facility] Address [address], [place] [address] Care Team Providers Care Vp Scientific Affairs Name Role Phone Jane Monahan MD Primary Care Provider [phone] Encounter Details Date Type Department Care Team (Latest Contact Info) Description 08/15/1994 Orders Only [place] [address] Social History Tobacco Use Types Packs/Day Years [...] on filedocumented in this encounter Care Teams Vp Scientific Affairs Relationship Specialty [place] [address] [place], [place] [phone] PCP - General Family Practice 08/19/20 documented as of this encounter
--- OUTSIDE RECORDS SUMMARY | 2025-01-20 20:59 | XMS_ITS ---
Author Organization [facility] Address [address] [address] Care Team Providers Care Store Assistant Name Role Phone Jane Monahan MD Primary Care Provider [phone] Transitional Care Management Status:Closed (Closed) Start date:01/06/2025 Enrollment date:01/07/2025 Enrollment reason:Discharged from external hospital End date:01/07/2025 Close reason:Admitted for planned procedure/surgery Overview [place] Admission Date: 01/02/2025 Discharge Date: 01/06/2025 Discharge Diagnosis: Right hip pain PICC line with home care managing Continued Care and Services Coordination
--- OUTSIDE RECORDS SUMMARY | 2025-01-20 20:59 | XMS_ITS | Encounter Summary ---
Author Organization [facility] Address [address], [place] [address] Care Team Providers Care Multi Operation Forming Machine Setter Name Role Phone Jane Monahan MD Primary Care Provider [phone] Encounter Details Date Type Department Care Team (Latest Contact Info) Description 08/03/1995 [place] [address] [place], [place] [phone] Social History Tobacco Use Types Packs/Day Years [...] on filedocumented in this encounter Care Teams Multi Operation Forming Machine Setter Relationship Specialty [place] [address] [place], [place] [phone] PCP - General Family Practice 08/19/20 documented as of this encounter
--- OUTSIDE RECORDS SUMMARY | 2025-01-20 20:59 | XMS_ITS | Encounter Summary ---
Author Organization [facility] Address [address] [place] [address] Care Team Providers Care Hand Touch Up Painter Name Role Phone Jane Monahan MD Primary Care Provider [phone] Encounter Details Date Type Department Care Team (Late st Contact Info) Description 01/13/2025 Notes/Orders Laboratory at [address] [address] Provider, Not On File [address] [place] [address] Right hip pain (Primary Dx) Social History Tobacco Use Types [...] on file documented as of this encounter Results * ALT (SGPT) (01/13/2025 2:30 PM CDT) ALT (SGPT) 17 0 - 55 U/L 01/13/2025 9:58 PM CDT [facility] Blood Venipuncture / Unknown 01/13/2025 2:30 PM CDT 01/13/2025 4:20 PM CDT us Not On File Provider LAB_1 Final Resul t Performing Organization Address [facility] Co de Phone Number [facility] CLIA: [id number] [address] [place] [address] * Estradiol (01/13/2025 2:30 PM CDT) Estradiol 10 pg/mL 01/13/2025 10:16 PM CDT [facility] Blood Venipuncture / Unknown 01/13/2025 2:30 PM CDT 01/13/2025 4:20 PM CDT [facility] - 01/13/2025 10:16 PM [...] LAB_1 Final Resul t Performing Organization Address [facility] Co de Phone Number [facility] CLIA: [id number] [address] [place] [address] * (ABNORMAL) CRP, Sensitive (01/13/2025 2:30 PM CDT) CRP, Sensitive 16.1(H) 0.0 - 3.0 mg/L 01/13/2025 10:12 PM CDT [facility] Blood Venipuncture / Unknown 01/13/2025 2:30 PM CDT 01/13/2025 4:20 PM CDT [facility] - 01/13/2025 10:12 PM CDT Low cardiovascular risk: <1.0 mg/L Average cardiovascular risk: 1.0-3.0 mg/L High cardiovascular risk: 3.1-10.0 mg/L Results >10.0 mg/L may indicate non-cardiac inflammation us Not On File Provider LAB_1 Final Resul t Performing Organization Address [facility] Co de Phone Number [facility] CLIA: [id number] [address] * Creatinine / GFR (01/13/2025 2:30 PM CDT) Creatinine 0.69 0.55 - 1.02 mg/dL 01/13/2025 9:58 PM CDT [facility] GFR, Estimated >60 >60 mL/min/1. 73m2 01/13/2025 9:58 PM CDT [facility] Blood Venipuncture / Unknown 01/13/2025 2:30 PM CDT 01/13/2025 4:20 PM CDT us Not On File Provider LAB_1 Final Resul t Performing Organization Address [facility] Co de Phone Number [facility] CLIA: [id number] [address] [place] [address] documented in this encounter Visit Diagnoses Diagnosis Right hip pain- Primary Pain in joint, pelvic region and thigh documented in this encounter Care Teams Hand Touch Up Painter Relationship Specialty [place] [address] [place] [address] PCP - General Family Practice 08/19/20 documented as of this encounter
--- OUTSIDE RECORDS SUMMARY | 2025-01-20 20:59 | XMS_ITS | Encounter Summary ---
Author Organization [facility] Address [address] [address] Care Team Providers Care Digital Media Buyer Name Role Phone Jane Monahan MD Primary Care Provider [phone] Encounter Details Date Type Department Care Team (Late st Contact Info) Description 09/14/1994 Orders Only [facility] Practice Aziza Keyes MD Social History Tobacco Use Types Packs/Day Years [...] on filedocumented in this encounter Care Teams Digital Media Buyer Relationship Specialty [place] [address] [place] [address] PCP - General Family Practice 08/19/20 documented as of this encounter
--- OUTSIDE RECORDS SUMMARY | 2025-01-20 21:00 | XMS_ITS | Encounter Summary ---
Author Organization [facility] Address [address] [place] [address] Care Team Providers Care Flight Attendant/Inflight Manager Name Role Phone Elsewhere, Pcp Primary Care Provider Unavailabl e Reason for Visit * Reason Onset Date Comments OPAT 01/07/2025 HANDOFF Encounter Details Date Type Department Care Team (Latest Contact Info) Description 01/07/2025 Clinical Communication Section of Infectious Diseases in [place], [place] [address] [place] [address] Mariluz Ceja, RMelvinN. [address] [place] [address] OPAT (HANDOFF) Social History Tobacco Use Types Packs/Day Years [...] things needed for daily living? No 01/03/2025 [facility] Utilities Answer Date Recorded In the past 12 months has e electric, gas, oil, or water [employer] threatened to shut off services in your home? No 01/03/2025 Housing Stability Answer Date Recorded What is your living situation today? I have a [facility] place to live 01/03/2025 Comments No Sex and Gender Information Value Date Recorded Sex Assigned at Female 11/02/2024 11:29 AM CDT Legal Sex Female 2:53 PM CDT Gender Identity Female 11/02/2024 11:29 AM CDT Sexual Orientation Straight 11/02/2024 11 :29 AM CDT documented as of this encounter Nursing Notes * Mariluz Ceja R.N. - 01/07/2025 1:41 PM CDT OPAT NOTE - HANDOFF Name Phone Number OPAT Infusion: [facility] ( ) [phone] OPAT Lab: [facility] ( ) [phone] A standing orders handoff was completed via phone with Presley Patterson at [facility]. Coordination of Care - Standing Orders Handoff [facility], [facility], phone: [phone] Patient is on Cefepime. Dose/frequency: 2G q12 h. Tentative stop date: 02/16/25; final stop date alphonse determined at follow up visit. Date of ID follow up appt: 01/21/25.. Diagnosis: R KALEE infection Lab orders were reviewed according to ID sign off note dated: 01/05/25 - CBC w/ diff, Creatinine, and ALT weekly Lab/site care provider: Brandy LEOS IV Access Details: Non tunneled PICC, Per charting, PICC was removed and line access notes PIV in place. ID sign off note was written by Dr Read. Please see Hospital Summary and ID Sign Off note for additional details. The patient is currently receiving therapy in [place]. It was confirmed that the patient will be monitored by [facility] using the [facility] InfectiousDiseases Outpatient Parenteral Antimicrobial Therapy (OPAT) Standing Orders. [facility] will notify [facility] Infectious Disease nursing team of any abnormal labs as defined by the standing orders, if the patient changes physical location (out of [place], [place], [place]) and/or when therapy is complete. documented in this encounter Plan of Treatment Upcoming Encounters Date Type Department Care Team (Latest Contact Info) Description 01/21/2025 9:00 AM CDT Ancillary Procedure Department of Cardiovascular Medicine in [place], [place] [address] [place] [address] Sonu Levy Jr., M.D. [address] [place] [address] 01/21/2025 11:40 AM CDT Lab Department of Infusion Therapy in [place], [place] [address] [place] [address] Sonu Levy Jr., M.D. [address] [place] [phone] 01/21/2025 1:15 PM CDT Office Visit Department of Orthopedic Surgery in [place], [place] [address] [place] [phone] Aidan Self M.D. [address] [place] [phone] 01/21/2025 2:00 PM CDT Infusion Department of Infusion Therapy in [place], [place] [address] [place] [phone] Sonu Levy Jr., M.D. [address] [place] [phone] 02/11/2025 11:00 AM CDT Clinical Communication Virtual Review in [place], [place] 200 [place] [address] 02/14/2025 12:00 PM CDT Appointment Department of Laboratory Medicine and Pathology, [facility] in [place], [place] [address] [place] [phone] Kesha Todd APRN, C.N.P. [address] [place] [phone] 02/14/2025 12:30 PM CDT Office Visit Department of Orthopedic Surgery in [place], [place] [address] [place] [phone] Kesha Todd APRN, C.N.P. [address] [place] [phone] 02/14/2025 1:30 PM CDT Comprehensive Visit Section of Infectious Diseases in [place], [place] [address] [place] [phone] Kesha Todd APRN, C.N.P. [address] [place] [phone] 03/11/2025 3:00 PM BOAT BUILDER Clinical Communication Virtual Review in [address] [phone] 03/18/2025 11:30 AM BOAT BUILDER Appointment Department of Laboratory Medicine and Pathology, [facility], in [place], [place] [address] [place] [address] Kesha Todd, SAHRA, C.N.P. [address] [place] [phone] 03/18/2025 12:30 PM BOAT BUILDER Office Visit Department of Orthopedic Surgery in [place], [place] [address] [place] [address] Aidan Self M.D. [address] [place] [phone] 03/24/2025 Hospital Encounter RST ROEI 01 4 AM ADMIT [address] [place] [phone] Aidan Self M.D. [address] [place] [phone] Scheduled Procedures Name Priority Associated Diagnoses Date/Ti me ARTHROPLASTY REIMPLANTATION HIP Pain Hip Left documented as of this encounter Visit Diagnoses Not on filedocumented in this encounter Care Teams Flight Attendant/Inflight Manager Relationship Specialty Start Date End Date Elsewhere, Pcp PCP - General Internal Medicine 11/05/24 documented as of this encounter
--- OUTSIDE RECORDS SUMMARY | 2025-01-20 21:00 | XMS_ITS | Encounter Summary ---
Author Organization [facility] Address [address] [address] Care Team Providers Care Buttonhole Maker Hand Name Role Phone Jane Monahan MD Primary Care Provider [phone] Encounter Details Date Type Department Care Team (Latest Contact Info) Description 05/21/1996 [place] [address] [place], [place] [phone] Social History Tobacco Use Types Packs/Day Years [...] on filedocumented in this encounter Care Teams Buttonhole Maker Hand Relationship Specialty [place] [address] [address] [place], [place] [phone] PCP - General Family Practice 08/19/20 documented as of this encounter
--- OUTSIDE RECORDS SUMMARY | 2025-01-20 21:00 | XMS_ITS | Encounter Summary ---
Author Organization [facility] Address [address], [place] [address] Care Team Providers Care Oil Tester Name Role Phone Jane Monahan MD Primary Care Provider [phone] Encounter Details Date Type Department Care Team (Latest Contact Info) Description 07/15/1996 [place] [address] [place], [place] [phone] Social History Tobacco Use Types Packs/Day Years [...] on filedocumented in this encounter Care Teams Oil Tester Relationship Specialty [place] [address] [place], [place] [phone] PCP - General Family Practice 08/19/20 documented as of this encounter
--- OUTSIDE RECORDS SUMMARY | 2025-01-20 21:00 | XMS_ITS | Encounter Summary ---
Author Organization [facility] Address [address] [place] [address] Care Team Providers Care Decker Operator Name Role Phone Elsewhere, Pcp Primary Care Provider Unavailabl e Reason for Visit * Reason Onset Date Comments Communication 11/28/2024 Encounter Details Date Type Department Care Team (Late st Contact Info) Description 11/28/2024 Clinical Communication Department of Orthopedic Surgery in [place], [place] [address] [place] [phone] Aidan Self M.D. [address] [place] [phone] Communication Social History Tobacco Use Types Packs/Day Years Used Date Smoking Tobacco: Former Cigarettes 0 12/31/1974 - 1979 Passive Smoke Exposure: Past Smokeless Tobacco: Never Alcohol Use Standard Drinks/Week Comments Not Currently 0 (1 standard drink = 0.6 oz pur e alcohol) Occasionally a glass of wine [facility] Utilities Answer Date Recorded In [...] your living situation today? I have a [facility] place to live 11/02/2024 Comments Unknown Sex and Gender Information Value Date Recorded Sex Assigned at Female 11/02/2024 11:29 AM CDT Legal Sex Female 2:53 PM CDT Gender Identity Female 11/02/2024 11:29 AM CDT Sexual Orientation Straight 11/02/2024 11 :29 AM CDT documented as of this encounter Miscellaneous Notes * Telephone Encounter - Kesha Todd APRN, C.N.P. - 11/28/2024 2:46 PM CDT Returned phone call to the patient and answered questions pertaining to the surgery and recovery. documented in this encounter Plan of Treatment Upcoming Encounters Date Type Department Care Team (Latest Contact Info) Description 01/21/2025 9:00 AM CDT Ancillary Procedure Department of Cardiovascular Medicine in [place], [place] 200 [place] [address] Sonu Levy Jr., M.D. 200 [place] [phone] 01/21/2025 11:40 AM CDT Lab Department of Infusion Therapy in [place], [place] [address] [place] [address] Sonu Levy Jr., [place] [phone] 01/21/2025 1:15 PM CDT Office Visit Department of Orthopedic Surgery in [place], [place] [address] [place] [phone] Aidan Self M.D. [address] [place] [phone] 01/21/2025 2:00 PM CDT Infusion Department of Infusion Therapy in [place], [place] [address] [place] [phone] Sonu Levy Jr., M.D. [address] [place] [phone] 02/11/2025 11:00 AM CDT Clinical Communication Virtual Review in [place], [place] 200 [place] [address] 02/14/2025 12:00 PM CDT Appointment Department of Laboratory Medicine and Pathology, [facility] in [place], [place] [address] [place] [phone] Kesha Todd APRN, C.N.P. [address] [place] [phone] 02/14/2025 12:30 PM CDT Office Visit Department of Orthopedic Surgery in [place], [place] [address] [place] [phone] Kesha Todd APRN, C.N.P. [address] [place] [phone] 02/14/2025 1:30 PM CDT Comprehensive Visit Section of Infectious Diseases in [place], [place] [address] [place] [phone] Kesha Todd APRN, C.N.P. [address] [place] [phone] 03/11/2025 3:00 PM PROJECT ACCOUNTANT Clinical Communication Virtual Review in [place], [place] [address] [place] [address] 03/18/2025 11:30 AM PROJECT ACCOUNTANT Appointment Department of Laboratory Medicine and Pathology, [facility], in [place], [place] [address] [place] [phone] Kesha Todd, RACK PRODUCTION WORKER, C.N.P. [address] [place] [phone] 03/18/2025 12:30 PM PROJECT ACCOUNTANT Office Visit Department of Orthopedic Surgery in [place], [place] [address] [place] [phone] Aidan Self M.D. [address] [place] [phone] 03/24/2025 Hospital Encounter RST ROEI 01 4 AM ADMIT [address] [place] [phone] Aidan Self M.D. [address] [place] [phone] Scheduled Procedures Name Priority Associated Diagnoses Date/Ti me ARTHROPLASTY REIMPLANTATION HIP Pain Hip Left documented as of this encounter Visit Diagnoses Not on filedocumented in this encounter Care Teams Decker Operator Relationship Specialty Start Date End Date Elsewhere, Pcp PCP - General Internal Medicine 11/05/24 documented as of this encounter
--- OUTSIDE RECORDS SUMMARY | 2025-01-20 21:00 | XMS_ITS | Encounter Summary ---
Author Organization [facility] Address [address] [place] [address] Care Team Providers Care Boiler Helper Name Role Phone Elsewhere, Pcp Primary Care Provider Unavailabl e Reason for Referral * Outpatient (Routine) - Closed Specialty Diagnoses / Procedures Referred By Contac t Referred To Contact Orthopedic Surgery Kesha Todd APRN, C.N.P. [address] [place] [phone] Phone: tel: fax: Aidan Self M.D. [address] [place] [phone] Phone: tel: fax: Referral ID Status Reason Start Date Expiration Date Visits Re quested Visits Authorized [id number] Closed 11/25/2024 05/27/2026 1 1 * Outpatient (Routine) - Closed Specialty Diagnoses / Procedures Referred By Contac t Referred To Contact Anesthesiology Diagnoses Preoperative Exam Kesha Todd APRN, C.N.P. [address] [place] [phone] Phone: tel: fax: [facility] Referral ID Status Reason Start Date Expiration Date Visits Re quested Visits Authorized [id number] Closed 11/25/2024 05/27/2026 1 1 * Outpatient (Routine) - Closed Specialty Diagnoses / Procedures Referred By Contac t Referred To Contact Infectious Diseases Diagnoses Preoperative Exam Kesha Todd APRN, C.N.P. [address] [place] [phone] Phone: tel: fax: [facility] Referral ID Status Reason Start Date Expiration Date Visits Re quested Visits Authorized [id number] Closed 11/25/2024 05/27/2026 1 1 * Outpatient (Routine) - Closed Specialty Diagnoses / Procedures Referred By Contac t Referred To Contact Diagnoses Preoperative Exam Procedures DX Hip And Pelvis Right 2-3 Views Kesha Todd APRN, C.N.P. [address] [place] [phone] Phone: tel: fax: [facility] Referral ID Status Reason Start Date Expiration Date Visits Re quested Visits Authorized [id number] Closed 11/25/2024 02/25/2026 1 1 Encounter Details Date Type Department Care Team (Late st Contact Info) Description 11/25/2024 Orders Only Department of Orthopedic Surgery in [place], [place] [address] [place] [phone] Kesha Todd APRN, C.N.P. [address] [place] [phone] Preoperative Exam (Primary Dx) Social History Tobacco Use Types Packs/Day Years Used Date Smoking Tobacco: Former Cigarettes 0 12/31/1974 - 1979 Passive Smoke Exposure: Past Smokeless Tobacco: Never Alcohol Use Standard Drinks/Week Comments Not Currently 0 (1 standard drink = 0.6 oz pur e alcohol) Occasionally a glass of wine [facility] Utilities Answer Date Recorded In the past 12 months has th e electric, gas, oil, or water company [...] your living situation today? I have a [facility] [employer] [employer] place to live 11/02/2024 Comments Unknown Sex [...] Ancillary Procedure Department of Cardiovascular Medicine in [place], [place] 200 [place] [phone] Sonu Levy Jr., M.D. 200 [place] [phone] 01/21/2025 11:40 AM CDT Lab Department of Infusion Therapy in [place], [place] [address] [place] [address] Sonu Levy Jr., M.D. [address] [place] [phone] 01/21/2025 1:15 PM CDT Office Visit Department of Orthopedic Surgery in [place], [place] [address] [place] [phone] Aidan Self M.D. [address] [place] [phone] 01/21/2025 2:00 PM CDT Infusion Department of Infusion Therapy in [place], [place] [address] [place] [phone] Sonu Levy Jr., M.D. [address] [place] [phone] 02/11/2025 11:00 AM CDT Clinical Communication Virtual Review in [place], [place] 200 [place] [address] 02/14/2025 12:00 PM CDT Appointment Department of Laboratory Medicine and Pathology, [facility] in [place], [place] [address] [place] [phone] Kesha Todd APRN, C.N.P. [address] [place] [phone] 02/14/2025 12:30 PM CDT Office Visit Department of Orthopedic Surgery in [place], [place] [address] [place] [phone] Kesha Todd APRN, C.N.P. [address] [place] [phone] 02/14/2025 1:30 PM CDT Comprehensive Visit Section of Infectious Diseases in [place], [place] [address] [place] [phone] Kesha Todd APRN, C.N.P. [address] [place] [phone] 03/11/2025 3:00 PM CATHOLIC PRIEST Clinical Communication Virtual Review in [place], [place] 200 [place] [address] 03/18/2025 11:30 AM CATHOLIC PRIEST Appointment Department of Laboratory Medicine and Pathology, [facility] in [place], [place] [address] [place] [phone] Kesha Todd APRN, C.N.P. [address] [place] [phone] 03/18/2025 12:30 PM CATHOLIC PRIEST Office Visit Department of Orthopedic Surgery in [place], [place] [address] [place] [phone] Aidan Self M.D. [address] [place] [phone] 03/24/2025 Hospital Encounter RST ROEI 01 4 AM ADMIT [address] [place] [phone] Aidan Self M.D. [address] [place] [phone] Scheduled Procedures Name Priority Associated Diagnoses Date/Ti me ARTHROPLASTY REIMPLANTATION HIP Pain Hip Left Scheduled Referrals Name Type Priority Associated Diagnoses Order Schedule Infectious Disease - Ortho consult (clinic) Outpatient Referral Routine Preoperative Exam Expected: 01/01/2025, Expires: 02/25/2026 Preoperative Evaluation CHONG consult (clinic) Outpatient Referral Routine Preoperative Exam Expected: 11/26/2024, Expires: 02/25/2026 Orthopedic Surgery Pre Op (clinic) Outpatient Referral Routine Expected: 01/01/2025, Expires: 02/25/2026 documented as of this encounter Results * DX Hip And [...] DIAGNOSTIC IMAGI NG PROCEDURES Final Result * Basic Metabolic Panel (12/26/2024 8:56 AM CDT) Potassium, S 4.2 3.6 - 5.2 mmol/L 12/26/2024 10:03 AM CDT DTL Sodium, S 140 135 - 145 mmol/L 12/26/2024 10:03 AM CDT DTL Chloride, S 102 98 - 107 mmol/L 12/26/2024 10:03 AM CDT DTL Bicarbonate, S 25 22 - 29 mmol/L 12/26/2024 10:03 AM CDT DTL Anion Gap 13 7 - 15 12/26/2024 10:03 AM CDT DTL BUN (Blood Urea Nitrogen), S 18 6 - 21 mg/dL 12/26/2024 10:03 AM CDT DTL Creatinine 0.78 0.59 - 1.04 mg/dL 12/26/2024 10:03 AM CDT DTL Estimated GFR (eGFR) 80 >=60 mL/min/BSA 12/26/2024 10:03 AM CDT DTL Comment: Estimated GFR calculated using the 2020 CKD_EPI creatinine equation. Calcium, Total, S 9.6 8.8 - 10.2 mg/dL 12/26/2024 10:03 AM CDT DTL Glucose, S 115 70 - 140 mg/dL 12/26/2024 10:03 AM CDT DTL Blood (Blood, Venous) 12/26/2024 8:56 AM CDT 12/26/2024 9:20 AM CDT Kesha Todd APRN, C.N.P. LAB BLOOD ADD-ON Fin al Result Performing Organization Address City/[facility]/ZIP Co de Phone Number [facility] [address] DTL [facility] 200 [place] [address] * Type and Screen (with Reflex Antibody ID) (12/26/2024 8:56 AM CDT) ABORh A Pos Not applicable 12/26/2024 4:37 PM CDT ETRM Antibody Screen Positive Negative 12/26/2024 5:40 PM CDT ETRM Type & Screen Expiration 02/23/2025 23:59 12/26/2024 4:37 PM CDT ETRM Testing Location [place] DEFAULT 12/26/2024 9:13 AM CDT ETRM Blood (Blood, Venous) 12/26/2024 8:56 AM CDT 12/26/2024 9:13 AM CDT Kesha Todd APRN, C.N.P. LAB BLOOD BANK TEST ORDERABLES Final Result Performing Organization Address [facility]/ZIP Co de Phone Number [facility] [address] [place] [address], [facility] [place] [address] * (ABNORMAL) Sedimentation Rate (12/26/2024 8:56 AM CDT) Sedimentation Rate, B 42(H) 3 - 28 mm/h 12/26/2024 10:49 AM CDT DTL Blood (Blood, Venous) 12/26/2024 8:56 AM CDT 12/26/2024 9:22 AM CDT Kesha Todd APRN, C.N.P. LAB BLOOD ADD-ON Fin al Result [facility] 200 [place] [address] * (ABNORMAL) CRP (C-Reactive Protein) (12/26/2024 8:56 AM CDT) C-Reactive Protein (CRP), S 27.0(H) <5.0 mg/L 12/26/2024 10:03 AM CDT DTL Blood (Blood, Venous) 12/26/2024 8:56 AM CDT 12/26/2024 9:20 AM CDT Kesha Todd APRN, C.N.P. LAB BLOOD ADD-ON Fin al Result Performing Organization Address City/[facility]/ZIP Co de Phone Number [facility] [address] [place] [address] * ALT (Alanine Aminotransferase) (12/26/2024 8:56 AM CDT) Alanine Aminotransferase (ALT), S 17 7 - 45 U/L 12/26/2024 10:03 AM CDT DTL Blood (Blood, Venous) 12/26/2024 8:56 AM CDT 12/26/2024 9:20 AM CDT us Kesha Todd APRN C.N.P. LAB BLOOD ADD-ON Fin al Result [facility] [address] [place] [address], [facility] [address] [place] [address] documented in this encounter Visit Diagnoses Diagnosis Preoperative Exam- Primary Preoperative Exam documented in this encounter Care Teams Boiler Helper Relationship Specialty Start Date End Date Elsewhere, Pcp PCP - General Internal Medicine 11/05/24 documented as of this encounter
--- OUTSIDE RECORDS SUMMARY | 2025-01-20 21:00 | XMS_ITS | CCD ---
Author Name Interface, [id number] lity Address [address] [address] [facility] Address [address] [place] [address] Care Team Providers Care Inner Diameter Grinder Tool Name Role Phone Velma VELA, Geovani Unavailable Unavai lable Allergies and Adverse Reactions Reason for Visit Medications Problems Social History
--- OUTSIDE RECORDS SUMMARY | 2025-01-20 21:00 | XMS_ITS | Encounter Summary ---
Author Organization [facility] Address [address] [place] [address] Care Team Providers Care Jacker Name Role Phone Jane Monahan MD Primary Care Provider [phone] Encounter Details Date Type Department Care Team (Latest Contact Info) Description 04/15/1996 Orders Only Colten Nieto MD [address] [place] [address] Social History Tobacco Use Types Packs/Day Years [...] on filedocumented in this encounter Care Teams Jacker Relationship Specialty [place] [address] [address] [place], [place] [phone] PCP - General Family Practice 08/19/20 documented as of this encounter
--- OUTSIDE RECORDS SUMMARY | 2025-01-20 21:00 | XMS_ITS | Clinical Summary ---
Author Organization [facility] Address [address] [place] [address] Care Team Providers Care Phlebotomy Technician Name Role Phone Elsewhere, Pcp Primary Care Provider Unavailabl e Source Comments Patient records contain information from all sites at [facility]. For routine questions regarding patient records, call [phone] during business hours, M-F 8:00 AM - 5:00 PM Central Time. Record requests for emergency care only can be directed to [phone] at any time.[facility] Allergies Active Allergy Reactions Criticality Noted Date Comments Blood-Group Specific Substance Other (see comments) High 08/24/2023 Patient has a history of a clinically significant antibody against RBC antigens. A delay in compatible RBCs may occur. 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 Medications acetaminophen (TylenoL) 500 mg tablet Take 500-1,000 mg by mouth 3 (three) times a day. Takes no more than 3000 mg apap/day 09/28/19 24 Active buPROPion (Wellbutrin) 75 mg tablet Take 75 mg by mouth daily. 04/11/20 24 Active fexofenadine (Maine) 60 mg tablet Take 30 mg by mouth daily. Active iron,carbonyl-vit smallwood C (Vitron-C) 65 mg iron- [address] tablet Take 1 tablet by mouth daily with morning meal. 08/28/19 24 Active melatonin 3 mg tablet Take 3 mg by mouth at bedtime. Active metoprolol tartrate (Lopressor) 25 mg tablet Take 25 mg by mouth 2 (two) times a day. 07/13/19 25 Active rosuvastatin (Crestor) 5 mg tablet Take 5 mg by mouth at bedtime. 10/01/19 25 Active turmeric root extract 500 mg tablet Take 1 tablet by mouth daily. Active MULTIVITAMIN ORAL Take 1 tablet by mouth daily. Active omega 1-qsy-euu-fish oil (fish oil) 1,200 (144-216) mg capsule Take 1 capsule by mouth daily. Active famotidine (Pepcid) 20 mg tablet Take 20 mg by mouth every evening. Active cholecalciferol (Vitamin D3) 50 mcg (2,000 Unit) tablet Take 50 mcg by mouth daily. Active cranberry fruit (cranberry) 450 mg tablet Take 1 tablet by mouth at bedtime. Active sodium chloride 0.9 % injection Infuse 10 mL into a venous catheter as needed for line care (Flush 10ml before and after each infusion and as needed for line care) for up to 41 days. 01/07/20 Active cefepime in dextrose, iso osm, (Maxipime) 2 gram/100 mL IVBPIndications:B one and/or joint infection Infuse 100 mL (2 g total) into a venous catheter every 12 (twelve) hours for 41 days Indications: Bone and/or joint infection. 01/07/[address] tablet Take 1 tablet (81 mg total) by mouth 2 (two) times a day for 42 days. 120 tablet 01/07/20 Active celecoxib (CeleBREX) 200 mg capsule Take 1 capsule (200 mg total) by mouth daily for 14 days. 14 capsule 5 3:17 PM CDT 01/07/20 Active Bifidobacterium longum (Align, B.longum,) 10 million cell capsule Take 1 capsule by mouth daily. Active Lactobacillus rhamnosus GG (Culturelle) 10 billion cell capsule Take 1 capsule by mouth daily. Discontin ued(Thera py completed ) ibuprofen 200 mg tablet Take 200 mg by mouth daily. 025 Discontin ued(Alter xavier therapy) ibuprofen-acetami nophen 125-250 mg tablet Take 1 tablet by mouth daily. 025 Discontin ued(Stop Taking at Discharge ) ondansetron ODT (Zofran-ODT) 4 mg disintegrating tablet Dissolve 1 tablet (4 mg total) in the mouth every 6 (six) hours as needed for nausea or vomiting. 12 tablet 5 3:17 PM CDT 01/07/20 25 025 Discontin ued(Thera py completed ) pantoprazole (Protonix) 40 mg EC tablet Take 1 tablet (40 mg total) by mouth daily before morning meal for 42 days. 42 tablet 5 3:17 PM CDT 01/07/20 25 025 Discontin ued(Thera py completed ) sennosides-docusa te sodium (Senokot-S) 8.6-50 mg per tablet Take 1 tablet by mouth 2 (two) times a day. To prevent constipation in the postoperative timeframe and/or while using opioid pain medications. Decrease or discontinue using if you develop loose stools. 30 tablet 01/07/20 25 025 Discontin ued(Thera py completed ) oxyCODONE (Roxicodone) 5 mg immediate release tabletIndications :Acute Pain Exception Take 1 tablet (5 mg total) by mouth every 4 (four) hours as needed for pain or severe pain or score 7-10 of 10 Indication: Acute Pain Exception. For pain after surgery 15 tablet 5 3:17 PM CDT 01/07/20 25 025 Discontin ued(Thera py completed ) Active Problems Problem Noted Date Diagnosed Date Pain Hip Right 01/02/2025 Hypercholesterolemia 06/17/2021 PreDiabetes 06/17/2021 Morbid Obesity 08/31/2017 Overview (11/26/2024): BMI> 36 Gastroesophageal Reflux Disease Without Esophagi tis 08/22/2017 Overview (11/26/2024): hx of NSAID Gastritis Anxiety 01/22/2013 Hypertension Essential Primary 04/01/2004 Overview (11/26/2024): Epic Encounters Date Type Department Care Team Description 01/20/2025 11:50 AM CDT Hospital Encounter Department of Laboratory Medicine in [address] [phone] Jane Monahan M.D. 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 01/16/2025 8:30 AM CDT Clinical Communication Virtual Review in [place], [place] [address] [place] [address] Pre-visit Intake 01/07/2025 Clinical Communication Section of Infectious Diseases in [place], [place] [address] [place] [phone] Mariluz Ceja R.N. OPADaniel (HANDOFF) 01/07/2025 Orders Only Department of Orthopedic Surgery in [place], [place] [address] [place] [phone] Kesha Todd, SAHRA, C.N.P. Preoperative Exam (Primary Dx) 01/02/2025 2:41 PM CDT Anesthesia Event [facility] [address] [place] [address] Monroe Israel M.D. Niesen, Adam D, M.D. 01/02/2025 1:11 PM CDT - 01/02/2025 4:56 PM CDT Surgery [facility] OR [address] [place] [address] Aidan Self M.D. ARTHROPLASTY RESECTION HIP. 01/02/2025 11:03 AM CDT - 01/06/2025 3:21 PM CDT Hospital Encounter [facility], Ninth Floor [address] [place] [address] Aidan Self M.D. Pain Hip Right Discharge Disposition: [place] [facility] [place]30/[place]24 Orders Only Department of Orthopedic Surgery in [place], [place] [address] [place] [phone] Kesha Todd APRN C.N.P. Pain Hip Right (Primary Dx) 12/26/2024 10:30 AM CDT Comprehensive Visit Section of Infectious Diseases in [address] [phone] Kesha Todd APRN, C.N.PMatthew Bush M.D. Infection Total Hip Arthroplasty Initial Right (Primary Dx) 12/26/2024 10:30 AM CDT Office Visit Department of Orthopedic Surgery in [address] [phone] Kesha Todd APRN C.N.PMelvin Pain Hip Right (Primary Dx) 12/26/2024 9:05 AM CDT - 12/26/2024 11:59 PM CDT Hospital Encounter Department of Radiology, [facility] in [address] [phone] Kesha Todd APRN, C.N.P. Preoperative Exam Discharge Disposition: Home or Self Care 12/04/2024 3:15 PM CDT Telemedicine Preoperative Evaluation Center in [address] [phone] Kesha Todd APRN, C.N.P. Bernadette Odonnell APRN, C.N.PMelvin, D.N.P., M.S. 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 Communication 11/25/2024 Orders Only Department of Orthopedic Surgery in [address] [phone] Kesha Todd APRN CMelvinNHieu Preoperative Exam (Primary Dx) 11/21/2024 4:50 PM CDT - 11/21/2024 11:59 PM CDT Hospital Encounter Department of Laboratory Medicine and Pathology, [facility], in [place], [place] [address] [place] [phone] Aidan Self M.D. 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 No 01/03/2025 [facility] Utilities Answer Date Recorded In the past 12 months has [employer] electric, gas, oil, or water company threatened to shut off services in your home? No 01/03/2025 Housing Stability Answer Date Recorded What is your living situation today? I have [facility] place to live 01/03/2025 Comments No Sex and Gender Information Value Date Recorded Sex Assigned at Female 11/02/2024 11:29 AM CDT Legal Sex Female 2:53 PM CDT Gender Identity Female 11/02/2024 11:29 AM CDT Sexual Orientation Straight 11/02/2024 11 :29 AM CDT Last Filed Vital Signs Vital Sign Reading [...] Mass Index 33.35 01/02/2025 11:59 AM CDT Plan of Treatment Upcoming Encounters Date Type Department Care Team (Latest Contact Info) Description 01/21/2025 9:00 AM CDT Ancillary Procedure Department of Cardiovascular Medicine in [place], [place] [address] [place] [phone] Sonu Levy Jr., M.D. [address] [place] [phone] 01/21/2025 11:40 AM CDT Lab Department of Infusion Therapy in [place], [place] [address] [place] [address] Sonu Levy Jr., M.D. [address] [place] [phone] 01/21/2025 1:15 PM CDT Office Visit Department of Orthopedic Surgery in [place], [place] [address] [place] [phone] Aidan Self M.D. [address] [place] [phone] 01/21/2025 2:00 PM CDT Infusion Department of Infusion Therapy in [place], [place] [address] [place] [phone] Sonu Levy Jr., M.D. [address] [place] [phone] 02/11/2025 11:00 AM CDT Clinical Communication Virtual Review in [place], [place] [address] [place] [address] 02/14/2025 12:00 PM CDT Appointment Department of Laboratory Medicine and Pathology, [facility] in [place], [place] [address] [place] [phone] Kesha Todd APRN, C.N.P. [address] [place] [phone] 02/14/2025 12:30 PM CDT Office Visit Department of Orthopedic Surgery in [place], [place] [address] [place] [phone] Kesha Todd APRN, C.N.P. [address] [place] [phone] 02/14/2025 1:30 PM CDT Comprehensive Visit Section of Infectious Diseases in [place], [place] [address] [place] [phone] Kesha Todd APRN, C.N.P. [address] [place] [phone] 03/11/2025 3:00 PM [employer] Clinical Communication Virtual Review in [place], [place] [address] [place] [address] 03/18/2025 11:30 AM [employer] Appointment Department of Laboratory Medicine and Pathology, [facility], in [place], [place] [address] [place] [phone] Kesha Todd APRN, C.N.P. [address] [place] [phone] 03/18/2025 12:30 PM [employer] Office Visit Department of Orthopedic Surgery in [place], [place] [address] [place] [phone] Aidan Self M.D. [address] [place] [phone] 03/24/2025 Hospital Encounter [facility] 01 4 AM ADMIT [address] [place] [phone] Aidan Self M.D. [address] [place] [phone] Scheduled Procedures Name Priority Associated Diagnoses Date/Ti me ARTHROPLASTY REIMPLANTATION HIP Pain Hip Left Health Maintenance Due Date Last Done Comments CT Colonography 1950 Cologuard 1950 Hepatitis C Screening 1950 Office Visit for Blood Pressure Check / Re-check 1950 RSV vaccine - (32-36 weeks) or 60+ years (1 - Risk 60-74 years 1-dose series) 2011 Zoster Vaccines (2 of 3) 04/11/2012 02/15/2012 DTaP,Tdap,and Td Vaccines (2 - Td or Tdap) 09/04/2021 09/05/2011, 01/22/2003, 01/22/2003, Additional history exists Lipid (Cholesterol) Screening 02/23/2024 02/22/2019 Depression Screening (Annual PHQ-2) 04/24/2024 COVID-19 Vaccine ( season) 2024 02/08/2023, 02/23/2021, 06/29/2020 Influenza Vaccine (#1) 2024 , 01/26/2023, 01/26/2022, Additional history exists Mammogram 01/03/2025 01/04/2024, 12/23, 09/28/2022, Additional history exists Colonoscopy 12/14/2025 12/14/2020 Colorectal Cancer Surveillance 12/14/2025 Fasting Glucose for Diabetes Screening 01/05/2026 01/05/2025, 01/02/2025, 12/26/2024, Additional history exists Pneumococcal vaccine (50+ years) Completed 02/20/2020, 02/18/2019 Bone Density Scan (Osteoporosis Screen) Discontinued 06/30/2022 Fall Risk Screen (Annual) Completed 01/02/2025 IPV Vaccines Aged Out No longer eligi ble based on patient's age to complete this topic Medical Devices Implanted Type Area Vacuum Cleaner Mechanic Device Identifier Shelf Expiration Date Model / Serial / Lot Cmnt Bn Smp 40gm - [id number] Implanted:Qty : 1 on 01/02/2025 by Aidan Self M.D. at [facility] Bone Cement Right: Hip Julio Cesar 6191-1-001 / / Cmnt Bn Smp 40gm - [id number] Implanted:Qty : 1 on 01/02/2025 by Aidan Self M.D. at [facility] Bone Cement Right: Hip [place] 6191-1-001 / / Cmnt Bn Smp 40gm - [id number] Implanted:Qty : 1 on 01/02/2025 by Aidan Self M.D. at [facility] Bone Cement Right: Hip Julio Cesar 6191--001 / / Cmnt Bn Smp 40gm - [id number] Implanted:Qty : 1 on 01/02/2025 by Aidan Self M.D. at [facility] Bone Cement Right: Hip [place] 6191--001 / / Hip Stm Prs Cmnt Rt 3 200 - [id number] Implanted:Qty : 1 on 01/02/2025 by Aidan Self M.D. at [facility] Hip Implant Right: Hip Depuy Synthes 03/23/2034 [id number] / / [id number] Shll Acet Prs Cmnt 32x42 - [id number] Implanted:Qty : 1 on 01/02/2025 by Aidan Self M.D. at [facility] Hip Implant Right: Hip Depuy Synthes 10/21/2029 [id number] / / [id number] Fem Hd Art Ez +1x32 - [id number] Implanted:Qty : 1 on 01/02/2025 by Aidan Self M.D. at [facility] Hip Implant Right: Hip Depuy Synthes 03/23/2028 [id number] / / [id number] Explanted Type Area Vacuum Cleaner Mechanic Device Identifier Shelf Expiration Date Model / Serial / Lot R Hip Implant Explanted:Qty: 7 on 01/02/2025 by Aidan Self M.D. Hip Implant Right: Hip Description:Explant study Procedures Procedure Name Priority Date/Time Associated Diagnosis Comments CBC WITH DIFFERENTIAL, B Routine 01/20/2025 10:55 AM CDT 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 CREATININE WITH EGFR, S/P Routine 01/20/2025 10:55 AM CDT 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 ALANINE AMINOTRANSFERASE (ALT), S/P Routine 01/20/2025 10:55 AM CDT 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 PLACE PERIPHERALLY INSERTED CENTRAL CATHETER (PICC) Routine 01/06/2025 9:29 AM CDT ECG Routine 01/05/2025 1:51 PM CDT PULSE OXIMETRY WITH REMOTE OVERVIEW Routine 01/05/2025 8:00 AM CDT BASIC METABOLIC PANEL, S/P Routine 01/05/2025 2:18 AM CDT CBC WITH DIFFERENTIAL, B Routine 01/05/2025 2:18 AM CDT PULSE OXIMETRY [...] CULT, AEROBE/ANAEROBE+SUSC Routine 01/02/2025 4:29 PM CDT ACID FAST SMEAR FOR MYCOBACTERIUM Routine 01/02/2025 4:29 PM CDT MYCOBACTERIAL CULTURE, V Routine 01/02/2025 4:29 PM CDT Pain Hip Right FUNGAL CULTURE, ROUTINE Routine 01/02/2025 4:29 PM CDT Pain Hip Right BACTERIA CULT, AEROBE/ANAEROBE+SUSC Routine 01/02/2025 4:24 PM CDT ACID FAST SMEAR FOR MYCOBACTERIUM Routine 01/02/2025 4:24 PM CDT MYCOBACTERIAL CULTURE, V Routine 01/02/2025 4:24 PM CDT Pain Hip Right FUNGAL CULTURE, ROUTINE Routine 01/02/2025 4:24 PM CDT Pain Hip Right BACTERIA CULT, AEROBE/ANAEROBE+SUSC Routine 01/02/2025 4:19 PM CDT ACID FAST SMEAR FOR MYCOBACTERIUM Routine 01/02/2025 4:19 PM CDT MYCOBACTERIAL CULTURE, V Routine 01/02/2025 4:19 PM CDT Pain Hip Right FUNGAL CULTURE, ROUTINE Routine 01/02/2025 4:19 PM CDT Pain Hip Right BACTERIA CULT, AEROBE/ANAEROBE+SUSC Routine 01/02/2025 4:17 PM CDT ACID FAST SMEAR FOR MYCOBACTERIUM Routine 01/02/2025 4:17 PM CDT MYCOBACTERIAL CULTURE, V Routine 01/02/2025 4:17 PM CDT Pain Hip Right FUNGAL CULTURE, ROUTINE Routine 01/02/2025 4:17 PM CDT Pain Hip Right ANESTHESIA REGIONAL BLOCK Routine 01/02/2025 2:52 PM CDT ARTHROPLASTY RESECTION HIP 01/02/2025 2:21 PM CDT Pain Hip Right ME LWR XTR FSCL PLN BLK UNI NFS Routine 01/02/2025 1:11 PM CDT LDA ANE LOWER EXTREMITY PNC Routine 01/02/2025 1:11 PM CDT ADULT OXYGEN THERAPY Routine 01/02/2025 11:38 AM CDT ADULT OXYGEN THERAPY Routine 01/02/2025 11:38 AM CDT DX HIP AND PELVIS RIGHT 2-3 VIEWS RAD - Routine (most inpatients and all outpatients) 12/26/2024 10:04 AM CDT Preoperative Exam PREPARE RED BLOOD CELLS Routine 12/26/2024 8:56 AM CDT PREPARE RED BLOOD CELLS Routine 12/26/2024 8:56 AM CDT ANTIBODY IDENTIFICATION Routine 12/26/2024 8:56 AM CDT BASIC METABOLIC PANEL, S/P Routine 12/26/2024 8:56 AM CDT Preoperative Exam TYPE AND SCREEN Routine 12/26/2024 8:56 AM CDT Preoperative Exam SEDIMENTATION RATE, B Routine 12/26/2024 8:56 AM CDT Preoperative Exam C-REACTIVE PROTEIN (CRP), S/P Routine 12/26/2024 8:56 AM CDT Preoperative Exam ALANINE AMINOTRANSFERASE (ALT), S/P Routine 12/26/2024 8:56 AM CDT Preoperative Exam C-REACTIVE PROTEIN (CRP), S/P Routine 11/21/2024 5:03 PM CDT Arthroplasty Total Hip Replacement Status Post Right SEDIMENTATION RATE, B Routine 11/21/2024 5:03 PM CDT Arthroplasty Total Hip Replacement Status Post Right CELL COUNT AND DIFFERENTIAL, BF Routine 11/21/2024 4:46 PM CDT Arthroplasty Total Hip Replacement Status Post Right Pain Total Hip Arthroplasty Initial ME ARTHCS ASP/INJ MJR JT WO US Routine 11/21/2024 4:00 PM CDT Arthroplasty Total Hip Replacement Status Post Right Pain Total Hip Arthroplasty Initial from Last 3 Months Results * (ABNORMAL) CBC with Differential, Blood (01/20/2025 10:55 AM CDT) Only the most recent of2 resultswithin the time period is included. Hemoglobin 11.5(L) 11.6 - 15.0 g/dL 01/20/2025 [...] 10:55 AM CDT 01/20/2025 12:08 PM CDT us Karen Nix APRN, C.N.P., M.S.N. LAB BLOOD A DD-ON Final Result [facility] [address] [place] [address], [facility] CNFL [address] [address] * ALT (Alanine Aminotransferase) (01/20/2025 10:55 AM CDT) Only the most recent of2 resultswithin the time period is included. Alanine Aminotransferase (ALT), P 19 7 - 45 U/L 01/20/2025 12:36 PM CDT CNFL Blood (Blood, Venous) 01/20/2025 10:55 AM CDT 01/20/2025 12:08 PM CDT Nahid Ballard APRN.NIvett., M.S.N. LAB BLOOD A DD-ON Final Result [address] [address], [facility] [address] [address] * Creatinine with Estimated GFR (01/20/2025 10:55 AM CDT) Only the most recent of2 resultswithin the time period is included. Creatinine 0.71 0.59 - 1.04 mg/dL 01/20/2025 12:36 PM CDT CNFL Estimated GFR (eGFR) 90 >=60 mL/min/BSA 01/20/2025 12:36 PM CDT CNFL Comment: Estimated GFR calculated using the 2020 CKD_EPI creatinine equation. Blood (Blood, Venous) 01/20/2025 10:55 AM CDT 01/20/2025 12:08 PM CDT Nahid Ballard APRN.N.P., M.S.N. LAB BLOOD A DD-ON Final Result [address] [address], [facility] in [address] [address] * Place peripherally inserted central catheter (PICC) [...] to release the adhesive from the skin. [email or web address] Charanjit Benjamin APRN, C.N.P., D.N.P. PROCEDURE/AL NOR SURGICAL ORDERABLES Final Result MMODAL NA * ECG 12 Lead (01/05/2025 1:51 PM CDT) Ventricular Rate ECG/Min 64 BPM MUSE ME Interval 202 ms MUSE QRSD Interval 88 ms MUSE QT Interval 430 ms MUSE QTC Interval 443 ms MUSE P [place] 52 degrees MUSE R [place] -4 degrees MUSE T Wave [place] 30 degrees MUSE 01/05/2025 1:51 PM CDT [...] Basic Metabolic Panel (01/05/2025 2:18 AM CDT) Only the most recent of3 resultswithin the time period is included. Pathologist [facility] Potassium, S 3.8 3.6 - 5.2 mmol/L [...] M.D. LAB BLOOD ADD-ON Final Resu lt [facility] [address] [place] [address], [facility] DTL [facility] [address] [place] [address] * (ABNORMAL) CBC without Differential (01/03/2025 2:58 [...] C.N.P. LAB BLOOD [place] [address], [facility] [address] [place] [address] * DX Hip Right 2-3 Views (01/02/2025 [...] Anaerobe + Susc (01/02/2025 4:29 PM CDT) Only the most recent of4 resultswithin the time period is included. Bacteria Cult, Aerobe/Anaero be+Susc PSEUDOMONAS AERUGINOSA Growth after 1 day (A) 01/07/2025 8:30 AM CDT DTL Comment:Susceptibilities per formed on another specimen [id number] Hip, Right 01/02/2025 4:29 PM CDT 01/02/2025 5:12 PM CDT Comment:Specimen Source Site : Tissue, RIGHT HIP #4 Narrative [facility] - 01/07/2025 8:30 AM CDT Bacterial Culture: Placed in Bactec aerobic and Bactec anaerobic bottles Aidan Self M.D. LAB MICROBIOLOGY - GENERA L ORDERABLES Final Result [facility] [address] [place] [address], [facility] DTL [facility] [address] [place] [address] * Acid Fast Smear for Mycobacterium (01/02/2025 4:29 PM CDT) Only the most recent of4 resultswithin the time period is included. Acid Fast Smear For Mycobacterium Negative. 01/03/2025 7:37 AM CDT DTL Hip, Right 01/02/2025 4:29 PM CDT 01/02/2025 5:12 PM CDT Comment:Specimen Source Site : Tissue, RIGHT HIP #4 Narrative [facility] - 01/03/2025 7:37 AM CDT Bacterial Culture: Placed in Bactec aerobic and Bactec anaerobic bottles Aidan Self M.D. LAB MICROBIOLOGY - GENERA L ORDERABLES Final Result [facility] [address] [place] [address], [facility] DTL [facility] [address] [place] [address] * Regional Block (01/02/2025 2:52 PM CDT) Narrative Rebel العراقي M.D., Ph.D. - 01/02/2025 2:52 PM CDT Rebel العراقي M.D., Ph.D. 01/02/2025 3:01 PM Regional Block Date/Time: 01/02/2025 2:52 PM Performed by: Rebel العرايق M.D., Ph.D. Authorized by: Rebel العراقي M.D., [...] completed successfully: successful procedure Notable Events: none Rebel العراقي M.D., Ph.D. PROCEDURE/MINOR SURGI WILLA ORDERABLES Final Result * LDA ANE LOWER EXTREMITY PNC, ME LWR XTR FSCL PLN BLK UNI NFS [...] successfully: successful procedure Notable Events: none Rodri K Panchamia D.O. PROCEDURE/MINOR SURGICAL ORDERABLES Final Result * DX Hip And Pelvis Right 2-3 [...] DIAGNOSTIC IMAGI NG PROCEDURES Final Result * Antibody Identification, Erythrocytes (12/26/2024 8:56 AM CDT) Antibody Identification Anti-K 12/26/2024 7:36 PM CDT DTL 12/26/2024 8:56 AM CDT 12/26/2024 9:13 AM CDT Narrative [facility] - 12/26/2024 7:36 PM CDT Specimen Information: Specimen ID: [id number] Specimen Collection Start Date: 12/26/2024 8:56 AM Specimen Received Date: 12/26/2024 9:13 AM Specimen ID: [id number] Specimen Collection Start Date: 12/26/2024 8:56 AM Specimen Received Date: 12/26/2024 9:13 AM Nahid Jacobsen APRN.N.P. LAB BLOOD BANK TEST ORDERABLES Final Result Performing Organization Address City/[facility] [place] [address] * (ABNORMAL) Sedimentation Rate (12/26/2024 8:56 AM CDT) Only the most recent of2 resultswithin the time period is included. Sedimentation Rate, B 42(H) 3 - 28 mm/h 12/26/2024 10:49 AM CDT DTL Blood (Blood, Venous) 12/26/2024 8:56 AM CDT 12/26/2024 9:22 AM CDT Kesha Todd APRN, C.N.P. LAB BLOOD ADD-ON Fin al Result Performing Organization Address [facility] [place] [address] * Type and Screen (with Reflex Antibody [...] CDT 12/26/2024 9:13 AM CDT Kesha Todd APRN C.N.P. LAB BLOOD BANK TEST ORDERABLES Final Result Performing Organization Address [facility] Co de Phone Number [facility] [address] [place] [address] * (ABNORMAL) CRP (C-Reactive Protein) (12/26/2024 8:56 AM CDT) Only the most recent of2 resultswithin the time period is included. Pathologist [facility] C-Reactive Protein (CRP), S 27.0(H) <5.0 mg/L 12/26/2024 10:03 AM CDT DTL Blood (Blood, Venous) 12/26/2024 8:56 AM CDT 12/26/2024 9:20 AM CDT Kesha Rekha Gilmore APRNNMelvinPMelvin LAB BLOOD ADD-ON Fin al Result Performing Organization Address [facility] Co de Phone Number [facility] 200 [place], [place] [phone] [place] [address] [place] [address] * Cell Count and Differential, Body Fluid (11/21/2024 4:46 PM CDT) Pathologist [facility] Fluid Type Right; Hip 11/22/2024 5:10 AM CDT DHPM Gross Appearance Bloody 11/23/19 25 5:10 AM CDT DHPM Total Nucleated Cells 104 /mcL 11/22/2024 5:10 AM CDT DHPM Comment: ----REFERENCE VALUE---- Synovial: <150 /mcL Peritoneal: <500 /mcL Pleural: <500 /mcL Pericardial: <500 /mcL ----ADDITIONAL INFORMATION---- This test has been modified from the manager metal's instructions. Its performance characteristics were determined by [facility] in a manner consistent with CLIA requirements. This test has not been cleared or approved by the U.S. Food and Drug Administration. Comment See Comment 11/22/2024 5:10 AM CDT PM Comment:Manual count perform ed.Count approximate due to quality of specimen. Neutrophils 100 % 11/22/2024 5:16 AM CDT PM Comment: ----REFERENCE VALUE---- Synovial: <25% Peritoneal: <25% Pleural: <25% Pericardial: <25% Comment See Comment 11/22/2024 5:16 AM CDT PM Comment:No blasts or maligna nt cells seen. Reviewed by: Michelle 11/22/2024 5:16 AM CDT PM Fluid (Prosthetic Hip, Right) 11/21/2024 4:46 PM CDT 11/21/2024 8:24 PM CDT us Claudette Almazan M.D. LAB BODY FLUIDS AND STOOLS ORDERABLES Final Result Performing Organization Address [facility] de Phone Number [facility] 200 [place] [address], [facility] 200 [place] [address] * ME ARTHCS ASP/INJ MJR JT WO US (11/21/2024 4:00 PM CDT) Narrative MMODAL - 11/21/2024 4:00 PM CDT Ron Curtis M.D. 12/09/2024 11:24 PM Hip site - R hip joint: aspiration only Performed by: Ron Curtis M.D. Authorized by: Aidan Self M.D. Care team members present 1. Ron Curtis M.D. 2. Caitlin Zheng M.S., L.A.T., A.T.C. PROCEDURE DETAILS Procedure Location hip Hip site -R hip joint Procedure performed: aspiration only Procedural Medication The following medications were administered at the target site(s) Local anesthetic: 5 mL lidocaine (PF) 10 mg/mL (1 %) Images have been archived in uSpeak. us Aidan Self M.D. PROCEDURE/MINOR SURGICAL ORDERABLES Final Result Performing Organization Address [facility] de Phone Number MMODAL NA from Last 3 Months Insurance MEDICARE FOR LIFE Advance Directives For more information, please contact: [phone] * Full Code (Latest Code Status on File) Date Activated Date Inactivated Comments 01/02/2025 8:30 PM 01/06/2025 5:21 PM Question Answer Comments Full Code: Discussed Care Teams Phlebotomy Technician Relationship Specialty Start Date End Date Elsewhere, Pcp PCP - General Internal Medicine 11/05/24
--- OUTSIDE RECORDS SUMMARY | 2025-01-20 21:00 | XMS_ITS | Encounter Summary ---
Author Organization [facility] Address [address] [address] Care Team Providers Care Pest Management Supervisor Name Role Phone Jane Monahan MD Primary Care Provider [phone] Encounter Details Date Type Department Care Team (Latest Contact Info) Description 11/08/1996 [place] [address] [place], [place] [phone] Social History Tobacco Use Types Packs/Day Years [...] on filedocumented in this encounter Care Teams Pest Management Supervisor Relationship Specialty [place] [address] [address] [place], [place] [phone] PCP - General Family Practice 08/19/20 documented as of this encounter
--- OUTSIDE RECORDS SUMMARY | 2025-01-20 21:00 | XMS_ITS | Encounter Summary ---
Author Organization [facility] Address [address] [place] [address] Care Team Providers Care Undertaker Assistant Name Role Phone Elsewhere, Pcp Primary Care Provider Unavailabl e Encounter Details Date Type Department Care Team (Late st Contact Info) Description 10/15/2024 Orders Only Department of Orthopedic Surgery in [place], [place] [address] [place] [phone] [facility], Provider, Pain Hip Right Social History Tobacco Use Types Packs/Day Years [...] Ancillary Procedure Department of Cardiovascular Medicine in [place], [place] [address] [place] [phone] Sonu Levy Jr., M.D. [address] [place] [phone] 01/21/2025 11:40 AM CDT Lab Department of Infusion Therapy in [place], [place] [address] [place] [phone] Sonu Levy Jr., M.D. [address] [place] [phone] 01/21/2025 1:15 PM CDT Office Visit Department of Orthopedic Surgery in [place], [place] [address] [place] [phone] Aidan Self M.D. [address] [place] [phone] 01/21/2025 2:00 PM CDT Infusion Department of Infusion Therapy in [place], [place] [address] [place] [phone] Sonu Levy Jr., M.D. [address] [place] [phone] 02/11/2025 11:00 AM CDT Clinical Communication Virtual Review in [place], [place] 200 [place] [address] 02/14/2025 12:00 PM CDT Appointment Department of Laboratory Medicine and Pathology, [facility] in [place], [place] [address] [place] [phone] Kesha Todd APRN, C.N.P. [address] [place] [phone] 02/14/2025 12:30 PM CDT Office Visit Department of Orthopedic Surgery in [place], [place] [address] [place] [phone] Kesha Todd APRN, C.N.P. [address] [place] [phone] 02/14/2025 1:30 PM CDT Comprehensive Visit Section of Infectious Diseases in [place], [place] [address] [place] [phone] Kesha Todd APRN, C.N.P. [address] [place] [phone] 03/11/2025 3:00 PM WALLET ASSEMBLER Clinical Communication Virtual Review in [place], [place] 200 [place] [phone] 03/18/2025 11:30 AM WALLET ASSEMBLER Appointment Department of Laboratory Medicine and Pathology, [facility], in [place], [place] [address] [place] [phone] Kesha Todd APRN, C.N.P. [address] [place] [phone] 03/18/2025 12:30 PM WALLET ASSEMBLER Office Visit Department of Orthopedic Surgery in [place], [place] [address] [place] [phone] Aidan Self M.D. [address] [place] [phone] 03/24/2025 Hospital Encounter [facility] 01 4 AM ADMIT [address] [place] [phone] Aidan Self M.D. [address] [place] [phone] Scheduled Procedures Name Priority Associated Diagnoses Date/Ti me ARTHROPLASTY REIMPLANTATION HIP Pain Hip Left documented as of this encounter Visit Diagnoses Diagnosis Pain Hip Right documented in this encounter Care Teams Undertaker Assistant Relationship Specialty Start Date End Date Elsewhere, Pcp PCP - General Internal Medicine 11/05/24 documented as of this encounter
--- OUTSIDE RECORDS SUMMARY | 2025-01-20 21:00 | XMS_ITS | Encounter Summary ---
Author Organization [facility] Address [address] [place] [address] Care Team Providers Care Electrotyper Helper Name Role Phone Elsewhere, Pcp Primary Care Provider Unavailabl e Reason for Referral * Outpatient (Routine) - Authorized Specialty Diagnoses / Procedures Referred By Contac t Referred To Contact Orthopedic Surgery Kesha Todd APRN, C.N.P. [address] [place] [phone] Phone: tel: fax: Aidan Self M.D. [address] [place] [phone] Phone: tel: fax: Referral ID Status Reason Start Date Expiration Date V isits Requested Visits Authorized [id number] Authorized 01/07/2025 07/09/2026 1 1 * Outpatient (Routine) - Authorized Specialty Diagnoses / Procedures Referred By Contac t Referred To Contact Infectious Diseases Diagnoses Preoperative Exam Kesha Todd APRN, C.N.P. [address] [place] [phone] Phone: tel: fax: [facility] Referral ID Status Reason Start Date Expiration Date V isits Requested Visits Authorized [id number] Authorized 01/07/2025 07/09/2026 1 1 Encounter Details Date Type Department Care Team (Late st Contact Info) Description 01/07/2025 Orders Only Department of Orthopedic Surgery in [place], [place] [address] [place] [address] Kesha Todd APRN, C.N.P. [address] [place] [address] Preoperative Exam (Primary Dx) Social History Tobacco [...] things needed for daily living? No 01/03/2025 [facility] Utilities Answer Date Recorded In the past [address] [facility] electric, gas, oil, or water company threatened to shut off services in your home? No 01/03/2025 Housing Stability Answer Date Recorded What is your living situation today? I have a [facility] place to live 01/03/2025 Comments No [...] Ancillary Procedure Department of Cardiovascular Medicine in [place], [place] [address] [place] [phone] Sonu Levy Jr., M.D. [address] [place] [phone] 01/21/2025 11:40 AM CDT Lab Department of Infusion Therapy in [place], [place] [address] [place] [phone] Sonu Levy Jr., M.D. [address] [place] [phone] 01/21/2025 1:15 PM CDT Office Visit Department of Orthopedic Surgery in [place], [place] [address] [place] [phone] Aidan Self M.D. [address] [place] [phone] 01/21/2025 2:00 PM CDT Infusion Department of Infusion Therapy in [place], [place] [address] [place] [phone] Sonu Levy Jr., M.D. [address] [place] [phone] 02/11/2025 11:00 AM CDT Clinical Communication Virtual Review in [place], [place] 200 [place] [address] 02/14/2025 12:00 PM CDT Appointment Department of Laboratory Medicine and Pathology, [facility] in [place], [place] [address] [place] [phone] Kesha Todd APRN, C.N.P. [address] [place] [phone] 02/14/2025 12:30 PM CDT Office Visit Department of Orthopedic Surgery in [place], [place] [address] [place] [phone] Kesha Todd APRN, C.N.P. [address] [place] [phone] 02/14/2025 1:30 PM CDT Comprehensive Visit Section of Infectious Diseases in [place], [place] [address] [place] [phone] Kesha Todd APRN, C.N.P. [address] [place] [phone] 03/11/2025 3:00 PM CHOKE REAMER Clinical Communication Virtual Review in [place], [place] 200 [place] [address] 03/18/2025 11:30 AM CHOKE REAMER Appointment Department of Laboratory Medicine and Pathology, [facility] in [place], [place] [address] [place] [phone] Kesha Todd APRN, C.N.P. [address] [place] [phone] 03/18/2025 12:30 PM CHOKE REAMER Office Visit Department of Orthopedic Surgery in [place], [place] [address] [place] [phone] Aidan Self M.D. [address] [place] [phone] 03/24/2025 Hospital Encounter RST ROEI 01 4 AM ADMIT [address] [place] [phone] Aidan Self M.D. [address] [place] [phone] Scheduled Orders Name Type Priority Associated Diagnoses Orde r Schedule CBC with Differential, Blood Lab Routine Preoperative Exam Expected: 03/18/2025, Expires: 04/08/2026 ALT (Alanine Aminotransferase) Lab Routine Preoperative Exam Expected: 03/18/2025, Expires: 04/08/2026 Basic Metabolic Panel Lab Routine Preoperative Exam Expected: 03/18/2025, Expires: 04/08/2026 Type and Screen (with Reflex Antibody ID) Lab Routine Preoperative Exam Expected: 03/18/2025, Expires: 04/07/2025 CRP (C-Reactive Protein) Lab Routine Preoperative Exam Expected: 03/18/2025, Expires: 04/08/2026 Sedimentation Rate Lab Routine Preoperative Exam Expected: 03/18/2025, Expires: 04/08/2026 Scheduled Procedures Name Priority Associated Diagnoses Date/Ti me ARTHROPLASTY REIMPLANTATION HIP Pain Hip Left Scheduled Referrals Name Type Priority Associated Diagnoses Order Schedule Infectious Disease - Ortho consult (clinic) Outpatient Referral Routine Preoperative Exam Expected: 03/18/2025, Expires: 04/08/2026 Orthopedic Surgery Pre Op (clinic) Outpatient Referral Routine Expected: 03/18/2025, Expires: 04/08/2026 documented as of this encounter Visit Diagnoses Diagnosis Preoperative Exam- Primary documented in this encounter Care Teams Electrotyper Helper Relationship Specialty Start Date End Date Elsewhere, Pcp PCP - General Internal Medicine 11/05/24 documented as of this encounter
--- OUTSIDE RECORDS SUMMARY | 2025-01-20 21:00 | XMS_ITS | Encounter Summary ---
Author Organization [facility] Address [address], [place] [address] Care Team Providers Care Canoe Builder Name Role Phone Jane Monahan MD Primary Care Provider [phone] Encounter Details Date Type Department Care Team (Late st Contact Info) Description 08/22/1996 Orders Only [facility] [address], [place] [address] Social History Tobacco Use Types Packs/Day Years [...] on filedocumented in this encounter Care Teams Canoe Builder Relationship Specialty [place] [address] [address] [place], [place] [phone] PCP - General Family Practice 08/19/20 documented as of this encounter
--- OUTSIDE RECORDS SUMMARY | 2025-01-20 21:01 | XMS_ITS | Encounter Summary ---
Author Organization [facility] Address [address] [place] [address] Care Team Providers Care Metal Rivet Machine Operator Name Role Phone Elsewhere, Pcp Primary Care Provider Unavailabl e Reason for Referral * Outpatient (Routine) - Authorized Specialty Diagnoses / Procedures Referred By Contac t Referred To Contact Infectious Diseases Diagnoses Pain Hip Right Kesha Todd APRN, C.N.P. [address] [place] [phone] Phone: tel: fax: [facility] Referral ID Status Reason Start Date Expiration Date V isits Requested Visits Authorized [id number] Authorized 12/30/2024 07/01/2026 1 1 * Outpatient (Routine) - Authorized Specialty Diagnoses / Procedures Referred By Contac t Referred To Contact Orthopedic Surgery Kesha Todd APRN, C.N.P. [address] [place] [phone] Phone: tel: fax: Aidan Self M.D. [address] [place] [phone] Phone: tel: fax: Referral ID Status Reason Start Date Expiration Date V isits Requested Visits Authorized [id number] Authorized 12/30/2024 07/01/2026 1 1 Encounter Details Date Type Department Care Team (Late st Contact Info) Description 12/30/2024 Orders Only Department of Orthopedic Surgery in [place], [place] [address] [place] [address] Kesha Todd APRN, C.N.P. [address] [place] [phone] Pain Hip Right (Primary Dx) Social History [...] things needed for daily living? No 01/03/2025 [facility] Utilities Answer Date Recorded In the past 12 months has e electric, gas, oil, or water company threatened to shut off services in your home? No 01/03/2025 Housing Stability Answer Date Recorded What is your living situation today? I have a [facility] place to live 01/03/2025 Comments Unknown Sex and Gender Information Value [...] Ancillary Procedure Department of Cardiovascular Medicine in [place], [place] [address] [place] [phone] Sonu Levy Jr., M.D. [address] [place] [phone] 01/21/2025 11:40 AM CDT Lab Department of Infusion Therapy in [place], [place] [address] [place] [phone] Sonu Levy Jr., M.D. [address] [place] [phone] 01/21/2025 1:15 PM CDT Office Visit Department of Orthopedic Surgery in [place], [place] [address] [place] [phone] Aidan Self M.D. [address] [place] [phone] 01/21/2025 2:00 PM CDT Infusion Department of Infusion Therapy in [place], [place] [address] [place] [phone] Sonu Levy Jr., M.D. [address] [place] [phone] 02/11/2025 11:00 AM CDT Clinical Communication Virtual Review in [place], [place] 200 [place] [phone] 02/14/2025 12:00 PM CDT Appointment Department of Laboratory Medicine and Pathology, [facility] in [place], [place] [address] [place] [phone] Kesha Todd APRN, C.N.P. [address] [place] [phone] 02/14/2025 12:30 PM CDT Office Visit Department of Orthopedic Surgery in [place], [place] [address] [place] [phone] Kesha Todd APRN, C.N.P. [address] [place] [phone] 02/14/2025 1:30 PM CDT Comprehensive Visit Section of Infectious Diseases in [place], [place] [address] [place] [phone] Kesha Todd APRN, C.N.P. [address] [place] [phone] 03/11/2025 3:00 PM ORDNANCE EQUIPMENT WORKER Clinical Communication Virtual Review in [place], [place] [address] [place] [address] 03/18/2025 11:30 AM ORDNANCE EQUIPMENT WORKER Appointment Department of Laboratory Medicine and Pathology, [facility] in [place], [place] [address] [place] [phone] Kesha Todd APRN, C.N.P. [address] [place] [phone] 03/18/2025 12:30 PM ORDNANCE EQUIPMENT WORKER Office Visit Department of Orthopedic Surgery in [place], [place] [address] [place] [address] Aidan Self M.D. [address] [place] [phone] 03/24/2025 Hospital Encounter [facility] 01 4 AM ADMIT [address] [place] [phone] Aidan Self M.D. [address] [place] [phone] Scheduled Orders Name Type Priority Associated Diagnoses Orde r Schedule Sedimentation Rate Lab Routine Pain Hip Right Expected: 02/10/2025, Expires: 03/31/2026 CRP (C-Reactive Protein) Lab Routine Pain Hip Right Expected: 02/10/2025, Expires: 03/31/2026 Scheduled Procedures Name Priority Associated Diagnoses Date/Ti me ARTHROPLASTY REIMPLANTATION HIP Pain Hip Left Scheduled Referrals Name Type Priority Associated Diagnoses Order Schedule Orthopedic Surgery Post Op (clinic) Outpatient Referral Routine Expected: 02/10/2025, Expires: 03/31/2026 Infectious Disease - Ortho consult (clinic) Outpatient Referral Routine Pain Hip Right Expected: 02/10/2025, Expires: 03/31/2026 documented as of this encounter Visit Diagnoses Diagnosis Pain Hip Right- Primary documented in this encounter Care Teams Metal Rivet Machine Operator Relationship Specialty Start Date End Date Elsewhere, Pcp PCP - General Internal Medicine 11/05/24 documented as of this encounter
--- OUTSIDE RECORDS SUMMARY | 2025-01-20 21:02 | XMS_ITS ---
Author Organization [facility] Address [address] [place] [address] Care Team Providers Care Volunteer Manager Name Role Phone Elsewhere, Pcp Primary Care Provider Unavailabl e OPAT/COpAT Program Status:Paused (Paused) Start date:01/05/2025 Enrollment date:01/06/2025 Related service episodes:Adult OPAT Service Episode (Paused) Continued Care and Services Coordination
--- OUTSIDE RECORDS SUMMARY | 2025-01-20 21:02 | XMS_ITS ---
Author Organization [facility] Address [address] [place] [address] Care Team Providers Care Tubing Machine Tender Name Role Phone Elsewhere, Pcp Primary Care Provider Unavailabl e Adult OPAT Service Episode Status:Paused (Paused) Start date:01/05/2025 Enrollment date:01/06/2025 Related program episode:OPAT/COpAT Program (Paused) Continued Care and Services Coordination
--- OUTSIDE RECORDS SUMMARY | 2025-01-20 21:06 | XMS_ITS | Encounter Summary ---
Author Organization [facility] Address [address], [place] [address] Care Team Providers Care Sales Driver Name Role Phone Jane Monahan MD Primary Care Provider Encounter Details Date Type Department Care Team (Latest Contact Info) Description 10/21/1998 [place] [address] [place], [place] [phone] Social History Tobacco Use Types Packs/Day Years [...] on filedocumented in this encounter Care Teams Sales Driver Relationship Specialty [place] [address] [address] [place], [place] [phone] PCP - General Family Practice 08/19/20 documented as of this encounter
--- OUTSIDE RECORDS SUMMARY | 2025-01-20 21:06 | XMS_ITS | Encounter Summary ---
Author [facility] Address [address], [place] [address] Care Team Providers Care Club Attendant Name Role Phone Jane Monahan MD Primary Care Provider [phone] Encounter Details Date Type Department Care Team (Late st Contact Info) Description 02/15/2012 Correspondence [facility] [address] [place], [place] [phone] Elissa Partida PA-C [address] [place], [place] [phone] PAW Social History Tobacco Use Types Packs/Day Years Used Date Smoking Tobacco: Former Cigarettes 0.5 5 Comments:quit 1980 Alcohol Use Standard Drinks/Week Comments No 0 (1 standard drink = 0.6 oz pur e alcohol) Comments No Sex and Gender Information Value Date Recorded Sex Assigned at Not on file Legal Sex Female 4:39 AM CDT Gender Identity Not on file Sexual Orientation Not on file documented as of this encounter Progress Notes * Elissa Partida PA-C - 02/15/2012 12:00 AM CDT OL LABORATORY TECHNICIAN documented in this encounter Plan of Treatment Not on file documented as of this encounter Visit Diagnoses Not on filedocumented in this encounter Care Teams Club Attendant Relationship Specialty [place] [address] [address] [place], [place] [phone] PCP - General Family Practice 08/19/20 documented as of this encounter
--- OUTSIDE RECORDS SUMMARY | 2025-01-20 21:06 | XMS_ITS | Encounter Summary ---
[facility] Address [address], [place] [address] Care Team Providers Care Beer Still Runner Compounder Name Role Phone Jane Monahan MD Primary Care Provider [phone] Reason for Visit * Reason Comments Verbal Orders Encounter Details Date Type Department Care Team (Late st Contact Info) Description 01/08/2025 Telephone [facility] [address] [place] [address] [place] [address] [place] [address] Verbal Orders Social History Tobacco Use Types Packs/Day Years [...] on file documented as of this encounter Nursing Notes * SayIfeoma LPN - 01/08/2025 3:29 PM CDT Home care informed of verbal ok. Ifeoma Ding LPN, 01/08/2025, 3:29 PM * Jane Monahan MD - 01/08/2025 3:27 PM CDT OK for delayed start of care Jane Monahan MD 01/08/2025, 3:27 PM * Cecelia Daniels - 01/08/2025 12:02 PM CDT Orders - Home Care What type of home care is being requested? Frequency/Duration of service Why is this home care needed (symptom/diagnosis)? Start date of service Delayed start of care Staffing issue 01/09 How would home care like to receive this order? Verbal Order Additional comments (related to the above concern): Preferred communication method: Phone Call. Is it okay to leave a detailed message on your voicemail? Yes Is there anything else I can help you with today? documented in this encounter Plan of Treatment Not on file documented as of this encounter Visit Diagnoses Not on filedocumented in this encounter Care Teams Beer Still Runner Compounder Relationship Specialty [place] [address] [place] [address] PCP - General Family Practice 08/19/20 documented as of this encounter
--- OUTSIDE RECORDS SUMMARY | 2025-01-20 21:06 | XMS_ITS | Encounter Summary ---
Author Organization [facility] Address [address] [place] [address] Care Team Providers Care Bariatric Surgeon Name Role Phone Chloe Martins MD Primary Care Provider Un available Chloe Martins MD Unavailable Unavaila Jane Palmer MD Primary Care Provider [phone] Reason for Visit * Reason Comments Medication Refill Encounter Details Date Type Department Care Team (Late st Contact Info) Description 11/09/[address] [phone] Chloe Martins MD Medication Refill Social History Tobacco Use Types Packs/Day Years Used Date Smoking Tobacco: Former Cigarettes Q uit: 1979 Smokeless Tobacco: Never Alcohol Use Standard Drinks/Week Comments No 0 (1 standard drink = 0.6 oz pur e alcohol) PHQ-2 Answer Date Recorded PHQ-2 Score 0 05/02/2018 Comments No Sex and Gender Information Value Date Recorded Sex Assigned at Not on file Legal Sex Female 4:43 AM [employer] Gender Identity Not on file Sexual Orientation Not on file documented as of this encounter Miscellaneous Notes * Telephone Encounter - Rhiannon Markham RN - 11/09/2018 10:09 AM CDT Metoprolol Please clarify. This was just sent to mail order and now local pharmacy is requesting. Rhiannon Markham, RN, BSN documented in this encounter Plan of Treatment Not on file documented as of this encounter Visit Diagnoses Diagnosis Benign essential hypertension Essential hypertension, benign documented in this encounter Additional Health Concerns Assessment Noted Time PHQ-9 Depression Total Score: 3 11/01/19 19 3:25 PM CDT documented as of this encounter Care Teams Bariatric Surgeon Relationship Specialty Start Date End Date Chloe Martins MD PCP - General Internal Medicine 08/21/17 03/01/22 Jane Monahan MD PCP - General Family Medicine 03/02/22 Chloe Martins MD Assigned PCP 08/04/17 02/18/22 documented as of this encounter
--- OUTSIDE RECORDS SUMMARY | 2025-01-20 21:06 | XMS_ITS | Encounter Summary ---
[facility] Address [address], [place] [address] Care Team Providers Care Customer Project Manager Name Role Phone Jane Monahan MD Primary Care Provider [phone] Encounter Details Date Type Department Care Team (Latest Contact Info) Description 01/22/1999 [place] [address] [place], [place] [phone] Social History Tobacco Use Types Packs/Day Years [...] filedocumented in this encounter Care Teams Customer Project Manager Relationship Specialty [place] [address] [address] [place], [place] [id number] PCP - General Family Practice 08/19/20 documented as of this encounter
--- OUTSIDE RECORDS SUMMARY | 2025-01-20 21:06 | XMS_ITS | Encounter Summary ---
Author Organization [facility] Address [address] [address] Care Team Providers Care Women Specialist Name Role Phone Jane Monahan MD Primary Care Provider [phone] Encounter Details Date Type Department Care Team (Latest Contact Info) Description 09/11/1998 Orders Only Bing Ceja Social History Tobacco Use Types Packs/Day Years [...] on filedocumented in this encounter Care Teams Women Specialist Relationship Specialty [place] [address] [place] [address] PCP - General Family Practice 08/19/20 documented as of this encounter
--- OUTSIDE RECORDS SUMMARY | 2025-01-20 21:06 | XMS_ITS | Encounter Summary ---
Author Organization [facility] Address [address], [place] [address] Care Team Providers Care Business Process Engineer Name Role Phone Jane Monahan MD Primary Care Provider [phone] Reason for Visit * Reason Comments FYI Encounter Details Date Type Department Care Team (Late st Contact Info) Description 01/08/2025 Telephone [facility] [address] [place] [address] [place] [address] [place] [address] FYI Social History Tobacco Use Types Packs/Day Years [...] as of this encounter Nursing Notes * Kylie Craig - 01/08/2025 1:43 PM CDT Other Questions/Concerns/FYI Is this a symptom? No What is your question or concern? Requesting delayed service to start 01/09/25 Have you recently been seen for this? Yes: Preferred communication method: Phone Call. Is it okay to leave a detailed message on your voicemail? Yes Is there anything else I can help you with today? no * Chapin Bolton - 01/08/2025 11:48 AM CDT Other Questions/Concerns/FYI Is this a symptom? No What is your question or concern? Home health care , if needed please call . If you are not comfortable with finding orders they haveorders from the hospital Have you recently been seen for this? Yes: 12/06 Preferred communication method: Phone Call. Is it okay to leave a detailed message on your voicemail? Yes Is there anything else I can help you with today? n documented in this encounter Plan of Treatment Not on file documented as of this encounter Visit Diagnoses Not on filedocumented in this encounter Care Teams Business Process Engineer Relationship Specialty [place] [address] [place] [address] PCP - General Family Practice 08/19/20 documented as of this encounter
--- OUTSIDE RECORDS SUMMARY | 2025-01-20 21:06 | XMS_ITS | Encounter Summary ---
Author Organization [facility] Address [address], [place] [address] Care Team Providers Care Hammer Driver Name Role Phone Jane Monahan MD Primary Care Provider [phone] Encounter Details Date Type Department Care Team (Late st Contact Info) Description 02/11/2014 Consent for Procedure/Treatme nt [facility] INFORMED CONSENT RECORD Social History Tobacco Use Types Packs/Day Years Used Date Smoking Tobacco: Former Cigarettes 0.5 5 Smokeless Tobacco: Never Comments:quit 1979 Alcohol Use Standard Drinks/Week Comments No 0 [...] on filedocumented in this encounter Care Teams Hammer Driver Relationship Specialty [place] [address] [place] [address] PCP - General Family Practice 08/19/20 documented as of this encounter
--- OUTSIDE RECORDS SUMMARY | 2025-01-20 21:06 | XMS_ITS | Encounter Summary ---
Author Organization [facility] Address [address] [address] Care Team Providers Care Plan Examiner Name Role Phone Jane Monahan MD Primary Care Provider [phone] Encounter Details Date Type Department Care Team (Late st Contact Info) Description 11/15/2024 Results Follow-Up [address] [address] Roseann Minor MD [address] [place] [address] Social History Tobacco Use Types Packs/Day Years [...] on filedocumented in this encounter Care Teams Plan Examiner Relationship Specialty [place] [address] [place] [address] PCP - General Family Practice 08/19/20 documented as of this encounter
--- OUTSIDE RECORDS SUMMARY | 2025-01-20 21:06 | XMS_ITS | Encounter Summary ---
Author Organization [facility] Address [address], [place] [address] Care Team Providers Care Hot Stick Man Name Role Phone Jane Monahan MD Primary Care Provider Encounter Details Date Type Department Care Team (Latest Contact Info) Description 07/29/1999 [place] [address] [place], [place] [phone] Social History Tobacco Use Types Packs/Day Years [...] on filedocumented in this encounter Care Teams Hot Stick Man Relationship Specialty [place] [address] [place] [place], [place] [phone] PCP - General Family Practice 08/19/20 documented as of this encounter
--- OUTSIDE RECORDS SUMMARY | 2025-01-20 21:06 | XMS_ITS | Encounter Summary ---
Author Organization [facility] Address [address], [place] [address] Care Team Providers Care Wellness Trainer Name Role Phone Jane Monahan MD Primary Care Provider [phone] Encounter Details Date Type Department Care Team (Latest Contact Info) Description 04/14/1997 [place] [address] [place], [place] [phone] Social History Tobacco Use Types Packs/Day Years [...] on filedocumented in this encounter Care Teams Wellness Trainer Relationship Specialty [place] [address] [place] [place], [place] [phone] PCP - General Family Practice 08/19/20 documented as of this encounter
--- OUTSIDE RECORDS SUMMARY | 2025-01-20 21:06 | XMS_ITS ---
Author Name [facility] Address [address] [place] [address] [address] [place] [address] [facility] Address [facility] [address] [place] [address] Allergies and Adverse Reactions Plan Reason for Visit Encounters Medications Problems Vital Signs
--- OUTSIDE RECORDS SUMMARY | 2025-01-20 21:06 | XMS_ITS | Encounter Summary ---
[facility] Address [address] [address] Care Team Providers Care Electrical Prospecting Operator Name Role Phone Jane Monahan MD Primary Care Provider [phone] Reason for Visit * Reason Onset Date Comments Refill 12/30/2024 buPROPion (WELLB UTRIN) 75 MG tablet Encounter Details Date Type Department Care Team (Late st Contact Info) Description 12/30/2024 Refill [facility] [address] [place] [address] [place] [address] [place] [address] Refill (buPROPion (WELLBUTRIN) 75 MG tablet) Social History Tobacco Use Types Packs/Day Years [...] as of this encounter Nursing Notes * Lety Armendariz, RN - 01/01/2025 2:36 PM CDT Refilled per standing order. * Siomara Abrams - 12/30/2024 11:01 AM CDT buPROPion (WELLBUTRIN) 75 MG tablet Medication started: 11/01/2019 Last ordered by JANE MONAHAN S: 04/11/2024 (263 days ago) QTY: 90, Refills: 2, Sig: take 1 tablet daily (changed but equivalent) -> Refill x 12 months, qty: 90, refills: 3 (until due for an office visit) Last qualifying visit: 12/06/2024 (with JANE MONAHAN) Next scheduled visit: None Age: 74 [employer], Reference: [id number], 12/30/2024 11:01:26 AM CDT, Pool: WILL Refill Centralized Services - Primary Care ([id number]) documented in this encounter Plan of Treatment Not on file documented as of this encounter Visit Diagnoses Diagnosis Anxiety (HRC) Anxiety state, unspecified documented in this encounter Care Teams Electrical Prospecting Operator Relationship Specialty [place] [address] [place] [address] PCP - General Family Practice 08/19/20 documented as of this encounter
--- OUTSIDE RECORDS SUMMARY | 2025-01-20 21:06 | XMS_ITS | Encounter Summary ---
Author Organization [facility] Address [address] [address] Care Team Providers Care Senior Finance Manager Name Role Phone Jane Monahan MD Primary Care Provider [phone] Encounter Details Date Type Department Care Team (Latest Contact Info) Description 04/08/1997 Orders Only Amy Samaniego Social History Tobacco Use Types Packs/Day Years [...] on filedocumented in this encounter Care Teams Senior Finance Manager Relationship Specialty [place] [address] [place] [address] PCP - General Family Practice 08/19/20 documented as of this encounter
--- OUTSIDE RECORDS SUMMARY | 2025-01-20 21:07 | XMS_ITS | Clinical Summary ---
Author Organization [facility] Address [address] [place] [address] Care Team Providers Care Reeling And Tubing Machine Operator Name Role Phone Jane Monahan MD Primary Care Provider [phone] Allergies Active Allergy Reactions Criticality Noted Date Comments Blood Transfusion Related (Informational Only) Other (See Comments) High 08/24/2023 Patient has a history of a clinically significant antibody against RBC antigens. A delay in compatible RBCs may occur. Anti-K identified at [facility] on 08/24/23. Celecoxib GI Disturbance Low 10/10/2023 Stomach pain Medications buPROPion (WELLBUTRIN) 75 MG tablet Take 75 mg by mouth daily Active metoprolol tartrate (LOPRESSOR) 25 MG tablet Take 25 mg by mouth 2 times daily Active [place]-3 Fatty Acids (FISH OIL) 1200 MG capsule Take 1,200 mg by mouth daily Active Vitamin D3 (CHOLECALCIFEROL ) 25 mcg (1000 units) tablet Take 1 tablet by mouth 2 times daily Active Turmeric 500 MG TABS Take by mouth daily Active ondansetron (ZOFRAN ODT) 4 MG ODT tabIndications:P ain of right hip Take 1 tablet (4 mg) by mouth every 6 hours as needed for nausea or vomiting 15 tablet 4 Active Elemental iron 65 mg Vitamin C 125 mg (VITRON C) 65-125 MG TABS tabletIndication s:Pain of right hip,Hip dislocation, right, sequela Take 1 tablet by mouth daily (with breakfast) 60 tablet 1 4 Active omeprazole (PRILOSEC) [address] capsule Take 20 mg by mouth every other day Active rosuvastatin (CRESTOR) 5 MG tablet Take 5 mg by mouth daily Active melatonin 3 MG tablet Take 3 mg by mouth nightly as needed for sleep Active fexofenadine (AXEL) 60 MG tablet Take 30 mg by mouth daily as needed for allergies (0.5 x 60 mg = 30 mg) Active lactobacillus rhamnosus, GG, (CULTURELL) capsule Take 1 capsule by mouth daily Active acetaminophen (TYLENOL) 500 MG tabletIndication s:Status post revision of total hip replacement Take 1-2 tablets (500-1,000 mg) by mouth every 6 hours as needed for mild pain 4 Active aspirin 81 MG EC tabletIndication s:Status post revision of total hip Take 1 tablet (81 mg) by mouth 2 times daily 60 tablet 4 Active hydrOXYzine sari (VISTARIL) 25 MG capsule Take 25-50 mg by mouth 4 times daily as needed for other (muscle spasms) Take 1-2 capsules by mouth every 4-6 hours as needed for muscle spasms. 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 Joy, [facility] Bilateral shoulder region arthritis 08/22/2017 Resolved Problems Problem Noted Date Diagnosed Date Resolved Date Pain in thoracic spine 04/12/202303/01 Chronic bilateral low back p ain without sciatica 04/11/2023 03/01/2024 Hip pain 01/06/2022 03/01/2024 Immunizations Immunization Administration Dates Next Due Influenza (High Dose) Trivalent,PF (Fluzone) ,02/05/2018 Pneumo Conj 13-V (2010&after) 02/18/2019 TD,PF 7+ (Tenivac) 01/22/2003,11/23/1992 TDAP (Adacel,Boostrix) 09/05/2011 Zoster vaccine, live 02/15/2012 Family History Medical History Relation Comments Diabetes Father Hypertension Father Colon Cancer Mother cancerous polyp Hypertension Mother Relation Status Comments Father Mother Social History Tobacco Use Types Packs/Day Years Used Date Smoking Tobacco: Former Cigarettes Q uit: 1979 Smokeless Tobacco: Never Tobacco Cessation:Counseling Given: Not Answered Alcohol Use Standard Drinks/Week Comments Not Currently 0 (1 standard drink = 0.6 oz pur e alcohol) occ 2 glasses of wine yearly PHQ-2 Answer Date Recorded PHQ-2 Score 1 02/18/2019 Adolescent Education Answer Date Record ed Getting School Help Needed Not on file 02/07 Comments No Sex and Gender Information Value Date Recorded Sex Assigned at Not on file Legal Sex Female 4:43 AM EFFICIENCY CLERK Gender Identity Not on file Sexual Orientation Not on file Last Filed Vital Signs Vital Sign Reading Time Taken Comments Blood Pressure 114/53 10/10/2023 7:44 AM CDT Pulse 82 10/10/2023 7:44 AM CDT Temperature 36.9 C (98.4 F) 10/10/2023 7:44 AM CDT Respiratory Rate 16 10/10/2023 7:44 AM CDT Oxygen Saturation 94% 10/10/2023 7:44 AM CDT Inhaled Oxygen Concentration - - Weight 96.7 kg (213 lb 3.2 oz) 10/09/2023 6:00 P M CDT Height 160 cm (5' 3) 10/09/2023 6:00 PM CDT Body Mass Index 37.77 10/09/2023 6:00 PM CDT Plan of Treatment Health Maintenance Due Date Last Done Comments ANNUAL REVIEW OF HM ORDERS 1950 CT COLONOGRAPHY 1950 FIT 1950 FLEX SIG 1950 sDNA (Cologuard) 1950 LUNG CANCER SCREENING 09/09/2001 ZOSTER VACCINE (2 of 3) 04/11/2012 02/15/2012 FALL RISK ASSESSMENT 02/19/2020 02/18/2019, 11/01/19 MEDICARE ANNUAL WELLNESS VISIT 02/19/2020 02/18/2019, 08/26/2009, 05/10/2007, Additional history exists LIPID 02/23/2020 02/22/2019, 08/28/2017 DTAP/TDAP/TD VACCINE (2 - Td or Tdap) 09/04/2021 09/05/2011, 01/22/2003, 11/23/1992 ADVANCE CARE PLANNING 08/22/2022 08/22/2017 (Decline d) PHQ-2 (once per calendar year) 2024 02/18/2019, 10/31/2018, 10/31/2018, Additional history exists BMP 08/27/2024 08/28/2023, 05/0 08/2023, 08/26/2023, Additional history exists COVID-19 VACCINE (2024- season) 2024 02/08/2023, 02/23/2021, 06/29/2020 INFLUENZA VACCINE (#1) 2024 , 01/26/2023, 01/26/2022, Additional history exists MAMMO SCREENING 01/03/2026 01/04/2024, 12/23, 09/28/2022, Additional history exists RSV VACCINE (1 - 1-dose 75+ series) 09/09/2026 DIABETES SCREENING 10/09/2026 10/10/2023, 0 09/27/2023, 08/28/2023, Additional history exists COLONOSCOPY 12/14/2030 12/14/2020, 08/21/2015 COLORECTAL CANCER SCREENING 12/14/2030 DEXA 06/30/2037 06/30/2022 HEPATITIS C SCREENING Completed 09/08/2011, 012 PNEUMOCOCCAL VACCINE 50+ YEARS Completed 02/20/2020, 02/18/2019 HPV VACCINE (No Doses Required) Completed MENINGITIS VACCINE Aged Out No longer eligible based on patient's age to complete this topic Medical Devices Implanted Type Area Packer Denture Device Identifier Shelf Expiration Date Model / Serial / Lot Insert Actb 42mm 28mm E Hip X3 Adm Strl Lf [facility] 7236-2-848 - [id number] Implanted:Qt y: 1 on 08/24/2023 by Arian Palmer MD at [facility] Metallic Hardware/An chor Right: Hip [employer] 10/11/2027 7236-2-848 / / [id number] 6.5mm Low Profile Hex Scr 20mm - [id number] Implanted:Qt y: 1 on 08/24/2023 by Arian Palmer MD at [facility] Metallic Hardware/An chor Right: Hip [employer] 01/26/2025 3708-9381 / / [id number] 6.5mm Low Profile Hex Scr 20mm - [id number] Implanted:Qt y: 1 on 08/24/2023 by Arian Palmer MD at [facility] Metallic Hardware/An chor Right: Hip [employer] 09/01/2027 4265-1837 / / [id number] Imp Cable Dall Miles Beaded Cbl W/Sleeve Set 2mm 6704-0-520 - [id number] Implanted:Qt y: 1 on 09/27/2023 by Tom Henry MD at [facility] Metallic Hardware/An chor Right: Hip [employer] [id number] 04/06/2025 6704-0-520 / / [id number] Imp Cable Dall Miles Beaded Cbl W/Sleeve Set 2mm 6704-0-520 - [id number] Implanted:Qt y: 1 on 09/27/2023 by Tom Henry MD at [facility] Metallic Hardware/An chor Right: Hip [employer] [id number] 07/14/2025 6704-0-520 / / [id number] Insert Actb 42mm 28mm E Hip X3 Adm Strl Lf Mdm 7236-2-848 - [id number] Implanted:Qt y: 1 on 09/27/2023 by Tom Henry MD at [facility] Metallic Hardware/An chor Right: Hip [employer] [id number] 12/21/2027 7236-2-848 / / [id number] Shell Actb 52mm Hip Mlhl Tritanium Trdnt Ii E Strl - [id number] Implanted:Qt y: 1 on 08/24/2023 by Arian Palmer MD at [facility] Total Joint Component/I nsert Right: Hip [employer] 04/19/2028 709-04-52E / / [id number] Imp Insert Acet Strk Mdm Cocr Hip 0deg 42mm Sz E 626-00-42e - [id number] Implanted:Qt y: 1 on 08/24/2023 by Arian Palmer MD at [facility] Total Joint Component/I nsert Right: Hip [employer] 11/09/2027 626-00-42E / / [id number] Imp Head Femoral Snr Oxinium 04/06 28mm +4 [id number] - [id number] Implanted:Qt y: 1 on 08/24/2023 by Arian Palmer MD at [facility] Total Joint Component/I nsert Right: Hip [employer]R 01/20/2033 [id number] / / [id number] Modular Hip System Stm Lnth 115mm Dstl Elizabeth 19mm Implanted:Qt y: 1 on 09/27/2023 by Tom Henry MD at [facility] Total Joint Component/I nsert Right: Hip [employer] [id number] 04/25/2028 6276-7-419 / / [id number] Imp Stem Fem Mod Rev Hip Prox Body/[place] 21mm +20 6276-1-221 - [id number] Implanted:Qt y: 1 on 09/27/2023 by Tom Henry MD at [facility] Total Joint Component/I nsert Right: Hip [employer] [id number] 07/30/2025 6276-1-221 / / [id number] Imp Head Femoral Strk Biolox Delta Ceramic 28mm 0mm - [id number] Implanted:Qt y: 1 on 09/27/2023 by Tom Henry MD at [facility] Total Joint Component/I nsert Right: Hip [employer] [id number] 09/05/2027 6570-0-128 / / [id number] Procedures Procedure Name Priority Date/Time Associated Diagnosis Comments GLUCOSE Routine 10/10/2023 8:09 AM CDT BASIC METABOLIC PANEL Routine 08/28/2023 6:17 AM CDT LIPID REFLEX TO DIRECT LDL PANEL Routine 02/22/2019 9:22 AM CDT Lipid screening MAMMOGRAM - HIM SCAN Routine 09/01/2016 COLONOSCOPY - HIM SCAN Routine 08/21/2015 from Last 3 Months or Most Recently Relevant to Health Maintenance Results * (ABNORMAL) Glucose (10/10/2023 8:09 AM CDT) Glucose 149(H) 70 - 99 mg/dL 10/10/2023 8:57 AM CDT LABORATORY Patient Fasting > 8hrs? No 10/10/2023 8:57 AM CDT LABORATORY Blood STRUCTURE OF LEFT HAND / Unknown Venipuncture / Unknown 10/10/2023 8:09 AM CDT 10/10/2023 8:34 AM CDT us Tom Henry MD LAB - BLOOD ORDERABLES Final Result LABORATORY [facility] [address], [address] [place] [address], [facility] [phone] * (ABNORMAL) Basic metabolic panel (08/28/2023 6:17 AM CDT) Sodium 139 135 - 145 mmol/L 08/28/2023 7:00 AM CDT LABORATORY Comment:Reference intervals for this test were updated on 01/17/2023 to more accurately reflect our healthy population. There may be differences in the flagging of prior results with similar values performed with this method. Interpretation of those prior results can be made in the context of the updated reference intervals. Potassium 4.2 3.4 - 5.3 mmol/L 08/28/2023 7:00 AM CDT LABORATORY Chloride 102 98 - 107 mmol/L 08/28/2023 7:00 AM CDT LABORATORY Carbon Dioxide (CO2) 27 22 - 29 mmol/L 08/28/2023 7:00 AM CDT LABORATORY Anion Gap 10 7 - 15 mmol/L 08/28/2023 7:00 AM CDT LABORATORY Urea Nitrogen 12.1 8.0 - 23.0 mg/dL 08/28/2023 7:00 AM CDT LABORATORY Creatinine 0.54 0.51 - 0.95 mg/dL 08/28/2023 7:00 AM CDT LABORATORY GFR Estimate >90 >60 mL/min/1. 73m2 08/28/2023 7:00 AM CDT LABORATORY Calcium 8.2(L) 8.8 - 10.2 mg/dL 08/28/2023 7:00 AM CDT LABORATORY Glucose 132(H) 70 - 99 mg/dL 08/28/2023 7:00 AM T LABORATORY Blood STRUCTURE OF RIGHT HAND / Unknown Venipuncture / Unknown 08/28/2023 6:17 AM CDT 08/28/2023 6:31 AM CDT us Rehan Mandujano MD LAB - BLOOD ORDERABLES Final Result LABORATORY [facility] [address] Lab (1st floor, no room number) [place] [address], [facility] * (ABNORMAL) Lipid panel reflex to direct LDL Fasting (02/22/2019 9:22 AM CDT) Cholesterol 224(H) <200 mg/dL 02/22/2019 1:56 PM CDT [facility] Comment:Desirable: <200 mg/d l Triglycerides 98 <150 mg/dL 02/22/2019 1:56 PM CDT [facility] Comment:Fasting specimen HDL Cholesterol 74 >49 mg/dL 9 1:58 PM CDT [facility] LDL Cholesterol Calculated 130(H) <100 mg/dL 02/22/2019 1:58 PM CDT [facility] Comment: Above desirable: 100-129 mg/dl Borderline High: 130-159 mg/dL High: 160-189 mg/dL Very high: >189 mg/dl Non HDL Cholesterol 150(H) <130 mg/dL 02/22/2019 1:58 PM CDT [facility] Comment: Above Desirable: 130-159 mg/dl Borderline high: 160-189 mg/dl High: 190-219 mg/dl Very high: >219 mg/dl Blood specimen (specimen) 02/22/2019 9:22 AM CDT 02/22/2019 9:23 AM CDT us Chloe Martins MD LAB - BLOOD ORDERABLES Fi nal Result [facility] [address] [place] [address] [facility] [address] [place], [place] [address] [phone] * Mammogram - HIM Scan (09/01/2016) Anatomical Region Laterality Modality Other Narrative 09/01/2016 Please abstract the following data from this visit with this patient into the appropriate field in Epic: Mammogram done on this date: 09/01/16 (approximately), by this group: [facility], results were neg. us Provider Outside IMG MAMMOGRAPHY ORDERABLES Lexis l Result * Colonoscopy - HIM Scan (08/21/2015) Narrative Maria Ines Potter - 08/21/2015 Please abstract the following data from this visit with this patient into the appropriate field in Epic: Colonoscopy done on this date: 08/21/15 (approximately), by this group: [facility], results were neg. Patient Reported PROCEDURES Final Result from Last 3 Months or Most Recently Relevant to Health Maintenance Insurance MEDICARE /[employer] MEDICARE / Advance Directives For more information, please contact: [phone] * Full Code (Latest Code Status on File) Date Activated Date Inactivated Comments 10/09/2023 10:06 PM 10/10/2023 2:47 PM All basic a nd advanced life-sustaining interventions are performed as appropriate Question Answer Comments Code status determined by: Discussion with patie nt/ legal decision maker * Full Code Date Activated Date Inactivated Comments 09/27/2023 8:56 PM 09/29/2023 3:23 PM All basic and advanced life-sustaining interventions are performed as appropriate Question Answer Comments Code status determined by: Discussion with patie nt/ legal decision maker * Full Code Date Activated Date Inactivated Comments 08/24/2023 9:23 PM 08/28/2023 1:19 PM All basic and advanced life-sustaining interventions are performed as appropriate Question Answer Comments Code status determined by: Discussion with patie nt/ legal decision maker * Full Code Date Activated Date Inactivated Comments 08/24/2023 10:52 AM 08/24/2023 9:23 PM All basic and advanced life-sustaining interventions are performed as appropriate. Awaiting discussion with ortho surgeon. Question Answer Comments Code status determined by: Other (please heather love) Care Teams Reeling And Tubing Machine Operator Relationship Specialty Start Date End Date Jane Monahan MD PCP - General Family Medicine 03/02/22
--- OUTSIDE RECORDS SUMMARY | 2025-01-20 21:07 | XMS_ITS | Encounter Summary ---
Author Organization [facility] Address [address], [place] [address] Care Team Providers Care Vulnerability Researcher Name Role Phone Jane Monahan MD Primary Care Provider [phone] Reason for Visit * Reason Comments Verbal Orders Encounter Details Date Type Department Care Team (Late st Contact Info) Description 01/10/[address] [facility] [address] [place] [address] [place] [address] [place] [address] Verbal Orders Social History Tobacco [...] as of this encounter Nursing Notes * Ezra Sher LPN - 01/10/2025 9:36 AM CDT Called and spoke with Jacinta and aravind. Ezra Sher LPN 01/10/2025, 9:37 AM * Jane Monahan MD - 01/10/2025 9:32 AM CDT OK for What type of home care is being requested? Frequency/Duration of service Why is this home care needed (symptom/diagnosis)? Start date of service [facility] for 8 weeks and 4 add'l PRN visits Post [facility] Care 01/09/25 OK for 1) Metamucil powder once daily as needed 2) Miralax powder once daily as needed OK for Clean Wound with wound cleanser Pat dry with dry gauze Apply calcium aginate AG or equivalent to wound Cover with silicone bordered dressing S/O plans to change dressing every other day home care will not be in the home and home care will change during home care visits and as needed Jane Monahan MD 01/10/2025, 9:32 AM * Kymberly Martinez - 01/10/2025 8:26 AM CDT Orders - Home Care What type of home care is being requested? Frequency/Duration of service Why is this home care needed (symptom/diagnosis)? Start date of service [facility] 1x [facility] week for 8 weeks and 4 add'l PRN visits Post Hospital Care 01/09/25 Additional comments (related to the above concern): Verbal Okay for Following OTC Medications: 1) Metamucil powder once daily as needed 2) Miralax powder once daily as needed FYI: Prevena Wound Vac to Right Femur Order from hospital was to remove after 1 week (removed yesterday 01/09/25) Incision is very fragile and having bloody drainage so home care would like to initiate the following wound care and will need provider's verbal approval. Verbal Okay for Wound Care: Clean Wound with wound cleanser Pat dry with dry gauze Apply calcium aginate AG or equivalent to wound Cover with silicone bordered dressing S/O plans to change dressing every other day home care will not be in the home and home care will change during home care visits and as needed How would home care like to receive this order? Verbal Order Preferred communication method: Phone Call. Is it okay to leave a detailed message on your voicemail? Yes Is there anything else I can help you with today? No documented in this encounter Plan of Treatment Not on file documented as of this encounter Visit Diagnoses Not on filedocumented in this encounter Care Teams Vulnerability Researcher Relationship Specialty [place] [address] [place] [address] PCP - General Family Practice 08/19/20 documented as of this encounter
--- OUTSIDE RECORDS SUMMARY | 2025-01-20 21:08 | XMS_ITS ---
Author Name Interface, [id number] lity Address [address] [place] [address] [address] [place] [address] [facility] Address [facility] [address] [place] [address] Allergies and Adverse Reactions Plan Reason for Visit Encounters Medications Problems Vital Signs
--- OUTSIDE RECORDS SUMMARY | 2025-01-20 21:15 | XMS_ITS ---
Author Name Interface, [id number] lity Address [address] [place] [address] [address] [place] [address] [facility] Address [facility] [address] [place] [address] Allergies and Adverse Reactions Plan Reason for Visit Encounters Medications Problems Vital Signs
--- OUTSIDE RECORDS SUMMARY | 2025-01-20 21:15 | XMS_ITS | CCD ---
Author Name Interface, [id number] lity Address [address] [facility] [address] [address] Organization [facility] Address [address] [facility] [address] [address] Care Team Providers Care Ferry Terminal Supervisor Name Role Phone Velma VELA, Pattistsonny Unavailable Unavai lable Allergies and Adverse Reactions Medication/Group Name Reaction Severity Date No known allergies Reason for Visit OV 10 MIN Medications Date Name Route Dose Frequency Instructions Start Date End Date Status Fill Status Indication 01/13 Cholecalci ferol Oral active 01/13 Multivitam ins Oral Tablet active 07/21 Bupropion (XL) Oral 24 hr Tab active 01/13 Docosahexa noic Acid-Eicos apentanoic Acid Oral 120 mg-180 mg active 07/21 Omeprazole Oral Delayed Release Capsule PRN active 01/13 Metoprolol Oral (Tartrate) active 01/17 Rosuvastat in Calcium Oral active Problems Diagnosis Status Date of Diagnosis Resolution Date Dysplastic nevus of skin (disorder) Active Social History Date Name Value 07/13/2022 Sex Female
--- OUTSIDE RECORDS SUMMARY | 2025-01-20 21:16 | XMS_ITS | CCD ---
Author Name Interface, [id number] lity Address [address] [facility] [address] [address] [facility] Address [address] [facility] [address] [place] [address] Care Team Providers Care Skating Rink Ice Maker Name Role Phone Velma VELA, Geovani Unavailable Unavai lable Allergies and Adverse Reactions Reason for Visit Medications Problems Social History
== END 2025-01-20 21:03 | disposition left against medical advice (07) ==
LOC: ED 21:07
PROVIDERS: Emergency Provider Family Medicine
DX: Z53.21 Procedure and treatment not carried out due to patient leaving prior to being seen by health care provider (principal)